=== PATIENT | female | born 1960 | race Caucasian/White ===

== ENCOUNTER 2017-12-02 14:43 | Emergency (ER) | payer MEDICAID, SELFPAY ==
[2017-12-02 14:44] VITALS: BP 134/72; PULSE 98; RESP 24; TEMP 36.8; O2SAT 94; BMI 14.8
[2017-12-02 16:03] VITALS: O2SAT 94
--- NOTE | 2017-12-02 16:36 | EKG12_ITS ---
Test Reason : SOB Blood Pressure : / mmHG Vent. Rate : 093 BPM Atrial Rate : 093 BPM P-R Int : 118 ms QRS Dur : 080 ms QT Int : 352 ms P-R-T Axes : 087 074 080 degrees QTc Int : 437 ms Normal sinus rhythm Right atrial enlargement Borderline ECG Confirmed by TRACY NELSON ([id number]), online editor RACHANA YANG ([id number]) on 12/07/2017 10:13:12 AM Referred By: NICOLE Confirmed By:TRACY NELSON
--- NOTE | 2017-12-02 16:38 | ED.VISSUMM ---
- ER Visit Summary Date of Service: 12/02/17 Chief Complaint: Shortness of breath History of Present Illness: The patient is a 57 F who has a history of alpha-1 antitrypsin deficiency. She wears home oxygen 2 L. She states she does not wear it at work. She states that last night she did not sleep at all she has had a progressive shortness of breath. Today she was out of her albuterol rescue inhaler and her Spiriva. She states that she was too short of breath to go to the pharmacy. She went to stand up to go to work and felt very short of breath and lightheaded so she sat back down. So she came to the emergency department. No fevers. No recent viral infections. Physical Examination: Afebrile vital signs are stable Gen: Well-nourished well-developed Head: Normocephalic atraumatic Eyes: Perrl EOMI ENT: TMs clear no rhinorrhea moist mucous membranes Neck: Supple no lymphadenopathy no JVD nontender CVS: Regular rate rhythm no murmurs normal S1-S2 Respiratory: No distress diminished breath sounds bilaterally chest nontender Abdomen: Soft nontender nondistended normal bowel sounds no masses Back: Nontender Extremity: Nontender no edema Skin: Normal color no rash Neuro: alert orientated ?3 CN II-XII intact normal strength sensation reflexes gait cerebellar Psych: Patient appears very anxious Test Results: Chest x-ray with chronic changes basic blood work showed a CO2 of 36 Emergency Department Course and Treatment: Patient received a DuoNeb and Ativan. She is able to ambulate without oxygen to the bathroom at 92-93%. Start the patient on burst dose prednisone. She is to fill her prescriptions and follow-up with her doctors. Impression: 1. COPD exacerbation 2. Anxiety This note was generated with [employer] dictation software. It may contain incorrect words, spelling, and punctuation that were not noted in review of the chart prior to signing ED Disposition - Plan for ED Patient: Disposition: Home or Assisted Living Chief Complaint: Shortness of Breath Diagnosis: COPD with acute exacerbation Instructions: ED COPD Flare Prescriptions: Prednisone [Deltasone] 40 mg PO DAILY #8 tablet Referrals: Dariel Ortega Chi, MD [Primary Care Provider] - Jamar Carpenter DO [STAFF PHYSICIAN] - 3-5 Days if not improving
[2017-12-02 16:48] VITALS: PULSE 100; RESP 18; O2SAT 100
[2017-12-02] MEDS: Ipratropium/Albuterol Sulfate 3 ML AMPUL.NEB INHALATION (16:48)
--- NOTE | 2017-12-02 17:20 | RAD_ITS ---
STUDY: X-RAY CHEST REASON FOR EXAM: Female, 57 years old. Shortness of breath. COPD. TECHNIQUE: PA and lateral views of the chest. COMPARISON: March 15, 2017 FINDINGS: There is hyperinflation of the lungs consistent with chronic obstructive lung disease (COPD). There are granulomatous calcifications. There is blunting of the costophrenic angles with pleural thickening. Apical fibrotic densities. Normal size heart. Normal mediastinum and nader. Normal visualized pulmonary arteries. Normal visualized aortic arch and descending thoracic aorta. Normal visualized thoracic spine. Healed left rib fracture. There is no demonstrated abnormality of the visualized soft tissue structures of the upper abdomen. RAD/Chest PA and Lateral IMPRESSION: COPD and fibrotic densities. Electronically Signed: Antonio Alicia MD at 18:08 EST , Service support ,
[2017-12-02 17:25] LABS: Absolute Lymphocyte Count 0.93 X10^3/ul (0.83-4.51); Absolute Neutrophil Count 5.6 X10^3/uL (2.0-7.7); Basophil# 0.06 X10^3/uL; Basophil% 0.8 % (0-1); Eosinophil# 0.24 X10^3/uL; Eosinophils% 3.2 % (0-5); Hematocrit 41.3 % (37-47); Hemoglobin 12.7 g/dl (12.0-15.0); Lymphocyte # 0.93 X10^3/ul (4.0); Lymphocyte % 12.4 % (19-41); Mean Corp Hgb Conc 30.8 g/gl (32-36); Mean Corpuscular Hgb 30.8 pg (27.0-32.0); Mean Corpuscular Volume 100.2 fL (81-99); Mean Platelet Vol. 9.6 fl (6.2-12.0); Monocyte# 0.68 X10^3/uL; Monocyte% 9.1 % (0-10); Neutrophil # 5.59 X10^3/uL (2.7-7.7); Neutrophil % 74.4 % (47-70); Platelet Count 290 K/mm3 (150-450); RBC Distribution Width CV 12.7 % (11.6-14.6); RBC Distribution Width SD 45.9 fl (35.1-43.9); Red Blood Count 4.12 M/mm3 (4.2-5.4); White Blood Count 7.5 K/mm3 (4.4-11.0)
[2017-12-02 17:27] LABS: POSITIVE COUNT NO; POSITIVE DIFFERENTIAL NO; POSITIVE MORPHOLOGY NO
[2017-12-02] MEDS: LORazepam 2 MG/ML Syringe 0.5 MG IV (17:27)
[2017-12-02] MEDS: MethylPREDNISolone 125 MG/2 ML Vial IV (17:27)
[2017-12-02 17:36] LABS: Anion Gap 6 (5-15); BUN 5 mg/dL (7-18); BUN/Creat Ratio 11.8 RATIO (10-20); Calcium,Total 9.1 mg/dL (8.5-10.1); Chloride 99 mmol/L (98-107); Creatinine, Serum 0.42 mg/dL (0.55-1.02); EST Glomerular Filtration Rate 164 mL/min (>60); Est Glom Filt Rate - Afr Amer 199 mL/min (>60); Estimated Creatinine Clearance 106.21 ml/min; Glucose 90 mg/dL (70-110); Sodium Level 141 mmol/L (136-145)
[2017-12-02 18:53] VITALS: O2SAT 94
[2017-12-02 18:55] VITALS: BP 118/67; PULSE 52; RESP 16; O2SAT 99
== END 2017-12-02 19:31 | disposition home or self-care (01) ==
PROVIDERS: Emergency Provider Emergency Medicine; Family Provider Family Medicine Geriatric Medicine; PCP Family Medicine Geriatric Medicine
DX: J44.1 Chronic obstructive pulmonary disease with (acute) exacerbation (principal); F41.9 Anxiety disorder, unspecified; Z99.81 Dependence on supplemental oxygen
CPT/HCPCS: 71046; 80048; 85025; 93005; 94640; 96374; 96375; 99285; A4216

== ENCOUNTER 2018-02-06 13:11 | Emergency (ER) | payer MEDICAID, SELFPAY ==
[2018-02-06] VITALS (7 sets, daily range): BP systolic 109–138; BP diastolic 65–75; PULSE 97–101; RESP 16–22; TEMP 36.7; O2SAT 96–100; BMI 15.7
--- NOTE | 2018-02-06 13:17 | RAD_ITS ---
STUDY: X-RAY CHEST REASON FOR EXAM: Female, 57 years old. Increasing shortness of breath times several days TECHNIQUE: Single AP portable view of the chest. COMPARISON: 12/02/2017 FINDINGS: There is hyperinflation of the lungs consistent with chronic obstructive lung disease (COPD). Stable bibasilar scarring or atelectasis. No acute airspace disease. There is no demonstrated pleural abnormality. Normal size heart. Normal mediastinum and nader. Normal visualized pulmonary arteries. Normal visualized aortic arch and descending thoracic aorta. Normal visualized thoracic spine. Normal visualized ribs, clavicles, and shoulders. There is no demonstrated abnormality of the visualized soft tissue structures of the upper abdomen. RAD/Chest 1 View (Portable) IMPRESSION: Stable COPD without acute findings Electronically Signed: Russ Mcfadden DO at 14:10 EDT Tel , Service support ,
--- NOTE | 2018-02-06 13:17 | EKG12_ITS ---
Test Reason : SOB Blood Pressure : / mmHG Vent. Rate : 095 BPM Atrial Rate : 095 BPM P-R Int : 118 ms QRS Dur : 080 ms QT Int : 344 ms P-R-T Axes : 086 087 080 degrees QTc Int : 432 ms Normal sinus rhythm Right atrial enlargement Borderline ECG Confirmed by VICK MONTILLA, PAUL ([id number]), editorial clerk RACHANA YANG ([id number]) on 02/08/2018 1:24:23 PM Referred By: BRADEN Confirmed By:PAUL HICKMAN MD
--- NOTE | 2018-02-06 13:20 | ED.VISSUMM ---
- ER Visit Summary Date of Service: 02/06/18 Chief Complaint: Shortness of breath History of Present Illness: The patient is a 57 F presenting with shortness of breath which started last night. Patient has had a cough productive of clear sputum. She denies fever. She has right-sided chest wall pain with cough. She has dyspnea with exertion. She is on home O2 2 L. She has a history of alpha-1 antitrypsin deficiency. She sees Dr. Carpenter. She was a previous smoker. She also complains of anxiety. Denies other complaints. Physical Examination: Vitals are stable. Patient is afebrile. Alert no acute distress. HEENT exam is unremarkable. Neck is supple. Lungs are diminished bilaterally. Heart is regular rate and rhythm. Abdomen is soft nontender nondistended. Extremities are unremarkable. Skin is warm and dry. No focal neurologic deficit. Anxious Remainder of exam is unremarkable. Emergency Department Course and Treatment: Patient is given Solu-Medrol, albuterol, Atrovent. She was given Ativan p.o. EKG is sinus rate of 95. CBC normal except for hemoglobin 11.6. Chemistries unremarkable CO2 36, glucose 118, creatinine 0.46. Troponin is negative. D-dimer is 0.53. Due to elevated d-dimer, CTA chest was obtained. This shows no evidence of PE, COPD, anterior mediastinal mass. Patient is advised of these findings and importance of follow-up. She is given an albuterol MDI and prednisone prescription. Discussed with Dr. Carpenter and patient will follow-up in the office this week. She is advised return to ED for worsening complaints. Disposition: Discharge home Impression: COPD exacerbation, abnormal CT chest This note was generated with [employer] dictation software. It may contain incorrect words, spelling, and punctuation that were not noted in review of the chart prior to signing ED Disposition - Plan for ED Patient: Chief Complaint: Shortness of Breath Instructions: ED COPD Flare Prescriptions: Prednisone [Deltasone] 40 mg PO DAILY #10 tablet Referrals: Dariel Ortega Chi, MD [Primary Care Provider] -
[2018-02-06] MEDS: Ipratropium/Albuterol Sulfate 3 ML AMPUL.NEB INHALATION (13:27)
[2018-02-06] MEDS: Albuterol 2.5 MG/3 ML VIAL.NEB. INHALATION ×3 (13:27)
[2018-02-06] MEDS: MethylPREDNISolone 125 MG/2 ML Vial IV (13:46)
[2018-02-06 13:51] LABS: Absolute Lymphocyte Count 1.02 X10^3/ul (0.83-4.51); Absolute Neutrophil Count 4.7 X10^3/uL (2.0-7.7); Basophil# 0.07 X10^3/uL; Eosinophil# 0.25 X10^3/uL; Eosinophils% 3.6 % (0-5); Hematocrit 36.7 % (37-47); Hemoglobin 11.6 g/dl (12.0-15.0); Lymphocyte # 1.02 X10^3/ul (4.0); Lymphocyte % 14.6 % (19-41); Mean Corp Hgb Conc 31.6 g/gl (32-36); Mean Corpuscular Hgb 32.3 pg (27.0-32.0); Mean Corpuscular Volume 102.2 fL (81-99); Mean Platelet Vol. 9.6 fl (6.2-12.0); Monocyte# 0.95 X10^3/uL; Monocyte% 13.6 % (0-10); Neutrophil # 4.71 X10^3/uL (2.7-7.7); Neutrophil % 67.1 % (47-70); Platelet Count 295 K/mm3 (150-450); RBC Distribution Width CV 12.8 % (11.6-14.6); RBC Distribution Width SD 46.8 fl (35.1-43.9); Red Blood Count 3.59 M/mm3 (4.2-5.4)
[2018-02-06 13:52] LABS: POSITIVE COUNT NO; POSITIVE DIFFERENTIAL NO; POSITIVE MORPHOLOGY NO
[2018-02-06 14:08] LABS: Anion Gap 5 (5-15); BUN 8 mg/dL (7-18); BUN/Creat Ratio 17.2 RATIO (10-20); Chloride 98 mmol/L (98-107); Creatinine, Serum 0.46 mg/dL (0.55-1.02); D-Dimer Quantitative (DVT/PE) 0.53 FEU/ug/m (0.27-0.49); EST Glomerular Filtration Rate 148 mL/min (>60); Est Glom Filt Rate - Afr Amer 179 mL/min (>60); Estimated Creatinine Clearance 102.31 ml/min; Glucose 118 mg/dL (74-106); Potassium 4.4 mmol/L (3.5-5.1); Sodium Level 139 mmol/L (136-145)
--- NOTE | 2018-02-06 14:09 | CT_ITS ---
STUDY: CTA CHEST REASON FOR EXAM: Female, 57 years old. Elevated D dimer and chest pain and shortness of breath RADIATION DOSAGE (If Supplied By Facility): CTDIvol = ( 3.31 ) mGy, DLP = ( 171.33 ) mGycm TECHNIQUE: The examination was performed with the intravenous administration of 75ML ml of Isovue 370 contrast material. Post-processing of the angiographic images was performed, with multiplanar reformation and 3D reconstruction. Individualized dose optimization techniques were used for this CT. COMPARISON: None. FINDINGS: Unremarkable thyroid Normal enhancement of the main pulmonary artery and right and left pulmonary arteries. Normal enhancement of the bilateral peripheral pulmonary arteries. There is no demonstrated pulmonary embolism. Normal thoracic aorta and visualized great vessels. There is no demonstrated aortic dissection. Normal heart and pericardium. Coronary artery disease. There is a anterior mediastinal mass measuring 4.2 x 5.3 cm. Normal hilar regions. Normal visualized trachea and bronchi. Severe COPD and emphysema throughout the lungs. No acute airspace disease. Fibronodular thickening in the lung apices. Pleural based nodule in the left lower lobe superiorly measuring 6 mm. Normal pleura. Normal chest wall structures. There are degenerative changes of thoracic spine. Normal visualized upper abdomen. CT/CTA Chest W/WO Contrast IMPRESSION: 1. Negative for pulmonary embolism or thoracic aortic dissection 2. Severe COPD and emphysema. Lungs are clear. Superior segment left lower lobe pulmonary nodule along the fissure. 3. Suspicious and heterogeneously enhancing anterior mediastinal mass as detailed above. Malignancy cannot be excluded. Electronically Signed: Russ Mcfadden DO at 15:29 EDT Tel , Service support ,
--- NOTE | 2018-02-06 14:22 | ED.RN ---
ddimer 0.[address] called from the lab. dr patel aware
[2018-02-06] MEDS: LORazepam 0.5 MG Tablet PO (14:29)
--- NOTE | 2018-02-06 15:56 | ED.DEP ---
ED Disposition - Plan for ED Patient: Chief Complaint: Shortness of Breath Instructions: ED COPD Flare Prescriptions: Prednisone [Deltasone] 40 mg PO DAILY #10 tablet Referrals: Dariel Ortega Chi, MD [Primary Care Provider] -
== END 2018-02-06 16:28 | disposition home or self-care (01) ==
PROVIDERS: Emergency Provider Emergency Medicine; Family Provider Family Medicine Geriatric Medicine; PCP Family Medicine Geriatric Medicine
DX: J44.1 Chronic obstructive pulmonary disease with (acute) exacerbation (principal); R91.8 Other nonspecific abnormal finding of lung field; Z99.81 Dependence on supplemental oxygen; E88.01 Alpha-1-antitrypsin deficiency; Z87.891 Personal history of nicotine dependence
CPT/HCPCS: 71045; 71275; 80048; 84484; 85025; 85379; 93005; 94640; 99285; Q9967; A4216

== ENCOUNTER → 2018-02-17 12:12 | Outpatient (CLI) | payer MEDICAID, SELFPAY ==
[2018-02-17 13:36] LABS: Absolute Lymphocyte Count 1.46 X10^3/ul (0.83-4.51); Absolute Neutrophil Count 5.7 X10^3/uL (2.0-7.7); Basophil# 0.06 X10^3/uL; Basophil% 0.7 % (0-1); Eosinophil# 0.48 X10^3/uL; Eosinophils% 5.3 % (0-5); Hematocrit 43.3 % (37-47); Lymphocyte # 1.46 X10^3/ul (4.0); Lymphocyte % 16.2 % (19-41); Mean Corpuscular Hgb 30.6 pg (27.0-32.0); Mean Corpuscular Volume 101.9 fL (81-99); Mean Platelet Vol. 9.9 fl (6.2-12.0); Monocyte# 1.29 X10^3/uL; Monocyte% 14.3 % (0-10); Neutrophil # 5.71 X10^3/uL (2.7-7.7); Neutrophil % 63.4 % (47-70); Platelet Count 295 K/mm3 (150-450); RBC Distribution Width CV 12.9 % (11.6-14.6); RBC Distribution Width SD 48.6 fl (35.1-43.9); Red Blood Count 4.25 M/mm3 (4.2-5.4)
[2018-02-17 13:42] LABS: POSITIVE COUNT NO; POSITIVE DIFFERENTIAL NO; POSITIVE MORPHOLOGY NO
[2018-02-17 13:46] LABS: International Normalized Ratio 1.1; Prothrombin Time (Protime)PT. 13.7 SECONDS (11.7-14.9)
[2018-02-17 13:47] LABS: Partial Thromboplast Time 27.6 Seconds (24.1-36.2)
== END ==
PROVIDERS: Family Provider Family Medicine Geriatric Medicine; PCP Family Medicine Geriatric Medicine; Visit Provider Nurse Practitioner Acute Care
DX: R91.8 Other nonspecific abnormal finding of lung field (principal)
CPT/HCPCS: 36415; 85025; 85610; 85730

== ENCOUNTER → 2018-02-22 08:27 | Outpatient (CLI) | payer MEDICAID, SELFPAY ==
--- NOTE | 2018-02-22 | IMM_PTH ---
PATIENT: OLIVE MAZARIEGOS LOC: CT U#:[id number] AGE/SX: 64/F ROOM: RE02/22/[address]: POLA Wharton : 1960 BED: DIS: SPEC #: [id number] RECD: 02/23/18 10:00 STATUS: JEAN-PIERRE REOlivia #: [id number] ADRIANNA: 02/22/18 00:[address]: Betty Banerjee NP DEPT: IMMUNOHISTOCHEMISTRY RECD BY: Juanita Vallejo ENTERED: 02/23/18 10:04 SP TYPE: IMMUNO OTHR DR: Dr. Dariel Ortega MD Tissues: Lung, NOS Procedures: Synapto (add) CD56 (add) CHROMO (add) CK20 (add) CK7 (add) CK8 (add) CD45 (initial) PHYSICIAN & INSTITUTION [place] [phone] SPECIMEN INFORMATION: Tissue Source: Anterior lung/mediastinal mass Clinical Info: Lung/mediastinal mass Specimen Number: [id number] CPT code: 32872, 98249 x6 METHODOLOGY: Deparaffinized sections of prefer/formalin-fixed tissue or PAP/DQ stained slides are incubated with monoclonal/polyclonal antibodies/oligonucleotide probes. Localization is made via biotin free immunoperoxidase method. Appropriate controls are performed and reacted as expected. Results on target cell population are indicated in the following table: RESULTS: ANTIBODY / CLONE RESULT CD45 (RP2/18) negative CK8 (00enkyE43) positive CK7 (OV-TL12/30) positive Chromo (LK2H10) positive Synapto (polyclonal) positive CD56 (123C3.D5) positive CK20 (KS20.8) negative These tests were developed and their performance characteristics determined by [facility]. They may not have been cleared or approved by the U.S. Food and Drug Administration. The FDA has determined that such clearance or approval is not necessary. INTERPRETATION: Anterior lung/mediastinal mass, CT-guided core biopsy: Consistent with small cell carcinoma. SJ:ijeoma 02/24/18
--- NOTE | 2018-02-22 | ASPIGT_PTH ---
PATIENT: OLIVE MAZARIEGOS LOC: [place] U#:[id number] AGE/SX: 64/F ROOM: RE02/22/[address]: POLA Wharton : 1960 BED: DIS: SPEC #: [id number] RECD: 02/22/18 10:54 STATUS: JEAN-PIERRE BRITTNEE #: [id number] ADRIANNA: 02/22/18 00:[address]: Betty Banerjee NP DEPT: SURGICAL PATHOLOGY RECD BY: David Beverly ENTERED: 02/22/18 10:56 SP TYPE: ASP RAD OTHR DR: Dr. Dariel Ortega MD Tissues: Lung, NOS Procedures: FNA Specimen Adequacy Special Stain Group II Surgery Specimen Level IV Diff Quik Stain (control) Imprint (control) HEADER OPERATION: CT-guided lung biopsy PRE-OP DIAGNOSIS: Lung/mediastinal mass TISSUE SUBMITTED: 20 gauge core x5, lung/anterior mediastinal mass, core biopsy MICROSCOPIC DIAGNOSIS Lung/anterior mediastinal mass, CT-guided core biopsy: Consistent with small cell carcinoma. See comment. RENATE:ijeoma 02/23/18 COMMENT The specimen is evaluated at the time of biopsy by Dr. Chaudhry. 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 Differential diagnosis includes lymphoma vs small cell carcinoma. One core is saved for flow if needed. Immunohistochemistry ([id number]) supports the above diagnosis. Case has been reviewed in consultation with Dr. Cuadra who concurs with the above diagnosis. IDC:AM MICROSCOPIC DESCRIPTION Slides are reviewed. GROSS DESCRIPTION Received in fixative is one container labeled with the patient's name and designated lung/mediastinal mass, CT-guided core biopsy. The specimen consists of multiple irregular fragments of patel soft tissue that in aggregate measure 0.5 x <0.1 x <0.1 cm. The specimen is totally submitted in one cassette. Two touch imprints are prepared at the time of core biopsy and one core is also saved for flow cytometry study in case it is needed. / RENATE:ijeoma 02/22/18 The tissue saved for flow cytometry studies is submitted in cassette #2, a cell block is also made from the fluid. / RENATE 02/23/18. TC:0 CPT: 33271, 13727
--- NOTE | 2018-02-22 08:33 | CT_ITS ---
PROCEDURE: CT GUIDED CORE NEEDLE BIOPSY OF An anterior mediastinal mass INDICATION: Female, 57 years old. Anterior mediastinal mass. PHYSICIAN: Dr.Pedicelli Henrietta Ceballos CONSENT: Written informed consent was obtained having explained the risks, benefits and alternatives in detail with the patient who accepted the risks and agreed to proceed. Laboratory review and clinical assessment was performed. CONSCIOUS SEDATION PROTOCOL: The Drugs used were: 1 mg Versed, IV., and 25 mcg Fentanyl, IV. The sedation time was: 17 minutes. Conscious sedation was started at 10:10 AM and terminated at 10:27 AM. The conscious sedation protocol was independently monitored. RADIATION DOSAGE (If Supplied By Facility): CTDIvol = ( 12 ) mGy, DLP = ( 268.34 ) mGycm Individualized dose optimization techniques were used for this CT. TECHNIQUE: The patient was placed in the supine position. A noncontrast CT was performed to localize the lesion in the anterior mediastinum . The skin surface was prepped and draped in a sterile fashion. 1% lidocaine was used for local anesthesia. Using CT guidance, a 20-gauge coaxial biopsy device was advanced to the periphery of the lesion. A total of 5 core specimens were obtained. The specimens were placed in a formalin solution. A post procedure CT demonstrated no adverse sequelae or pneumothorax. The patient tolerated the procedure well without adverse event. A negative biopsy does not exclude malignancy. Further imaging or clinical followup based on patient condition and degree of clinical suspicion for malignancy. Suggest rebiopsy, if biopsy results do not match with clinical scenario. CT/Biopsy/Inj or Needle Placement IMPRESSION: 1. CT directed core needle biopsy of the anterior mediastinal mass using CT image guidance with image documentation as described. Pathology results are pending. 2. Conscious Sedation protocol utilized with independent monitoring. Electronically Signed: Matt Logan MD at 12:40 EDT Tel [phone], Service support ,
[2018-02-22 09:27] VITALS: BP 132/56; PULSE 101; RESP 24; TEMP 37.2; O2SAT 99; BMI 14.1
--- NOTE | 2018-02-22 10:45 | RAD_ITS ---
STUDY: X-RAY CHEST REASON FOR EXAM: Female, 57 years old. Post anterior mediastinal biopsy. TECHNIQUE: Frontal inspiration and expiration views were obtained. COMPARISON: Comparison is made with prior study dated February 06, 2018. FINDINGS: The patient is status post left anterior mediastinal biopsy. There is no evidence of pneumothorax. RAD/Chest Insp/Exp 2 View IMPRESSION: No evidence of pneumothorax on the post biopsy radiograph. Electronically Signed: Matt Logan MD at 12:52 EDT Tel [phone], Service support ,
[2018-02-22 13:30] VITALS: BP 130/64; PULSE 102; RESP 20; O2SAT 100
== END ==
PROVIDERS: Family Provider Family Medicine Geriatric Medicine; PCP Family Medicine Geriatric Medicine; Visit Provider Nurse Practitioner Acute Care
DX: C34.90 Malignant neoplasm of unspecified part of unspecified bronchus or lung (principal); R91.8 Other nonspecific abnormal finding of lung field
CPT/HCPCS: 32405; 71046; 77012; 88172; 88305; 88313; 88341; 88342; 99156; 99157; J7040; A4216

== ENCOUNTER → 2018-03-01 12:48 | Outpatient (CLI) | payer MEDICAID, SELFPAY ==
--- NOTE | 2018-03-01 13:10 | RAD_ITS ---
STUDY: X-RAY CHEST REASON FOR EXAM: Female, 57 years old. Dyspnea TECHNIQUE: PA and lateral views of the chest. COMPARISON: Previous study of 02/22/2018 FINDINGS: The lungs are hyperinflated. There is a calcified granuloma of the left upper lobe. There is hemidiaphragmatic flattening. There is an increased retrosternal airspace. Normal size heart. There is anterior mediastinal mass measuring approximately 8.4 x 5.1 cm. Normal visualized pulmonary arteries. Normal visualized aortic arch and descending thoracic aorta. Normal visualized thoracic spine. Normal visualized ribs, clavicles, and shoulders. There is no demonstrated abnormality of the visualized soft tissue structures of the upper abdomen. RAD/Chest PA and Lateral IMPRESSION: Hyperinflation of the lungs, hemidiaphragmatic flattening, and increased retrosternal airspace consistent with COPD. There is an anterior mediastinal mass measuring approximately 8.4 x 5.1 cm. There is a small calcified granuloma of the left upper lobe. There is no pneumothorax. Electronically Signed: Uriel Sommer MD at 18:06 EDT , Service support ,
== END ==
PROVIDERS: Family Provider Family Medicine Geriatric Medicine; PCP Family Medicine Geriatric Medicine; Visit Provider Nurse Practitioner Acute Care
DX: J44.9 Chronic obstructive pulmonary disease, unspecified (principal)
CPT/HCPCS: 71046

== ENCOUNTER → 2018-03-07 10:37 | Outpatient (CLI) | payer MEDICAID, SELFPAY ==
--- NOTE | 2018-03-07 11:00 | PET_ITS ---
EXAMINATION: FDG PET CT INDICATIONS: A 57-year-old female with reported history of carcinoma of the lung presenting for initial staging examination. COMPARISON EXAMINATION: CT of the chest report dated 02/06/18. INDEX LESION SIZE SUV INTERPRETATION Pre-carinal level anterior mediastinum, left thoracic perihilum 59.2 mm x 45.7 mm largest (frame 197) 8.5 (max) Fulfills quantitative criteria for viable neoplasm Left lobe hepatic parenchyma segment IV a 10.2 mm (frame 135) 3.2 ratio R 2.0 Fulfills borderline quantitative criteria for viable neoplasm, correlation with magnetic resonance imaging may be of benefit TECHNIQUE: Following the intravenous administration of 13.55 mCi of F-18 deoxyglucose via the left antecubital fossa, multiplanar image acquisitions of the neck, chest, abdomen and pelvis to level of mid thigh, obtained at one hour post radiopharmaceutical administration contemporaneously interpreted with the current CT of the neck, chest, abdomen and pelvis to level of mid thigh, dated 03/07/[address] of the chest report dated 02/06/18 reveal: SERUM GLUCOSE LEVEL: 105 mg/dl. HEIGHT: 68 inches. WEIGHT: 95 lbs. FINDINGS: 1. Increased glucose metabolism is manifest in the pre-carinal level anterior mediastinum and left thoracic perihilum generating a calculated maximum standard uptake value of 8.5. The maximal axial diameter of the corresponding metabolic, morphologic abnormality on review of CT of the thorax dated 03/07/18 is 59.2 mm (transverse) x 45.7 mm (AP). 2. A single focus of increased glucose concentration is demonstrated in the left lobe of the hepatic parenchyma (2.1) involving segment IV a generating a calculated maximum standard uptake value of 3.2 with a lesion to liver background ratio approximating 2.0. The maximal axial diameter of the metabolic abnormality on review CT of the abdomen dated 03/07/18 is 10.2 mm (transverse). 3. Normal physiologic distribution of the radiopharmaceutical is apparent in the splenic parenchyma, both renal units, bladder and visualized intestinal tract. There is symmetric and preserved glucose metabolism noted in the visualized portion of the frontal, occipital, temporal and parietal lobes of the cerebral cortex, as well as cerebral hemispheres and basal ganglia. Diffuse intestinal tract activity is noted throughout all four quadrants of the abdominal-pelvic retroperitoneum, mesentery consistent with normal physiologic distribution of the radiopharmaceutical. Prominent glucose metabolism is defined at the level of the nasopharynx contiguous to the longus capitis musculature. Pertinent CT findings are as follows. CHEST: Emphysematous change is noted in the bilateral upper-lower lung zones. Parenchymal densities defined in the bilateral hemithorax demonstrate no evidence of quantitatively significant increased glucose metabolism. Atherosclerotic calcification is defined in the thoracic aorta without evidence of dilatation, aneurysm formation. Right-left axillary soft tissue densities are ametabolic. ABDOMEN AND PELVIS: Atherosclerotic calcification is defined in the abdominal aorta without evidence of dilatation, aneurysm formation. Pelvic arterial calcification is observed. Calcified granuloma formation is noted within the splenic parenchyma. Calcification is defined in the right kidney. Bilateral inguinal soft tissue densities are non-glucose avid. SKELETAL: Degenerative changes defined in the cervical, thoracic and lumbar spine demonstrate no evidence for glucose hypermetabolism. PET/PET/CT Tumor Base -Thigh Init IMPRESSION: 1. ABNORMAL EXAMINATION INDICATIVE OF MALIGNANT VIABLE NEOPLASM. 2. Increased glucose concentration defined in the pre-carinal level anterior mediastinum and left thoracic perihilum fulfills quantitative criteria for viable neoplasm. (Barb et al, Journal of Clinical Oncology 16:2142, 1998). 3. Facilitated glucose concentration observed in the left lobe hepatic parenchyma fulfills borderline quantitative criteria for viable neoplasm. (Yesica et al, Archives of Surgery, 133:510 1998). Correlation with magnetic resonance imaging utilizing Gd-EOB-DTPA may be of benefit for further evaluation. (Rejiati et al, J Nucl Med 51: 692, 2010). Electronic Signature Eduin Barron D.O. Electronically Signed: Eduin Barron DO at 23:53 EDT Tel , Service support ,
== END ==
PROVIDERS: Family Provider Family Medicine Geriatric Medicine; PCP Family Medicine Geriatric Medicine; Visit Provider Nurse Practitioner Acute Care
DX: C78.1 Secondary malignant neoplasm of mediastinum (principal); C80.1 Malignant (primary) neoplasm, unspecified
CPT/HCPCS: 78815; A9552; A4216

== ENCOUNTER → 2018-03-11 13:24 | Outpatient (CLI) | payer MEDICAID, SELFPAY ==
--- NOTE | 2018-03-11 13:29 | VDLE_ITS ---
Reason For Study: LEG SWELLING RIGHT GSV is normal. CFV is compressible, spontaneous, phasic, competent and demonstrates normal augmentation. FV is compressible, spontaneous, phasic, competent and demonstrates normal augmentation. POP V is compressible, spontaneous, phasic, competent and demonstrates normal augmentation. T/P Trunk is compressible. PTV is compressible. RT PerV is compressible. Procedure Exam performed in department. A preliminary report was called and/or faxed to Dr. Garduno. Interpretation Summary Deep veins of the right lower extremity are patent and compressible segmentally. There is no evidence of right lower extremity deep vein thrombosis. Valvular competence appears intact within the proximal deep venous system on the right . The right greater saphenous vein appears patent and compressible segmentally. Ordering Physician: Nathan Garduno Referring Physician: Dariel Ortega Chi Performed By: Apple Ruggiero RVT
== END ==
PROVIDERS: Family Provider Family Medicine Geriatric Medicine; PCP Family Medicine Geriatric Medicine; Visit Provider Internal Medicine Medical Oncology
DX: R60.9 Edema, unspecified (principal)
CPT/HCPCS: 93971

== ENCOUNTER 2018-03-14 05:49 | Day surgery (SDC) | payer MEDICAID, SELFPAY ==
[2018-03-14 06:21] VITALS: BP 99/34; PULSE 96; RESP 18; TEMP 36.8; O2SAT 100; BMI 14.1
[2018-03-14] MEDS: Cefazolin 2 GM in 0.9% Normal Saline 100 ML IV (08:20)
[2018-03-14] MEDS: Bupivacaine Mpf 0.5% 30 ML VIAL (08:45)
[2018-03-14 09:12] VITALS: BP 144/69; BP 99/34; PULSE 93; RESP 18; TEMP 36.5; O2SAT 100
[2018-03-14 09:17] VITALS: BP 138/71; BP 99/34; PULSE 94; RESP 18; O2SAT 100
--- NOTE | 2018-03-14 09:21 | RAD_ITS ---
STUDY: X-RAY CHEST REASON FOR EXAM: Female, 57 years old. Port placement TECHNIQUE: Single AP portable view of the chest. COMPARISON: 03/01/2018 FINDINGS: Implanted central catheter is seen overlying the right chest with the tip in the SVC. There is no pneumothorax. The lungs are hyperinflated. There is no demonstrated pleural abnormality. Normal size heart. Mediastinal mass is unchanged. Normal visualized pulmonary arteries. Normal visualized aortic arch and descending thoracic aorta. There are diffuse degenerative changes of the visualized thoracic spine. Remote left rib fracture is seen. There is no demonstrated abnormality of the visualized soft tissue structures of the upper abdomen. RAD/CXR for Line Placement IMPRESSION: New implanted port without pneumothorax. Hyperinflation. Mediastinal mass is unchanged. Electronically Signed: Alex Alvarez DO at 9:51 EDT Tel , Service support ,
[2018-03-14 09:22] VITALS: BP 131/68; BP 99/34; PULSE 98; RESP 18; O2SAT 100
--- NOTE | 2018-03-14 09:22 | PCM.DC.POR ---
Discharge Diet: No Restrictions - Pain medication may cause nausea. You should typically eat light foods as you take your pain medication. Discharge Activity: Return to Normal Activity, May Shower - with your bandage in place in 1-2 days after surgery. DO NOT SHOWER WHEN YOUR PORT IS ACCESSED. Call your doctor if your incision/area has: Continuous Slow Oozing, Sudden Increased Bleeding, Increased Pain/ Swelling, Increased Redness Call your doctor if you observe: Fever of 101 or Higher Remove Dressing in (days):: 2 - OK TO USE WEDNESDAY Allergies/Adverse Reactions: Allergies morphine Allergy (Verified 03/11/18 15:57) Itching Medications to take at Discharge Cyanocobalamin [Vitamin B12] 500 mcg PO DAILY@0800 09/06/16 Multivitamins,Therapeutic [Multivitamin] 1 tab PO DAILY 09/06/16 Tiotropium [place] [Spiriva] 18 mcg IH DAILY #1 cap.w.dev 03/17/17 Ergocalciferol [Vitamin D] 50,000 unit PO QMONTH 07/31/17 Paroxetine HCl [Paxil] 40 mg PO DAILY 07/31/17 fluticasone 50 mcg/actuation nasal spray,suspension 50 mcg INTRANASAL QDAY PRN 12/06/17 albuterol sulfate 2.5 mg/3 mL (0.083 %) solution for nebulization 2.5 mg INHALATION 4X/DAY PRN 30 Days #180 vial 02/17/18 albuterol sulfate HFA 90 mcg/actuation aerosol inhaler 1 - 2 puff INHALATION Q4H PRN PRN #1 inhaler 02/17/18 budesonide-formoterol HFA 160 mcg-4.5 mcg/actuation aerosol inhaler 2 puff INHALATION BID #1 hfa.aer.ad 02/17/18 Primary Care Physician: Dariel Ortega Chi, MD [Primary Care Provider] - Please Follow Up With: Estevan Liriano MD When: call to make 7-10 day appt for suture removal [phone]
--- NOTE | 2018-03-14 09:23 | PCM.OPRPT ---
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 Ultrasound was used to evaluate both IJ is in the right IJ was selected. Next, using a needle, the right IJ was accessed and a guidewire was passed on into the superior vena cava under fluoroscopy guidance. A small incision was made over the puncture site and the dilator introducer was placed over the guidewire. Next this was capped and the pocket was made for the port. 1% lidocaine with epinephrine was injected in the proposed port site. The port site had to be very low on the chest due to her low weight and small amount of subcutaneous tissue. There were a lot of bony protuberances up toward the clavicle so this was made in the mid chest. An incision was made with scalpel. Electrocautery was used to make a pocket under the skin and subcutaneous tissue. Hemostasis was obtained. Next, the catheter was tunneled up to the neck incision site and placed through the introducer. The peel-away introducer was removed and the position of the catheter was confirmed on fluoroscopy. Next, the catheter was trimmed and attached to the port with the locking device. Interrupted 2-0 Vicryls were used to anchor the port to the chest wall and then the port was placed inside the pocket. The pocket was then flushed with saline and the port irrigated with saline. There was good blood return and the port flushed easily. Next, heparin was injected into the port. The skin was closed with subcutaneous interrupted 3-0 Vicryl sutures and interrupted skin 3-0 nylon sutures. A single 3-0 Vicryl sutures placed under the skin at the neck incision site. Steri-Strips were placed as well as op sites. Patient tolerated procedure well, was taken to PACU in stable condition. Chest x-ray will be obtained. Grafts/Implants Used: 6 [place] Low Profile PowerPort
[2018-03-14 09:27] VITALS: BP 121/65; BP 99/34; PULSE 93; RESP 18; TEMP 36.3; O2SAT 100
[2018-03-14 10:01] VITALS: BP 99/34
== END 2018-03-14 10:38 | disposition home or self-care (01) ==
LOC: SDC 05:49 → AC 05:50
PROVIDERS: Family Provider Family Medicine Geriatric Medicine; PCP Family Medicine Geriatric Medicine; Visit Provider Surgery
PROC: (CPT 36561; principal; 2018-03-14 08:00)
DX: Z45.2 Encounter for adjustment and management of vascular access device (principal); C78.1 Secondary malignant neoplasm of mediastinum; C34.90 Malignant neoplasm of unspecified part of unspecified bronchus or lung; F41.9 Anxiety disorder, unspecified; J44.9 Chronic obstructive pulmonary disease, unspecified; K21.9 Gastro-esophageal reflux disease without esophagitis; Z87.891 Personal history of nicotine dependence
CPT/HCPCS: 00532; 36561; 71045; 77001; J7120; C1788

== ENCOUNTER → 2018-03-19 09:08 | Outpatient (CLI) | payer MEDICAID, SELFPAY ==
--- NOTE | 2018-03-19 09:15 | MRI_ITS ---
STUDY: MRI BRAIN WITH AND WITHOUT CONTRAST REASON FOR EXAM: Female, 57 years old. New Small cell lung CA diagnosis, dizziness TECHNIQUE: Standardized multiplanar fat and water weighted pulse sequences were obtained. 5 ml of Gadavist contrast material was administered intravenously for the contrast portion of the examination. COMPARISON: None. FINDINGS: Normal size of the ventricles and extra-axial spaces for the patient's age. Normal white matter tracts of the supratentorial brain. Normal bilateral basal ganglia. Normal thalami. There is no extra-axial fluid accumulation. Normal flow voids within the major intracranial circulation suggesting patency by spin echo criteria. Normal venous enhancement. There is no enhancing intra-axial or extra-axial abnormality. Normal sella turcica, pituitary gland, infundibular stalk, optic chiasm and hypothalamus. Normal tectal plate and pineal gland. Normal midbrain, elmer and medulla. Normal cerebellum. Normal basal cisterns. Normal bilateral temporal bones. Normal bilateral internal auditory canals. No demonstrated orbital abnormality, within the constraints of a routine brain study. Normal visualized paranasal sinuses. Normal calvarium and skull base. Normal visualized soft tissue structures. Normal visualized upper cervical spine. MRI/Brain W/WO Contrast IMPRESSION: Normal unenhanced and enhanced MRI of the brain. Electronically Signed: Amarilis Garrett MD at 13:18 EDT Tel , Service support ,
== END ==
PROVIDERS: Family Provider Family Medicine Geriatric Medicine; PCP Family Medicine Geriatric Medicine; Visit Provider Nurse Practitioner Acute Care
DX: J44.9 Chronic obstructive pulmonary disease, unspecified (principal)
CPT/HCPCS: 70553; A9585

== ENCOUNTER → 2018-05-04 14:18 | Outpatient (CLI) | payer MEDICAID, SELFPAY ==
--- NOTE | 2018-05-04 14:20 | CT_ITS ---
STUDY: CT ABDOMEN WITH CONTRAST REASON FOR EXAM: Female, 57 years old. Lung cancer. RADIATION DOSAGE (If Supplied By Facility): CTDIvol = ( ) mGy, DLP = ( ) mGycm TECHNIQUE: Transaxial images were obtained post I.V. administration of 100 ml of Isovue 300 contrast, and with oral contrast. Sagittal and coronal images were reconstructed. Individualized dose optimization techniques were used for this CT. COMPARISON: PET CT March 07, 2018 FINDINGS: There are diffuse emphysematous blebs in the visualized lung bases. The visualized portions of the heart are within normal limits. Normal liver. The focus of increased FDG activity in the anterior margin of segment 4 on PET scan is not apparent here. The patent portal vein diameter is 12 mm. Normal gallbladder and extrahepatic biliary system. The diameter of the common bile duct in the pancreatic head is 3 mm. Normal spleen. Normal pancreas. Normal bilateral adrenal glands. Nonobstructing 1-2 mm stone seen at the midpole of the right kidney on series 3 image 35, series 604 image 55. Normal left kidney. No hydronephrosis. There is residual contrast in the fundus of the nondistended stomach. The visualized small intestine is not opacified, but unremarkable. Oral contrast is mixed with fecal material in unremarkable segments of the visualized colon. There is non-visualization of the appendix. There is also moderate atherosclerotic calcification of the abdominal aorta and visualized proximal iliac arteries, but without a demonstrated aneurysm. Normal inferior vena cava. Normal retroperitoneum. Normal abdominal wall. There is mild degenerative disc height narrowing of the L4-[address]/Abdomen WITH IV Contrast IMPRESSION: 1. No demonstrated sign of abdominal metastatic disease. The site of increased FDG activity in the anterior margin of segment 4 of the liver on PET scan February 2018 is not apparent here. 2. Nonobstructing 1 to 2 mm stone at the midpole of the right kidney. No hydronephrosis. 3. Moderate aortoiliac atherosclerotic calcification. No demonstrated aneurysm. 4. Diffuse emphysematous changes in the visualized lung bases. Electronically Signed: Ramin Wilson MD at 15:29 EDT , Service support ,
--- NOTE | 2018-05-04 14:24 | CT_ITS ---
STUDY: CT CHEST/THORAX WITH CONTRAST REASON FOR EXAM: Female, 57 years old. Lung cancer. RADIATION DOSAGE (If Supplied By Facility): CTDIvol = ( 7.20 ) mGy, DLP = ( 300.84 ) mGycm TECHNIQUE: Transaxial imaging was performed following intravenous administration of 100 ml of Isovue 300 contrast material. Multiplanar coronal and sagittal images were reformatted. Individualized dose optimization techniques were used for this CT. COMPARISON: PET CT March 07, 2018; portable AP views of the chest March 14, 2018. FINDINGS: The hub of a MediPort is seen in the needle anterior soft tissues of the right chest wall. Catheter extends from the lower right internal jugular vein to the superior vena cava. There is hyperinflation of the lungs consistent with chronic obstructive lung disease (COPD). There are emphysematous changes of the lungs with blebs diffusely in both lung cole. There is stable pleural-parenchymal scarring in the right superior sulcus as well as a few curvilinear densities are probable scarring in the posterior periphery of the right upper lobe. Subsegmental atelectasis seen in the medial right middle lobe. Normal heart and pericardium. Unchanged is a mildly lobulated 6 x 4.9 x 6.3 cm high anterior mediastinal/retromanubrial soft tissue mass consistent with the patient's known malignancy. The mass is inseparable from the anterior margin of the trachea just below the thoracic inlet, the anterior margins of the right brachiocephalic trunk and bilateral common carotid arteries, the left lateral margin of the right brachiocephalic vein and upper superior vena cava, as well as the posterior margin of the manubrium. Not all of the systemic venous structures are well opacified, but I suspect the mass compresses/obstructs the left brachiocephalic vein. There are a few borderline to mildly enlarged precarinal lymph nodes, as well as nodes measuring upper normal size to borderline enlarged in the right hilum. The area of abnormal FDG uptake in the aorticopulmonary window correlates to subcentimeter nodular soft tissue densities typical of nonspecific lymph nodes. There are calcified left suprahilar lymph nodes. Normal enhanced pulmonary arteries. There is atherosclerotic calcification of the aortic arch and ostia of the brachiocephalic arteries. There are no demonstrated pulmonary emboli. There is an old healed fracture deformity of the posterior left 10th rib. There is subtly heterogeneous contrast enhancement along the anterior subcapsular margin of the left lobe of the liver, but the focus of abnormal FDG uptake in segment 4 on PET/CT is not clearly depicted here as a discrete lesion. CT/Chest WITH Contrast IMPRESSION: 1. Mildly lobulated 6.3 cm high anterior mediastinal soft tissue mass correlates to the patient's known malignancy. This is inseparable from many of the adjacent mediastinal structures and posterior margin of the manubrium. 2. A chemotherapy port in the right anterior chest wall has a catheter passing through the patent right jugular and brachiocephalic veins to the superior vena cava. Although not visualized, I suspect the left brachiocephalic vein is severely compressed/occluded. 3. There are a few borderline to mildly enlarged precarinal lymph nodes and upper normal to borderline enlarged central right hilar lymph nodes. These do not suspicious FDG uptake on the February 2018 PET/CT. An area of abnormal near the aorticopulmonary window on that exam appears to correlate to nonspecific sized lymph nodes on the scan today. 4. Mildly heterogeneous 7 capsular contrast enhancement along the anterior left lobe of liver. The focus of abnormal FDG uptake in segment 4 on the earlier PET CT is not clearly seen as a discrete lesion, however. 5. Hyperexpanded with diffuse emphysematous changes. There is probable scarring in the posterior right upper lobe and right superior sulcus. Electronically Signed: Ramin Wilson MD at 16:14 EDT , Service support ,
== END ==
PROVIDERS: Family Provider Family Medicine Geriatric Medicine; PCP Family Medicine Geriatric Medicine; Visit Provider Internal Medicine Medical Oncology
DX: C34.90 Malignant neoplasm of unspecified part of unspecified bronchus or lung (principal); C78.1 Secondary malignant neoplasm of mediastinum
CPT/HCPCS: 71260; 74160; Q9967; A4216

== ENCOUNTER → 2018-06-29 13:57 | Outpatient (CLI) | payer MEDICAID, SELFPAY | PROVIDERS: Family Provider Family Medicine Geriatric Medicine; PCP Family Medicine Geriatric Medicine; Visit Provider Nurse Practitioner Family | DX: C34.90 Malignant neoplasm of unspecified part of unspecified bronchus or lung (principal) | CPT/HCPCS: 71260; 74177; 85025; Q9967; A4216 ==

== ENCOUNTER 2018-08-20 09:47 | Inpatient (IN) | payer MEDICAID, SELFPAY ==
[2018-08-20] VITALS (17 sets, daily range): BP systolic 103–127; BP diastolic 40–71; PULSE 70–122; RESP 14–20; TEMP 36.6–37; O2SAT 98–100; BMI 14.6; BMI 13.8
--- NOTE | 2018-08-20 10:20 | EKG12_ITS ---
Test Reason : SOB Blood Pressure : / mmHG Vent. Rate : 110 BPM Atrial Rate : 110 BPM P-R Int : 126 ms QRS Dur : 080 ms QT Int : 326 ms P-R-T Axes : 084 084 077 degrees QTc Int : 441 ms Sinus tachycardia with Premature atrial complexes Right atrial enlargement Borderline ECG Confirmed by VICK MONTILLA, PAUL ([id number]), production editor RACHANA YANG ([id number] on 08/22/2018 3:31:51 PM Referred By: Betty Banerjee Confirmed By:PAUL HICKMAN MD
--- NOTE | 2018-08-20 10:21 | RAD_ITS ---
STUDY: X-RAY CHEST REASON FOR EXAM: Female, 57 years old. Cough and shortness breath for 2 weeks. TECHNIQUE: PA and lateral views of the chest. COMPARISON: 03/14/2018. FINDINGS: There again is a right-sided Port-A-Cath in stable position with the tip in the superior vena cava. There is hyperinflation of the lungs consistent with chronic obstructive lung disease (COPD). There is patchy infiltrate in right upper lobe new since the previous examination. There is no demonstrated pleural abnormality. Normal size heart. Normal mediastinum and nader. Normal visualized pulmonary arteries. Normal visualized aortic arch and descending thoracic aorta. There is demineralization of the osseous structures. Normal visualized ribs, clavicles, and shoulders. There is no demonstrated abnormality of the visualized soft tissue structures of the upper abdomen. RAD/Chest PA and Lateral IMPRESSION: COPD changes. Patchy infiltrate right upper lobe new since previous examination suspicious for pneumonia. Electronically Signed: Navneet Davila MD at 12:25 EDT Tel , Service support ,
--- NOTE | 2018-08-20 10:26 | ED.DCSUM_ITS ---
History of Present Illness Chief Complaint: Shortness of Breath Informant: Patient Onset: Weeks - 1 Context: Gradual Onset Timing: Continuous Quality: wheezing, can't breathe Location: chest Current Severity: Moderate Maximum Severity: Moderate Worsened by: trying to exert. coughing. Relieved by: albuterol at home. Associated Symptoms: very weak. no fevers or CP. Narrative: History of COPD and lung cancer for which she has been getting chemotherapy for the past approximately 5 months, she states she skipped her chemotherapy this past week because she has been feeling extremely weak. Now she is to the point where she is unable to stand and walk and get around. She has had steady weight loss and significant decreased p.o. intake and appetite. She is also drinking less fluids and urinating less although she is urinating otherwise okay. Nauseated, no other GI symptoms. 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 (2) [id number] deficiency Status: Chronic (3) Anxiety Status: Chronic (4) COPD (chronic obstructive pulmonary disease) Status: Chronic (5) GERD (gastroesophageal reflux disease) Status: Chronic (6) Small cell lung cancer Status: Chronic Past Medical History - Allergies and Home Meds Allergies/Adverse Reactions: Allergies morphine Adverse Reaction (Intermediate, Verified 08/04/18 10:06) Itching Primary Care Physician: Dariel Ortega Chi, MD [Primary Care Provider] - Past Medical History: - - Home oxygen 3 L Surgical History: no surgical history Lives: With Family Smoking Status: Former smoker - Family History Paternal Family History: Family History (Last Reviewed 08/04/18 @ 10:06 by Felisa Barraza) Mother Colon cancer Bronchitis Epilepsy Father Asthma Family History: Reports: Asthma Review of Systems General: Reports: Malaise - Generalized weakness. Denies: Chills, Fever Eyes: Denies: Visual changes - bilaterally, Diplopia ENT: Reports: Sore throat. Denies: Bilateral ear pain Cardiovascular: Denies: Chest pain, Palpitations Respiratory: Reports: Dyspnea, Cough, Sputum, Dyspnea on exertion Gastrointestinal: Reports: Nausea. Denies: Abdominal pain, Vomiting, Diarrhea, Melena, Hematochezia Genitourinary: Denies: Dysuria, Hematuria, Frequency Musculoskeletal: Denies: Back pain, Swelling, Extremity Pain Skin: Denies: Rash, Wounds Neurological: Denies: Headache, Weakness, Parasthesia, Numbness Psych: Denies: Suicidal thoughts, Suicidal ideations Endocrine: Denies: Heat intolerance, Cold intolerance Hematologic: Denies: Easy bruising, Easy bleeding Allergy: Denies: Swelling of the mouth, Swelling of the tongue Physical Exam Vital Signs/Narrative: Vital Signs Temp Pulse Resp BP Pulse Ox 08/20/18 09:48 98.4 F 73 20 H 117/59 L 100 Inital Vital Signs reviewed: Yes General: Well nourished, Well developed, Cachectic Head: Normocephalic, Atraumatic Eyes: Perrl, EOMI ENT: No rhinorrhea, TM's clear, Dry mucous membranes, - - Punctate areas of possible thrush on hard and soft palate. Negative for: Sinus tenderness Neck: Supple, Nontender Cardiovascular: Regular rate, Regular rhythm, No murmurs Respiratory: Chest nontender, Diminished - Diffusely and symmetrically. Other mcmahon clear., - - Mild respiratory distress, speaking in 5-10 word sentences Abdomen: Soft, Nontender, Nondistended, Normal bowel sounds Back: Nontender, Normal Inspection. Negative for: CVA tenderness Extremities: Nontender, No edema Skin: Normal color, No rash Neurological: Alert, Oriented x3, Cranial nerves II-XII grossly intact, Normal Strength, Normal Sensation Psychological: Normal affect Diagnostic/Tx/Re-eval Impressions Chest X-Ray 08/20/18 10:21 IMPRESSION: COPD changes. Patchy infiltrate right upper lobe new since previous examination suspicious for pneumonia. Electronically Signed: Navneet Davila MD at 12:25 EDT Tel , Service support , 08/20/18 10:21 Chest PA and Lateral [RAD] Stat Laboratory Results 08/20/18 08/20/18 08/20/18 10:45 11:00 11:00 WBC 2.9 L RBC 1.85 L Hgb 6.1 L Hct 19.9 L MCV 107.6 H MCH 33.0 H MCHC 30.7 L RDW 14.4 RDW Differential 56.0 H Plt Count 153 MPV 9.4 Immature Gran % (Auto) 0.000 Neut % (Auto) 57.4 Lymph % (Auto) 14.0 L [place] % (Auto) 27.6 H Eos % (Auto) 1.0 Baso % (Auto) 0.0 Absolute Neuts (auto) 1.6 L Absolute Lymphs (auto) 0.40 L Total Counted Not Reportable Platelet Estimate ADEQUATE Polychromasia 1+ Hypochromasia 2+ Macrocytosis 1+ Specimen Type ART Sample Site R RADIAL pH 7.41 Bicarbonate Actual 55.1 H POC Total CO2 > 50 Base Excess > 30 H O2 Saturation 98 ABG pCO2 87.2 H* ABG pO2 114 H Cedric Test POS O2 Delivery Device Nasal Can Liter Flow 3.0 Blood Gas Notified Whom ED MD Blood Gas Notified Time 1045 Sodium 135 L Potassium 3.5 Chloride 85 L Carbon Dioxide > 45.0 H* Anion Gap TNP BUN 8 Creatinine 0.25 L Estim Creat Clear Calc 174.60 Est GFR (MDRD) Af Amer 362 Est GFR (MDRD) Non-Af 299 BUN/Creatinine Ratio 31.7 H Glucose 112 H Calcium 8.2 L Troponin I < 0.015 - Medical Decision Making Labs show anemia and leukopenia, her chest x-ray shows pneumonia. Given her chemotherapy and multiple trips to infusion center, we will treat her for healthcare associated pneumonia with Zosyn and vancomycin. ABG shows chronic CO2 retention but no acute acidosis. She is given IV fluids, and will admit to the hospital. Not septic, I do not think she needs the ICU at this time. ED Disposition - Plan for ED Patient: Disposition: Acute Care Hospital [facility] Chief Complaint: Shortness of Breath Diagnosis: Healthcare-associated pneumonia, Anemia, Immunosuppressed due to chemotherapy, Small cell lung cancer Referrals: Dariel Ortega Chi, MD [Primary Care Provider] -
[2018-08-20] MEDS: Albuterol 2.5 MG/3 ML VIAL.NEB. INHALATION ×3 (11:05→12:10)
[2018-08-20] MEDS: Ipratropium/Albuterol Sulfate 3 ML AMPUL.NEB INHALATION ×2 (11:05→19:37)
[2018-08-20 11:10] LABS: Absolute Neutrophil Count 1.6 X10^3/uL (2.0-7.7); Eosinophil# 0.03 X10^3/uL; Hematocrit 19.9 % (37-47); Hemoglobin 6.1 g/dl (12.0-15.0); Mean Corp Hgb Conc 30.7 g/gl (32-36); Mean Corpuscular Volume 107.6 fL (81-99); Mean Platelet Vol. 9.4 fl (6.2-12.0); Monocyte# 0.79 X10^3/uL; Monocyte% 27.6 % (0-10); Neutrophil # 1.64 X10^3/uL (2.7-7.7); Neutrophil % 57.4 % (47-70); Platelet Count 153 K/mm3 (150-450); RBC Distribution Width CV 14.4 % (11.6-14.6); Red Blood Count 1.85 M/mm3 (4.2-5.4); White Blood Count 2.9 K/mm3 (4.4-11.0)
[2018-08-20 11:12] LABS: Differential Indicated SCAN CRITERIA MET; POSITIVE COUNT NO; POSITIVE DIFFERENTIAL YES; POSITIVE MORPHOLOGY YES
[2018-08-20 11:30] LABS: Hypochromasia 2+; Macrocytosis 1+; Platelet Estimate ADEQUATE (ADEQ); Polychromasia 1+
[2018-08-20 11:43] LABS: BUN 8 mg/dL (7-18); BUN/Creat Ratio 31.7 RATIO (10-20); Calcium,Total 8.2 mg/dL (8.5-10.1); Carbon Dioxide > 45.0 mmol/L (21.0-32.0); Chloride 85 mmol/L (98-107); Creatinine, Serum 0.25 mg/dL (0.55-1.02); EST Glomerular Filtration Rate 299 mL/min (>60); Est Glom Filt Rate - Afr Amer 362 mL/min (>60); Glucose 112 mg/dL (74-106); Potassium 3.5 mmol/L (3.5-5.1); Sodium Level 135 mmol/L (136-145)
[2018-08-20 11:51] LABS: Blood Gas Specimen Type ART
[2018-08-20 11:52] LABS: Allen Test POS; PO2 114 mmHG (75-100); SITE R RADIAL; Time Given 1045; pCO2 87.2 mmHg (35-45); pH 7.41 (7.35-7.45)
[2018-08-20 11:53] LABS: Base Excess > 30 mmol/L (-2 to +2); Bicarbonate 55.1 mmol/L (22-26); SO2 98 % (95-99); Total Carbon Dioxide > 50 mmol/L
[2018-08-20 11:54] LABS: O2 Delivery Device Nasal Can
[2018-08-20] MEDS: 0.9% Normal Saline 1,000 ML 150 ML IV (12:10)
--- NOTE | 2018-08-20 13:07 | HP.PCM_ITS ---
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 (9) Encounter for insertion of venous access port Status: Chronic (10) Educational circumstance Status: Chronic (11) Chemotherapy management, encounter for Status: Chronic (12) Immunosuppressed due to chemotherapy Status: Chronic (13) History of tubal ligation Status: Resolved (14) Asthma Status: Chronic (15) Nocturnal hypoxia Status: Chronic (16) Anxiety Status: Chronic (17) Nicotine dependence in remission Status: Chronic (18) Stage 4 very severe COPD by GOLD classification Status: Chronic (19) Allergic rhinitis Status: Chronic (20) COPD with acute exacerbation Status: Chronic (21) Tobacco dependence syndrome Status: Chronic (22) Emqli-4-mfowejoecga deficiency Status: Chronic (23) COPD (chronic obstructive pulmonary disease) Status: Chronic Qualifiers: COPD type: unspecified COPD Qualified Code(s): J44.9 - Chronic obstructive pulmonary disease, unspecified (24) GERD (gastroesophageal reflux disease) Status: Chronic (25) COPD with acute exacerbation Status: Acute History of Present Illness Date of Admission: 08/20/18 Chief Complaint: Generalized weakness and shortness of breath The patient is a 57 year old F with history of small cell lung cancer currently undergoing chemotherapy who presented with generalized weakness. Patient reports days of progressive generalized weakness with minimal activity. Patient also did experience shortness of breath with minimal exertion. Had a cough which was productive of clear sputum. Patient also did report subjective fevers as well as chills. In view of worsening condition patient presented to the emergency department. Patient was found to be anemic with hemoglobin of 6.1. Chest x-ray demonstrated patchy infiltrates involving the right upper lobe. An assessment of healthcare acquired pneumonia made admitted to a monitored bed for subsequent management. 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 (C hronic) Encounter for insertion of venous access port (Chronic) Educational circumstance (Chronic) Chemotherapy management, encounter for (Chronic) Immunosuppressed due to chemotherapy (Chronic) Asthma (Chronic) Nocturnal hypoxia (Chronic) Anxiety (Chronic) Nicotine dependence in remission (Chronic) Stage 4 very severe COPD by GOLD classification (Chronic) Allergic rhinitis (Chronic) COPD with acute exacerbation (Chronic) Tobacco dependence syndrome (Chronic) Rjzks-4-zzkkdukxnxo deficiency (Chronic) COPD (chronic obstructive pulmonary disease) (Chronic) GERD (gastroesophageal reflux disease) (Chronic) Medical History: Medical History (Last Reviewed 08/20/18 @ 13:48 by Neel Alvarado MD) Asthma (Chronic) J45.909 Nocturnal hypoxia (Chronic) G47.34 Anxiety (Chronic) F41.9 Nicotine dependence in remission (Chronic) F17.201 Stage 4 very severe COPD by GOLD classification (Chronic) J44.9 Allergic rhinitis (Chronic) J30.9 COPD with acute exacerbation (Chronic) J44.1 Tobacco dependence syndrome (Chronic) F17.200 Uavth-8-untjctkhcer deficiency (Chronic) E88.01 COPD (chronic obstructive pulmonary disease) (Chronic) J44.9 GERD (gastroesophageal reflux disease) (Chronic) K21.9 COPD with acute exacerbation (Acute) J44.1 COPD, frequent exacerbations (Inactive) J44.9 [place] (dyspnea on exertion) (Inactive) R06.09 Allergies morphine Adverse Reaction (Intermediate, Verified 08/04/18 10:06) Itching Home Medications: Ambulatory Orders Medication Instructions Recorded Multivitamins,Therapeutic 1 tab PO DAILY 09/06/16 [Multivitamin] Tiotropium [place] [Spiriva] 18 mcg IH DAILY #1 cap.w.dev 03/17/17 fluticasone 50 mcg/actuation nasal 50 mcg INTRANASAL QDAY PRN 12/06/17 spray,suspension albuterol sulfate 2.5 mg/3 mL 2.5 mg INHALATION 4X/DAY PRN 30 02/17/18 (0.083 %) solution for nebulization Days #180 vial albuterol sulfate HFA 90 1 - 2 puff INHALATION Q4H PRN PRN 02/17/18 mcg/actuation aerosol inhaler #1 inhaler budesonide-formoterol HFA 160 2 puff INHALATION BID #1 hfa.aer.ad 02/17/18 mcg-4.5 mcg/actuation aerosol inhaler Lidocaine/Prilocaine 30 gm TP DAILY PRN PRN 30 Days #1 03/15/18 [Lidocaine-Prilocaine Cream] cream..g. Olanzapine [Zyprexa] 10 mg PO DAILY 16 Days #16 tab 03/15/18 Ondansetron HCl [Zofran] 4 mg PO Q8H PRN PRN 10 Days #30 tab 03/15/18 Paroxetine HCl [Paxil] 40 mg PO DAILY #30 tab 04/28/18 fluticasone 50 mcg/actuation nasal 2 spray INTRANASAL QDAY #1 device 05/03/18 spray,suspension tiotropium bromide 2.5 2 puff INHALATION QDAY #1 device 05/03/18 mcg/actuation mist for inhalation Surgical History: Surgical History (Last Reviewed 08/20/18 @ 13:48 by Neel Alvarado MD) History of tubal ligation (Resolved) Z98.51 Surgical History: no surgical history Lives: With Family Smoking Status: Former smoker - *Family History Paternal Family History: Family History (Last Reviewed 08/20/18 @ 13:48 by Neel Alvarado MD) Mother Colon cancer Bronchitis Epilepsy Father Asthma History Items: Asthma Review of Systems Constitutional: Reports: Anorexia, Chills, Fever, Malaise, Weakness, Fatigue HEENT: Denies: Head Aches, Sinus Congestion, Sinus Drainage Cardiovascular: Denies: Chest Pain, Orthopnea, Palpitations, Paroxysmal Noc. Dyspnea Respiratory: Reports: Cough, Shortness of Breath Gastrointestinal: Denies: Abdominal Pain, Hematemesis, Hematochezia, Nausea, Melena, Vomiting Genitourinary: Denies: Dysuria, Frequency, Hematuria, Urgency Musculoskeletal: Denies: Joint Pain, Joint Tenderness Skin: Denies: Rash Neurological: Denies: Focal weakness, Numbness, Tingling Psychiatric: Denies: Homicidal Ideations, Suicidal Ideations Hematologic/ Lymphatic: Denies: Easy Bruising, Easy Bleeding VTE Information - Inpt Only VTE Present on Admission: No VTE Mechan Device Prophylaxis: Knee High AYDEN Hose VTE Pharm Prophylaxis ordered?: Yes Patient Problems: Active and Suspected Problems (Last Reviewed 08/20/18 @ 13:48 by Neel Alvarado MD) Healthcare-associated pneumonia (Acute) Anemia (Acute) Objective: GENERAL: Frail looking HEENT: Atraumatic; moist oral mucosa EYES; Anicteric, Normal Conjunctiva NECK; supple, normal thyroid, no distended JVD. RESPIRATORY: Diminished to auscultation bilaterally, CARDIOVASCULAR: Regular S1 S2, tachycardic GI: soft, non-tender, normoactive bowel sounds, : No Renal angle tenderness; EXTREMITIES: No edema, no clubbing, no cyanosis. MUSCULOSKELETAL: No Joint Tenderness; no joint swelling NEURO: Awake; no lateralizing signs. SKIN: No Rash PSYCH; Normal affect - Physical Exam Vital Signs Temp Pulse Resp BP Pulse Ox 98.4 F 80 14 114/68 98 08/20/18 09:48 08/20/18 12:50 08/20/18 12:50 08/20/18 12:50 08/20/18 12:50 Oxygen Flow Rate (L/min) 3 Oxygen Delivery Method Room Air Weight: 43.5 kg Body Mass Index (BMI) 14.6 Laboratory Tests Past 24 Hrs 08/20/18 08/20/18 08/20/18 10:45 11:00 11:00 WBC 2.9 L RBC 1.85 L Hgb 6.1 L Hct 19.9 L MCV 107.6 H MCH 33.0 H MCHC 30.7 L RDW 14.4 RDW Differential 56.0 H Plt Count 153 MPV 9.4 Immature Gran % (Auto) 0.000 Neut % (Auto) 57.4 Lymph % (Auto) 14.0 L [place] % (Auto) 27.6 H Eos % (Auto) 1.0 Baso % (Auto) 0.0 Absolute Neuts (auto) 1.6 L Absolute Lymphs (auto) 0.40 L Total Counted Not Reportable Platelet Estimate ADEQUATE Polychromasia 1+ Hypochromasia 2+ Macrocytosis 1+ Specimen Type ART Sample Site R RADIAL pH 7.41 Bicarbonate Actual 55.1 H POC Total CO2 > 50 Base Excess > 30 H O2 Saturation 98 ABG pCO2 87.2 H* ABG pO2 114 H Cedric Test POS O2 Delivery Device Nasal Can Liter Flow 3.0 Blood Gas Notified Whom ED Blood Gas Notified Time 1045 Sodium 135 L Potassium 3.5 Chloride 85 L Carbon Dioxide > 45.0 H* Anion Gap TNP BUN 8 Creatinine 0.25 L Estim Creat Clear Calc 174.60 Est GFR (MDRD) Af Amer 362 Est GFR (MDRD) Non-Af 299 BUN/Creatinine Ratio 31.7 H Glucose 112 H Calcium 8.2 L Troponin I < 0.015 Assessment/Plan All Active Problems (Last Reviewed 08/20/18 @ 13:48 by Neel Alvarado MD) Healthcare-associated pneumonia (Acute) Anemia (Acute) History of tubal ligation (Resolved) COPD with acute exacerbation (Acute) PORT PLACEMENT (Resolved) Patient is a 57-year-old lady with history of small cell lung CA currently undergoing chemotherapy who presented with progressive generalized weakness associated with a cough in addition to fever and chills checks x-ray demonstrated right upper lobe infiltrate consistent with pneumonia. Patient was also found to be anemic with hemoglobin of 6.1 1. Acute respiratory insufficiency secondary to secondary to healthcare acquired pneumonia with suspected gram-negative organisms. Patient has been admitted to monitored bed started on Zosyn and ciprofloxacin. With patient being immunosuppressed from her chemotherapy as well as lung CA patient was also started on vancomycin did order for MRSA nasal screen if negative will discontinue vancomycin 2. 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 Maldonado with oncology as outpatient 3. Mild intermittent asthma currently stable did continue with her home aerosol regimen 4. History of alpha 1 antitrypsin deficiency 5. GERD on PPI 6. Anxiety disorder 7. Severe protein calorie malnutrition as evidenced by low BMI of 13.8 decrease d energy level as well as muscle wasting did consult dietitian 8. 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 DVT prophylaxis SC Lovenox Advance planning; did discuss with the patient and family regarding her advanced directives as well as CODE STATUS. Did explain the various modalities involved ( FULL CODE, DNR CCA, DNR CCA with no intubation, and DNR CC ) patient elected to full code. Order was placed. Time spent on discussion 20 minutes. Clinical Impression(s) from Imaging Studies Chest X-Ray 08/20/18 10:21 IMPRESSION: COPD changes. Patchy infiltrate right upper lobe new since previous examination suspicious for pneumonia. Electronically Signed: Navneet Davila MD at 12:25 EDT Tel , Service support , Code Visit Inpatient E&M: 40480 Init Hosp L3 Procedures: 04338 Advncd Care Plan 30 Min
--- NOTE | 2018-08-20 13:10 | NURSING ---
112 RESP FAILURE HELDER
[2018-08-20 13:17] LABS: Mucous, Urine 0 SEEN /hpf (<or=2+); Red Blood Cells-Urine 0 SEEN /hpf (0-5); White Blood Cells 0 SEEN /hpf (0-5)
[2018-08-20 13:20] LABS: Color, Urine Yellow (Yellow); Glucose, Dipstick Normal (Normal); Ketone-Dipstick 5 mg/dl (Negative); Leukocyte Esterase-Dipstick Negative /ul (Negative); Nitrite-Dipstick Negative (Negative); Occult Blood-Urine Negative /ul (Negative); Protein-Dipstick 15 mg/dl (Negative); Specific Gravity, Urine 1.015 (1.002-1.030); Urine Bilirubin Dipstick Negative (Negative); Urine Clarity Sl. Cloudy (Clear); Urine Urobilinogen 1 mg/dl (Normal)
[2018-08-20 13:29] LABS: Bacteria RARE /hpf (None Seen); Squamous Epithelial Cells - UA 0-5 SEEN /hpf (5-10)
--- NOTE | 2018-08-20 15:03 | PCM.RX.CS ---
Consult Pharmacy has been consulted to manage selected antiobiotic: Vancomycin Type of Consult: New start Suspected Infection: Pneumonia Prior Doses of Antibiotics Received/Current Regimen: Receive Vancomycin 750mg IV x1 in E.R. at 13:16 today Labs: Sodium 135 mmol/L (136-145) L 08/20/18 11:00 Potassium 3.5 mmol/L (3.5-5.1) 08/20/18 11:00 Chloride 85 mmol/L (98-107) L 08/20/18 11:00 Carbon Dioxide > 45.0 mmol/L (21.0-32.0) H* 08/20/18 11:00 Anion Gap TNP 08/20/18 11:00 BUN 8 mg/dL (7-18) 08/20/18 11:00 Creatinine 0.25 mg/dL (0.55-1.02) L 08/20/18 11:00 Est GFR (MDRD) Af Amer 362 mL/min (>60) 08/20/18 11:00 Est GFR (MDRD) Non-Af 299 mL/min (>60) 08/20/18 11:00 BUN/Creatinine Ratio 31.7 RATIO (10-20) H 08/20/18 11:00 Glucose 112 mg/dL (74-106) H 08/20/18 11:00 Weight used for dosin.2 kg Estimated Creatinine Clearance: 174 ml/min Goal Trough: 15-20 mcg/mL Pharmacy Plan for Drug Dosing: The patient already received the standard initial dose in E.R. so we will plan to continue at 500mg IV q8h per the [facility] pharmacist vancomycin dosing protocol. Obtain trough before the 4th total dose. Pharmacy Service will continue to monitor and adjust dosing as required. Follow-Up Labs: Trough Vancomycin Labs to be done on [date and time ordered]: 08/21/18 at 12:30 before the dose at 13:00
--- NOTE | 2018-08-20 15:07 | PHA.PHARE_ITS ---
Consult Pharmacy has been consulted to manage selected antiobiotic: Vancomycin Type of Consult: New start Suspected Infection: Pneumonia Prior Doses of Antibiotics Received/Current Regimen: Receive Vancomycin 750mg IV x1 in E.R. at 13:16 today Labs: Sodium 135 mmol/L (136-145) L 08/20/18 11:00 Potassium 3.5 mmol/L (3.5-5.1) 08/20/18 11:00 Chloride 85 mmol/L (98-107) L 08/20/18 11:00 Carbon Dioxide > 45.0 mmol/L (21.0-32.0) H* 08/20/18 11:00 Anion Gap TNP 08/20/18 11:00 BUN 8 mg/dL (7-18) 08/20/18 11:00 Creatinine 0.25 mg/dL (0.55-1.02) L 08/20/18 11:00 Est GFR (MDRD) Af Amer 362 mL/min (>60) 08/20/18 11:00 Est GFR (MDRD) Non-Af 299 mL/min (>60) 08/20/18 11:00 BUN/Creatinine Ratio 31.7 RATIO (10-20) H 08/20/18 11:00 Glucose 112 mg/dL (74-106) H 08/20/18 11:00 Weight used for dosin.2 kg Estimated Creatinine Clearance: 174 ml/min Goal Trough: 15-20 mcg/mL Pharmacy Plan for Drug Dosing: The patient already received the standard initial dose in E.R. so we will plan to continue at 500mg IV q8h per the [facility] pharmacist vancomycin dosing protocol. Obtain trough before the 4th total dose. Pharmacy Service will continue to monitor and adjust dosing as required. Follow-Up Labs: Trough Vancomycin Labs to be done on [date and time ordered]: 08/21/18 at 12:30 before the dose at 13:00
[2018-08-20 16:49] LABS: Color, Urine Yellow (Yellow); Glucose, Dipstick Normal (Normal); Ketone-Dipstick Negative (Negative); Leukocyte Esterase-Dipstick Negative /ul (Negative); Nitrite-Dipstick Negative (Negative); Occult Blood-Urine Negative /ul (Negative); Protein-Dipstick Negative (Negative); Urine Bilirubin Dipstick Negative (Negative); Urine Clarity Sl. Cloudy (Clear); Urine Urobilinogen Normal (Normal)
[2018-08-20 18:12] LABS: M R Staph aureus DNA By PCR Negative (Negative); Probe Check PASS; Specimen Processing Control PASS
[2018-08-20] MEDS: Budesonide Respules 0.5 MG/2 ML AMPUL.NEB. INHALATION (19:37)
--- NOTE | 2018-08-20 20:00 | NURSING ---
Patient blood transfusion completed at this time 1999. Pt tolerated well - no side effects. Port side WNL.
[2018-08-20 20:15] LABS: Hemoglobin 7.8 g/dl (12.0-15.0)
[2018-08-20] MEDS: Vancomycin IV 500 MG/100 ML BAG 100 MG IV (20:25)
[2018-08-20] MEDS: 0.9% NaCl VAD Flush 10 ML IV (20:29)
[2018-08-20] MEDS: Ciprofloxacin 400 MG/200 ML BAG 200 MG IV (21:55)
[2018-08-20] MEDS: Famotidine 20 MG Tablet PO (22:02)
[2018-08-20] MEDS: guaiFENesin 1,200 MG Tablet 1200 MG PO (22:02)
[2018-08-21] VITALS (16 sets, daily range): BP systolic 110–141; BP diastolic 54–90; PULSE 90–113; RESP 16–20; TEMP 36.2–37; O2SAT 97–100
--- NOTE | 2018-08-21 00:18 | NURSING ---
Blood initiated at this time of 0018, no signs or symptoms of reaction. Port patent and WNL.
--- NOTE | 2018-08-21 00:47 | NURSING ---
Discussed with patient another IV, but peripheral. Patient declined and stated shes a hard stick and wants to wait till blood is completed. Will run antibiotics when line is available. Will attempt to discuss another IV access again with patient.
[2018-08-21] MEDS: Acetaminophen 325 MG Tablet 650 MG PO (02:48)
[2018-08-21] MEDS: 0.9% NaCl VAD Flush 10 ML IV ×3 (04:34→05:51)
[2018-08-21 05:44] LABS: Hematocrit 28.5 % (37-47); Hemoglobin 9.2 g/dl (12.0-15.0); Mean Corp Hgb Conc 32.3 g/gl (32-36); Mean Corpuscular Hgb 33.2 pg (27.0-32.0); Mean Corpuscular Volume 102.9 fL (81-99); Mean Platelet Vol. 9.8 fl (6.2-12.0); Platelet Count 151 K/mm3 (150-450); Red Blood Count 2.77 M/mm3 (4.2-5.4); White Blood Count 3.1 K/mm3 (4.4-11.0)
--- NOTE | 2018-08-21 05:45 | NURSING ---
Called pharmacy at this time and asked for compatibility with zosyn as well as cipro with the maintenance fluid running for patient. Confirmed both compatible.
[2018-08-21] MEDS: Ciprofloxacin 400 MG/200 ML BAG 200 MG IV ×3 (05:50→21:09)
[2018-08-21 05:53] LABS: Anion Gap 4 (5-15); BUN 9 mg/dL (7-18); BUN/Creat Ratio 36.4 RATIO (10-20); Calcium,Total 7.9 mg/dL (8.5-10.1); Chloride 89 mmol/L (98-107); Creatinine, Serum 0.25 mg/dL (0.55-1.02); EST Glomerular Filtration Rate 306 mL/min (>60); Est Glom Filt Rate - Afr Amer 371 mL/min (>60); Estimated Creatinine Clearance 165.37 ml/min; Glucose 110 mg/dL (74-106); Magnesium 0.9 mg/dL (1.6-2.6); Potassium 3.6 mmol/L (3.5-5.1); Sodium Level 138 mmol/L (136-145)
[2018-08-21 06:07] LABS: Scan Indicated on CBC? Y/N NO
[2018-08-21] MEDS: Budesonide Respules 0.5 MG/2 ML AMPUL.NEB. INHALATION ×2 (06:57→19:36)
[2018-08-21] MEDS: Ipratropium/Albuterol Sulfate 3 ML AMPUL.NEB INHALATION ×2 (06:57→19:36)
[2018-08-21] MEDS: Piperacil/Tazobactam 3.375 GM/50 ML ML IV ×3 (06:59→22:50)
--- NOTE | 2018-08-21 08:51 | PCM.PN.HOSP ---
Patient Problems: Active and Suspected Problems (Last Reviewed 08/20/18 @ 13:48 by Neel Alvarado MD) Healthcare-associated pneumonia (Acute) Anemia (Acute) Subjective: Patient seen appears frail. Complains of feeling weak. Did receive 2 units PRBC blood transfusion on 08/20/2018. Magnesium this a.m. is 0.9 correction initiated Objective: GENERAL: Frail looking HEENT: Atraumatic; moist oral mucosa EYES; Anicteric, Normal Conjunctiva NECK; supple, normal thyroid, no distended JVD. RESPIRATORY: Diminished to auscultation bilaterally, CARDIOVASCULAR: Regular S1 S2, tachycardic GI: soft, non-tender, normoactive bowel sounds, : No Renal angle tenderness; EXTREMITIES: No edema, no clubbing, no cyanosis. MUSCULOSKELETAL: No Joint Tenderness; no joint swelling NEURO: Awake; no lateralizing signs. SKIN: No Rash PSYCH; Normal affect Vitals/I&O's: Vital Signs Temp Pulse Resp BP Pulse Ox 98.1 F 104 H 20 H 138/68 H 98 08/21/18 03:17 08/21/18 07:10 08/21/18 06:57 08/21/18 03:17 08/21/18 06:57 Oxygen Flow Rate (L/min) 3 Oxygen Delivery Method Nasal Cannula Weight: 41.2 kg Body Mass Index (BMI) 13.8 Intake and Output for Last 24 Hours 08/19/18 08/20/18 08/21/18 23:59 23:59 23:59 Intake Total 938 / 938 1984 / 1984 Output Total 650 / 650 Balance 938 / 938 1335 / 1335 Microbiology Past 72 Hours 08/20/18 21:53 Sputum, Expectorated/Coughed Gram Stain - Preliminary 08/20/18 16:05 Urine, Clean Catch Streptococcus pneumoniae Antigen (M - Final 08/20/18 16:05 Urine, Clean Catch Legionella Antigen - Final 08/20/18 14:35 Mucosa - Nasopharyngeal Influenza Types A,B Direct FA (KWAN) - Final Laboratory Results 08/20/18 10:45: Specimen Type ART, Sample Site R RADIAL, pH 7.41, Bicarbonate Actual 55.1 H, POC Total CO2 > 50, Base Excess > 30 H, O2 Saturation 98, ABG pCO2 87.2 H*, ABG pO2 114 H, Cedric Test POS, O2 Delivery Device Nasal Can, Liter Flow 3.0, Blood Gas Notified Whom ED MD, Blood Gas Notified Time 1045 08/20/18 11:00: WBC 2.9 L, RBC 1.85 L, Hgb 6.1 L, Hct 19.9 L, MCV 107.6 H, MCH 33.0 H, MCHC 30.7 L, RDW 14.4, RDW Differential 56.0 H, Plt Count 153, MPV 9.4, Immature Gran % (Auto) 0.000, Neut % (Auto) 57.4, Lymph % (Auto) 14.0 L, [place] % (Auto) 27.6 H, Eos % (Auto) 1.0, Baso % (Auto) 0.0, Absolute Neuts (auto) 1.6 L, Absolute Lymphs (auto) 0.40 L, Total Counted Not Reportable, Platelet Estimate ADEQUATE, Polychromasia 1+, Hypochromasia 2+, Macrocytosis 1+ 08/20/18 11:00: Sodium 135 L, Potassium 3.5, Chloride 85 L, Carbon Dioxide > 45.0 H*, Anion Gap TNP, BUN 8, Creatinine 0.25 L, Estim Creat Clear Calc 174.60, Est GFR (MDRD) Af Amer 362, Est GFR (MDRD) Non-Af 299, BUN/Creatinine Ratio 31.7 H, Glucose 112 H, Calcium 8.2 L, Troponin I < 0.015 08/20/18 13:14: Urine Color Yellow, Urine Clarity Sl. Cloudy, Urine pH 8.0, Ur Specific [place] 1.015, Urine Protein 15 H, Urine Glucose (UA) Normal, Urine Ketones 5 H, Urine Occult Blood Negative, Urine Nitrite Negative, Urine Bilirubin Negative, Urine Urobilinogen 1 H, Ur Leukocyte Esterase Negative, Urine RBC 0 SEEN, Urine WBC 0 SEEN, Ur Squamous Epith Cells 0-5 SEEN, Urine Bacteria RARE, Urine Mucus 0 SEEN 08/20/18 14:40: Blood Type A POSITIVE, Antibody Screen NEGATIVE 08/20/18 14:40: Crossmatch See Detail 08/20/18 16:05: Urine Color Yellow, Urine Clarity Sl. Cloudy, Urine pH 8.0, Ur Specific [place] 1.010, Urine Protein Negative, Urine Glucose (UA) Normal, Urine Ketones Negative, Urine Occult Blood Negative, Urine Nitrite Negative, Urine Bilirubin Negative, Urine Urobilinogen Normal, Ur Leukocyte Esterase Negative 08/20/18 16:20: MRSA (PCR) Negative 08/20/18 20:00: Hgb 7.8 L, Hct 25.0 L 08/21/18 05:15: Sodium 138, Potassium 3.6, Chloride 89 L, Carbon Dioxide 45.0 H, Anion Gap 4 L, BUN 9, Creatinine 0.25 L, Estim Creat Clear Calc 165.37, Est GFR (MDRD) Af Amer 371, Est GFR (MDRD) Non-Af 306, BUN/Creatinine Ratio 36.4 H, Glucose 110 H, Calcium 7.9 L, Magnesium 0.9 L* 08/21/18 05:15: WBC 3.1 L, RBC 2.77 L, Hgb 9.2 L, Hct 28.5 L, MCV 102.9 H, MCH 33.2 H, MCHC 32.3, RDW 18.0 H, RDW Differential 63.0 H, Plt Count 151, MPV 9.8 Current Medications Acetaminophen (Tylenol) 650 mg PO Q4H PRN PRN PRN Reason: FEVER Last Admin: 08/21/18 02:48 Dose: 650 mg Al Hydroxide/Mg Hydroxide (Mylanta Ii) 30 ml PO Q6H PRN PRN PRN Reason: Gastric Burning Albuterol Sulfate (Ventolin Aerosols) 2.5 mg INHALATION Q2H PRN PRN PRN Reason: SHORTNESS OF BREATH Albuterol/Ipratropium (Duoneb) 3 ml INHALATION Q6H.RT [facility] Last Admin: 08/21/18 06:57 Dose: 3 ml Bisacodyl (Dulcolax) 10 mg RECTAL DAILY PRN PRN PRN Reason: Constipation Budesonide (Pulmicort Aerosol) 0.5 mg INHALATION Q12H.RT [facility] Last Admin: 08/21/18 06:57 Dose: 0.5 mg Docusate Sodium (Colace) 200 mg PO BID PRN PRN PRN Reason: Constipation Enoxaparin Sodium (Lovenox) 40 mg SC DAILY@1000 [facility] Famotidine (Pepcid) 20 mg PO BID [facility] Last Admin: 08/20/18 22:02 Dose: 20 mg Fluticasone Propionate (Flonase Nasal [place]) 2 spray NASAL DAILY [facility] Guaifenesin (Mucinex) 1,200 mg PO BID [facility] Last Admin: 08/20/18 22:02 Dose: 1,200 mg Heparin Sodium (Beef Lung) () 50 units IV UD PRN PRN Reason: HEPARIN FLUSH Piperacillin Sod/Tazobactam Sod (Zosyn) 3.375 gm in 50 mls @ 12.5 mls/hr IV Q8 [facility] Last Admin: 08/21/18 06:59 Dose: 12.5 mls/hr Ciprofloxacin (Cipro) 400 mg in 200 mls @ 200 mls/hr IV Q8 [facility] Last Admin: 08/21/18 05:50 Dose: 200 mls/hr Potassium Chloride/Dextrose/Sod Cl (Kcl 20meq In D5.45ns 1000ml) 1,000 mls @ 100 mls/hr IV .Q10H [facility] Last Admin: 08/21/18 04:25 Dose: 100 mls/hr Magnesium Sulfate (4 Gm/100 Ml) 4 gm in 100 mls @ 25 mls/hr IV X1 ONE Stop: 08/21/18 10:28 Magnesium Hydroxide (Milk Of Magnesia) 30 ml PO DAILY PRN PRN Reason: Constipation [facility]it[facility] ([facility]) [facility] Nutritional Formula (Lactose Free) (Ensure Enlive) 120 ml PO 4X/DAY [facility] Last Admin: 08/20/18 21:56 Dose: Not Given Ondansetron HCl (Zofran Odt) 4 mg PO Q8H PRN PRN PRN Reason: NAUSEA Ondansetron HCl (Zofran) 4 mg IV Q8H PRN PRN PRN Reason: Nausea Paroxetine HCl (Paxil) 40 mg PO DAILY [facility] Sodium Chloride () 10 ml IV UD PRN PRN Reason: VAD FLUSH Last Admin: 08/21/18 05:51 Dose: 10 ml Zolpidem Tartrate (Ambien (Generic)) 5 mg PO QHS PRN PRN PRN Reason: SLEEP Medical Necessity - Tobacco Use Smoking Status: Former smoker Assessment/Plan All Active Problems (Last Reviewed 08/20/18 @ 13:48 by Neel Alvarado MD) Healthcare-associated pneumonia (Acute) Anemia (Acute) History of tubal ligation (Resolved) COPD with acute exacerbation (Acute) PORT PLACEMENT (Resolved) Patient is a 57-year-old lady with history of small cell lung CA currently undergoing chemotherapy who presented with progressive generalized weakness associated with a cough in addition to fever and chills checks x-ray demonstrated right upper lobe infiltrate consistent with pneumonia. Patient was also found to be anemic with hemoglobin of 6.1 1. Acute respiratory insufficiency secondary to secondary to healthcare acquired pneumonia with suspected gram-negative organisms. Patient has been admitted to monitored bed started on Zosyn and ciprofloxacin. With patient being immunosuppressed from her chemotherapy as well as lung CA patient was also started on vancomycin did order for MRSA nasal screen if negative will discontinue vancomycin with vancomycin was discontinued following a negative MRSA nasal screen. 2. 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 Garduno with oncology as outpatient 3. Mild intermittent asthma currently stable did continue with her home aerosol regimen 4. History of alpha 1 antitrypsin deficiency 5. GERD on PPI 6. Anxiety disorder 7. Severe protein calorie malnutrition as evidenced by low BMI of 13.8 decreased energy level as well as muscle wasting did consult dietitian 8. 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 Hypokalemia corrected per protocol 10. Severe hypomagnesemia patient did receive 4 g of IV magnesium subsequently started on p.o. Mag-Ox 11. DVT prophylaxis SC Lovenox Advance planning; did discuss with the patient and family regarding her advanced directives as well as CODE STATUS. Did explain the various modalities involved ( FULL CODE, DNR CCA, DNR CCA with no intubation, and DNR CC ) patient elected to full code. Order was placed. Time spent on discussion 20 minutes. Clinical Impression(s) from Imaging Studies Chest X-Ray 08/20/18 10:21 IMPRESSION: COPD changes. Patchy infiltrate right upper lobe new since previous examination suspicious for pneumonia. Electronically Signed: Navneet Davila MD at 12:25 EDT Tel , Service support , Active Medications Acetaminophen (Tylenol) 650 mg PO Q4H PRN PRN PRN Reason: FEVER Last Admin: 08/21/18 02:48 Dose: 650 mg Al Hydroxide/Mg Hydroxide (Mylanta Ii) 30 ml PO Q6H PRN PRN PRN Reason: Gastric Burning Albuterol Sulfate (Ventolin Aerosols) 2.5 mg INHALATION Q2H PRN PRN PRN Reason: SHORTNESS OF BREATH Albuterol/Ipratropium (Duoneb) 3 ml INHALATION Q6H.RT [facility] Last Admin: 08/21/18 06:57 Dose: 3 ml Bisacodyl (Dulcolax) 10 mg RECTAL DAILY PRN PRN PRN Reason: Constipation Budesonide (Pulmicort Aerosol) 0.5 mg INHALATION Q12H.RT [facility] Last Admin: 08/21/18 06:57 Dose: 0.5 mg Docusate Sodium (Colace) 200 mg PO BID PRN PRN PRN Reason: Constipation Enoxaparin Sodium (Lovenox) 40 mg SC DAILY@1000 [place] Famotidine (Pepcid) 20 mg PO BID [facility] Last Admin: 08/20/18 22:02 Dose: 20 mg Fluticasone Propionate (Flonase Nasal [place]) 2 spray NASAL DAILY [facility] Guaifenesin (Mucinex) 1,200 mg PO BID [facility] Last Admin: 08/20/18 22:02 Dose: 1,200 mg Heparin Sodium (Beef Lung) () 50 units IV UD PRN PRN Reason: HEPARIN FLUSH Piperacillin Sod/Tazobactam Sod (Zosyn) 3.375 gm in 50 mls @ 12.5 mls/hr IV Q8 [facility] Last Admin: 08/21/18 06:59 Dose: 12.5 mls/hr Ciprofloxacin (Cipro) 400 mg in 200 mls @ 200 mls/hr IV Q8 [facility] Last Admin: 08/21/18 05:50 Dose: 200 mls/hr Magnesium Sulfate (4 Gm/100 Ml) 4 gm in 100 mls @ 25 mls/hr IV X1 ONE Stop: 08/21/18 10:28 Magnesium Hydroxide (Milk Of Magnesia) 30 ml PO DAILY PRN PRN Reason: Constipation Magnesium Oxide (Mag-Ox 400) 400 mg PO BIDCM [facility] Multivitamins (Multivitamin) 1 tablet PO DAILYCM [facility] Nutritional Formula (Lactose Free) (Ensure Enlive) 120 ml PO 4X/DAY [facility] Last Admin: 08/20/18 21:56 Dose: Not Given Ondansetron HCl (Zofran Odt) 4 mg PO Q8H PRN PRN PRN Reason: NAUSEA Ondansetron HCl (Zofran) 4 mg IV Q8H PRN PRN PRN Reason: Nausea Paroxetine HCl (Paxil) 40 mg PO DAILY [facility] Polysaccharide Iron Complex (Ferrex 150) 150 mg PO DAILYCM [facility] Potassium Chloride (K-Dur) 20 meq PO BIDCM [facility] Sodium Chloride () 10 ml IV UD PRN PRN Reason: VAD FLUSH Last Admin: 08/21/18 05:51 Dose: 10 ml Zolpidem Tartrate (Ambien (Generic)) 5 mg PO QHS PRN PRN PRN Reason: SLEEP Code Visit Inpatient E&M: 26048 Subs Hosp L3
--- NOTE | 2018-08-21 08:55 | PN_ITS ---
Patient Problems: Active and Suspected Problems (Last Reviewed 08/20/18 @ 13:48 by Neel Alvarado MD) Healthcare-associated pneumonia (Acute) Anemia (Acute) Subjective: Patient seen appears frail. Complains of feeling weak. Did receive 2 units PRBC blood transfusion on 08/20/2018. Magnesium this a.m. is 0.9 correction initiated Objective: GENERAL: Frail looking HEENT: Atraumatic; moist oral mucosa EYES; Anicteric, Normal Conjunctiva NECK; supple, normal thyroid, no distended JVD. RESPIRATORY: Diminished to auscultation bilaterally, CARDIOVASCULAR: Regular S1 S2, tachycardic GI: soft, non-tender, normoactive bowel sounds, : No Renal angle tenderness; EXTREMITIES: No edema, no clubbing, no cyanosis. MUSCULOSKELETAL: No Joint Tenderness; no joint swelling NEURO: Awake; no lateralizing signs. SKIN: No Rash PSYCH; Normal affect Vitals/I&O's: Vital Signs Temp Pulse Resp BP Pulse Ox 98.1 F 104 H 20 H 138/68 H 98 08/21/18 03:17 08/21/18 07:10 08/21/18 06:57 08/21/18 03:17 08/21/18 06:57 Oxygen Flow Rate (L/min) 3 Oxygen Delivery Method Nasal Cannula Weight: 41.2 kg Body Mass Index (BMI) 13.8 Intake and Output for Last 24 Hours 08/19/18 08/20/18 08/21/18 23:59 23:59 23:59 Intake Total 938 / 938 1984 / 1984 Output Total 650 / 650 Balance 938 / 938 1335 / 1335 Microbiology Past 72 Hours 08/20/18 21:53 Sputum, Expectorated/Coughed Gram Stain - Preliminary 08/20/18 16:05 Urine, Clean Catch Streptococcus pneumoniae Antigen (M - Final 08/20/18 16:05 Urine, Clean Catch Legionella Antigen - Final 08/20/18 14:35 Mucosa - Nasopharyngeal Influenza Types A,B Direct FA (KWAN) - Final Laboratory Results 08/20/18 10:45: Specimen Type ART, Sample Site R RADIAL, pH 7.41, Bicarbonate Actual 55.1 H, POC Total CO2 > 50, Base Excess > 30 H, O2 Saturation 98, ABG pCO2 87.2 H*, ABG pO2 114 H, Cedric Test POS, O2 Delivery Device Nasal Can, Liter Flow 3.0, Blood Gas Notified Whom ED MD, Blood Gas Notified Time 1045 08/20/18 11:00: WBC 2.9 L, RBC 1.85 L, Hgb 6.1 L, Hct 19.9 L, MCV 107.6 H, MCH 33.0 H, MCHC 30.7 L, RDW 14.4, RDW Differential 56.0 H, Plt Count 153, MPV 9.4, Immature Gran % (Auto) 0.000, Neut % (Auto) 57.4, Lymph % (Auto) 14.0 L, [place] % (Auto) 27.6 H, Eos % (Auto) 1.0, Baso % (Auto) 0.0, Absolute Neuts (auto) 1.6 L, Absolute Lymphs (auto) 0.40 L, Total Counted Not Reportable, Platelet Estimate ADEQUATE, Polychromasia 1+, Hypochromasia 2+, Macrocytosis 1+ 08/20/18 11:00: Sodium 135 L, Potassium 3.5, Chloride 85 L, Carbon Dioxide > 45.0 H*, Anion Gap TNP, BUN 8, Creatinine 0.25 L, Estim Creat Clear Calc 174.60, Est GFR (MDRD) Af Amer 362, Est GFR (MDRD) Non-Af 299, BUN/Creatinine Ratio 31.7 H, Glucose 112 H, Calcium 8.2 L, Troponin I < 0.015 08/20/18 13:14: Urine Color Yellow, Urine Clarity Sl. Cloudy, Urine pH 8.0, Ur Specific [place] 1.015, Urine Protein 15 H, Urine Glucose (UA) Normal, Urine Ketones 5 H, Urine Occult Blood Negative, Urine Nitrite Negative, Urine Bilirubin Negative, Urine Urobilinogen 1 H, Ur Leukocyte Esterase Negative, Urine RBC 0 SEEN, Urine WBC 0 SEEN, Ur Squamous Epith Cells 0-5 SEEN, Urine Bacteria RARE, Urine Mucus 0 SEEN 08/20/18 14:40: Blood Type A POSITIVE, Antibody Screen NEGATIVE 08/20/18 14:40: Crossmatch See Detail 08/20/18 16:05: Urine Color Yellow, Urine Clarity Sl. Cloudy, Urine pH 8.0, Ur Specific [place] 1.010, Urine Protein Negative, Urine Glucose (UA) Normal, Urine Ketones Negative, Urine Occult Blood Negative, Urine Nitrite Negative, Urine Bilirubin Negative, Urine Urobilinogen Normal, Ur Leukocyte Esterase Negative 08/20/18 16:20: MRSA (PCR) Negative 08/20/18 20:00: Hgb 7.8 L, Hct 25.0 L 08/21/18 05:15: Sodium 138, Potassium 3.6, Chloride 89 L, Carbon Dioxide 45.0 H, Anion Gap 4 L, BUN 9, Creatinine 0.25 L, Estim Creat Clear Calc 165.37, Est GFR (MDRD) Af Amer 371, Est GFR (MDRD) Non-Af 306, BUN/Creatinine Ratio 36.4 H, Glucose 110 H, Calcium 7.9 L, Magnesium 0.9 L* 08/21/18 05:15: WBC 3.1 L, RBC 2.77 L, Hgb 9.2 L, Hct 28.5 L, MCV 102.9 H, MCH 33.2 H, MCHC 32.3, RDW 18.0 H, RDW Differential 63.0 H, Plt Count 151, MPV 9.8 Current Medications Acetaminophen (Tylenol) 650 mg PO Q4H PRN PRN PRN Reason: FEVER Last Admin: 08/21/18 02:48 Dose: 650 mg Al Hydroxide/Mg Hydroxide (Mylanta Ii) 30 ml PO Q6H PRN PRN PRN Reason: Gastric Burning Albuterol Sulfate (Ventolin Aerosols) 2.5 mg INHALATION Q2H PRN PRN PRN Reason: SHORTNESS OF BREATH Albuterol/Ipratropium (Duoneb) 3 ml INHALATION Q6H.RT [facility] Last Admin: 08/21/18 06:57 Dose: 3 ml Bisacodyl (Dulcolax) 10 mg RECTAL DAILY PRN PRN PRN Reason: Constipation Budesonide (Pulmicort Aerosol) 0.5 mg INHALATION Q12H.RT [facility] Last Admin: 08/21/18 06:57 Dose: 0.5 mg Docusate Sodium (Colace) 200 mg PO BID PRN PRN PRN Reason: Constipation Enoxaparin Sodium (Lovenox) 40 mg SC DAILY@1000 [place] Famotidine (Pepcid) 20 mg PO BID [facility] Last Admin: 08/20/18 22:02 Dose: 20 mg Fluticasone Propionate (Flonase Nasal [place]) 2 spray NASAL DAILY [facility] Guaifenesin (Mucinex) 1,200 mg PO BID [facility] Last Admin: 08/20/18 22:02 Dose: 1,200 mg Heparin Sodium (Beef Lung) () 50 units IV UD PRN PRN Reason: HEPARIN FLUSH Piperacillin Sod/Tazobactam Sod (Zosyn) 3.375 gm in 50 mls @ 12.5 mls/hr IV Q8 [facility] Last Admin: 08/21/18 06:59 Dose: 12.5 mls/hr Ciprofloxacin (Cipro) 400 mg in 200 mls @ 200 mls/hr IV Q8 [facility] Last Admin: 08/21/18 05:50 Dose: 200 mls/hr Potassium Chloride/Dextrose/Sod Cl (Kcl 20meq In D5.45ns 1000ml) 1,000 mls @ 100 mls/hr IV .Q10H [facility] Last Admin: 08/21/18 04:25 Dose: 100 mls/hr Magnesium Sulfate (4 Gm/100 Ml) 4 gm in 100 mls @ 25 mls/hr IV X1 ONE Stop: 08/21/18 10:28 Magnesium Hydroxide (Milk Of Magnesia) 30 ml PO DAILY PRN PRN Reason: Constipation Multivitamins (Multivitamin) [facility] Nutritional Formula (Lactose Free) (Ensure Enlive) 120 ml PO 4X/DAY [facility] Last Admin: 08/20/18 21:56 Dose: Not Given Ondansetron HCl (Zofran Odt) 4 mg PO Q8H PRN PRN PRN Reason: NAUSEA Ondansetron HCl (Zofran) 4 mg IV Q8H PRN PRN PRN Reason: Nausea Paroxetine HCl (Paxil) 40 mg PO DAILY [facility] Sodium Chloride () 10 ml IV UD PRN PRN Reason: VAD FLUSH Last Admin: 08/21/18 05:51 Dose: 10 ml Zolpidem Tartrate (Ambien (Generic)) 5 mg PO QHS PRN PRN PRN Reason: SLEEP Medical Necessity - Tobacco Use Smoking Status: Former smoker Assessment/Plan All Active Problems (Last Reviewed 08/20/18 @ 13:48 by Neel Alvarado MD) Healthcare-associated pneumonia (Acute) Anemia (Acute) History of tubal ligation (Resolved) COPD with acute exacerbation (Acute) PORT PLACEMENT (Resolved) Patient is a 57-year-old lady with history of small cell lung CA currently undergoing chemotherapy who presented with progressive generalized weakness associated with a cough in addition to fever and chills checks x-ray demonstrated right upper lobe infiltrate consistent with pneumonia. Patient was also found to be anemic with hemoglobin of 6.1 1. Acute respiratory insufficiency secondary to secondary to healthcare acquired pneumonia with suspected gram-negative organisms. Patient has been admitted to monitored bed started on Zosyn and ciprofloxacin. With patient being immunosuppressed from her chemotherapy as well as lung CA patient was also started on vancomycin did order for MRSA nasal screen if negative will discontinue vancomycin with vancomycin was discontinued following a negative MRSA nasal screen. 2. 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 Garduno with oncology as outpatient 3. Mild intermittent asthma currently stable did continue with her home aerosol regimen 4. History of alpha 1 antitrypsin deficiency 5. GERD on PPI 6. Anxiety disorder 7. Severe protein calorie malnutrition as evidenced by low BMI of 13.8 decreased energy level as well as muscle wasting did consult dietitian 8. 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 Hypokalemia corrected per protocol 10. Severe hypomagnesemia patient did receive 4 g of IV magnesium subsequently started on p.o. Mag-Ox 11. DVT prophylaxis SC Lovenox Advance planning; did discuss with the patient and family regarding her advanced directives as well as CODE STATUS. Did explain the various modalities involved ( FULL CODE, DNR CCA, DNR CCA with no intubation, and DNR CC ) patient elected to full code. Order was placed. Time spent on discussion 20 minutes. Clinical Impression(s) from Imaging Studies Chest X-Ray 08/20/18 10:21 IMPRESSION: COPD changes. Patchy infiltrate right upper lobe new since previous examination suspicious for pneumonia. Electronically Signed: Navneet Davila MD at 12:25 EDT Tel , Service support , Active Medications Acetaminophen (Tylenol) 650 mg PO Q4H PRN PRN PRN Reason: FEVER Last Admin: 08/21/18 02:48 Dose: 650 mg Al Hydroxide/Mg Hydroxide (Mylanta Ii) 30 ml PO Q6H PRN PRN PRN Reason: Gastric Burning Albuterol Sulfate (Ventolin Aerosols) 2.5 mg INHALATION Q2H PRN PRN PRN Reason: SHORTNESS OF BREATH Albuterol/Ipratropium (Duoneb) 3 ml INHALATION Q6H.RT [facility] Last Admin: 08/21/18 06:57 Dose: 3 ml Bisacodyl (Dulcolax) 10 mg RECTAL DAILY PRN PRN PRN Reason: Constipation Budesonide (Pulmicort Aerosol) 0.5 mg INHALATION Q12H.RT [facility] Last Admin: 08/21/18 06:57 Dose: 0.5 mg Docusate Sodium (Colace) 200 mg PO BID PRN PRN PRN Reason: Constipation Enoxaparin Sodium (Lovenox) 40 mg SC DAILY@1000 [place] Famotidine (Pepcid) 20 mg PO BID [facility] Last Admin: 08/20/18 22:02 Dose: 20 mg Fluticasone Propionate (Flonase Nasal [place]) 2 spray NASAL DAILY [facility] Guaifenesin (Mucinex) 1,200 mg PO BID [facility] Last Admin: 08/20/18 22:02 Dose: 1,200 mg Heparin Sodium (Beef Lung) () 50 units IV UD PRN PRN Reason: HEPARIN FLUSH Piperacillin Sod/Tazobactam Sod (Zosyn) 3.375 gm in 50 mls @ 12.5 mls/hr IV Q8 [facility] Last Admin: 08/21/18 06:59 Dose: 12.5 mls/hr Ciprofloxacin (Cipro) 400 mg in 200 mls @ 200 mls/hr IV Q8 [facility] Last Admin: 08/21/18 05:50 Dose: 200 mls/hr Magnesium Sulfate (4 Gm/100 Ml) 4 gm in 100 mls @ 25 mls/hr IV X1 ONE Stop: 08/21/18 10:28 Magnesium Hydroxide (Milk Of Magnesia) 30 ml PO DAILY PRN PRN Reason: Constipation Magnesium Oxide (Mag-Ox 400) 400 mg PO BIDCM [facility] Multivitamins (Multivitamin) 1 tablet PO DAILYCM [facility] Nutritional Formula (Lactose Free) (Ensure Enlive) 120 ml PO 4X/DAY [facility] Last Admin: 08/20/18 21:56 Dose: Not Given Ondansetron HCl (Zofran Odt) 4 mg PO Q8H PRN PRN PRN Reason: NAUSEA Ondansetron HCl (Zofran) 4 mg IV Q8H PRN PRN PRN Reason: Nausea Paroxetine HCl (Paxil) 40 mg PO DAILY [facility] Polysaccharide Iron Complex (Ferrex 150) 150 mg PO DAILYCM [facility] Potassium Chloride (K-Dur) 20 meq PO BIDCM [facility] Sodium Chloride () 10 ml IV UD PRN PRN Reason: VAD FLUSH Last Admin: 08/21/18 05:51 Dose: 10 ml Zolpidem Tartrate (Ambien (Generic)) 5 mg PO QHS PRN PRN PRN Reason: SLEEP Code Visit Inpatient E&M: 65846 Subs Hosp L3
[2018-08-21] MEDS: guaiFENesin 1,200 MG Tablet 1200 MG PO ×2 (09:20→22:51)
[2018-08-21] MEDS: Fluticasone 0.05% 1 SPRAY NASAL.SRY 2 SPRAY NASAL (09:20)
[2018-08-21] MEDS: Famotidine 20 MG Tablet PO ×2 (09:20→22:51)
[2018-08-21] MEDS: Multivitamins,Therapeutic Tablet 1 TABLET PO (09:20)
[2018-08-21] MEDS: Iron Polysaccharide Complex 150 MG CAPSULE PO ×2 (09:21→15:33)
[2018-08-21] MEDS: Magnesium Oxide 400 MG Tablet PO (15:33)
[2018-08-22] VITALS (13 sets, daily range): BP systolic 126–132; BP diastolic 57–68; PULSE 85–106; RESP 16–22; TEMP 36.2–37.1; O2SAT 96–100
[2018-08-22] MEDS: Ipratropium/Albuterol Sulfate 3 ML AMPUL.NEB INHALATION ×4 (01:08→19:05)
[2018-08-22] MEDS: Ciprofloxacin 400 MG/200 ML BAG 200 MG IV ×2 (05:15→13:41)
[2018-08-22] MEDS: 0.9% NaCl VAD Flush 10 ML IV ×2 (05:16→05:17)
[2018-08-22 05:24] LABS: Hematocrit 28.1 % (37-47); Hemoglobin 8.9 g/dl (12.0-15.0); Mean Corp Hgb Conc 31.7 g/gl (32-36); Mean Corpuscular Hgb 33.2 pg (27.0-32.0); Mean Corpuscular Volume 104.9 fL (81-99); Mean Platelet Vol. 9.5 fl (6.2-12.0); Platelet Count 195 K/mm3 (150-450); RBC Distribution Width CV 17.1 % (11.6-14.6); RBC Distribution Width SD 62.1 fl (35.1-43.9); Red Blood Count 2.68 M/mm3 (4.2-5.4); White Blood Count 3.3 K/mm3 (4.4-11.0)
[2018-08-22 05:26] LABS: Scan Indicated on CBC? Y/N NO
[2018-08-22 05:44] LABS: Anion Gap 5 (5-15); BUN 8 mg/dL (7-18); BUN/Creat Ratio 28.7 RATIO (10-20); Calcium,Total 8.3 mg/dL (8.5-10.1); Chloride 88 mmol/L (98-107); Creatinine, Serum 0.28 mg/dL (0.55-1.02); EST Glomerular Filtration Rate 266 mL/min (>60); Est Glom Filt Rate - Afr Amer 322 mL/min (>60); Estimated Creatinine Clearance 147.65 ml/min; Glucose 92 mg/dL (74-106); Potassium 3.6 mmol/L (3.5-5.1); Sodium Level 138 mmol/L (136-145)
[2018-08-22] MEDS: Piperacil/Tazobactam 3.375 GM/50 ML ML IV ×3 (06:24→21:03)
[2018-08-22] MEDS: Budesonide Respules 0.5 MG/2 ML AMPUL.NEB. INHALATION ×2 (06:58→19:05)
[2018-08-22] MEDS: Magnesium Oxide 400 MG Tablet PO ×2 (08:49→17:27)
[2018-08-22] MEDS: Multivitamins,Therapeutic Tablet 1 TABLET PO (08:49)
[2018-08-22] MEDS: Famotidine 20 MG Tablet PO ×2 (08:50→21:06)
[2018-08-22] MEDS: Fluticasone 0.05% 1 SPRAY NASAL.SRY 2 SPRAY NASAL (08:50)
[2018-08-22] MEDS: guaiFENesin 1,200 MG Tablet 1200 MG PO ×2 (08:50→21:06)
--- NOTE | 2018-08-22 11:10 | CASEMGMT ---
FELICIA HORAN assessment: Face to Face with patient for initial transition planning/care coordination assessment. FELICIA HORAN introduced self and role at [facility], pt voices understanding and consents to assessment at this time. Pt is sitting up in bed in no distress at this time. Pt is A/O x4 at this time and answers all questions appropriately at this time. Care providers, pharmacy, and demographics verified. PCP: Jordan Specialists: Lucy; Prah-onc Preferred Pharmacy: [facility] Insurance: [facility] Prescription Benefit: [facility] Living Will/HPOA: Pt states has HPOA, which is her son, Nimesh but is unsure if she has a LW. Pt's HPOA is on file here at [facility]. LNOK: Nimesh Tejada, son Living Arrangements: Pt states lives with son in [address]pt with no stairs and states has been having difficulty for the last several weeks caring for self and getting around d/t weakness. Transportation: Pt states she does not drive, that she uses [facility] van transport and states no transportation concerns at this time. DME/HHC: Pt states has the following DME: shower chair, grab bars, walker, w/c and home oxygen thru [employer] at [facility]. Therapy is recommending [facility] for pt at this time and pt is agreeable to [facility] at this time and would like [facility]. Call to Lora at [facility] and she states that they are unable to take pt d/t insurance. Call to [facility] and they are unable to take pt. Call to [facility] and she states they take pt's insurance and she asks for referral to be sent at this time. Pt also provided with info for medical alert at home. Pt states no concerns with going home at discharge with [facility]. Pt voices no further concerns/needs at this time. Advised pt to ask for CM if any further questions/concerns/needs arise, voices understanding. Pt states is currently on medical leave from her job and is unsure if she will be able to return. Plan: Home w/ [facility] [place] FELICIA HORAN
--- NOTE | 2018-08-22 16:07 | PCM.PN.HOSP ---
Patient Problems: Active and Suspected Problems (Last Reviewed 08/20/18 @ 13:48 by Neel Alvarado MD) Healthcare-associated pneumonia (Acute) Anemia (Acute) Subjective: Breathing better. No new complaints. Coughing up some green-colored phlegm. Vitals/I&O's: Vital Signs Temp Pulse Resp BP Pulse Ox 37.0 C 98 18 132/57 H 100 08/22/18 15:00 08/22/18 15:06 08/22/18 15:00 08/22/18 15:00 08/22/18 15:00 Oxygen Flow Rate (L/min) 3 Oxygen Delivery Method Nasal Cannula Weight: 41.2 kg Body Mass Index (BMI) 13.8 Intake and Output for Last 24 Hours 08/20/18 08/21/18 08/22/18 23:59 23:59 23:59 Intake Total 938 / 938 2662 / 2662 1075.9 / 1075.9 Output Total 1800 / 1800 1600 / 1600 Balance 938 / 938 862 / 862 -524.1 / -524.1 General: Alert, No apparent distress HEENT: Atraumatic, Normocephalic Oral: Moist Mucosa, No Gingival or Mucosal Lesions/ Ulcerations Neck: No Nodes, Thyroid Normal Size and Texture Lungs: Diminished, - - coarse breath sounds bilaterally. Cardiovascular: Regular rate, Regular Rhythm, Normal S1, Normal S2 Abdomen: Bowel Sounds Present, Soft, Non Tender, Non-Distended Extremities: No edema, No Calf Tenderness Skin: No rashes, No breakdown Psych/Mental Status: Normal Affect, Appropriate Microbiology Past 72 Hours 08/20/18 14:40 Blood Culture (Wb) - Anticubital Right Blood Culture - Preliminary No growth in 48 hours. 08/20/18 21:53 Sputum, Expectorated/Coughed Gram Stain - Final 08/20/18 21:53 Sputum, Expectorated/Coughed Respiratory Culture - Preliminary GNR Poss Pseudomonas sp Presumptive C albicans Staphylococcus aureus 08/20/18 16:05 Urine, Clean Catch Streptococcus pneumoniae Antigen (M - Final 08/20/18 16:05 Urine, Clean Catch Legionella Antigen - Final 08/20/18 14:35 Mucosa - Nasopharyngeal Influenza Types A,B Direct FA (KWAN) - Final Laboratory Results 08/22/18 05:00: Sodium 138, Potassium 3.6, Chloride 88 L, Carbon Dioxide 45.0 H, Anion Gap 5, BUN 8, Creatinine 0.28 L, Estim Creat Clear Calc 147.65, Est GFR (MDRD) Af Amer 322, Est GFR (MDRD) Non-Af 266, BUN/Creatinine Ratio 28.7 H, Glucose 92, Calcium 8.3 L 08/22/18 05:00: WBC 3.3 L, RBC 2.68 L, Hgb 8.9 L, Hct 28.1 L, MCV 104.9 H, MCH 33.2 H, MCHC 31.7 L, RDW 17.1 H, RDW Differential 62.1 H, Plt Count 195, MPV 9.5 Current Medications Acetaminophen (Tylenol) 650 mg PO Q4H PRN PRN PRN Reason: FEVER Last Admin: 08/21/18 02:48 Dose: 650 mg Al Hydroxide/Mg Hydroxide (Mylanta Ii) 30 ml PO Q6H PRN PRN PRN Reason: Gastric Burning Albuterol Sulfate (Ventolin Aerosols) 2.5 mg INHALATION Q2H PRN PRN PRN Reason: SHORTNESS OF BREATH Albuterol/Ipratropium (Duoneb) 3 ml INHALATION Q6H.RT [facility] Last Admin: 08/22/18 13:19 Dose: 3 ml Bisacodyl (Dulcolax) 10 mg RECTAL DAILY PRN PRN PRN Reason: Constipation Budesonide (Pulmicort Aerosol) 0.5 mg INHALATION Q12H.RT [facility] Last Admin: 08/22/18 06:58 Dose: 0.5 mg Docusate Sodium (Colace) 200 mg PO BID PRN PRN PRN Reason: Constipation Enoxaparin Sodium (Lovenox) 40 mg SC DAILY@1000 [place] Famotidine (Pepcid) 20 mg PO BID [facility] Last Admin: 08/22/18 08:50 Dose: 20 mg Fluticasone Propionate (Flonase Nasal [place]) 2 spray NASAL DAILY [facility] Last Admin: 08/22/18 08:50 Dose: 2 spray Guaifenesin (Mucinex) 1,200 mg PO BID [facility] Last Admin: 08/22/18 08:50 Dose: 1,200 mg Heparin Sodium (Beef Lung) () 50 units IV UD PRN PRN Reason: HEPARIN FLUSH Piperacillin Sod/Tazobactam Sod (Zosyn) 3.375 gm in 50 mls @ 12.5 mls/hr IV Q8 [facility] Last Admin: 08/22/18 14:54 Dose: 12.5 mls/hr Ciprofloxacin (Cipro) 400 mg in 200 mls @ 200 mls/hr IV Q8 [facility] Last Admin: 08/22/18 13:41 Dose: 200 mls/hr Magnesium Hydroxide (Milk Of Magnesia) 30 ml PO DAILY PRN PRN Reason: Constipation [facility] (Mag-Ox 400) [facility] Last Admin: 08/22/18 08:49 Dose: 400 mg Multivitamins (Multivitamin) 1 tablet [facility] Last Admin: 08/22/18 08:49 Dose: 1 tablet Nutritional Formula (Lactose Free) (Ensure Enlive) 120 ml PO 4X/DAY [facility] Last Admin: 08/22/18 13:41 Dose: Not Given Ondansetron HCl (Zofran Odt) 4 mg PO Q8H PRN PRN PRN Reason: NAUSEA Ondansetron HCl (Zofran) 4 mg IV Q8H PRN PRN PRN Reason: Nausea Paroxetine HCl (Paxil) 40 mg PO DAILY [facility] Last Admin: 08/22/18 08:50 Dose: 40 mg Polysaccharide Iron Complex (Ferrex 150) 150 [facility] Last Admin: 08/21/18 15:33 Dose: 150 mg Potassium Chloride (K-Dur) 20 meq [facility] Last Admin: 08/22/18 08:49 Dose: 20 meq Sodium Chloride () 10 ml IV UD PRN PRN Reason: VAD FLUSH Last Admin: 08/22/18 05:17 Dose: 10 ml Zolpidem Tartrate (Ambien (Generic)) 5 mg PO QHS PRN PRN PRN Reason: SLEEP Medical Necessity - Tobacco Use Smoking Status: Former smoker Assessment/Plan All Active Problems (Last Reviewed 08/20/18 @ 13:48 by Neel Alvarado MD) Healthcare-associated pneumonia (Acute) Anemia (Acute) History of tubal ligation (Resolved) COPD with acute exacerbation (Acute) PORT PLACEMENT (Resolved) 1. gram negative pneumonia possible Pseudomonal and staph continue Zosyn DC cipro add vanc pulmonary toilet 2. Acute blood loss anemia admission Hg 6.1 improved to 9.2 after 2 units PRBCs macrocytic check iron studies, B12, folate TSH 1.09 on 08/11 hold off on additional transfusions at this time check hemoccult 3. 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 DVT proph: SCDs Code Visit Inpatient E&M: 60629 Subs Hosp L2
--- NOTE | 2018-08-22 16:16 | PN_ITS ---
Patient Problems: Active and Suspected Problems (Last Reviewed 08/20/18 @ 13:48 by Neel Alvarado MD) Healthcare-associated pneumonia (Acute) Anemia (Acute) Subjective: Breathing better. No new complaints. Coughing up some green-colored phlegm. Vitals/I&O's: Vital Signs Temp Pulse Resp BP Pulse Ox 37.0 C 98 18 132/57 H 100 08/22/18 15:00 08/22/18 15:06 08/22/18 15:00 08/22/18 15:00 08/22/18 15:00 Oxygen Flow Rate (L/min) 3 Oxygen Delivery Method Nasal Cannula Weight: 41.2 kg Body Mass Index (BMI) 13.8 Intake and Output for Last 24 Hours 08/20/18 08/21/18 08/22/18 23:59 23:59 23:59 Intake Total 938 / 938 2662 / 2662 1075.9 / 1075.9 Output Total 1800 / 1800 1600 / 1600 Balance 938 / 938 862 / 862 -524.1 / -524.1 General: Alert, No apparent distress HEENT: Atraumatic, Normocephalic Oral: Moist Mucosa, No Gingival or Mucosal Lesions/ Ulcerations Neck: No Nodes, Thyroid Normal Size and Texture Lungs: Diminished, - - coarse breath sounds bilaterally. Cardiovascular: Regular rate, Regular Rhythm, Normal S1, Normal S2 Abdomen: Bowel Sounds Present, Soft, Non Tender, Non-Distended Extremities: No edema, No Calf Tenderness Skin: No rashes, No breakdown Psych/Mental Status: Normal Affect, Appropriate Microbiology Past 72 Hours 08/20/18 14:40 Blood Culture (Wb) - Anticubital Right Blood Culture - Preliminary No growth in 48 hours. 08/20/18 21:53 Sputum, Expectorated/Coughed Gram Stain - Final 08/20/18 21:53 Sputum, Expectorated/Coughed Respiratory Culture - Preliminary GNR Poss Pseudomonas sp Presumptive C albicans Staphylococcus aureus 08/20/18 16:05 Urine, Clean Catch Streptococcus pneumoniae Antigen (M - Final 08/20/18 16:05 Urine, Clean Catch Legionella Antigen - Final 08/20/18 14:35 Mucosa - Nasopharyngeal Influenza Types A,B Direct FA (KWAN) - Final Laboratory Results 08/22/18 05:00: Sodium 138, Potassium 3.6, Chloride 88 L, Carbon Dioxide 45.0 H, Anion Gap 5, BUN 8, Creatinine 0.28 L, Estim Creat Clear Calc 147.65, Est GFR (MDRD) Af Amer 322, Est GFR (MDRD) Non-Af 266, BUN/Creatinine Ratio 28.7 H, Glucose 92, Calcium 8.3 L 08/22/18 05:00: WBC 3.3 L, RBC 2.68 L, Hgb 8.9 L, Hct 28.1 L, MCV 104.9 H, MCH 33.2 H, MCHC 31.7 L, RDW 17.1 H, RDW Differential 62.1 H, Plt Count 195, MPV 9.5 Current Medications Acetaminophen (Tylenol) 650 mg PO Q4H PRN PRN PRN Reason: FEVER Last Admin: 08/21/18 02:48 Dose: 650 mg Al Hydroxide/Mg Hydroxide (Mylanta Ii) 30 ml PO Q6H PRN PRN PRN Reason: Gastric Burning Albuterol Sulfate (Ventolin Aerosols) 2.5 mg INHALATION Q2H PRN PRN PRN Reason: SHORTNESS OF BREATH Albuterol/Ipratropium (Duoneb) 3 ml INHALATION Q6H.[facility] Last Admin: 08/22/18 13:19 Dose: 3 ml Bisacodyl (Dulcolax) 10 mg RECTAL DAILY PRN PRN PRN Reason: Constipation Budesonide (Pulmicort Aerosol) 0.5 mg INHALATION Q12H.RT [facility] Last Admin: 08/22/18 06:58 Dose: 0.5 mg Docusate Sodium (Colace) 200 mg PO BID PRN PRN PRN Reason: Constipation Enoxaparin Sodium (Lovenox) 40 mg SC DAILY@1000 [place] Famotidine (Pepcid) 20 mg PO BID [facility] Last Admin: 08/22/18 08:50 Dose: 20 mg Fluticasone Propionate (Flonase Nasal [place]) 2 spray NASAL DAILY [facility] Last Admin: 08/22/18 08:50 Dose: 2 spray Guaifenesin (Mucinex) 1,200 mg PO BID [facility] Last Admin: 08/22/18 08:50 Dose: 1,200 mg Heparin Sodium (Beef Lung) () 50 units IV UD PRN PRN Reason: HEPARIN FLUSH Piperacillin Sod/Tazobactam Sod (Zosyn) 3.375 gm in 50 mls @ 12.5 mls/hr IV Q8 [facility] Last Admin: 08/22/18 14:54 Dose: 12.5 mls/hr Ciprofloxacin (Cipro) 400 mg in 200 mls @ 200 mls/hr IV Q8 [facility] Last Admin: 08/22/18 13:41 Dose: 200 mls/hr Magnesium Hydroxide (Milk Of Magnesia) 30 ml PO DAILY PRN PRN Reason: Constipation Magnesium Oxide (Mag-Ox 400) [facility] Last Admin: 08/22/18 08:49 Dose: 400 mg Multivitamins (Multivitamin) 1 tablet [facility] Last Admin: 08/22/18 08:49 Dose: 1 tablet Nutritional Formula (Lactose Free) (Ensure Enlive) 120 ml PO 4X/DAY [facility] Last Admin: 08/22/18 13:41 Dose: Not Given Ondansetron HCl (Zofran Odt) 4 mg PO Q8H PRN PRN PRN Reason: NAUSEA Ondansetron HCl (Zofran) 4 mg IV Q8H PRN PRN PRN Reason: Nausea Paroxetine HCl (Paxil) 40 mg PO DAILY [facility] Last Admin: 08/22/18 08:50 Dose: 40 mg Polysaccharide Iron Complex (Ferrex 150) 150 [facility] Last Admin: 08/21/18 15:33 Dose: 150 mg Potassium Chloride (K-Dur) 20 meq [facility] Last Admin: 08/22/18 08:49 Dose: 20 meq Sodium Chloride () 10 ml IV UD PRN PRN Reason: VAD FLUSH Last Admin: 08/22/18 05:17 Dose: 10 ml Zolpidem Tartrate (Ambien (Generic)) 5 mg PO QHS PRN PRN PRN Reason: SLEEP Medical Necessity - Tobacco Use Smoking Status: Former smoker Assessment/Plan All Active Problems (Last Reviewed 08/20/18 @ 13:48 by Neel Alvarado MD) Healthcare-associated pneumonia (Acute) Anemia (Acute) History of tubal ligation (Resolved) COPD with acute exacerbation (Acute) PORT PLACEMENT (Resolved) 1. gram negative pneumonia * possible Pseudomonal and staph * continue Zosyn * DC cipro * add vanc * pulmonary toilet 2. Acute blood loss anemia * admission Hg 6.1 * improved to 9.2 after 2 units PRBCs * macrocytic * check iron studies, B12, folate * TSH 1.09 on 08/11 * hold off on additional transfusions at this time * check hemoccult 3. Sepsis: * POA * 2/ #1 4. SCLC * liver mets * follow up with Dr. Garduno 5. DVT proph: SCDs Code Visit Inpatient E&M: 80844 Subs Hosp L2
--- NOTE | 2018-08-22 16:35 | PCM.RX.CS ---
Consult Pharmacy has been consulted to manage selected antiobiotic: Vancomycin Type of Consult: New start Suspected Infection: Pneumonia Prior Doses of Antibiotics Received/Current Regimen: PATIENT WAS PREVIOUSLY ON VANCOMYCIN 500MG IV Q8H WHICH WAS DCD ON 08/21/18 Labs: Sodium 138 mmol/L (136-145) 08/22/18 05:00 Potassium 3.6 mmol/L (3.5-5.1) 08/22/18 05:00 Chloride 88 mmol/L (98-107) L 08/22/18 05:00 Carbon Dioxide 45.0 mmol/L (21.0-32.0) H 08/22/18 05:00 Anion Gap 5 (5-15) 08/22/18 05:00 BUN 8 mg/dL (7-18) 08/22/18 05:00 Creatinine 0.28 mg/dL (0.55-1.02) L 08/22/18 05:00 Est GFR (MDRD) Af Amer 322 mL/min (>60) 08/22/18 05:00 Est GFR (MDRD) Non-Af 266 mL/min (>60) 08/22/18 05:00 BUN/Creatinine Ratio 28.7 RATIO (10-20) H 08/22/18 05:00 Glucose 92 mg/dL (74-106) 08/22/18 05:00 Microbiology: Microbiology 08/20/18 14:40 Blood Culture (Wb) - Anticubital Right Blood Culture - Preliminary No growth in 48 hours. 08/20/18 21:53 Sputum, Expectorated/Coughed Gram Stain - Final 08/20/18 21:53 Sputum, Expectorated/Coughed Respiratory Culture - Preliminary GNR Poss Pseudomonas sp Presumptive C albicans Staphylococcus aureus 08/20/18 16:05 Urine, Clean Catch Streptococcus pneumoniae Antigen (M - Final 08/20/18 16:05 Urine, Clean Catch Legionella Antigen - Final 08/20/18 14:35 Mucosa - Nasopharyngeal Influenza Types A,B Direct FA (KWAN) - Final Weight used for dosin.2 kg Estimated Creatinine Clearance: 147ML/MIN Goal Trough: 15-20 mcg/mL Pharmacy Plan for Drug Dosing: Pharmacy consulted to manage vancomycin. The patient was previously on vancomycin 500mg IV Q8hrs, which was stopped prior to the trough being drawn. With this in mind, will not give an initial loading dose at this time since the patient was on scheduled vancomycin yesterday during this admission. Will continue the regimen the patient was on and schedule a trough prior to the 4th dose of scheduled regimen. PLAN/RECOMMENDATIONS 1. Vancomycin 500mg IV Q8hrs to start 08/22 @1700 2. Trough scheduled 08/23/18 @1630, prior to the 4th scheduled dose. 3. Pharmacy Service will continue to monitor and adjust dosing as required.
--- NOTE | 2018-08-22 16:42 | PHA.PHARE_ITS ---
Addendum entered and electronically signed by Kellie Martinez 08/22/18 16:49: NURSING CALLED ABOUT RE-TIMING MEDICATION DUE TO IV ACCESS ISSUES AND ZOSYN COMPATIBILITY. CHANGED FIRST DOSE OF VANCOMYCIN TO 1900 TO AVOID ANY CONFLICTING DOSING ISSUES WITH ZOSYN. ADJUSTED TROUGH DRAW TIME TO 08/23 @1830 Original Note: Consult Pharmacy has been consulted to manage selected antiobiotic: Vancomycin Type of Consult: New start Suspected Infection: Pneumonia Prior Doses of Antibiotics Received/Current Regimen: PATIENT WAS PREVIOUSLY ON VANCOMYCIN 500MG IV Q8H WHICH WAS DCD ON 08/21/18 Labs: Sodium 138 mmol/L (136-145) 08/22/18 05:00 Potassium 3.6 mmol/L (3.5-5.1) 08/22/18 05:00 Chloride 88 mmol/L (98-107) L 08/22/18 05:00 Carbon Dioxide 45.0 mmol/L (21.0-32.0) H 08/22/18 05:00 Anion Gap 5 (5-15) 08/22/18 05:00 BUN 8 mg/dL (7-18) 08/22/18 05:00 Creatinine 0.28 mg/dL (0.55-1.02) L 08/22/18 05:00 Est GFR (MDRD) Af Amer 322 mL/min (>60) 08/22/18 05:00 Est GFR (MDRD) Non-Af 266 mL/min (>60) 08/22/18 05:00 BUN/Creatinine Ratio 28.7 RATIO (10-20) H 08/22/18 05:00 Glucose 92 mg/dL (74-106) 08/22/18 05:00 Microbiology: Microbiology 08/20/18 14:40 Blood Culture (Wb) - Anticubital Right Blood Culture - Preliminary No growth in 48 hours. 08/20/18 21:53 Sputum, Expectorated/Coughed Gram Stain - Final 08/20/18 21:53 Sputum, Expectorated/Coughed Respiratory Culture - Preliminary GNR Poss Pseudomonas sp Presumptive C albicans Staphylococcus aureus 08/20/18 16:05 Urine, Clean Catch Streptococcus pneumoniae Antigen (M - Final 08/20/18 16:05 Urine, Clean Catch Legionella Antigen - Final 08/20/18 14:35 Mucosa - Nasopharyngeal Influenza Types A,B Direct FA (KWAN) - Final Weight used for dosin.2 kg Estimated Creatinine Clearance: 147ML/MIN Goal Trough: 15-20 mcg/mL Pharmacy Plan for Drug Dosing: Pharmacy consulted to manage vancomycin. The patient was previously on vancomycin 500mg IV Q8hrs, which was stopped prior to the trough being drawn. With this in mind, will not give an initial loading dose at this time since the patient was on scheduled vancomycin yesterday during this admission. Will continue the regimen the patient was on and schedule a trough prior to the 4th dose of scheduled regimen. PLAN/RECOMMENDATIONS 1. Vancomycin 500mg IV Q8hrs to start 08/22 @1700 2. Trough scheduled 08/23/18 @1630, prior to the 4th scheduled dose. 3. Pharmacy Service will continue to monitor and adjust dosing as required.
[2018-08-22] MEDS: Vancomycin IV 500 MG/100 ML BAG 100 MG IV (19:00)
--- NOTE | 2018-08-22 20:51 | CPS ---
pt only had 8 min of aero tx-pt did not want to finish tx due to anxiety attack-bs diminished-
[2018-08-23] VITALS (9 sets, daily range): BP systolic 121–136; BP diastolic 58–71; PULSE 60–102; RESP 16–20; TEMP 36.6–37.1; O2SAT 97
[2018-08-23] MEDS: Ipratropium/Albuterol Sulfate 3 ML AMPUL.NEB INHALATION ×3 (01:14→13:27)
[2018-08-23] MEDS: Vancomycin IV 500 MG/100 ML BAG 100 MG IV (03:30)
[2018-08-23] MEDS: 0.9% NaCl VAD Flush 10 ML IV ×3 (05:45→15:04)
[2018-08-23 05:59] LABS: Absolute Neutrophil Count 1.5 X10^3/uL (2.0-7.7); Basophil# 0.01 X10^3/uL; Basophil% 0.3 % (0-1); Eosinophil# 0.14 X10^3/uL; Eosinophils% 4.2 % (0-5); Hematocrit 28.4 % (37-47); Mean Corp Hgb Conc 31.7 g/gl (32-36); Mean Corpuscular Hgb 32.7 pg (27.0-32.0); Mean Corpuscular Volume 103.3 fL (81-99); Mean Platelet Vol. 9.5 fl (6.2-12.0); Monocyte# 0.64 X10^3/uL; Monocyte% 19.2 % (0-10); Neutrophil # 1.53 X10^3/uL (2.7-7.7); Platelet Count 221 K/mm3 (150-450); RBC Distribution Width CV 16.3 % (11.6-14.6); RBC Distribution Width SD 59.6 fl (35.1-43.9); Red Blood Count 2.75 M/mm3 (4.2-5.4); White Blood Count 3.3 K/mm3 (4.4-11.0)
[2018-08-23 06:00] LABS: POSITIVE COUNT NO; POSITIVE DIFFERENTIAL NO; POSITIVE MORPHOLOGY NO
[2018-08-23] MEDS: Piperacil/Tazobactam 3.375 GM/50 ML ML IV (06:10)
[2018-08-23 07:11] LABS: Anion Gap 4 (5-15); BUN 9 mg/dL (7-18); BUN/Creat Ratio 25.5 RATIO (10-20); Calcium,Total 8.5 mg/dL (8.5-10.1); Chloride 89 mmol/L (98-107); Creatinine, Serum 0.35 mg/dL (0.55-1.02); EST Glomerular Filtration Rate 203 mL/min (>60); Est Glom Filt Rate - Afr Amer 246 mL/min (>60); Estimated Creatinine Clearance 118.12 ml/min; Ferritin 360 ng/mL (8-252); Glucose 154 mg/dL (74-106); Iron 34 ug/dL (50-170); Iron Binding Capacity,Total 213 ug/dL (250-450); Magnesium 0.9 mg/dL (1.6-2.6); Potassium 3.6 mmol/L (3.5-5.1); Sodium Level 136 mmol/L (136-145)
[2018-08-23] MEDS: Budesonide Respules 0.5 MG/2 ML AMPUL.NEB. INHALATION (07:16)
[2018-08-23] MEDS: Iron Polysaccharide Complex 150 MG CAPSULE PO (08:35)
[2018-08-23] MEDS: Fluticasone 0.05% 1 SPRAY NASAL.SRY 2 SPRAY NASAL (08:36)
[2018-08-23] MEDS: guaiFENesin 1,200 MG Tablet 1200 MG PO (08:36)
[2018-08-23] MEDS: Multivitamins,Therapeutic Tablet 1 TABLET PO (08:36)
[2018-08-23] MEDS: Magnesium Oxide 400 MG Tablet PO (08:36)
[2018-08-23] MEDS: Famotidine 20 MG Tablet PO (08:37)
[2018-08-23 09:40] LABS: Vitamin B12 654 pg/mL (211-911)
[2018-08-23] MEDS: levoFLOXacin 500 MG Tablet PO (11:31)
--- NOTE | 2018-08-23 12:07 | PCM.PN.HOSP ---
Patient Problems: Active and Suspected Problems (Last Reviewed 08/20/18 @ 13:48 by Neel Alvarado MD) Healthcare-associated pneumonia (Acute) Anemia (Acute) Subjective: Breathing better. Coughing, but non-productive. Vitals/I&O's: Vital Signs Temp Pulse Resp BP Pulse Ox 36.6 C 95 18 124/71 H 97 08/23/18 08:42 08/23/18 11:02 08/23/18 08:42 08/23/18 08:42 08/23/18 08:42 Oxygen Flow Rate (L/min) 2 Oxygen Delivery Method Nasal Cannula Weight: 41.1 kg Body Mass Index (BMI) 13.8 Intake and Output for Last 24 Hours 08/21/18 08/22/18 08/23/18 23:59 23:59 23:59 Intake Total 2662 / 2662 1698.1 / 1698.1 775 / 775 Output Total 1800 / 1800 2975 / 2975 1550 / 1550 Balance 862 / 862 -1276.9 / -1276.9 -775 / -775 General: Alert, Cooperative, No apparent distress HEENT: Atraumatic, Normocephalic Oral: Moist Mucosa, No Gingival or Mucosal Lesions/ Ulcerations Neck: No Nodes, Thyroid Normal Size and Texture Lungs: Diminished, - - coarse breath sounds bilaterally. Cardiovascular: Regular rate, Regular Rhythm, Normal S1, Normal S2, No murmurs Abdomen: Bowel Sounds Present, Soft, Non Tender, Non-Distended Extremities: No edema, No Calf Tenderness Skin: No rashes, No breakdown Musculoskeletal: Cachexia Microbiology Past 72 Hours 08/20/18 21:53 Sputum, Expectorated/Coughed Gram Stain - Final 08/20/18 21:53 Sputum, Expectorated/Coughed Respiratory Culture - Final Pseudomonas spp Presumptive C albicans Staphylococcus aureus 08/20/18 14:40 Blood Culture (Wb) - Anticubital Right Blood Culture - Preliminary No growth in 48 hours. 08/20/18 16:05 Urine, Clean Catch Streptococcus pneumoniae Antigen (M - Final 08/20/18 16:05 Urine, Clean Catch Legionella Antigen - Final 08/20/18 14:35 Mucosa - Nasopharyngeal Influenza Types A,B Direct FA (KWAN) - Final Laboratory Results 08/23/18 05:45: Sodium 136, Potassium 3.6, Chloride 89 L, Carbon Dioxide 43.0 H, Anion Gap 4 L, BUN 9, Creatinine 0.35 L, Estim Creat Clear Calc 118.12, Est GFR (MDRD) Af Amer 246, Est GFR (MDRD) Non-Af 203, BUN/Creatinine Ratio 25.5 H, Glucose 154 H, Calcium 8.5, Magnesium 0.9 L*, Iron 34 L, TIBC 213 L, Iron Saturation 16.0, Ferritin 360 H, Folate 23.10 08/23/18 05:45: WBC 3.3 L, RBC 2.75 L, Hgb 9.0 L, Hct 28.4 L, MCV 103.3 H, MCH 32.7 H, MCHC 31.7 L, RDW 16.3 H, RDW Differential 59.6 H, Plt Count 221, MPV 9.5, Immature Gran % (Auto) 0.300, Neut % (Auto) 46.0 L, Lymph % (Auto) 30.0, [place] % (Auto) 19.2 H, Eos % (Auto) 4.2, Baso % (Auto) 0.3, Absolute Neuts (auto) 1.5 L, Absolute Lymphs (auto) 1.00, Total Counted Not Reportable 08/23/18 05:45: Vitamin B12 654 Current Medications Acetaminophen (Tylenol) 650 mg PO Q4H PRN PRN PRN Reason: FEVER Last Admin: 08/21/18 02:48 Dose: 650 mg Al Hydroxide/Mg Hydroxide (Mylanta Ii) 30 ml PO Q6H PRN PRN PRN Reason: Gastric Burning Albuterol Sulfate (Ventolin Aerosols) 2.5 mg INHALATION Q2H PRN PRN PRN Reason: SHORTNESS OF BREATH Albuterol/Ipratropium (Duoneb) 3 ml INHALATION Q6H.RT [facility] Last Admin: 08/23/18 07:16 Dose: 3 ml Bisacodyl (Dulcolax) 10 mg RECTAL DAILY PRN PRN PRN Reason: Constipation Budesonide (Pulmicort Aerosol) 0.5 mg INHALATION Q12H.RT [facility] Last Admin: 08/23/18 07:16 Dose: 0.5 mg Docusate Sodium (Colace) 200 mg PO BID PRN PRN PRN Reason: Constipation Enoxaparin Sodium (Lovenox) 40 mg SC DAILY@1000 [facility] Famotidine (Pepcid) 20 mg PO BID [facility] Last Admin: 08/23/18 08:37 Dose: 20 mg Fluticasone Propionate (Flonase Nasal [place]) 2 spray NASAL DAILY [facility] Last Admin: 08/23/18 08:36 Dose: 2 spray Guaifenesin (Mucinex) 1,200 mg PO BID [facility] Last Admin: 08/23/18 08:36 Dose: 1,200 mg Heparin Sodium (Beef Lung) () 50 units IV UD PRN PRN Reason: HEPARIN FLUSH Magnesium Sulfate (4 Gm/100 Ml) 4 gm in 100 mls @ 25 mls/hr IV X1 ONE Stop: 08/23/18 15:29 Last Admin: 08/23/18 11:31 Dose: 25 mls/hr Levofloxacin (Levaquin Tablet) 500 mg PO DAILY@0600 [facility] Magnesium Hydroxide (Milk Of Magnesia) 30 ml PO DAILY PRN PRN Reason: Constipation Magnesium [facility] (Mag-Ox 400) [facility] Last Admin: 08/23/18 08:36 Dose: 400 mg Multivitamins (Multivitamin) [facility] Last Admin: 08/23/18 08:36 Dose: 1 tablet Nutritional Formula (Lactose Free) (Ensure Enlive) 120 ml PO 4X/DAY [facility] Last Admin: 08/23/18 08:36 Dose: 120 ml Ondansetron HCl (Zofran Odt) 4 mg PO Q8H PRN PRN PRN Reason: NAUSEA Ondansetron HCl (Zofran) 4 mg IV Q8H PRN PRN PRN Reason: Nausea Paroxetine HCl (Paxil) 40 mg PO DAILY [facility] Last Admin: 08/23/18 08:37 Dose: 40 mg Polysaccharide Iron Complex (Ferrex 150) [facility] Last Admin: 08/23/18 08:35 Dose: 150 mg Potassium Chloride (K-Dur) 20 meq [facility] Last Admin: 08/23/18 08:35 Dose: 20 meq Sodium Chloride () 10 ml IV UD PRN PRN Reason: VAD FLUSH Last Admin: 08/23/18 05:50 Dose: 10 ml Zolpidem Tartrate (Ambien (Generic)) 5 mg PO QHS PRN PRN PRN Reason: SLEEP Medical Necessity - Tobacco Use Smoking Status: Former smoker Assessment/Plan All Active Problems (Last Reviewed 08/20/18 @ 13:48 by Neel Alvarado MD) Healthcare-associated pneumonia (Acute) Anemia (Acute) History of tubal ligation (Resolved) COPD with acute exacerbation (Acute) PORT PLACEMENT (Resolved) 1. gram negative pneumonia Pseudomonal Levaquin for 7 days DC cipro add vanc pulmonary toilet 2. MSSA pneumonia levaquin 3. Acute blood loss anemia admission Hg 6.1 improved to 9.2 after 2 units PRBCs macrocytic iron slightly low, but ferritin high B12 and folate normal TSH 1.09 on 08/11 outpatient follow up labs. start FeSO4 BID 3. 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 DVT proph: SCDs 6. Debility: PT recs C
--- NOTE | 2018-08-23 12:11 | PN_ITS ---
Patient Problems: Active and Suspected Problems (Last Reviewed 08/20/18 @ 13:48 by Neel Alvarado MD) Healthcare-associated pneumonia (Acute) Anemia (Acute) Subjective: Breathing better. Coughing, but non-productive. Vitals/I&O's: Vital Signs Temp Pulse Resp BP Pulse Ox 36.6 C 95 18 124/71 H 97 08/23/18 08:42 08/23/18 11:02 08/23/18 08:42 08/23/18 08:42 08/23/18 08:42 Oxygen Flow Rate (L/min) 2 Oxygen Delivery Method Nasal Cannula Weight: 41.1 kg Body Mass Index (BMI) 13.8 Intake and Output for Last 24 Hours 08/21/18 08/22/18 08/23/18 23:59 23:59 23:59 Intake Total 2662 / 2662 1698.1 / 1698.1 775 / 775 Output Total 1800 / 1800 2975 / 2975 1550 / 1550 Balance 862 / 862 -1276.9 / -1276.9 -775 / -775 General: Alert, Cooperative, No apparent distress HEENT: Atraumatic, Normocephalic Oral: Moist Mucosa, No Gingival or Mucosal Lesions/ Ulcerations Neck: No Nodes, Thyroid Normal Size and Texture Lungs: Diminished, - - coarse breath sounds bilaterally. Cardiovascular: Regular rate, Regular Rhythm, Normal S1, Normal S2, No murmurs Abdomen: Bowel Sounds Present, Soft, Non Tender, Non-Distended Extremities: No edema, No Calf Tenderness Skin: No rashes, No breakdown Musculoskeletal: Cachexia Microbiology Past 72 Hours 08/20/18 21:53 Sputum, Expectorated/Coughed Gram Stain - Final 08/20/18 21:53 Sputum, Expectorated/Coughed Respiratory Culture - Final Pseudomonas spp Presumptive C albicans Staphylococcus aureus 08/20/18 14:40 Blood Culture (Wb) - Anticubital Right Blood Culture - Preliminary No growth in 48 hours. 08/20/18 16:05 Urine, Clean Catch Streptococcus pneumoniae Antigen (M - Final 08/20/18 16:05 Urine, Clean Catch Legionella Antigen - Final 08/20/18 14:35 Mucosa - Nasopharyngeal Influenza Types A,B Direct FA (KWAN) - Final Laboratory Results 08/23/18 05:45: Sodium 136, Potassium 3.6, Chloride 89 L, Carbon Dioxide 43.0 H, Anion Gap 4 L, BUN 9, Creatinine 0.35 L, Estim Creat Clear Calc 118.12, Est GFR (MDRD) Af Amer 246, Est GFR (MDRD) Non-Af 203, BUN/Creatinine Ratio 25.5 H, Glucose 154 H, Calcium 8.5, Magnesium 0.9 L*, Iron 34 L, TIBC 213 L, Iron Saturation 16.0, Ferritin 360 H, Folate 23.10 08/23/18 05:45: WBC 3.3 L, RBC 2.75 L, Hgb 9.0 L, Hct 28.4 L, MCV 103.3 H, MCH 32.7 H, MCHC 31.7 L, RDW 16.3 H, RDW Differential 59.6 H, Plt Count 221, MPV 9.5, Immature Gran % (Auto) 0.300, Neut % (Auto) 46.0 L, Lymph % (Auto) 30.0, [place] % (Auto) 19.2 H, Eos % (Auto) 4.2, Baso % (Auto) 0.3, Absolute Neuts (auto) 1.5 L, Absolute Lymphs (auto) 1.00, Total Counted Not Reportable 08/23/18 05:45: Vitamin B12 654 Current Medications Acetaminophen (Tylenol) 650 mg PO Q4H PRN PRN PRN Reason: FEVER Last Admin: 08/21/18 02:48 Dose: 650 mg Al Hydroxide/Mg Hydroxide (Mylanta Ii) 30 ml PO Q6H PRN PRN PRN Reason: Gastric Burning Albuterol Sulfate (Ventolin Aerosols) 2.5 mg INHALATION Q2H PRN PRN PRN Reason: SHORTNESS OF BREATH Albuterol/Ipratropium (Duoneb) 3 ml INHALATION Q6H.RT [facility] Last Admin: 08/23/18 07:16 Dose: 3 ml Bisacodyl (Dulcolax) 10 mg RECTAL DAILY PRN PRN PRN Reason: Constipation Budesonide (Pulmicort Aerosol) 0.5 mg INHALATION Q12H.RT [facility] Last Admin: 08/23/18 07:16 Dose: 0.5 mg Docusate Sodium (Colace) 200 mg PO BID PRN PRN PRN Reason: Constipation Enoxaparin Sodium (Lovenox) 40 mg SC DAILY@1000 [facility] Famotidine (Pepcid) 20 mg PO BID [facility] Last Admin: 08/23/18 08:37 Dose: 20 mg Fluticasone Propionate (Flonase Nasal [place]) 2 spray NASAL DAILY [facility] Last Admin: 08/23/18 08:36 Dose: 2 spray Guaifenesin (Mucinex) 1,200 mg PO BID [facility] Last Admin: 08/23/18 08:36 Dose: 1,200 mg Heparin Sodium (Beef Lung) () 50 units IV UD PRN PRN Reason: HEPARIN FLUSH Magnesium Sulfate (4 Gm/100 Ml) 4 gm in 100 mls @ 25 mls/hr IV X1 ONE Stop: 08/23/18 15:29 Last Admin: 08/23/18 11:31 Dose: 25 mls/hr Levofloxacin (Levaquin Tablet) 500 mg PO DAILY@0600 [facility] Magnesium Hydroxide (Milk Of Magnesia) 30 ml PO DAILY PRN PRN Reason: Constipation Magnesium Oxide (Mag-Ox 400) [facility] Last Admin: 08/23/18 08:36 Dose: 400 mg Multivitamins (Multivitamin) [facility] Last Admin: 08/23/18 08:36 Dose: 1 tablet Nutritional Formula (Lactose Free) (Ensure Enlive) 120 ml PO 4X/DAY [facility] Last Admin: 08/23/18 08:36 Dose: 120 ml Ondansetron HCl (Zofran Odt) 4 mg PO Q8H PRN PRN PRN Reason: NAUSEA Ondansetron HCl (Zofran) 4 mg IV Q8H PRN PRN PRN Reason: Nausea Paroxetine HCl (Paxil) 40 mg PO DAILY [facility] Last Admin: 08/23/18 08:37 Dose: 40 mg Polysaccharide Iron Complex (Ferrex 150) [facility] Last Admin: 08/23/18 08:35 Dose: 150 mg Potassium Chloride (K-Dur) 20 meq [facility] Last Admin: 08/23/18 08:35 Dose: 20 meq Sodium Chloride () 10 ml IV UD PRN PRN Reason: VAD FLUSH Last Admin: 08/23/18 05:50 Dose: 10 ml Zolpidem Tartrate (Ambien (Generic)) 5 mg PO QHS PRN PRN PRN Reason: SLEEP Medical Necessity - Tobacco Use Smoking Status: Former smoker Assessment/Plan All Active Problems (Last Reviewed 08/20/18 @ 13:48 by Neel Alvarado MD) Healthcare-associated pneumonia (Acute) Anemia (Acute) History of tubal ligation (Resolved) COPD with acute exacerbation (Acute) PORT PLACEMENT (Resolved) 1. gram negative pneumonia * Pseudomonal * Levaquin for 7 days * DC cipro * add vanc * pulmonary toilet 2. MSSA pneumonia * levaquin 3. Acute blood loss anemia * admission Hg 6.1 * improved to 9.2 after 2 units PRBCs * macrocytic * iron slightly low, but ferritin high * B12 and folate normal * TSH 1.09 on 08/11 * outpatient follow up labs. * start FeSO4 BID 3. Sepsis: * POA * 2/2 #1 * resolved 4. SCLC * liver mets * follow up with Dr. Garduno 5. DVT proph: SCDs 6. Debility: * PT recs [facility]
--- NOTE | 2018-08-23 12:18 | CASEMGMT ---
[facility] notified that pt to be discharged today and d/c summary/instructions along with copy of order to be faxed once all obtained. [place] [facility] [place] for discharge as her son is at work and unable to bring pt her tank at this time. Pt would like to go home by [facility] van. Alberto, pt navigator, here to speak with pt as she follows her in the cancer treatment center. Stas DUARTE CM
--- NOTE | 2018-08-23 12:19 | DCINST_ITS ---
- Discharge Diagnoses Current Active Problems: Current Active and Chronic Problems (Last Reviewed 08/20/18 @ 13:48 by Neel Alvarado MD) Small cell lung cancer (Chronic) Healthcare-associated pneumonia (Acute) Anemia (Acute) Immunosuppressed due to chemotherapy (Chronic) You will use the following diet at home:: No restrictions Your food should be the consistency of: Regular Discharge Activity: Return to Normal Activity Call your doctor if you observe: Fever of 101 or Higher, Shortness of breath Allergies/Adverse Reactions: Allergies morphine Adverse Reaction (Intermediate, Verified 08/04/18 10:06) Itching Medications to take at Discharge Multivitamins,Therapeutic [Multivitamin] 1 tab PO DAILY 09/06/16 Tiotropium [place] [Spiriva] 18 mcg IH DAILY #1 cap.w.dev 03/17/17 fluticasone 50 mcg/actuation nasal spray,suspension 50 mcg INTRANASAL QDAY PRN 12/06/17 albuterol sulfate 2.5 mg/3 mL (0.083 %) solution for nebulization 2.5 mg INHALATION 4X/DAY PRN 30 Days #180 vial 02/17/18 albuterol sulfate HFA 90 mcg/actuation aerosol inhaler 1 - 2 puff INHALATION Q4H PRN PRN #1 inhaler 02/17/18 budesonide-formoterol HFA 160 mcg-4.5 mcg/actuation aerosol inhaler 2 puff INHALATION BID #1 hfa.aer.ad 02/17/18 Lidocaine/Prilocaine [Lidocaine-Prilocaine Cream] 30 gm TP DAILY PRN PRN 30 Days #1 cream..g. 03/15/18 Olanzapine [Zyprexa] 10 mg PO DAILY 16 Days #16 tab 03/15/18 Ondansetron HCl [Zofran] 4 mg PO Q8H PRN PRN 10 Days #30 tab 03/15/18 Paroxetine HCl [Paxil] 40 mg PO DAILY #30 tab 04/28/18 fluticasone 50 mcg/actuation nasal spray,suspension 2 spray INTRANASAL QDAY #1 device 05/03/18 tiotropium bromide 2.5 mcg/actuation mist for inhalation 2 puff INHALATION QDAY #1 device 05/03/18 Guaifenesin [Mucinex] 1,200 mg PO BID #10 tablet 10/16/18 Iron Polysaccharide Complex [Ferrex 150] 150 mg PO DAILYCM #30 capsule 08/23/18 Magnesium Oxide [Mag-Ox 400] 400 mg PO BIDCM #28 tablet 08/23/18 Prednisone 4 tab PO DAILY #5 tablet 08/23/18 levoFLOXacin tablet [Levaquin tablet] 500 mg PO DAILY@0600 #7 tablet 08/23/18 The following prescriptions were given: Iron Polysaccharide Complex [Ferrex 150] 150 mg PO DAILYCM #30 capsule levoFLOXacin tablet [Levaquin tablet] 500 mg PO DAILY@0600 #7 tablet Prednisone 4 tab PO DAILY #5 tablet Guaifenesin [Mucinex] 1,200 mg PO BID #10 tablet Magnesium Oxide [Mag-Ox 400] 400 mg PO BIDCM #28 tablet Orders to be completed after discharge: Basic Metabolic Profile (BMP) Time Frame: 1 Week, Location: Laboratory CBC W/Diff, Automated Time Frame: 1 Week, Location: Laboratory Magnesium Time Frame: 1 Week, Location: Laboratory Primary Care Physician: Dariel Ortega Chi, MD [Primary Care Provider] - Within 2 Weeks Test Results: Test results from this visit will be discussed in further detail at your follow- up appointment, if applicable. Please Follow Up With: Nathan Garduno MD When: 2-3 weeks Please Follow Up With: Jamar Carpenter DO When: 2-4 weeks Proposed Discharge Date: 08/23/18
--- NOTE | 2018-08-23 12:19 | PCM.DC.SUM ---
Discharge Date and Diagnosis - Problem List Patient Problems: Active and Suspected Problems (Last Reviewed 08/20/18 @ 13:48 by Neel Alvarado MD) MSSA (methicillin susceptible Staphylococcus aureus) pneumonia (Acute) Pseudomonal pneumonia (Acute) Anemia (Acute) COPD with acute exacerbation (Acute) Date of Admission: 08/20/18 Date of Discharge: 08/23/18 - Primary Discharge Diagnosis Active and Suspected Problems (Last Reviewed 08/20/18 @ 13:48 by Neel Alvarado MD) MSSA (methicillin susceptible Staphylococcus aureus) pneumonia (Acute) Pseudomonal pneumonia (Acute) Anemia (Acute) COPD with acute exacerbation (Acute) - Secondary Discharge Diagnosis Chronic Problems (Last Reviewed 08/20/18 @ 13:48 by Neel Alvarado MD) History of tubal ligation (Chronic) Lung mass (Chronic) Cachexia (Chronic) Small cell lung cancer (Chronic) Mediastinal mass (Chronic) 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) Encounter for insertion of venous access port (Chronic) Educational circumstance (Chronic) Chemotherapy management, encounter for (Chronic) Immunosuppressed due to chemotherapy (Chronic) Asthma (Chronic) Nocturnal hypoxia (Chronic) Anxiety (Chronic) Nicotine dependence in remission (Chronic) Stage 4 very severe COPD by GOLD classification (Chronic) Allergic rhinitis (Chronic) COPD with acute exacerbation (Chronic) Tobacco dependence syndrome (Chronic) [id number] deficiency (Chronic) COPD (chronic obstructive pulmonary disease) (Chronic) GERD (gastroesophageal reflux disease) (Chronic) Hospital Course and Treatment Imaging Results: Clinical Impression(s) from Imaging Studies Chest X-Ray 08/20/18 10:21 IMPRESSION: COPD changes. Patchy infiltrate right upper lobe new since previous examination suspicious for pneumonia. Electronically Signed: Navneet Davila MD at 12:25 EDT Tel , Service support , Jamar Carpenter DO. Operations: None Procedures: None Summary of Care Provided: The patient is a 57 year old F presents with generalized weakness and shortness of breath. 1. gram negative pneumonia Pseudomonal Levaquin for 7 days DC cipro add vanc pulmonary toilet 2. MSSA pneumonia levaquin 3. Acute blood loss anemia admission Hg 6.1 improved to 9.2 after 2 units PRBCs macrocytic iron slightly low, but ferritin high B12 and folate normal TSH 1.09 on 08/11 outpatient follow up labs. start FeSO4 BID 3. 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 Debility: PT recs HHC 6. Hypomagnesemia replace follow up 7. Hypokalemia complicated by hypomagnesemia monitor[] Patient Problems: Active and Suspected Problems (Last Reviewed 08/20/18 @ 13:48 by Neel Alvarado MD) MSSA (methicillin susceptible Staphylococcus aureus) pneumonia (Acute) Pseudomonal pneumonia (Acute) Anemia (Acute) COPD with acute exacerbation (Acute) - Physical Exam Vital Signs Temp Pulse Resp BP Pulse Ox 36.6 C 95 18 124/71 H 97 08/23/18 08:42 08/23/18 11:02 08/23/18 08:42 08/23/18 08:42 08/23/18 08:42 Oxygen Flow Rate (L/min) 2 Oxygen Delivery Method Nasal Cannula Weight: 41.1 kg Body Mass Index (BMI) 13.8 Intake and Output for Last 24 Hours 08/21/18 08/22/18 08/23/18 23:59 23:59 23:59 Intake Total 2662 / 2662 1698.1 / 1698.1 775 / 775 Output Total 1800 / 1800 2975 / 2975 1550 / 1550 Balance 862 / 862 -1276.9 / -1276.9 -775 / -775 Microbiology Past 72 Hours 08/20/18 21:53 Gram Stain - Final Sputum, Expectorated/Coughed Respiratory Culture - Final Pseudomonas spp Presumptive C albicans Staphylococcus aureus 08/20/18 14:40 Blood Culture - Preliminary Blood Culture (Wb) - Anticubital Right No growth in 48 hours. 08/20/18 16:05 Streptococcus pneumoniae Antigen (M - Final Urine, Clean Catch 08/20/18 16:05 Legionella Antigen - Final Urine, Clean Catch 08/20/18 14:35 Influenza Types A,B Direct FA (KWAN) - Final Mucosa - Nasopharyngeal Laboratory Tests Past 24 Hrs 08/23/18 08/23/18 08/23/18 05:45 05:45 05:45 WBC 3.3 L RBC 2.75 L Hgb 9.0 L Hct 28.4 L MCV 103.3 H MCH 32.7 H MCHC 31.7 L RDW 16.3 H RDW Differential 59.6 H Plt Count 221 MPV 9.5 Immature Gran % (Auto) 0.300 Neut % (Auto) 46.0 L Lymph % (Auto) 30.0 [place] % (Auto) 19.2 H Eos % (Auto) 4.2 Baso % (Auto) 0.3 Absolute Neuts (auto) 1.5 L Absolute Lymphs (auto) 1.00 Total Counted Not Reportable Sodium 136 Potassium 3.6 Chloride 89 L Carbon Dioxide 43.0 H Anion Gap 4 L BUN 9 Creatinine 0.35 L Estim Creat Clear Calc 118.12 Est GFR (MDRD) Af Amer 246 Est GFR (MDRD) Non-Af 203 BUN/Creatinine Ratio 25.5 H Glucose 154 H Calcium 8.5 Magnesium 0.9 L* Iron 34 L TIBC 213 L Iron Saturation 16.0 Ferritin 360 H Vitamin B12 654 Folate 23.10 Discharge Diet: No Restrictions Discharge Activity: Return to Normal Activity Call your doctor if you observe: Fever of 101 or Higher, Shortness of breath Home Medications: Medications to take at Discharge Multivitamins,Therapeutic [Multivitamin] 1 tab PO DAILY 09/06/16 Tiotropium [place] [Spiriva] 18 mcg IH DAILY #1 cap.w.dev 03/17/17 fluticasone 50 mcg/actuation nasal spray,suspension 50 mcg INTRANASAL QDAY PRN 12/06/17 albuterol sulfate 2.5 mg/3 mL (0.083 %) solution for nebulization 2.5 mg INHALATION 4X/DAY PRN 30 Days #180 vial 02/17/18 albuterol sulfate HFA 90 mcg/actuation aerosol inhaler 1 - 2 puff INHALATION Q4H PRN PRN #1 inhaler 02/17/18 budesonide-formoterol HFA 160 mcg-4.5 mcg/actuation aerosol inhaler 2 puff INHALATION BID #1 hfa.aer.ad 02/17/18 Lidocaine/Prilocaine [Lidocaine-Prilocaine Cream] 30 gm TP DAILY PRN PRN 30 Days #1 cream..g. 03/15/18 Olanzapine [Zyprexa] 10 mg PO DAILY 16 Days #16 tab 03/15/18 Ondansetron HCl [Zofran] 4 mg PO Q8H PRN PRN 10 Days #30 tab 03/15/18 Paroxetine HCl [Paxil] 40 mg PO DAILY #30 tab 04/28/18 fluticasone 50 mcg/actuation nasal spray,suspension 2 spray INTRANASAL QDAY #1 device 05/03/18 tiotropium bromide 2.5 mcg/actuation mist for inhalation 2 puff INHALATION QDAY #1 device 05/03/18 Guaifenesin [Mucinex] 1,200 mg PO BID #10 tablet 08/23/18 Iron Polysaccharide Complex [Ferrex 150] 150 mg PO DAILYCM #30 capsule 08/23/18 Magnesium Oxide [Mag-Ox 400] 400 mg PO BIDCM #28 tablet 08/23/18 Prednisone 4 tab PO DAILY #5 tablet 08/23/18 levoFLOXacin tablet [Levaquin tablet] 500 mg PO DAILY@0600 #7 tablet 08/23/18 Following Prescrptions Were Given to Patient: Iron Polysaccharide Complex [Ferrex 150] 150 mg PO DAILYCM #30 capsule levoFLOXacin tablet [Levaquin tablet] 500 mg PO DAILY@0600 #7 tablet Prednisone 4 tab PO DAILY #5 tablet Guaifenesin [Mucinex] 1,200 mg PO BID #10 tablet Magnesium Oxide [Mag-Ox 400] 400 mg PO BIDCM #28 tablet Other Amb Orders: Basic Metabolic Profile (BMP) Time Frame: 1 Week, Location: Laboratory CBC W/Diff, Automated Time Frame: 1 Week, Location: Laboratory Magnesium Time Frame: 1 Week, Location: Laboratory Primary Care Physician: Dariel Ortega Chi, MD [Primary Care Provider] - Within 2 Weeks Please Follow Up With: Nathan Garduno MD When: 2-3 weeks Please Follow Up With: Jamar Carpenter DO When: 2-4 weeks Disposition: Home with Home Health Minutes spent on discharge:: 34 Patient Condition:: Fair Medical Necessity - Tobacco Use Smoking Status: Former smoker Meaningful Use Info Meaningful Use Diagnoses (Choose all that apply): None applicable Code Visit Inpatient E&M: 21451 Disch Hosp
--- NOTE | 2018-08-23 12:22 | DS.PCM_ITS ---
Discharge Date and Diagnosis - Problem List Patient Problems: Active and Suspected Problems (Last Reviewed 08/20/18 @ 13:48 by Neel Alvarado MD) MSSA (methicillin susceptible Staphylococcus aureus) pneumonia (Acute) Pseudomonal pneumonia (Acute) Anemia (Acute) COPD with acute exacerbation (Acute) Date of Admission: 08/20/18 Date of Discharge: 08/23/18 - Primary Discharge Diagnosis Active and Suspected Problems (Last Reviewed 08/20/18 @ 13:48 by Neel Alvarado MD) MSSA (methicillin susceptible Staphylococcus aureus) pneumonia (Acute) Pseudomonal pneumonia (Acute) Anemia (Acute) COPD with acute exacerbation (Acute) - Secondary Discharge Diagnosis Chronic Problems (Last Reviewed 08/20/18 @ 13:48 by Neel Alvarado MD) History of tubal ligation (Chronic) Lung mass (Chronic) Cachexia (Chronic) Small cell lung cancer (Chronic) Mediastinal mass (Chronic) 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) Encounter for insertion of venous access port (Chronic) Educational circumstance (Chronic) Chemotherapy management, encounter for (Chronic) Immunosuppressed due to chemotherapy (Chronic) Asthma (Chronic) Nocturnal hypoxia (Chronic) Anxiety (Chronic) Nicotine dependence in remission (Chronic) Stage 4 very severe COPD by GOLD classification (Chronic) Allergic rhinitis (Chronic) COPD with acute exacerbation (Chronic) Tobacco dependence syndrome (Chronic) [id number] deficiency (Chronic) COPD (chronic obstructive pulmonary disease) (Chronic) GERD (gastroesophageal reflux disease) (Chronic) Hospital Course and Treatment Imaging Results: Clinical Impression(s) from Imaging Studies Chest X-Ray 08/20/18 10:21 IMPRESSION: COPD changes. Patchy infiltrate right upper lobe new since previous examination suspicious for pneumonia. Electronically Signed: Navneet Davila MD at 12:25 EDT Tel , Service support , Jamar Carpenter DO. Operations: None Procedures: None Summary of Care Provided: The patient is a 57 year old F presents with generalized weakness and shortness of breath. 1. gram negative pneumonia * Pseudomonal * Levaquin for 7 days * DC cipro * add vanc * pulmonary toilet 2. MSSA pneumonia * levaquin 3. Acute blood loss anemia * admission Hg 6.1 * improved to 9.2 after 2 units PRBCs * macrocytic * iron slightly low, but ferritin high * B12 and folate normal * TSH 1.09 on 08/11 * outpatient follow up labs. * start FeSO4 BID 3. Sepsis: * POA * 2/2 #1 * resolved 4. SCLC * liver mets * follow up with Dr. Garduno 5. Debility: * PT recs HHC 6. Hypomagnesemia * replace * follow up 7. Hypokalemia * complicated by hypomagnesemia * monitor[] Patient Problems: Active and Suspected Problems (Last Reviewed 08/20/18 @ 13:48 by Neel Alvarado MD) MSSA (methicillin susceptible Staphylococcus aureus) pneumonia (Acute) Pseudomonal pneumonia (Acute) Anemia (Acute) COPD with acute exacerbation (Acute) - Physical Exam Vital Signs Temp Pulse Resp BP Pulse Ox 36.6 C 95 18 124/71 H 97 08/23/18 08:42 08/23/18 11:02 08/23/18 08:42 08/23/18 08:42 08/23/18 08:42 Oxygen Flow Rate (L/min) 2 Oxygen Delivery Method Nasal Cannula Weight: 41.1 kg Body Mass Index (BMI) 13.8 Intake and Output for Last 24 Hours 08/21/18 08/22/18 08/23/18 23:59 23:59 23:59 Intake Total 2662 / 2662 1698.1 / 1698.1 775 / 775 Output Total 1800 / 1800 2975 / 2975 1550 / 1550 Balance 862 / 862 -1276.9 / -1276.9 -775 / -775 Microbiology Past 72 Hours 08/20/18 21:53 Gram Stain - Final Sputum, Expectorated/Coughed Respiratory Culture - Final Pseudomonas spp Presumptive C albicans Staphylococcus aureus 08/20/18 14:40 Blood Culture - Preliminary Blood Culture (Wb) - Anticubital Right No growth in 48 hours. 08/20/18 16:05 Streptococcus pneumoniae Antigen (M - Final Urine, Clean Catch 08/20/18 16:05 Legionella Antigen - Final Urine, Clean Catch 08/20/18 14:35 Influenza Types A,B Direct FA (KWAN) - Final Mucosa - Nasopharyngeal Laboratory Tests Past 24 Hrs 08/23/18 08/23/18 08/23/18 05:45 05:45 05:45 WBC 3.3 L RBC 2.75 L Hgb 9.0 L Hct 28.4 L MCV 103.3 H MCH 32.7 H MCHC 31.7 L RDW 16.3 H RDW Differential 59.6 H Plt Count 221 MPV 9.5 Immature Gran % (Auto) 0.300 Neut % (Auto) 46.0 L Lymph % (Auto) 30.0 [place] % (Auto) 19.2 H Eos % (Auto) 4.2 Baso % (Auto) 0.3 Absolute Neuts (auto) 1.5 L Absolute Lymphs (auto) 1.00 Total Counted Not Reportable Sodium 136 Potassium 3.6 Chloride 89 L Carbon Dioxide 43.0 H Anion Gap 4 L BUN 9 Creatinine 0.35 L Estim Creat Clear Calc 118.12 Est GFR (MDRD) Af Amer 246 Est GFR (MDRD) Non-Af 203 BUN/Creatinine Ratio 25.5 H Glucose 154 H Calcium 8.5 Magnesium 0.9 L* Iron 34 L TIBC 213 L Iron Saturation 16.0 Ferritin 360 H Vitamin B12 654 Folate 23.10 Discharge Diet: No Restrictions Discharge Activity: Return to Normal Activity Call your doctor if you observe: Fever of 101 or Higher, Shortness of breath Home Medications: Medications to take at Discharge Multivitamins,Therapeutic [Multivitamin] 1 tab PO DAILY 09/06/16 Tiotropium [place] [Spiriva] 18 mcg IH DAILY #1 cap.w.dev 03/17/17 fluticasone 50 mcg/actuation nasal spray,suspension 50 mcg INTRANASAL QDAY PRN 12/06/17 albuterol sulfate 2.5 mg/3 mL (0.083 %) solution for nebulization 2.5 mg INHALATION 4X/DAY PRN 30 Days #180 vial 02/17/18 albuterol sulfate HFA 90 mcg/actuation aerosol inhaler 1 - 2 puff INHALATION Q4H PRN PRN #1 inhaler 02/17/18 budesonide-formoterol HFA 160 mcg-4.5 mcg/actuation aerosol inhaler 2 puff INHALATION BID #1 hfa.aer.ad 02/17/18 Lidocaine/Prilocaine [Lidocaine-Prilocaine Cream] 30 gm TP DAILY PRN PRN 30 Days #1 cream..g. 03/15/18 Olanzapine [Zyprexa] 10 mg PO DAILY 16 Days #16 tab 03/15/18 Ondansetron HCl [Zofran] 4 mg PO Q8H PRN PRN 10 Days #30 tab 03/15/18 Paroxetine HCl [Paxil] 40 mg PO DAILY #30 tab 04/28/18 fluticasone 50 mcg/actuation nasal spray,suspension 2 spray INTRANASAL QDAY #1 device 05/03/18 tiotropium bromide 2.5 mcg/actuation mist for inhalation 2 puff INHALATION QDAY #1 device 05/03/18 Guaifenesin [Mucinex] 1,200 mg PO BID #10 tablet 08/23/18 Iron Polysaccharide Complex [Ferrex 150] 150 mg PO DAILYCM #30 capsule 08/23/18 Magnesium Oxide [Mag-Ox 400] 400 mg PO BIDCM #28 tablet 08/23/18 Prednisone 4 tab PO DAILY #5 tablet 08/23/18 levoFLOXacin tablet [Levaquin tablet] 500 mg PO DAILY@0600 #7 tablet 08/23/18 Following Prescrptions Were Given to Patient: Iron Polysaccharide Complex [Ferrex 150] 150 mg PO DAILYCM #30 capsule levoFLOXacin tablet [Levaquin tablet] 500 mg PO DAILY@0600 #7 tablet Prednisone 4 tab PO DAILY #5 tablet Guaifenesin [Mucinex] 1,200 mg PO BID #10 tablet Magnesium Oxide [Mag-Ox 400] 400 mg PO BIDCM #28 tablet Other Amb Orders: Basic Metabolic Profile (BMP) Time Frame: 1 Week, Location: Laboratory CBC W/Diff, Automated Time Frame: 1 Week, Location: Laboratory Magnesium Time Frame: 1 Week, Location: Laboratory Primary Care Physician: Dariel Ortega Chi, MD [Primary Care Provider] - Within 2 Weeks Please Follow Up With: Nathan Garduno MD When: 2-3 weeks Please Follow Up With: Jamar Carpenter DO When: 2-4 weeks Disposition: Home with Home Health Minutes spent on discharge:: 34 Patient Condition:: Fair Medical Necessity - Tobacco Use Smoking Status: Former smoker Meaningful Use Info Meaningful Use Diagnoses (Choose all that apply): None applicable Code Visit Inpatient E&M: 16618 Disch Hosp
--- NOTE | 2018-08-24 14:10 | CASEMGMT ---
FELICIA HORAN Discharge Follow-up Phone Call: RAYMOND: 11 Strata: 3 Call Date: 08/24/18 Discharge Date: 08/23/18 Time of Call: 1410 Duration: 1 min Admitting Diagnosis: Respiratory Failure FELICIA HORAN attempted to complete follow-up phone call after recent hospitalization. No answer, voice message left with return contact information.
--- NOTE | 2018-09-06 09:59 | CASEMGMT ---
This RN AUNG received call from [facility] and they states that they have tried to set up [facility] for pt and she keeps making excuses why they can't come out to start care. Since it has been 2 weeks from discharge and pt is not complying, they state they are going to close referral at this time. SStchristie DUARTE CM
== END 2018-08-23 15:34 | disposition home or self-care (01) | DRG 137 ==
LOC: ED 12:31 → PCU 12:57
PROVIDERS: Admitting Provider Internal Medicine; Emergency Provider Emergency Medicine; Family Provider Family Medicine Geriatric Medicine; PCP Family Medicine Geriatric Medicine
DX: J15.211 Pneumonia due to Methicillin susceptible Staphylococcus aureus (principal); J15.1 Pneumonia due to Pseudomonas; E43 Unspecified severe protein-calorie malnutrition; R64 Cachexia; Z68.1 Body mass index [BMI] 19.9 or less, adult; C34.90 Malignant neoplasm of unspecified part of unspecified bronchus or lung; E88.01 Alpha-1-antitrypsin deficiency; E83.42 Hypomagnesemia; C78.7 Secondary malignant neoplasm of liver and intrahepatic bile duct; F17.201 Nicotine dependence, unspecified, in remission; J44.1 Chronic obstructive pulmonary disease with (acute) exacerbation; J45.20 Mild intermittent asthma, uncomplicated; D64.9 Anemia, unspecified
CPT/HCPCS: 36415; 36600; 71046; 80048; 81001; 81002; 82607; 82728; 82746; 82803; 83540; 83550; 83735; 84484; 85014; 85018; 85025; 85027; 86644; 86850; 86900; 86920; 87040; 87070; 87077; 87184; 87186; 87205; 87449; 87641; 87804; 93005; 94640; 97110; 97162; 97166; 97530; 97535; 97802; 99284; J7030; J7040; J7050; P9016; P9040; A4216; J0744

== ENCOUNTER → 2018-09-26 14:38 | Outpatient (CLI) | payer MEDICAID, SELFPAY ==
--- NOTE | 2018-09-26 14:39 | CT_ITS ---
STUDY: CT CHEST WITH CONTRAST REASON FOR EXAM: Female, 57 years old. Lung cancer and chemotherapy RADIATION DOSAGE (If Supplied By Facility): CTDIvol = ( 4.94 ) mGy, DLP = ( 297.48 ) mGycm TECHNIQUE: Transaxial imaging was performed following intravenous administration of 100 ml of Isovue 300 contrast material. Individualized dose optimization techniques were used for this CT. COMPARISON: 06/29/2018 FINDINGS: Right chest wall port tip in right atrium. Stable perifissural nodule in the left measuring 5 mm on image 73 of series 6. Pulmonary emphysema with upper lobe scarring There is no demonstrated pleural abnormality. Normal heart and pericardium. Interval enlargement of heterogeneous mediastinal mass. This is located in the anterior mediastinum extending from the substernal space to the great vessels. At several levels it extends through the sternocostal articulations on the left and into the anterior chest wall. The lesion severely compresses the superior vena cava, although the SVC remains patent. The lesion measures up to 8.8 cm transverse by 7.4 cm anteroposterior by 8.4 cm craniocaudal. Normal hilar regions. Normal enhanced pulmonary arteries. Normal aorta arch and descending thoracic aorta. Remote rib trauma. CT/Chest WITH Contrast IMPRESSION: Enlarging anterior mediastinal mass, now with significant compression of the SVC and extension through several left sternocostal articulations into the anterior chest wall. Stable left perifissural lung nodule. Electronically Signed: Hari Lugo MD at 14:05 EST Tel , Service support ,
--- NOTE | 2018-09-26 14:39 | CT_ITS ---
STUDY: CT ABDOMEN WITH CONTRAST REASON FOR EXAM: Female, 57 years old. Lung cancer and chemotherapy RADIATION DOSAGE (If Supplied By Facility): CTDIvol = ( 5.71 ) mGy, DLP = ( 297.48 ) mGycm TECHNIQUE: Transaxial images were obtained post I.V. administration of 100 ml of Isovue 300 contrast, and with oral contrast. Sagittal and coronal images were reconstructed. Individualized dose optimization techniques were used for this CT. COMPARISON: 06/29/2018 FINDINGS: Pulmonary emphysema. The visualized portions of the heart are within normal limits. A faint low-density lesion is identified in hepatic segment 8 on image 9 of series 3 that measures 11 x 10 mm. This is questionably new or increased in size compared to prior study. A new round low density lesion is present in segment 7 that measures 8 mm in diameter on image 14. Probable increasing size of a faint lesion in the left hepatic lobe measuring 7 mm on image 14. Normal gallbladder and extrahepatic biliary system. Calcified hepatic granulomata. Normal pancreas. Normal bilateral adrenal glands. Stable 2 mm nonobstructing right renal stone. Normal left kidney. Normal visualized stomach. Normal small intestine. Normal colon. The appendix is not seen. There is diffuse atherosclerotic calcification of the abdominal aorta with elongation and tortuosity, but without a demonstrated aneurysm. Normal inferior vena cava. Normal retroperitoneum. Normal abdominal wall. Normal osseous structures. CT/Abdomen WITH IV Contrast IMPRESSION: Areas of abnormal low density are now identified in the liver as described above. The largest of these measures 11 mm. Some lesions are questionably new or progressed compared to prior study. If possible, dynamic postcontrast liver MRI is recommended to evaluate further, as metastatic disease cannot be excluded. Electronically Signed: Hari Lugo MD at 13:55 EST Tel , Service support ,
== END ==
PROVIDERS: Family Provider Family Medicine Geriatric Medicine; PCP Family Medicine Geriatric Medicine; Referring Provider Internal Medicine Medical Oncology; Visit Provider Internal Medicine Medical Oncology
DX: C34.90 Malignant neoplasm of unspecified part of unspecified bronchus or lung (principal)
CPT/HCPCS: 71260; 74160; Q9967; A4216

== ENCOUNTER 2018-10-07 12:51 | Emergency (ER) | payer MEDICAID, SELFPAY ==
[2018-10-07] VITALS (7 sets, daily range): BP systolic 126–142; BP diastolic 70–87; PULSE 107–116; RESP 14–22; TEMP 36.7; O2SAT 98–100; BMI 13.8; BMI 13.6
--- NOTE | 2018-10-07 13:18 | EKG12_ITS ---
Test Reason : FEVER Blood Pressure : / mmHG Vent. Rate : 106 BPM Atrial Rate : 106 BPM P-R Int : 112 ms QRS Dur : 076 ms QT Int : 330 ms P-R-T Axes : 086 081 072 degrees QTc Int : 438 ms Sinus tachycardia Biatrial enlargement Abnormal ECG Confirmed by WILLEM MONTILLA, MARCELL ([id number]), development editor RACHANA YANG ([id number]) on 10/11/2018 3:43:16 PM Referred By: NABEEL Confirmed By:MARCELL BANGURA MD
[2018-10-07] MEDS: Ipratropium/Albuterol Sulfate 3 ML AMPUL.NEB INHALATION (13:39)
[2018-10-07] MEDS: Albuterol 2.5 MG/3 ML VIAL.NEB. INHALATION ×2 (13:39)
[2018-10-07 13:53] LABS: Absolute Neutrophil Count 8.7 X10^3/uL (2.0-7.7); Basophil# 0.01 X10^3/uL; Basophil% 0.1 % (0-1); Differential Indicated SCAN CRITERIA MET; Eosinophil# 0.14 X10^3/uL; Eosinophils% 1.5 % (0-5); Hematocrit 30.5 % (37-47); Hemoglobin 9.6 g/dl (12.0-15.0); Lymphocyte % 5.2 % (19-41); Mean Corp Hgb Conc 31.5 g/gl (32-36); Mean Corpuscular Hgb 33.9 pg (27.0-32.0); Mean Corpuscular Volume 107.8 fL (81-99); Mean Platelet Vol. 8.9 fl (6.2-12.0); Monocyte# 0.29 X10^3/uL; Neutrophil # 8.69 X10^3/uL (2.7-7.7); Neutrophil % 90.1 % (47-70); POSITIVE COUNT NO; POSITIVE DIFFERENTIAL YES; POSITIVE MORPHOLOGY NO; Platelet Count 223 K/mm3 (150-450); RBC Distribution Width CV 13.5 % (11.6-14.6); RBC Distribution Width SD 51.1 fl (35.1-43.9); Red Blood Count 2.83 M/mm3 (4.2-5.4); White Blood Count 9.6 K/mm3 (4.4-11.0)
[2018-10-07 13:59] LABS: Anion Gap 3 (5-15); BUN 14 mg/dL (7-18); Calcium,Total 8.4 mg/dL (8.5-10.1); Chloride 91 mmol/L (98-107); Creatinine, Serum 0.21 mg/dL (0.55-1.02); EST Glomerular Filtration Rate 365 mL/min (>60); Est Glom Filt Rate - Afr Amer 442 mL/min (>60); Estimated Creatinine Clearance 195.07 ml/min; Glucose 92 mg/dL (74-106); Potassium 3.9 mmol/L (3.5-5.1); Sodium Level 133 mmol/L (136-145)
--- NOTE | 2018-10-07 14:03 | RAD_ITS ---
STUDY: X-RAY CHEST REASON FOR EXAM: Female, 57 years old. Dyspnea. Cough and wheezing. History of lung cancer. TECHNIQUE: AP and lateral views of the chest. COMPARISON: Comparison is made with prior study dated August 20, 2018. FINDINGS: A portacatheter is seen on the right side. The tip is in the proximal portion of the superior vena cava. EKG electrodes are seen. Stable scarring in the lung apices. Stable increased linear marking in the right middle lobe. Hyperinflation. There is no demonstrated pleural abnormality. Normal size heart. Stable upper mediastinal mass. Normal visualized pulmonary arteries. Normal visualized aortic arch and descending thoracic aorta. Normal visualized thoracic spine. Normal visualized ribs, clavicles, and shoulders. There is no demonstrated abnormality of the visualized soft tissue structures of the upper abdomen. RAD/Chest PA and Lateral IMPRESSION: Hyperinflation. Stable superior mediastinal mass. There has been no change since prior study. Electronically Signed: Matt Logan MD at 14:36 EST Tel [phone], Service support ,
--- NOTE | 2018-10-07 15:09 | ED.VISSUMM ---
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 She is presently on oxygen at 2 L. Her last chemo dose was yesterday. She reports temperature to 100.0 ?F yesterday. She does complain of congestion in her lungs and nose. She denies ringing in ears or decreased hearing. She states she is coughing up colored sputum. She was told if she did not have chemoradiation life expectancy was 6 months 18 months. She was informed that she potentially could live 18 years with treatment. She states she has a living will. She is not DNR. Patient does reports having a weight loss since February. She also complains of generalized weakness. She has no other complaints please read written note Past medical history of COPD, alpha-1 antitrypsin deficiency, anxiety and GERD she is status post bilateral tubal ligation and has a right sided port. She denies any redness, swelling around the port. Physical Examination: Vital signs are remarkable for heart rate of 110. She is not hypoxic on oxygen. She is cachectic in appearance. HEENT exam is remarkable for pale conjunctivae. Lungs reveal wheezing and rales. Heart is rapid and regular. Abdomen is soft nontender. Lower extremity exam reveals minimal swelling without edema. There is no discoloration or leg vein distention. There is no palpable coarseness on the distribution of deep venous system. Neuro exam is nonfocal. Test Results: Two-view chest x-ray interpreted by me at and remarkable for large mean cell mass which is unchanged. There is hyperaeration. There is no evidence of pneumonia. White count is normal. H&H 9.6 and 30.5. K reveals mild abnormalities. She does have CO2 retention, which is chronic. Emergency Department Course and Treatment: Patient was treated with DuoNeb and albuterol. She will be discharged home with prescription for antibiotics Treatment Plan: Outpatient treatment and follow-up with her oncologist Disposition: Improved condition Impression: 1. Purulent bronchitis 2. Bronchospasm 3. Chemo patient 4. Stage IV small cell carcinoma of the lung 5. O2 dependent COPD patient with chronic respiratory failure and hypercapnia This note was generated with [employer] Eggation software. It may contain incorrect words, spelling, and punctuation that were not noted in review of the chart prior to signing ED Disposition - Plan for ED Patient: Disposition: Home or Assisted Living Chief Complaint: Fever Instructions: ED COPD Flare Prescriptions: Doxycycline Monohydrate 100 mg PO BID #14 cap Referrals: Dariel Ortega Chi, MD [Primary Care Provider] - 3-5 Days if not improving
[2018-10-07] MEDS: Doxycycline 100 MG CAPSULE PO (15:31)
--- NOTE | 2018-10-07 16:00 | CHAPLAIN ---
Type of Pastoral Visit ___ Initial Visit ___ Follow-up Visit ___ On-call Visit ___ General Patient Visit ___ Spiritual Assessment ___ Family Conference ___ Bereavement ___ Rapid Response ___ Code Blue _x__ Other (describe below) Pastoral Care Referral From _x__ Patient ___ Family ___ Nurse ___ Physician ___ Animal Warden ___ Industrial Roof Plumber ___ Other (describe below) Sacrament/Intervention _x__ Active listening ___ Anointing ___ Evangelical ___ Bereavement ___ Communion ___ Delmy exploration ___ ___ Life review _x__ Prayer ___ Reconciliation ___ Sacrament of Sick ___ Supportive presence ___ Wedding ___ Other (describe below) Pastoral Comments met this patient earlier this week [facility]; on rounds I discovered patient was in the ED and offered to give support; pt was welcoming of support and prayer; pt will be sent home
--- OUTSIDE RECORDS SUMMARY | 2018-12-02 12:44 | XMS RPT_ITS ---
:1960 Author Organization OH[employer] Support Name Relationship Address Phone NABIL TEJADA Unavailable [address] + [address] [place] [address] D Unavailable Unavailable Unavailable BARNBY, NABIL Unavailable [address] + [address] [place] [address] D Unavailable Unavailable Unavailable BARNBY, NABIL Unavailable [address] + [address] [place] [address] D Unavailable Unavailable Unavailable BARNBY, NABIL Unavailable [address] + [address] [place] [address] D Unavailable Unavailable Unavailable BARNBY, NABIL Unavailable [address] + [address] [place] [address] D Unavailable Unavailable Unavailable BARNBY, NABIL Unavailable [address] [place] [address] D Unavailable Unavailable Unavailable BARNBY, NABIL Unavailable [address] [place] [address] D Unavailable Unavailable Unavailable BARNBY, NABIL Unavailable [address] [place] [address] D Unavailable Unavailable Unavailable BARNBY, NABIL Unavailable [address] [place] [address] D Unavailable Unavailable Unavailable BARNBY, NABIL Unavailable [address] [place] [address] D Unavailable Unavailable Unavailable BARNBY, NABIL Unavailable [address] [place] [address] [employer]ET[employer] Unavailable [address] + [place] [address] BARNBY, NABIL Unavailable [address] [place] [address] D Unavailable Unavailable Unavailable BARNBY, NABIL Unavailable [address] [place] [address] D Unavailable Unavailable Unavailable BARNBY, NABIL Unavailable [address] [place] [address] [place] Unavailable [address] + [place] [address] BARNBY, NABIL Unavailable [address] [place] [address] [employer] Unavailable [address] + [place] [address] BARNBY, NABIL Unavailable [address] [place] [address] [employer] Unavailable [address] + [place] [address] BARNBY, NABIL Unavailable [address] [place] [address] [employer] Unavailable [address] + [place] [address] BARNBY, NABIL Unavailable [address] [place] [address] [employer] Unavailable [address] + [place] [address] BARNBY, NABIL Unavailable [address] [place] [address] [employer] Unavailable [address] + [place] [address] BARNBY, NABIL Unavailable [address] [place] [address] [employer] Unavailable [address] + [place] [address] BARNBY, NABIL Unavailable [address] [place] [address] [employer] Unavailable [address] + [place] [address] BARNBY, NABIL Unavailable [address] [place] [address] [employer] Unavailable [address] + [place] [address] BARNBY, NABIL Unavailable [address] [place] [address] [employer] Unavailable [address] + [place] [address] BARNBY, NABIL Unavailable [address] [place] [address] [employer] Unavailable [address] + [place] [address] BARNBY, NABIL Unavailable [address] [place] [address] [employer] Unavailable [address] + [place] [address] BARNBY, NABIL Unavailable [address] [place] [address] [employer] Unavailable [address] + [place] [address] BARNBY, NABIL Unavailable [address] [place] [address] [employer] Unavailable [address] + [place] [address] BARNBY, NABIL Unavailable [address] [place] [address] [employer] Unavailable [address] + [place] [address] BARNBY, NABIL Unavailable [address] [place] [address] [employer] Unavailable [address] + [place] [address] BARNBY, NABIL Unavailable [address] [place] [address] [employer] Unavailable [address] + [place] [address] BARNBY, NABIL Unavailable [address] [place] [address] [employer] Unavailable [address] + [place] [address] BARNBY, NABIL Unavailable [address] [place] [address] [employer] Unavailable [address] + [place] [address] BARNBY, NABIL Unavailable [address] [place] [address] [employer] Unavailable [address] + [place] [address] BARNBY, NABIL Unavailable [address] [place] [address] [employer] Unavailable [address] + [place] [address] BARNBY, NABIL Unavailable [address] [place] [address] [employer] Unavailable [address] + [place] [address] BARNBY, NABIL Unavailable [address] [place] [address] [employer] Unavailable [address] + [place] [address] BARNBY, NABIL Unavailable [address] [place] [address] [employer] Unavailable [address] + [place] [address] BARNBY, NABIL Unavailable [address] [place] [address] [employer] Unavailable [address] + [place] [address] BARNBY, NABIL Unavailable [address] [place] [address] [employer] Unavailable [address] + [place] [address] BARNBY, NABIL Unavailable [address] [place] [address] [employer] Unavailable [address] + [place] [address] BARNBY, NABIL Unavailable [address] [place] [address] [employer] Unavailable [address] + [place] [address] BARNBY, NABIL Unavailable [address] [place] [address] [employer] Unavailable [address] + [place] [address] BARNBY, NABIL Unavailable [address] [place] [address] [employer] Unavailable [address] + [place] [address] BARNBY, NABIL Unavailable [address] [place] [address] [employer] Unavailable [address] + [place] [address] BARNBY, NABIL Unavailable [address] [place] [address] [employer] Unavailable [address] + [place] [address] BARNBY, NABIL Unavailable [address] [place] [address] [employer] Unavailable [address] + [place] [address] BARNBY, NABIL Unavailable [address] [place] [address] [employer] Unavailable [address] + [place] [address] [employer] Unavailable [address] + [place] [address] BARNBY, NABIL Unavailable [address] [place] [address] BARNBY, SILVERIO Unavailable [address] + [place] [address] [employer] Unavailable [address] + [place] [address] BARNBY, NABIL Unavailable [address] [place] [address] DELILAH SILVERIO Unavailable [address] + [place] [address] [employer] Unavailable [address] + [place] [address] DELILAH, NABIL Unavailable [address] [place] [address] BARNBY, SILVERIO Unavailable [address] + [place] [address] [employer] Unavailable [address] + [place] [address] DELILAH, NABIL Unavailable [address] [place] [address] DELILAH SILVERIO Unavailable [address] + [place] [address] [employer] Unavailable [address] + [place] [address] Care Team Providers Name Role Phone Dale Bates Admitting Unavailable POLA Larson Attending Unavailable Jordan, Dariel Chi Primary Care Unavailable Isckarus, Mansour Consulting Unavailable Robotham, Christine Consulting Unavailable Joppeduardo, Mark Consulting Unavailable Dale Bates Admitting Unavailable Robotham, Christine Attending Unavailable Jordan, Dariel Chi Primary Care Unavailable Isckarus, Mansour Consulting Unavailable Robotham, Christine Consulting Unavailable Jopperi, Mark Consulting Unavailable Jordan, Dariel Chi Primary Care Unavailable Cole Medina Attending Unavailable Jordan, Dariel Chi Primary Care Unavailable Alissa Castillo Attending Unavailable Betty Banerjee Attending Unavailable Jordan, Dariel Chi Referring Unavailable Dale Bates Admitting Unavailable POLA Larson Attending Unavailable Jordan, Dariel Chi Primary Care Unavailable Isckarus, Mansour Consulting Unavailable Robotham, Christine Consulting Unavailable Jopperi, Mark Consulting Unavailable Betty Banerjee Attending Unavailable Betty Banerjee Referring Unavailable Jordan, Dariel Chi Primary Care Unavailable Betty Banerjee Attending Unavailable Betty Banerjee Referring Unavailable Jordan, Dariel Chi Primary Care Unavailable Betty Banerjee Attending Unavailable Jordan, Dariel Chi Referring Unavailable Banerjee, Betty Attending Unavailable Banerjee, Betty Referring Unavailable Jordan, Dariel Chi Primary Care Unavailable Lavonne, Betty Attending Unavailable Jordan, Dariel Chi Primary Care Unavailable Prah, Nathan Attending Unavailable Banerjee, Betty Referring Unavailable Jordan, Dariel Chi Primary Care Unavailable Prah, Nathan Attending Unavailable Banerjee, Betty Referring Unavailable Jordan, Dariel Chi Primary Care Unavailable Prah, Nathan Consulting Unavailable Prah, Nathan Attending Unavailable Prah, Nathan Referring Unavailable Jordan, Dariel Chi Primary Care Unavailable Estevan Liriano Attending Unavailable Prah, Nathan Referring Unavailable Jordan, Dariel Chi Primary Care Unavailable CalabrEstevan prince Attending Unavailable CalabrettaEstevan Referring Unavailable Jordan, Dariel Chi Primary Care Unavailable Calabrsuresh, Estevan Attending Unavailable CalabrettaEstevan Referring Unavailable Jordan, Dariel Chi Primary Care Unavailable CalabrEstevan prince Consulting Unavailable Lavonne, Betty Attending Unavailable Banerjee, Betty Referring Unavailable Jordan, Dariel Chi Primary Care Unavailable Ke, Joan Attending Unavailable Banerjee, Betty Referring Unavailable Jordan, Dariel Chi Primary Care Unavailable Prah, Nathan Consulting Unavailable Prah, Nathan Attending Unavailable Banerjee, Betty Referring Unavailable Jordan, Dariel Chi Primary Care Unavailable Prah, Nathan Consulting Unavailable Prah, Nathan Attending Unavailable Banerjee, Betty Referring Unavailable Jordan, Dariel Chi Primary Care Unavailable Prah, Nathan Consulting Unavailable Praunique, Nathan Attending Unavailable Banerjee, Betty Referring Unavailable Jordan, Dariel Chi Primary Care Unavailable Prah, Nathan Consulting Unavailable Praunique, Nathan Attending Unavailable Banerjee, Betty Referring Unavailable Jordan, Dariel Chi Primary Care Unavailable Prah, Nathan Consulting Unavailable Praunique, Nathan Attending Unavailable PraNathan calhoun Referring Unavailable Jordan, Dariel Chi Primary Care Unavailable Jamar Carpenter D.O. Attending Unavailable Jordan, Dariel Chi Referring Unavailable Prah, Nathan Attending Unavailable Praunique, Nathan Attending Unavailable Banerjee, Betty Referring Unavailable Jordan, Dariel Chi Primary Care Unavailable Prah, Nathan Consulting Unavailable Praunique, Nathan Attending Unavailable Banerjee, Betty Referring Unavailable Jordan, Dariel Chi Primary Care Unavailable Prah, Nathan Consulting Unavailable Praunique, Nathan Attending Unavailable Banerjee, Betty Referring Unavailable Jordan, Dariel Chi Primary Care Unavailable Prah, Nathan Consulting Unavailable Ke, Joan Attending Unavailable Banerjee, Betty Referring Unavailable Jordan, Dariel Chi Primary Care Unavailable Prah, Nathan Consulting Unavailable Ke, Joan Attending Unavailable Ke, Joan Referring Unavailable Jordan, Dariel Chi Primary Care Unavailable Prah, Nathan Attending Unavailable Lavonne, Betty Referring Unavailable Jordan, Dariel Chi Primary Care Unavailable Prah, Nathan Consulting Unavailable Prah, Nathan Attending Unavailable Betty Banerjee Referring Unavailable Jordan, Dariel Chi Primary Care Unavailable Praunique, Nathan Consulting Unavailable Jordan, Dariel Chi Primary Care Unavailable KitvaldezeNeel Admitting Unavailable Mark Ahumada Attending Unavailable Kittoe, Neel Admitting Unavailable Kittoe, Neel Attending Unavailable Jordan, Dariel Chi Primary Care Unavailable Kittoe, Neel Consulting Unavailable Kittoe, Neel Admitting Unavailable Kittoe, Neel Attending Unavailable Jordan, Dariel Chi Primary Care Unavailable Kittoe, Neel Consulting Unavailable Kittoe, Neel Admitting Unavailable Jopperi, Mark Attending Unavailable Jordan, Dariel Chi Primary Care Unavailable Joppeduardo, Mark Consulting Unavailable Kittoe, Neel Admitting Unavailable JoppMark clark Attending Unavailable Jordan, Dariel Chi Primary Care Unavailable JoMark puri Consulting Unavailable Prah, Nathan Attending Unavailable Banerjee, Betty Referring Unavailable Jordan, Dariel Chi Primary Care Unavailable Prah, Nathan Consulting Unavailable Betty Banerjee Attending Unavailable Jordan, Dariel Chi Referring Unavailable Praunique, Nathan Attending Unavailable PraNathan calhoun Referring Unavailable Jordan, Dariel Chi Primary Care Unavailable Praunique, Nathan Attending Unavailable Banerjee, Betty Referring Unavailable Jordan, Dariel Chi Primary Care Unavailable Praunique, Nathan Consulting Unavailable Syd Wilcox Attending Unavailable Banerjee, Betty Referring Unavailable Jordan, Dariel Chi Primary Care Unavailable Praunique, Nathan Consulting Unavailable Jordan, Dariel Chi Primary Care Unavailable Lisa, Vj Attending Unavailable Syd Wilcox Attending Unavailable Betty Banerjee Referring Unavailable Syd Wilcox Attending Unavailable Syd Wilcox Attending Unavailable Jordan, Dariel Chi Primary Care Unavailable Dale Bates Admitting Unavailable Mark Ahumada Attending Unavailable Isckarus Mansmelonie Consulting Unavailable Robotham, Christine Consulting Unavailable Dale Bates Attending Unavailable Jordan, Dariel Chi Primary Care Unavailable Syd Wilcox Attending Unavailable Syd Wilcox Referring Unavailable Syd Wilcox Attending Unavailable Syd Wilcox Referring Unavailable PROBLEMS PROBLEMS DATE TYPE CONDITION / CODE ATTENDING STATUS SOURCE 10/17/2018 Unknown Z51.11 - Encounter Nathan Garduno Active [facility] for antineoplastic Community chemotherapy / Hospital Z51.11(ICD-10) Repository 10/17/2018 Unknown C34.92 - Malignant Syd Wilcox Active [place] neoplasm of [facility] unspecified part of Hospital left bronchus or Repository lung / C34.92(ICD-10) 09/28/2018 Unknown C78.1 - Secondary PraNathan calhoun Active [facility] malignant neoplasm Community of mediastinum / Hospital C78.1(ICD-10) Repository 09/28/2018 Unknown C80.1 - Malignant Nathan Garduno Active [facility] (primary) neoplasm, Community unspecified / Hospital C80.1(ICD-10) Repository 09/26/2018 Unknown C34.90 - Malignant PraNathan calhoun Active [facility] neoplasm of Community unspecified part of Hospital unspecified bronchus Repository or lung / C34.90(ICD-10) 05/26/2018 Unknown R60.9 - Edema, Nathan Garduno Active [facility] unspecified / Community R60.9(ICD-10) Hospital Repository 05/12/2018 Unknown Z79.899 - Other long Nathan Garduno Active [facility] term (current) drug Community therapy / Hospital Z79.899(ICD-10) Repository 03/19/2018 Unknown J44.9 - Chronic Banerjee, Active [place] obstructive [facility] pulmonary disease, Hospital unspecified / Repository J44.9(ICD-10) 03/19/2018 Unknown Z45.2 - Encounter Deandra Active [place] for adjustment and Estevan [facility] management of Hospital vascular access Repository device / Z45.2(ICD-10) 02/22/2018 Unknown R91.8 - Other Banerjee, Active [place] nonspecific abnormal [facility] finding of lung Hospital field / Repository R91.8(ICD-10) PROCEDURES PROCEDURES No Procedure Records FoundRESULTS RESULTS END OF TREATMENT Observed: 10/20/2018 Status: F Source: [place] SUMMARY 11:34 AM [facility] HOSPITAL REPOSITORY [facility] [address] [place] [address] End of Treatment Summary Date of Service: 10/20/18 1042 MR#: [id number] Acct: [id number] Name: OLIVE TEJADA Rep #: [id number] : 1960 From: Syd Wilcox DO Age/Sex: 57/F Location: [facility] Status: Signed End of Treatment Summary: Diagnosis: Olive Tejada is a 57 year-old female diagnosed with extensive stage small cell lung cancer (February 2018) with a large mediastinal mass, mediastinal lymph node, and liver lesion status post cisplatin/Irinotecan x6 cycles now found to have progressive disease including enlargement of the mediastinal mass with SVC compression and several concerning liver lesions. She initiated cycle 1 of second line chemotherapy on 10/04/18 (Carboplatin/Etoposide). Oncologic History: Patient initially presented with shortness of breath, dizziness, and weight loss. 02/06/2018: CTA was completed and showed a suspicious and enhancing anterior mediastinal mass measuring 5.3 cm with extension into the left upper lobe of the lung. 02/22/2018: Patient underwent CT-guided biopsy of this mass and pathology was consistent with small cell carcinoma. 03/07/2018: PET scan was completed which demonstrated the anterior mediastinal mass measuring about 6 cm in involving the left upper lobe with an AP node and a single nodule in the left lobe of the liver measuring 1 cm. 03/16/2018: Patient initiated chemotherapy with cisplatin/irinotecan. 03/19/18: Brain MRI showed no evidence of metastatic disease. 05/04/2018: CT chest abdomen pelvis was completed which demonstrated resolution of the segment 4 liver lesion, unchanged mildly lobulated 6 x 4.9 x 6.3 cm high anterior mediastinal/retro-manubrial soft tissue mass consistent with the patient's known malignancy it appears like the mass compresses/obstructs the left brachiocephalic vein and there are a few borderline to mildly enlarged precarinal lymph nodes as well as a few lymph nodes measuring upper normal size to borderline enlarged in the right hilum. 06/29/2018: CT chest demonstrated the lobulated soft tissue mass in the anterior mediastinum now measuring 6.75 x 5.85 x 4.25 cm. A precarinal lymph node has decreased from 1.7 x 1.6 x 0 0.7-1.4 x 1.5 x 0.6 cm. Other nonspecific borderline enlarged low mediastinum and hilar lymph nodes are stable to decreased in size. 09/26/2018: CT chest abdomen and pelvis was completed. This demonstrated interval enlargement of the heterogeneous mediastinal mass located in the anterior mediastinum extending from the substernal space to the great vessels and at several levels that extends through the sternocostal articulations on the left and into the anterior chest wall. The lesion severely compresses the superior vena cava although the SVC remains patent. This lesion measures 8.8 x 7.4 x 8.4 cm. A faint low-density lesion is identified in about a segment 8 measuring 11 x 10 mm which appears either new or increased compared to the prior study. A new round low-density lesion is present in segment 7 measuring about 8 mm. There is probable increased size of the lesion in the left hepatic lobe measuring 7 mm. These areas are concerning for metastatic disease and there is no other evidence of metastatic disease in the abdomen/pelvis. 10/17/2018 - 10/19/18: Patient was admitted to [facility] for increasing shortness of breath, difficulty and pain with swallowing, and continued loss of appetite and weakness. While admitted CTA of the chest demonstrated the very large persistent anterior mediastinal mass which has decreased slightly with interval development of a nodular density in the left lower lobe and interval development of alveolar disease in the left lower lobe which could be infectious. Patient met SIRS criteria so was treated for sepsis presumably related to pneumonia. She was also found to have severe pancytopenia with extremely low absolute neutrophil count. She was evaluated by speech therapy who determined that she displayed evidence of esophageal obstruction and she had a very difficult time getting any nutrition or fluids down. She was consulted by surgery to consider PEG tube or Dobbhoff but due to the obstruction and her very poor clinical status this was not recommended, instead it was recommended that she pursue hospice care. She was given bone marrow stimulator and factor and radiation was held during hospitalization. Following discussion with family as well as multiple of her physicians she decided to pursue hospice care it was discharged to hospice on 10/19/2018. The patient completed a course of external beam radiotherapy in our department. This treatment was delivered for palliative intent. Treatment was given according to the following parameters: OLIVE TEJADA received 2100 cGy of 6 MV photons in 7 fractions to the mediastinal disease with a 3D conformal technique consisting of several static cole and a dynamic conformal arc. The initial plan was to treat this very large mass to 3600 cGy in 12 fractions but treatment was stopped after 7 fractions The patient did not receive concurrent chemotherapy, cycle 1 of 2nd line chemotherapy was given prior to radiation therapy. Date of First Treatment: 10/06/18 Date of Last Treatment: 10/14/18 Total Elapsed Days (including weekend and holidays): 8 Missed Treatments: none Response and Tolerance: The patient tolerated this course of radiotherapy well overall. The following radiation related toxicities developed during the course of radiation therapy: * Esophagitis with possibly secondary fungal infection due to low blood count. Treated with MMW and Nystatin while in hospital * Severe pancytopenia * Persistent cachexia and continued decline in KPS * Persistent fatigue Total weight change during therapy: 3 lbs Disposition: The patient tolerated the planned course of radiation therapy with difficulty and was admitted to the hospital during therapy as described above. Due to continually worsening clinical status and very aggressive incurable disease decision was ultimately made to pursue hospice care which was initiated at discharge. Patient was instructed to call with any further questions or concerns that may arise and given that she will pursue hospice care no follow-ups will be arranged. If we can provide any further information on this patient's course of care, please do not hesitate to ask. We would like to thank you very much for allowing us to participate in the care of this patient. Sincerely, Syd Wilcox DO, MS [employer], Department of Radiation Oncology [facility] 10/20/18 1138 <Electronically signed by Syd Wilcox DO> Date Syd Wilcox DO Cosigner Signature: Date (if applicable) CC: Betty Banerjee; Nathan Garduno MD; Alejandro Hernandez MD; Dariel Ortega MD DISCHARGE SUMMARY Observed: 10/19/2018 Status: F Source: [place] 4:26 PM [facility] Medical Records Department [address] [place] [address] Discharge Summary 10/19/18 1419 MR#: [id number] Acct: [id number] Name: JONNKARANDipakOLIVE Rep #: [id number] : 1960 57 From: Savannah Alvarez ROLLING ATTENDANT-C PCP: Jordan MONTILLA,Dariel Chi Status: DIS IN Y [id number] <Savannah Alvarez - Last Filed: 10/19/18 14:43> Discharge Date and Diagnosis - Problem List Patient Problems: Active and Suspected Problems (Last Updated 10/17/18 @ 14:47 by Mark Ahumada DO) Pancytopenia (Acute) Thrombocytopenia (Acute) Neutropenia (Acute) Dysphagia (Acute) Chronic respiratory failure with hypoxia (Acute) Date of Admission: 10/17/18 Date of Discharge: 10/19/18 - Primary Discharge Diagnosis Active and Suspected Problems (Last Updated 10/17/18 @ 14:47 by Mark Ahumada DO) 1. Acute hypoxic respiratory insufficiency secondary to acute sepsis secondary to pneumonia 2. Acute on chronic anemia/pancytopenia 3. Dysphagia 4. Candidal stomatitis 5. Stage IV small cell lung cancer 6. COPD with alpha 1 antitrypsin deficiency 7. Depression 8. GERD 9. Severe protein calorie malnutrition 10. 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) Encounter for insertion of venous access port (Chronic) Educational circumstance (Chronic) Chemotherapy management, encounter for (Chronic) Anemia (Chronic) Immunosuppressed due to chemotherapy (Chronic) History of tubal ligation (Chronic) Asthma (Chronic) Nocturnal hypoxia (Chronic) Anxiety (Chronic) Nicotine dependence in remission (Chronic) Stage 4 very severe COPD by GOLD classification (Chronic) Allergic rhinitis (Chronic) COPD with acute exacerbation (Chronic) Tobacco dependence syndrome (Chronic) Rwfds-2-[id number] deficiency (Chronic) COPD (chronic obstructive pulmonary disease) (Chronic) GERD (gastroesophageal reflux disease) (Chronic) Hospital Course and Treatment Imaging Results: Diagnostic Data Chest CTA 10/17/18 02:13 IMPRESSION: No pulmonary embolus. Anterior mediastinal mass with multiple vascular encasement as described. The mass extends through the left anterior chest wall. This component has decreased in conspicuity. Persistent but improving compression of the superior vena cava. Interval development of a nodular density in the left lower lobe. Interval development of alveolar disease in the left lower lobe. This could be infectious or inflammatory in nature. Electronically Signed: Hari Lugo MD at 4:02 EST Tel , Service support , Dr. Hernandez- Oncology Dr. Blair- Surgery Operations: None Procedures: None Summary of Care Provided: The patient is a 57 year old F admitted 10/17/2018 due to chest pain. 1. Acute hypoxic respiratory insufficiency secondary to acute sepsis secondary to pneumonia-CT on admission showed anterior mediastinal mass with multiple vascular encasement. Mass extends through the left anterior chest wall. Persistent but improving compression of the superior vena cava. Left lower lobe nodular density. This reported to be infectious or inflammatory in nature. Patient with tachycardia and tachypnea on admission. Continue supplement oxygen to maintain O2 sat above 90%. Received IV Levaquin during admission. 2. Acute on chronic anemia/pancytopenia-due to underlying cancer and chemotherapy. Continue iron supplementation. Patient transfused with 2 units PRBC for hemoglobin 5.9. 1 unit platelets given as well. 3. Dysphasia-ST recommending n.p.o. due to high risk for aspiration. Consult placed to general surgery, Dr. Blair for evaluation for PEG tube placement. Patient is not a candidate for PEG tube placement given poor prognosis and unstable labs. 4. Candidal stomatitis-continue nystatin swish and swallow. 5. Stage IV small cell lung cancer-Patient follows with Dr. Garduno. Oncology feels hospice is appropriate given her incurable progressive malignancy and rapid decline. 6. COPD with alpha 1 antitrypsin deficiency-albuterol and DuoNeb aerosols. 7. Depression-continue home paroxetine regimen. 8. GERD-continue PPI. 9. Severe protein calorie malnutrition-BMP 13.4. 10. Hospice transition General: Lethargic HEENT: Atraumatic, Normocephalic Oral: Dry Mucosa Neck: Supple, No JVD, Negative Carotid Bruits Lungs: Diminished, - - Crackles Cardiovascular: Regular Rhythm, Normal S1, Normal S2, No murmurs, Tachycardic Abdomen: Bowel Sounds Present, Soft, Non Tender, Non-Distended Extremities: No clubbing, No cyanosis, No edema, Capillary Refill Less than 3 Seconds Skin: No rashes, No breakdown Musculoskeletal: Cachexia, Muscle Wasting Neurological: Cranial nerves II-XII grossly intact Psych/Mental Status: - - Unable to assess due to lethargy Patient seen and examined prior to discharge. Physical assessment as noted above. This patient was seen by POLA Larson under the supervision of Dr. Ahumada. Patient Problems: Active and Suspected Problems (Last Updated 10/17/18 @ 14:47 by Mark Ahumada DO) Pancytopenia (Acute) Thrombocytopenia (Acute) Neutropenia (Acute) Dysphagia (Acute) Chronic respiratory failure with hypoxia (Acute) - Physical Exam Vital Signs Temp Pulse Resp BP Pulse Ox 97.8 F 111 H 18 138/65 H 96 10/19/18 14:12 10/19/18 14:12 10/19/18 14:12 10/19/18 14:12 10/19/18 14:12 Oxygen Flow Rate (L/min) 2 Oxygen Delivery Method Nasal Cannula Weight: 88 lb 6.486 oz Body Mass Index (BMI) 13.4 Intake and Output for Last 24 Hours Intake Total 2673 / 2673 2195 / 2195 1795 / 1795 Output Total 550 / 550 800 / 800 Balance 2673 / 2673 1645 / 1645 995 / 995 Laboratory Tests Past 24 Hrs WBC 0.6 L* RBC 2.98 L WBC RBC Hgb Hct MCV MCH MCHC Home Medications: Medications to take at Discharge Multivitamins,Therapeutic [Multivitamin] 1 tab PO DAILY 09/06/16 fluticasone 50 mcg/actuation nasal spray,suspension 50 mcg INTRANASAL QDAY PRN 12/06/17 Lidocaine/Prilocaine [Lidocaine-Prilocaine Cream] 30 gm TP DAILY PRN PRN 30 Days #1 cream..g. 03/15/18 Olanzapine [Zyprexa] 10 mg PO DAILY 16 Days #16 tab 03/15/18 Ondansetron HCl [Zofran] 4 mg PO Q8H PRN PRN 10 Days #30 tab 03/15/18 Paroxetine HCl [Paxil] 40 mg PO DAILY #30 tab 04/28/18 tiotropium bromide 2.5 mcg/actuation mist for inhalation 2 puff INHALATION QDAY #1 device 05/03/18 Iron Polysaccharide Complex [Ferrex 150] 150 mg PO DAILYCM #30 cap 08/23/18 Magnesium Oxide [Mag-Ox 400] 400 mg PO BIDCM #28 tab 08/23/18 albuterol sulfate HFA 90 mcg/actuation aerosol inhaler 1 - 2 puff INHALATION Q4H PRN PRN #1 inhaler 09/01/18 budesonide-formoterol HFA 160 mcg-4.5 mcg/actuation aerosol inhaler 2 puff INHALATION BID #1 hfa.aer.ad 09/01/18 albuterol sulfate 2.5 mg/3 mL (0.083 %) solution for nebulization 2.5 mg INHALATION 4X/DAY PRN 30 Days #180 vial 09/13/18 Doxycycline Monohydrate 100 mg PO BID #14 cap 10/07/18 Omeprazole [Prilosec] 20 mg PO DAILY #30 capsule 10/12/18 Primary Care Physician: Dariel Ortega Chi, MD [Primary Care Provider] - Disposition: Hospice Medical Facility Minutes spent on discharge:: 35 Patient Condition:: Guarded Medical Necessity - Tobacco Use Smoking Status: Former smoker Tobacco Use: Cigarettes Meaningful Use Info Meaningful Use Diagnoses (Choose all that apply): None applicable <Mark Ahumada - Last Filed: 10/19/18 16:26> Discharge Date and Diagnosis - Secondary Discharge Diagnosis Chronic Problems (Last Updated 10/17/18 @ 14:47 by Mark Ahumada DO) History of tubal ligation (Chronic) Lung mass (Chronic) Cachexia (Chronic) Small cell lung cancer (Chronic) Mediastinal mass (Chronic) 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) Encounter for insertion of venous access port (Chronic) Educational circumstance (Chronic) Chemotherapy management, encounter for (Chronic) Anemia (Chronic) Immunosuppressed due to chemotherapy (Chronic) History of tubal ligation (Chronic) Asthma (Chronic) Nocturnal hypoxia (Chronic) Anxiety (Chronic) Nicotine dependence in remission (Chronic) Stage 4 very severe COPD by GOLD classification (Chronic) Allergic rhinitis (Chronic) COPD with acute exacerbation (Chronic) Tobacco dependence syndrome (Chronic) Zysuu-9-weihwvedexl deficiency (Chronic) COPD (chronic obstructive pulmonary disease) (Chronic) GERD (gastroesophageal reflux disease) (Chronic) Hospital Course and Treatment Operations: None Procedures: None Summary of Care Provided: Patient seen and examined independently. Data reviewed. I agree with the above note by the nurse practitioner. The patient is a 57 year old F presents with shortness of breath and chest pain. Patient was noted to be pancytopenic questionable infiltrate. Much of the patient experiencing be stemming from stage IV worsening small cell lung cancer. Patient has had some benefit of treatment but symptomatically is overall worse. After extensive conversations with the hospital service, oncology and hospice patient agreed to hospice and patient was transferred to the hospice care center. Patient's prognosis is poor with life expectancy of weeks. [] - Physical Exam Vital Signs Temp Pulse Resp BP Pulse Ox 36.6 C 111 H 18 138/65 H 96 10/19/18 14:12 10/19/18 14:12 10/19/18 14:12 10/19/18 14:12 10/19/18 14:12 Oxygen Flow Rate (L/min) 2 Oxygen Delivery Method Nasal Cannula Weight: 40.1 kg Body Mass Index (BMI) 13.4 Intake and Output for Last 24 Hours Intake Total 2673 / 2673 2195 / 2195 1795 / 1795 Output Total 550 / 550 800 / 800 Balance 2673 / 2673 1645 / 1645 995 / 995 Laboratory Tests Past 24 Hrs WBC 0.6 L* RBC 2.98 L Hgb 9.7 L Hct 30.0 L MCV 100.7 H Discharge Diet: No Restrictions Disposition: Hospice Medical Facility Minutes spent on discharge:: 35 Patient Condition:: Poor Medical Necessity - Tobacco Use Smoking Status: Former smoker Tobacco Use: Cigarettes Meaningful Use Info Meaningful Use Diagnoses (Choose all that apply): None applicable Code Visit Inpatient E AND M: 63792 Disch Hosp 10/19/18 1443 <Electronically signed by Savannah LACKEYC> Date Savannah Alvarez ROLLING ATTENDANT-C 10/19/18 1626<Electronically signed by Mark Ahumada DO> Cosigner Signature (if applicable): Date Mark Ahumada DO CC: ROLLING ATTENDANTRoger Alvarez; Mark Ahumada DO; Dariel Ortega MD Signed CONSULTATION Observed: 10/19/2018 Status: F Source: [place] 1:12 PM [facility] Medical Records Department [address] [place] [address] Consultation 10/18/181956 MR#: [id number] Acct: [id number] Name: OLIVE TEJADA Rep #: [id number] : 1960 57 From: Christine Blair MD PCP: Dariel Ortega MD, Chi Status: ADM IN Y Location: [place] [address] Reason for Consult Date of Consultation: 10/18/18 History of Present Illness: The patient is a 57 year old F with relapsed extensive stage small cell lung carcinoma, dyspnea, dysphasia. Patient presented to the ER due to not being able to swallow water since Wednesday. Previous that patient states she is only able to take a very small amount of food by mouth. Patient's current BMI is 13, she weighs 88 pounds. Oncology has seen patient recommend patient hospice. Currently patient is a full code and she is interested in getting a PEG tube. Patient also has severe pancytopenia including a white blood count of 0.7 and platelets of 44 which were 7 yesterday. Patient states her last bowel movement was a few days ago she has not been able to eat very much. Patient's main goal is to be able to go home. Patient denies abdominal pain or nausea vomiting. However states when she tries to drink she feels like a lump in her proximal esophagus. Patient has failed speech evaluation. 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) Encounter for insertion of venous access port (Chronic) Educational circumstance (Chronic) Chemotherapy management, encounter for (Chronic) Anemia (Chronic) Immunosuppressed due to chemotherapy (Chronic) History of tubal ligation (Chronic) Asthma (Chronic) Nocturnal hypoxia (Chronic) Anxiety (Chronic) Nicotine dependence in remission (Chronic) Stage 4 very severe COPD by GOLD classification (Chronic) Allergic rhinitis (Chronic) COPD with acute exacerbation (Chronic) Tobacco dependence syndrome (Chronic) Ipzjo-7-srxcfjzwxym deficiency (Chronic) COPD (chronic obstructive pulmonary disease) (Chronic) GERD (gastroesophageal reflux disease) (Chronic) Medical History: Medical History (Last Updated 10/17/18 @ 14:47 by Mark Ahumada DO) Asthma (Chronic) J45.909 Nocturnal hypoxia (Chronic) G47.34 Anxiety (Chronic) F41.9 Nicotine dependence in remission (Chronic) F17.201 Stage 4 very severe COPD by GOLD classification (Chronic) J44.9 Allergic rhinitis (Chronic) J30.9 COPD with acute exacerbation (Chronic) J44.1 Tobacco dependence syndrome (Chronic) F17.200 Qixem-8-whgalkqoqmf deficiency (Chronic) E88.01 COPD (chronic obstructive pulmonary disease) (Chronic) J44.9 GERD (gastroesophageal reflux disease) (Chronic) K21.9 COPD with acute exacerbation (Inactive) J44.1 COPD, frequent exacerbations (Inactive) J44.9 [place] (dyspnea on exertion) (Inactive) R06.09 Allergies aspirin Allergy (Verified 10/17/18 02:01) Unknown morphine Adverse Reaction (Intermediate, Verified 10/17/18 02:01) Itching Home Medications: Ambulatory Orders Medication Instructions Recorded Surgical History: Surgical History (Last Updated 10/17/18 @ 14:47 by Mark Ahumada DO) History of tubal ligation (Chronic) Z98.51 Surgical History: no surgical history Smoking Status: Former smoker Tobacco Use: Cigarettes Alcohol: None Drugs: None - *Family History Paternal Family History: Family History (Last Reviewed 10/04/18 @ 10:30 by Felisa Barraza) Mother Colon cancer Bronchitis Epilepsy Father Asthma History Items: Asthma Review of Systems Constitutional: Denies: Chills, Fever Cardiovascular: Denies: Chest Pain Respiratory: Reports: Shortness of Breath Gastrointestinal: Denies: Abdominal Pain, Nausea Hematologic/ Lymphatic: Denies: Easy Bruising, Easy Bleeding Patient Problems: Active and Suspected Problems (Last Updated 10/17/18 @ 14:47 by Mark Ahumada DO) Pancytopenia (Acute) Thrombocytopenia (Acute) Neutropenia (Acute) Dysphagia (Acute) Chronic respiratory failure with hypoxia (Acute) - Physical Exam General: Alert, Oriented x3, Cooperative, No apparent distress, - - Patient is very thin Cardiovascular: Regular rate Abdomen: Soft, Non-Distended, Tender - Mild tenderness in the umbilicus, no peritoneal signs Extremities: No clubbing, No cyanosis, No edema Musculoskeletal: Cachexia Neurological: Cranial nerves II-XII grossly intact Vital Signs Temp Pulse Resp BP Pulse Ox 98 F 115 H 20 H 112/40 L 100 10/18/18 15:55 10/18/18 15:55 10/18/18 15:55 10/18/18 15:55 10/18/18 15:55 Oxygen Flow Rate (L/min) 3 Oxygen Delivery Method Nasal Cannula Weight: 88 lb 6.486 oz Body Mass Index (BMI) 13.4 Intake and Output for Last 24 Hours Intake Total 2673 / 2673 2195 / 2195 Output Total 550 / 550 Balance 2673 / 2673 1645 / 1645 Laboratory Tests Past 24 Hrs WBC 0.4 L* RBC 1.75 L Hgb 5.9 L* Hct 19.0 L MCV 108.6 H WBC RBC Hgb Hct MCV MCH MCHC RDW RDW Differential Plt Count Assessment/Plan All Active Problems (Last Updated 10/17/18 @ 14:47 by Mark Ahumada DO) Pancytopenia (Acute) Thrombocytopenia (Acute) Neutropenia (Acute) Dysphagia (Acute) Chronic respiratory failure with hypoxia (Acute) Healthcare-associated pneumonia (Acute) PORT PLACEMENT (Resolved) 37-year-old female with severe pancytopenia, relapse extensive stage small cell lung cancer, request for PEG due to dysphagia 1. Discussed with the patient that I do not feel the PEG tube would be safe at this time due to her severe pancytopenia. I would want her platelets to be at 75,000. Yesterday they were 7 today they are 44. She also has a white blood cell count of 0.7 which doing a PEG could also have a chance of infection of the PEG site. Did discuss with patient what her goals are and she stated that she wanted to go home and be with her son. I asked if she would be willing to go home with hospice if that was an option she did seem open to the idea. Also briefly discussed Dobbhoff tube could be another way to try to get nutrition that would be safer than a PEG tube at this time. Discussed with patient I am unsure if hospice would take a Dobbhoff tube and we would need to talk with the primary tomorrow. Christine Blair M.D. Pager: [phone] [facility] [address] [place] [address], Outpatient Pavilion, [address] [place] [address] Office: [phone] Code Visit Inpatient Carlota SALDAÑA M: [id number] Init Hosp L1 10/19/18 1312 <Electronically signed by Christine Blair MD> Date Christine Blair MD Cosigner Signature (if applicable): Date CC: Alejandro Hernandez MD; Dariel Ortega MD; Christine Blair MD Signed CBC W/DIFF, AUTOMATED Collected: 10/19/2018 Status: C Source: [place] 4:25 AM [facility] TYPE CODE TESTS RESULT OUT OF RANGE REFERENCE UNITS LAB L100.1000 4.4-11.0 K/mm3 Low alert WBC 0.6 Result Comment: CRITICAL VALUE VERIFIED. CALLED TO [place] 10/19/18 Santos Medel. RESULTS READ BACK BY SAME . LAB L100.1200 4.2-5.4 M/mm3 Low RBC 2.98 LAB L100.1300 12.0-15.0 g/dl Low HGB 9.7 LAB L100.1400 37-47 % Low HCT 30.0 LAB L100.1500 81-99 fL High MCV 100.7 LAB L100.1600 27.0-32.0 pg High MCH 32.6 LAB L100.1700 32-36 g/gl Normal MCHC 32.3 LAB L100.1810 11.6-14.6 % High RDW 16.3 CV LAB L100.1820 35.1-43.9 fl High RDW 57.8 SD LAB L100.1900 150-450 K/mm3 Low alert PLT 16 Result Comment: CRITICAL VALUE VERIFIED. CALLED TO [place] 10/19/18 Santos Medel. RESULTS READ BACK BY SAME . LAB L100.2000 6.2-12.0 fl Normal MPV 10.6 LAB L100.2100 47-70 % Normal NEUT% 67.2 LAB L100.2200 19-41 % Low LY% 11.5 LAB L100.2300 0-10 % High MONO% 16.4 LAB L100.2400 0-5 % Normal EO% 0.0 LAB L100.2500 0-1 % Normal BASO% 0.0 LAB L100.2550 0.0-0.9 % High IM 4.900 GRAN % Result Comment: IG% - Immature Granulocytes (promyelocytes, myelocytes and metamyelocytes) > 1% indicates that a LEFT SHIFT is Present. LAB L100.2620 2.0-7.7 X10 3/uL Low Absolute Neut 0.4 LAB L100.2720 0.83-4.51 X10 3/ul Low Absolute Lymph 0.07 LAB L100.4500 Normal SMEAR COMMENT SCAN LAB L100.5500 ADEQ Normal PLT EST MKD DEC LAB L100.9900 Normal PATH REV Reviewed Result Comment: Pancytopenia. Clinical correlation necessary. Tae Chaudhry M.D. 10/19/18 AMENDED REPORT 10/19/18 1440 PATH REV previously reported as: March francisco Performed By: #### L100.0100 #### [facility] [address] [place], [address] BASIC METABOLIC Collected: 10/19/2018 Status: F Source: [place] PROFILE ([facility]) 4:25 AM [facility] TYPE CODE TESTS RESULT OUT OF RANGE REFERENCE UNITS LAB L501.0100 74-106 mg/dL Normal GLU 101 Result Comment: Fasting Glucose result from 100 to 125 mg/dL suggests IMPAIRED HOMEOSTASIS per A.D.A. criteria. Please note revised GLUCOSE reference range effective 2017. LAB L501.1000 7-18 mg/dL Normal BUN 11 LAB L501.1100 0.55-1.02 mg/dL Low CREAT,SERUM 0.15 Result Comment: The validity of the calculated GFR AND GFRAA in patients over 70 years has not been determined. Clinical correlation is essential. LAB L501.1110 >60 mL/min Normal EST GFR 532 Result Comment: Non- GFR Calc LAB L501.1115 >60 mL/min Normal EST GFR - AA 644 Result Comment: GFR Calc LAB L501.1255 ml/min Normal Estimated CRCL 268.26 LAB L501.1300 10-20 RATIO High BUN/CRE 71.9 LAB L501.2200 8.5-10 mg/dL Low .1 CA 8.3 LAB L501.5300 136-14 mmol/L 5 NA Normal 140 LAB L501.5600 3.5-5. mmol/L Low 1 K 2.9 LAB L501.5900 98-107 mmol/L Low CL 89 LAB L501.6100 21.0-3 mmol/L High 2.0 CO2 45.0 LAB L501.6200 5-15 GAP Normal 6 Performed By: #### L500.2500, L501.5200 #### [facility] [address] [place], [address] MAGNESIUM Collected: 10/19/2018 Status: F Source: [place] 4:25 AM [facility] TYPE CODE TESTS RESULT OUT OF RANGE REFERENCE UNITS LAB L501.5200 1.6-2.6 mg/dL Low MG 1.2 Performed By: #### L500.2500, L501.5200 #### [facility] [address] [place], [address] 12 LEAD ELECTROCARDIOGRAM Observed: 10/18/2018 Status: F Source: [place] 8:58 AM [facility] Cardiovascular Services [address] [place] [id number] 12 Lead EKG 10/17/18 0201 MR#: [id number] Acct: [id number] Name: OLIVE TEJADA Rep #: [id number] : 1960 57 From: Chirag Sprague MD Attending Dr: Mark Ahumada DO Status: ADM IN Ordering Dr: Alissa Castillo MD Date: 10/17/18 Location: [facility] Sex: F C Admitted: 10/17/18 Test Reason : SOB Blood Pressure : / mmHG Vent. Rate : 122 BPM Atrial Rate : 122 BPM P-R Int : 130 ms QRS Dur : 080 ms QT Int : 306 ms P-R-T Axes : 087 085 077 degrees QTc Int : 436 ms Sinus tachycardia Biatrial enlargement Abnormal ECG Confirmed by CHIRAG SPRAGUE MD ([id number]), content editor RACHANA YANG ([id number]) on 10/18/2018 8:59:56 AM Referred By: Betty Banerjee Confirmed By:CHIRAG SPRAGUE MD 10/18/18 0900 Date Chirag Sprague MD CC: Alissa Castillo MD; Mark Ahumada DO; Dariel Ortega MD Signed CBC W/DIFF, AUTOMATED Collected: 10/18/2018 Status: C Source: [place] 5:45 AM [facility] Order Comment: SPECIMEN OBTAINED FROM LINE DRAW CRITICAL VALUES VERIFIED. CALLED TO CHERYL FERRIS 10/18/18 0652 Hetal Medel. RESULTS READ BACK BY SAME . TYPE CODE TESTS RESULT OUT OF RANGE REFERENCE UNITS LAB L100.1000 4.4-11.0 K/mm3 Low alert WBC 0.4 LAB L100.1200 4.2-5.4 M/mm3 Low RBC 1.75 LAB L100.1300 12.0-15.0 g/dl Low alert HGB 5.9 LAB L100.1400 37-47 % Low HCT 19.0 LAB L100.1500 81-99 fL High MCV 108.6 LAB L100.1600 27.0-32.0 pg High MCH 33.7 LAB L100.1700 32-36 g/gl Low MCHC 31.1 LAB L100.1810 11.6-14.6 % Low RDW CV 11.1 LAB L100.1820 35.1-43.9 fl Normal RDW SD 41.9 LAB L100.1900 150-450 K/mm3 Low alert PLT 44 LAB L100.2000 6.2-12.0 fl Normal MPV 10.1 LAB L100.2100 47-70 % Normal NEUT% 55.2 LAB L100.2200 19-41 % Normal LY% 21.1 LAB L100.2300 0-10 % High MONO% 23.7 LAB L100.2400 0-5 % Normal EO% 0.0 LAB L100.2500 0-1 % Normal BASO% 0.0 LAB L100.2550 0.0-0.9 % Normal IM GRAN % 0.000 Result Comment: IG% - Immature Granulocytes (promyelocytes, myelocytes and metamyelocytes) > 1% indicates that a LEFT SHIFT is Present. LAB L100.2620 2.0-7.7 X10 3/uL Low Absolute Neut 0.2 LAB L100.2720 0.83-4.51 X10 3/ul Low Absolute Lymph 0.08 LAB L100.4500 SMEAR COMMENT Normal SCAN LAB L100.5500 ADEQ PLT EST Normal MKD DEC LAB L100.7300 ANISO Normal 1+ LAB L100.7600 HYPOCHROMASIA Normal 1+ LAB L100.7700 MICROCYTES Normal 1+ LAB L100.9900 PATH REV Normal Reviewed Result Comment: Pancytopenia. Clinical correlation necessary. Tae Chaudhry M.D. 10/19/18 AMENDED REPORT 10/19/18 0955 PATH REV previously reported as: Renee singh Performed By: #### L100.0100 #### [facility] [address] [place], [place], [address] BASIC METABOLIC Collected: 10/18/2018 Status: F Source: [place] PROFILE ([place]) 5:45 AM [facility] Order Comment: SPECIMEN OBTAINED FROM LINE DRAW TYPE CODE TESTS RESULT OUT OF RANGE REFERENCE UNITS LAB L501.0100 74-106 mg/dL Normal GLU 98 Result Comment: Please note revised GLUCOSE reference range effective 2017. LAB L501.1000 7-18 mg/dL Normal BUN 13 LAB L501.1100 0.55-1.02 mg/dL Low CREAT,SERUM 0.16 Result Comment: The validity of the calculated GFR AND GFRAA in patients over 70 years has not been determined. Clinical correlation is essential. LAB L501.1110 >60 mL/min Normal EST GFR 513 Result Comment: Non- GFR Calc LAB L501.1115 >60 mL/min Normal EST GFR - AA 620 Result Comment: GFR Calc LAB L501.1255 ml/min Normal Estimated CRCL 251.50 LAB L501.1300 10-20 RATIO High BUN/CRE 82.3 LAB L501.2200 8.5-10 mg/dL Low .1 CA 8.3 LAB L501.5300 136-14 mmol/L 5 NA Normal 142 LAB L501.5600 3.5-5. mmol/L Low 1 K 3.2 LAB L501.5900 98-107 mmol/L Low CL 94 LAB L501.6100 21.0-3 mmol/L High 2.0 CO2 42.0 LAB L501.6200 5-15 GAP Normal 6 Performed By: #### L500.2500 #### [facility] [address] [facility] [place], [address] TYPE AND SCREEN Collected: 10/17/2018 Status: F Source: [place] 5:40 PM [facility] Order Comment: RESULTS CALLED TO JAMIE 10/17/181928 Eber Chadwick. REPORT READ BACK BY SAME. CMV NEG? N Give When? WHEN READY Irradiated? N Reason for Type AND Screen/Red Cells: ANEMIA TYPE CODE TESTS RESULT OUT OF RANGE REFERENCE UNITS LAB B10.0800 A Normal BLOOD TYPE GEL POSITIVE LAB B100.4000 Normal Antibody NEGATIVE Screen Performed By: #### B101.7450 #### [facility] [address] [facility] [place], [address] PPHR Collected: 10/17/2018 Status: F Source: [place] 5:40 PM [facility] TYPE CODE TESTS RESULT OUT OF REFERENCE UNITS RANGE LAB U100.0700 [id number] TRANSFUSED PRODUCT: Platelets Apheresis PPHR LR SD COUNT: 1 Performed By: #### U100.0700 #### [facility] - refer to report for specific site RC Collected: 10/17/2018 Status: F Source: [place] 5:40 PM [facility] TYPE CODE TESTS RESULT OUT OF REFERENCE UNITS RANGE LAB U100.0000 [id number] TRANSFUSED PRODUCT: T AND S with Crossmatch, Red Cells COUNT: 2 Performed By: #### U100.0000 #### [facility] - refer to report for specific site CONSULTATION Observed: 10/17/2018 Status: F Source: [place] 4:59 PM [facility] Medical Records Department [address] [place] [address] Consultation 10/17/18 1646 MR#: [id number] Acct: [id number] Name: OLIVE TEJADA Rep #: [id number] : 1960 57 From: Alejandro Hernandez MD PCP: Jordan MONTILLA,Dariel Coughlin Status: ADM IN Y Location: [address] Problem List (1) Small cell lung cancer Status: Chronic (2) Pancytopenia Status: Acute (3) Dysphagia Status: Acute (4) Cachexia Status: Chronic Consult Referring Physician: Hospitalist Consult Results: Relapsed extensive stage small cell lung cancer Subjective Date of Service:: 10/17/18 Chief Complaint: Dyspnea History of Present Illness: Patient is a 57-year-old female with relapsed extensive stage small cell lung cancer admitted with increasing dyspnea, pancytopenia, possible pneumonia. She was first diagnosed with extensive stage small cell lung cancer (February 2018) with a large mediastinal mass, mediastinal lymph node, and liver lesion status post cisplatin/Irinotecan x6 cycles now found to have progressive disease including enlargement of the mediastinal mass with SVC compression and several concerning liver lesions. She initiated cycle 1 of second line chemotherapy on 10/04/18 (Carboplatin/Etoposide). 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 Second line chemotherapy with carboplatin/etoposide was initiated on 11/03/2018 and due to worsening symptom radiation was initiated on 11/05/2018. 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) Encounter for insertion of venous access port (Chronic) Educational circumstance (Chronic) Chemotherapy management, encounter for (Chronic) Anemia (Chronic) Immunosuppressed due to chemotherapy (Chronic) History of tubal ligation (Chronic) Asthma (Chronic) Nocturnal hypoxia (Chronic) Anxiety (Chronic) Nicotine dependence in remission (Chronic) Stage 4 very severe COPD by GOLD classification (Chronic) Allergic rhinitis (Chronic) COPD with acute exacerbation (Chronic) Tobacco dependence syndrome (Chronic) Pjwpz-1-zelunttevao deficiency (Chronic) COPD (chronic obstructive pulmonary disease) (Chronic) GERD (gastroesophageal reflux disease) (Chronic) Past Medical/Surgical History: Past Medical History - Most Recent Inpatient Visit Past Medical History Start: 10/17/18 06:52 Text: Status: Complete Freq: ONCE Protocol: Document 10/17/18 08:03 PRESLEY (Rec: 10/17/18 08:08 PRESLEY [id number]) BMI Required to complete PMH What is Patient's BMI 13.4 Past Medical History Unable History Recalled No Query Text:Pt Unable/Family Not Present Neurologic Medical History Hx Stroke/TIA No Hx Dementia/Alzheimer's No Hx Parkinson's Disease No Hx Seizures No Hx Multiple Sclerosis No Hx Migraines Yes Cardiac Medical History VTE Present on Admission No Hx of Deep Vein Thrombosis/VTE/PE No Hx Hypertension No Hx Chest Pain/Angina No Hx Heart Attack No Hx Cardiac Surgery/Stents/Etc. No Hx Heart Failure No Hx Pacemaker/AICD No Hx Irregular Heartbeat and/or Afib No Hx Anticoagulant Therapy No Query Text:(Coumadin, Aspirin, Plavix, Xarelto, etc.) Hx Pain in Legs when Walking/Leg Cramps No Respiratory Medical History Hx COPD Yes Hx Emphysema No Hx Smoking Yes: QUIT 11/09 PPD FOR 20 YRS Smoking Status Former smoker Tobacco Use Cigarettes Hx Smoking Cessation Counseling No Hx Smoking Exposure No Hx Tobacco Use in last 12 months No Hx of Pipe Smoking No Hx Sleep Apnea No CPAP No BIPAP No Do you snore loudly (louder than talking No or can be heard through closed doors)? Do you often feel tired/ fatigued/ Yes sleepy during daytime? Has anyone observed you stop breathing No during sleep? STOP Results Negative GI Medical History Hx Ulcer Yes: age 16 Hx Hepatitis No Hx Cirrhosis No Hx GI Bleed No Hx Unplanned Weight Loss Yes: 10 LBS Genitourinary Medical History Indwelling Catheter in Place on Arrival/ No Admission Hx Renal Disease No Hx Dialysis No Musculoskeletal History Hx Arthritis No Hx Rheumatoid Arthritis No Endocrine Medical History Hx Diabetes No Hx Thyroid Disease No Hematologic Medical History Hx of Blood Transfusion Yes Hx of Transfusion in last 3 Months Yes Date of Last Transfusion (if within last august, 3 months) Ever experience any problems with No transfusion(s)? Hx of Preganancy in last 3 Months No Nurse Filling Out Transfusion AND ZBEAM Questions: Date: 10/17/18 Time: 08:07 Psycho/Social Medical History Hx Depression No Hx Anxiety Yes Hx Behavior Disorder No Hx Alcohol Use No Hx Substance Use No Other Medical History Hx Blood Disorders No Hx Anemia Yes: IN THE PAST Hx Cancer Yes: LUNG Hx Drug Resistant Organism No Wound/Pressure Injury Present on Arrival No /Admission Query Text:If yes, chart assessment in Shift/Clinical Findings Central Line/PICC/VAD Present on Arrival Yes /Admission Risk for Readmission Number of Risk Factors 7 At Risk for Readmission Patient is At Risk For Readmission Patient is eligible for Call Back Y Past Medical History (Last Updated 10/17/18 @ 14:47 by Mark Ahumada DO) Asthma (Chronic) Nocturnal hypoxia (Chronic) Anxiety (Chronic) Nicotine dependence in remission (Chronic) Stage 4 very severe COPD by GOLD classification (Chronic) Allergic rhinitis (Chronic) COPD with acute exacerbation (Chronic) Tobacco dependence syndrome (Chronic) Dnqjg-9-ugtwkkeezap deficiency (Chronic) COPD (chronic obstructive pulmonary disease) (Chronic) GERD (gastroesophageal reflux disease) (Chronic) COPD with acute exacerbation (Inactive) COPD, frequent exacerbations (Inactive) CUNNINGHAM (dyspnea on exertion) (Inactive) Past Surgical History (Last Updated 10/17/18 @ 14:47 by Mark Ahumada DO) History of tubal ligation (Chronic) Paternal Family History: Family History (Last Reviewed 10/04/18 @ 10:30 by Felisa Barraza) Mother Colon cancer Bronchitis Epilepsy Father Asthma Family History: Asthma - Social History Smoking Status: Former smoker Tobacco Use: Cigarettes Alcohol: None Drugs: None Allergies/Adverse Reactions: Allergy/AdvReac Type Severity Reaction Status Date / Time aspirin Allergy Unknown Verified 10/17/18 02:01 morphine AdvReac Intermediate Itching Verified 10/17/18 02:01 Review of Systems Constitutional:: Reports: Weakness, Fatigue, Weight loss, Appetite change, Thirst change. Denies: Fever, Sweats, Chills Cardiovascular:: Reports: Dyspnea on exertion, Shortness of breath. Denies: Chest pain, Palpitations, Orthopnea, PND Respiratory: Reports: Cough, Shortness of Breath, Shortness of breath at rest, Shortness of breath upon exertion. Denies: Hemoptysis, Wheezing Gastrointestinal:: Reports: Constipation, Dysphagia - Painful. Denies: Abdominal pain, Nausea, Vomiting, Diarrhea, Hematochezia Genitourinary: Denies: Dysuria, Hematuria, 15, Flank pain Musculoskeletal:: Denies: Back pain, Myalgia, Arthralgia Skin: Denies: Rash, Skin Changes, Wounds Neurological:: Denies: Headache, Dizziness, Visual changes, Tinnitus, Hearing loss Psychiatric: Denies: Anxiety, Depression, Homicidal Ideations, Suicidal Ideations Vital Signs Height 5 ft 8.11 in Weight: 40.1 kg Weight in Pounds 88.4 lbs Pulse Ox 99 - Physical Exam General: Alert - Sleepy but easily arousable to verbal stimulation, Oriented x3, - - Cachectic, ECOG 4 HEENT: Atraumatic, PERRLA, EOMI, Normocephalic Oropharynx:: Dry mucosa, White exudate Neck:: Supple, Trachea midline, - - Port okay. Negative for: JVD, bilateral Cardiac:: Regular rate, Regular rhythm, Normal S1, Normal S2. Negative for: Murmur Lungs: Clear to auscultation, Diminished - Markedly decreased over both lung cole, Excusion symmetrical. Negative for: Rhonchi, Wheezes Abdomen:: Soft, Non-tender, Non-distended. Negative for: Hepatosplenomegaly Extremities:: Negative for: Cyanosis, Edema Neurological: Neuro grossly intact Skin:: Ecchymosis - At venipuncture sites. Negative for: Rash Psychiatric:: Appropriate affect, Euthymic Lymphatics:: Negative for: Cervical lymphadenopathy, Supraclavicular lymphadenopathy Laboratory Data: Laboratory Tests Diagnostic Data: Diagnostic Data Chest CTA 10/17/18 02:13 IMPRESSION: No pulmonary embolus. Anterior mediastinal mass with multiple vascular encasement as described. The mass extends through the left anterior chest wall. This component has decreased in conspicuity. Persistent but improving compression of the superior vena cava. Interval development of a nodular density in the left lower lobe. Interval development of alveolar disease in the left lower lobe. This could be infectious or inflammatory in nature. Electronically Signed: Hari Lugo MD at 4:02 EST Tel , Service support , Assessment and Plan 57-year-old female with relapsed extensive small cell lung cancer. She has recently started palliative combined chemoradiation for disease progression in the mediastinum. Hospitalized with increasing dyspnea with probable pneumonia, severe pancytopenia post chemoradiation therapy increasing painful dysphagia, progressive decline in performance status and malignant cachexia. Recommendations: 1. We will hold radiation therapy until bone marrow recovery. 2. Granix 300 mg subcu daily to expedite neutrophil recovery. 3. Supportive transfusion with blood products: Platelets prophylactic if platelet count is less than 10K, and packed red blood cells to maintain hemoglobin above 7 g per DL. 4. Broad-spectrum antibiotic cover for community-acquired pneumonia in the immune compromised patient to the discretion of the primary service. 5. Nystatin oral swish and swallow for suspected candidal stomatitis plus or minus esophagitis. 6. Patient is considering hospice and comfort measures only, has been referred to hospice but not seen yet. I believe this is appropriate in view of her incurable progressive malignancy. Patient was seen was her son, impression and plan discussed. Medications: Medications Added to Medication List This Visit levoFLOXacin IV [Levaquin IV] Med 10/17/18 09:00 Active 750 mg in 150 ml IV Q24 Primary Care Provider: Dariel Ortega Referring Provider: 10/17/18 6587 <Electronically signed by Alejandro Hernandez MD> Date Alejandro Hernandez MD Cosigner Signature (if applicable): Date CC: Alejandro Hernandez MD; Dariel Ortega MD Signed HISTORY AND PHYSICAL Observed: 10/17/2018 Status: F Source: THERESE EXAM 7:04 AM [facility] Medical Records Department [address] [place] [address] History and Physical 10/17/18 0542 MR#: [id number] Acct: [id number] Name: OLIVE TEJADA Rep #: [id number] : 1960 57 From: Dale Bates MD PCP: Jordan MONTILLA,Dariel Coughlin Status: ADM IN [id number] ADDENDUM by Dale Bates MD on 10/17/18 at 0704 Code Visit I spent over 30 min discussing advanced care planning with the son who is POA Procedures: 28703 Advncd Care Plan 30 Min 10/17/18 0704 <Electronically signed by Dale Bates MD> Date Dale Bates MD cc: Dale Bates MD; Dariel Ortega MD * Signed Problem List (1) Small cell lung cancer Status: Chronic (2) Mediastinal mass Status: Chronic (3) Anemia Status: Chronic (4) Immunosuppressed due to chemotherapy Status: Chronic (5) Asthma Status: Chronic (6) Nocturnal hypoxia Status: Chronic (7) Stage 4 very severe COPD by GOLD classification Status: Chronic (8) Oscdt-3-ufpbepnxijw deficiency Status: Chronic (9) GERD (gastroesophageal reflux disease) Status: Chronic (10) Thrombocytopenia Status: Acute History of Present Illness Date of Admission: 10/17/18 Chief Complaint: Chest pain The patient is a 57 year old F with PMH as below who presents from home with significant worsening chest pain, pain with swallowing, malnutrition. At the time of my exam she was given a significant amount of pain meds and was therefore difficult to arouse and to stay awake. Most of the history was obtained from her son who is also her medical POA. Of importance she has been dealing with a stage IV small cell lung cancer since February. She did one round of chemotherapy and the cancer progressed and therefore she has recently started her second round of chemo and radiation. She is also significant amount of weight and is currently around 90 pounds. She does appear very cachectic, and per the son has not been eating well and on review of radiation oncology's consultation she has not been eating for quite a while given the compression of the esophagus as well as mild SVC compression. Unfortunately her cancer is unresectable. She presented to the ER and was found to have a new thrombocytopenia as well as a leukopenia she is also new since October 07. CTA chest obtained in the ER demonstrated a probable left lower lobe pneumonia, with continued small cell lung cancer encasing major vascular structures as well as erosion into the anterior chest wall, was noticed that the SVC compression has improved slightly. 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) Encounter for insertion of venous access port (Chronic) Educational circumstance (Chronic) Chemotherapy management, encounter for (Chronic) Anemia (Chronic) Immunosuppressed due to chemotherapy (Chronic) Asthma (Chronic) Nocturnal hypoxia (Chronic) Anxiety (Chronic) Nicotine dependence in remission (Chronic) Stage 4 very severe COPD by GOLD classification (Chronic) Allergic rhinitis (Chronic) COPD with acute exacerbation (Chronic) Tobacco dependence syndrome (Chronic) Wbciq-4-lsyvqkxywuw deficiency (Chronic) COPD (chronic obstructive pulmonary disease) (Chronic) GERD (gastroesophageal reflux disease) (Chronic) Medical History: Medical History (Last Reviewed 10/04/18 @ 10:30 by Felisa Barraza) Asthma (Chronic) J45.909 Nocturnal hypoxia (Chronic) G47.34 Anxiety (Chronic) F41.9 Nicotine dependence in remission (Chronic) F17.201 Stage 4 very severe COPD by GOLD classification (Chronic) J44.9 Allergic rhinitis (Chronic) J30.9 COPD with acute exacerbation (Chronic) J44.1 Tobacco dependence syndrome (Chronic) F17.200 Oxtrz-2-gzgyvbjrlui deficiency (Chronic) E88.01 COPD (chronic obstructive pulmonary disease) (Chronic) J44.9 GERD (gastroesophageal reflux disease) (Chronic) K21.9 COPD with acute exacerbation (Acute) J44.1 COPD, frequent exacerbations (Inactive) J44.9 CUNNINGHAM (dyspnea on exertion) (Inactive) R06.09 Allergies aspirin Allergy (Verified 10/17/18 02:01) Unknown morphine Adverse Reaction (Intermediate, Verified 10/17/18 02:01) Itching Home Medications: Ambulatory Orders Medication Instructions Recorded Surgical History: Surgical History (Last Reviewed 10/04/18 @ 10:30 by Felisa Barraza) History of tubal ligation (Resolved) Z98.51 Surgical History: no surgical history Smoking Status: Former smoker Tobacco Use: Cigarettes Alcohol: None Drugs: None - *Family History Paternal Family History: Family History (Last Reviewed 10/04/18 @ 10:30 by Felisa Barraza) Mother Colon cancer Bronchitis Epilepsy Father Asthma History Items: Asthma Review of Systems Unable to obtain accurate/complete ROS d/t: Sedation from pain medication VTE Information - Inpt Only VTE Present on Admission: No Patient Problems: Active and Suspected Problems (Last Reviewed 10/04/18 @ 10:30 by Felisa Barraza) Thrombocytopenia (Acute) - Physical Exam General: - - Sedated, malnourished HEENT: Atraumatic, PERRLA, Normocephalic Oral: Dry Mucosa Neck: Supple, No JVD Lungs: Clear to auscultation, Normal air movement, No rhonchi, No wheeze, No rales Cardiovascular: Regular Rhythm, Normal S1, Normal S2, No murmurs, Tachycardic Abdomen: Soft, Non-Distended, No Hepato-splenomegaly Extremities: No edema, Capillary Refill Less than 3 Seconds Musculoskeletal: Cachexia, Muscle Wasting Psych/Mental Status: - - Sedated Vital Signs Temp Pulse Resp BP Pulse Ox 99.0 F 103 H 16 95/60 100 10/17/18 01:56 10/17/18 05:00 10/17/18 05:00 10/17/18 05:00 10/17/18 05:00 Oxygen Flow Rate (L/min) 3 Oxygen Delivery Method Nasal Cannula Weight: 93 lb 14.671 oz Body Mass Index (BMI) 14.3 Laboratory Tests Past 24 Hrs WBC 0.4 L* RBC 2.13 L Hgb 7.1 L Assessment/Plan All Active Problems (Last Reviewed 10/04/18 @ 10:30 by Felisa Barraza) Thrombocytopenia (Acute) Chronic respiratory failure with hypoxia (Acute) MSSA (methicillin susceptible Staphylococcus aureus) pneumonia (Acute) Pseudomonal pneumonia (Acute) Healthcare-associated pneumonia (Acute) History of tubal ligation (Resolved) COPD with acute exacerbation (Acute) PORT PLACEMENT (Resolved) 1. Stage IV small cell lung cancer with SVC compression/sepsis secondary to pneumonia/thrombocytopenia -Given her tachycardia and her leukopenia at the point for she meets criteria for Sirs and given the setting of a likely pneumonia she is septic -Her previous sputum cultures demonstrated both MSSA and Pseudomonas that were pansensitive, therefore will start on Levaquin -Consult to oncology as well as to hospice -I had an extensive discussion with the son about CODE STATUS and advanced care planning, at the moment he would like to keep her a full code until he can discuss the matter further with her, however, he is also willing to discuss the case with hospice given how he has continued to witness decline in her functional status as well as progression of the cancer despite therapy -IVF at 150 2. COPD/alpha-1 antitrypsin deficiency -Stable -Continue with home inhalational medications 3. Chronic anemia -Hemoglobin today is 7.1 -Over the last month her new baseline has been around 7-8 -Will monitor and continue with iron replacement -Likely related to cancer and chemotherapy 4. GERD -Stable -Continue with home PPI 5. Depression -Stable -Continue with home Paxil DVT: SCDs Code Visit Inpatient E AND M: 44245 Init Hosp L3 10/17/18 0558 <Electronically signed by Dale Bates MD> Date Dale Bates MD [facility] Signature: Date (if applicable) CC: Dale Bates MD; Dariel Ortega MD Signed EMERGENCY DEPARTMENT Observed: 10/17/2018 Status: F Source: [place] SUMMARY 6:45 AM [facility] Medical Records Department [address] [place] [address] Emergency Department Summary 10/17/18 0220 MR#: [id number] Acct: [id number] Name: OLIVE TEJADA Rep #: [id number] : 1960 57 From: Alissa Castillo MD PCP: Jordan MONTILLA,Dariel Coughlin Status: ADM IN - ER Visit Summary Date of Service: 10/17/18 Chief Complaint: Chest pain, shortness of breath History of Present Illness: The patient is a 57 F presenting with chest pain, shortness of breath. She states this has been ongoing for the past 3 days but worsened today. She has a history of small cell lung cancer with mediastinal mass. She started palliative radiation for her mediastinal mass this month. Her last chemotherapy was the beginning of October. She states over the last few days she has had difficulty swallowing and decreased appetite. She has had nausea with no vomiting. The shortness of breath is worse with exertion. She denies CAD risk factors. Denies fever. Physical Examination: Vitals are stable. Heart rate 128, respiratory rate 25. Temperature 99. Alert no acute distress. Cachectic HEENT exam dry mucous membranes Neck is supple. Lungs are diminished bilaterally. Heart is regular and tachycardic Abdomen is soft nontender nondistended. Extremities are unremarkable. Skin is warm and dry. No focal neurologic deficit. Remainder of exam is unremarkable. Emergency Department Course and Treatment: EKG is sinus tachycardia rate of 122. She was given DuoNeb aerosol. She was given Dilaudid, Zofran IV. She was given IV fluids. CBC shows white count 0.4, hemoglobin 7.1, platelets 7. Chemistries shows sodium 132, creatinine 0.24, glucose 124. Troponin is negative. CTA chest shows no pulmonary embolus. Anterior mediastinal mass with multiple vascular encasement. The mass extends through the left anterior chest wall. This component has decreased in conspicuity. Persistent but improving compression of the superior vena cava. Interval development of a nodular density in the left lower lobe. Interval development of alveolar disease in the left lower lobe. This could be infectious or inflammatory in nature. Blood cultures were sent. She was given Unasyn and Zithromax IV. Patient's family state that they have been told in the past that her mass is nonoperable. On reevaluation, patient is resting comfortably. Discussed with the hospitalist for admission. Disposition: Admission Impression: Pneumonia, neutropenia, history of small cell lung cancer with anterior mediastinal mass This note was generated with [employer] dictation software. It may contain incorrect words, spelling, and punctuation that were not noted in review of the chart prior to signing ED Disposition - Plan for ED Patient: Chief Complaint: Chest Pain Referrals: Dariel Ortega Chi, MD [Primary Care Provider] - What to do if you have Problems For any increased pain, shortness of breath, bleeding, nausea or vomiting, chest pain, or any unexpected problems, contact your Primary Care Provider. Call [facility] ([phone]) or report to the closest Emergency Room. Call 911 if necessary. 10/17/18 0645 <Electronically signed by Alissa Castillo MD> Date Alissa Castillo MD Cosigner Signature (If Indicated): Date CC: Dariel Ortega MD Observed: 10/17/2018 Status: F Source: THERESE CULTURE, BLOOD (WB) 5:30 AM [facility] No growth in 5 days. Performed By: #### M200.1000 #### [facility] [address], [place], [address] Observed: 10/17/2018 Status: F Source: THERESE CULTURE, BLOOD (WB) 5:20 AM [facility] BC No growth in 5 days. Performed By: #### [id number] #### [facility] [address], [place], [address] CTA CHEST W/WO Observed: 10/17/2018 Status: F Source: THERESE CONTRAST 2:13 AM [facility] [place] [facility] Imaging Services [address] [place] [id number] CTA Chest W/WO Contrast MR#: [id number] Acct: [id number] Name: OLIVE TEJADA Rep #: [id number] : 1960 F 57 From: Hari Lugo MD PCP: Dariel Ortega MD, Chi Status: REG ER Study: CTA Chest W/WO Contrast Date of Exam: 10/17/18 Exam# [id number] Ordering Dr: Alissa Castillo MD STUDY: CTA CHEST REASON FOR EXAM: Female, 57 years old. Palpitations and stage IV lung cancer RADIATION DOSAGE (If Supplied By Facility): CTDIvol = ( 4.335 ) mGy, DLP = ( 342.70 ) mGycm TECHNIQUE: The examination was performed with the intravenous administration of 100 ml of Isovue 370 contrast material. Post-processing of the angiographic images was performed, with multiplanar reformation and 3D reconstruction. Individualized dose optimization techniques were used for this CT. COMPARISON: 09/26/2018 FINDINGS: Right chest wall port tip in SVC. No pulmonary embolus. Aortic calcifications. Upper abdominal images are unremarkable. Once again, a large heterogeneous mass is present in the anterior mediastinum, measuring 7.3 cm transverse by 5.1 cm anteroposterior on image 183 of series 4. The mass measures up to 7.5 cm craniocaudal. This encases the brachiocephalic artery and both common carotid arteries and partially encases the left subclavian artery. This encases both internal mammary arteries. All encased arteries remain patent. The mass partially compresses the superior vena cava, although the extent of SVC compression has improved slightly compared to prior study. The SVC remains patent. The lesion extends through the left anterior chest wall, to the left of the sternum. This chest wall component has become smaller and less conspicuous compared to prior study. Diffuse pulmonary emphysema. Stable scarring and cavitation in the lung apices. Interval development of an irregular nodule in the left lower lobe medially measuring 14 x 8 mm on image 112 of series 4. Interval development of alveolar disease in the upper medial left lower lobe which could be infectious or inflammatory in nature. No pericardial or pleural fluid. No destructive osseous lesion is seen. Calcified splenic granulomata. CT/CTA Chest W/WO Contrast IMPRESSION: No pulmonary embolus. Anterior mediastinal mass with multiple vascular encasement as described. The mass extends through the left anterior chest wall. This component has decreased in conspicuity. Persistent but improving compression of the superior vena cava. Interval development of a nodular density in the left lower lobe. Interval development of alveolar disease in the left lower lobe. This could be infectious or inflammatory in nature. Electronically Signed: Hari Lugo MD at 4:02 EST Tel , Service support , CC: Alissa Castillo MD; Dariel Ortega MD Restaurant Service Manager: Signed BASIC METABOLIC Collected: 10/17/2018 Status: F Source: [place] PROFILE (BMP) 2:10 AM [facility] [place] TYPE CODE TESTS RESULT OUT OF RANGE REFERENCE UNITS LAB L501.0100 74-106 mg/dL High GLU 124 Result Comment: Fasting Glucose result from 100 to 125 mg/dL suggests IMPAIRED HOMEOSTASIS per A.D.A. criteria. Please note revised GLUCOSE reference range effective 2017. LAB L501.1000 7-18 mg/dL Normal BUN 14 LAB L501.1100 0.55-1.02 mg/dL Low CREAT,SERUM 0.24 Result Comment: The validity of the calculated GFR AND GFRAA in patients over 70 years has not been determined. Clinical correlation is essential. LAB L501.1110 >60 mL/min Normal EST GFR 311 Result Comment: Non- GFR Calc LAB L501.1115 >60 mL/min Normal EST GFR - AA 376 Result Comment: GFR Calc LAB L501.1255 ml/min Normal Estimated CRCL 178.12 LAB L501.1300 10-20 RATIO High BUN/CRE 57.4 LAB L501.2200 8.5-10 mg/dL .1 CA Normal 8.6 LAB L501.5300 136-14 mmol/L Low 5 NA 132 LAB L501.5600 3.5-5. mmol/L 1 K Normal 3.5 LAB L501.5900 98-107 mmol/L Low CL 84 LAB L501.6100 21.0-3 mmol/L High 2.0 CO2 42.0 LAB L501.6200 5-15 GAP Normal 6 Performed By: #### L500.2500, L501.4010 #### [facility] [address] [place], [address] TROPONIN-I Collected: 10/17/2018 Status: F Source: [place] 2:10 AM [facility] [place] [place] TYPE CODE TESTS RESULT OUT OF RANGE REFERENCE UNITS LAB L501.4010 <0.045 ng/mL Normal < 0.015 TROPONIN-I Result Comment: TROPONIN-I EXPECTED VALUES <0.045 Negative 0.045 - 0.590 Consistent with Cardiac Damage > OR = 0.600 Critical Value Not every elevated troponin is indicative of [place]. These values should be used with clinical judgement in examining the patient's clinical picture for diagnosis. To establish a diagnosis of [place] versus myocardial injury, there must be a demonstrated rise and/or fall in the troponin values, in addition to ischemic symptoms, EKG changes, new regional wall motion abnormality, and/or angiographical evidence. PLEASE NOTE: REFERENCE RANGES EDITED 18 Performed By: #### L500.2500, L501.4010 #### [facility] [address] [place], [address] CBC W/DIFF, AUTOMATED Collected: 10/17/2018 Status: C Source: [place] 2:10 AM [facility] [place] TYPE CODE TESTS RESULT OUT OF RANGE REFERENCE UNITS LAB L100.1000 4.4-11.0 K/mm3 Low alert WBC 0.4 Result Comment: CRITICAL VALUE VERIFIED. CALLED TO [employer] 10/17/18 Trihsa Medel. RESULTS READ BACK BY SAME . LAB L100.1200 4.2-5.4 M/mm3 Low RBC 2.13 LAB L100.1300 12.0-15.0 g/dl Low HGB 7.1 LAB L100.1400 37-47 % Low HCT 22.0 LAB L100.1500 81-99 fL High MCV 103.3 LAB L100.1600 27.0-32.0 pg High MCH 33.3 LAB L100.1700 32-36 g/gl Normal MCHC 32.3 LAB L100.1810 11.6-14.6 % Low RDW 11.1 CV LAB L100.1820 35.1-43.9 fl Normal RDW 39.4 SD LAB L100.1900 150-450 K/mm3 Low alert PLT 7 Result Comment: CRITICAL VALUE VERIFIED. CALLED TO [employer] 10/17/18 Julius3 Hetal Medel. RESULTS READ BACK BY SAME . LAB L100.2000 6.2-12.0 fl Normal MPV 11.2 LAB L100.2100 47-70 % Low NEUT% 40.6 LAB L100.2200 19-41 % Normal LY% 27.0 LAB L100.2300 0-10 % High MONO% 16.2 LAB L100.2400 0-5 % Normal EO% 0.0 LAB L100.2500 0-1 % High BASO% 2.7 LAB L100.2550 0.0-0.9 % High IM GRAN % 13.500 Result Comment: IG% - Immature Granulocytes (promyelocytes, myelocytes and metamyelocytes) > 1% indicates that a LEFT SHIFT is Present. LAB L100.2620 2.0-7.7 X10 3/uL Low Absolute Neut 0.2 LAB L100.2720 0.83-4.51 X10 3/ul Low Absolute Lymph 0.10 LAB L100.4500 Normal SMEAR COMMENT SCAN LAB L100.5500 ADEQ Normal PLT EST MKD DEC LAB L100.9900 Normal PATH REV Reviewed Result Comment: Macrocytosis. Clinical correlation necessary. Tae Chaudhry M.D. 10/18/18 AMENDED REPORT 10/18/18 1052 PATH REV previously reported as: March francisco Performed By: #### L100.0100 #### [facility] [address] [place], [place], [address] RADIATION ONCOLOGY Observed: 10/12/2018 Status: F Source: [place] VISIT 3:51 PM [facility] [place] [place] [address] [place] [address] OFFICE VISIT Date of Service: 10/12/18 0834 MR#: [id number] Acct: [id number] Name: OLIVE TEJADA Rep #: [id number] : 1960 From: Syd Wilcox DO Age/Sex: 57/F Location: [facility] Status: Signed Date of Service: 10/12/18 Diagnosis: Olive Tejada is a 57 year-old female diagnosed with extensive stage small cell lung cancer (February 2018) with a large mediastinal mass, mediastinal lymph node, and liver lesion status post cisplatin/Irinotecan x6 cycles now found to have progressive disease including enlargement of the mediastinal mass with SVC compression and several concerning liver lesions. She initiated cycle 1 of second line chemotherapy on 10/04/18 (Carboplatin/Etoposide). 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 Second line chemotherapy with carboplatin/etoposide was initiated on 11/03/2018 and due to symptom severity radiation was initiated on 11/05/2018. Treatment Data: Treatment Site: Mediastinum Current total dose/Total dose planned: 1500 cGy / 3600 cGy Fraction number: Chemotherapy: 2nd line chemotherapy with Carboplatin/Etoposide initiated 11/03/18, will be given every 28 days. Radiation is scheduled mostly between cycles. Subjective: Doing well overall Pain: mostly controlled Swallowing: occasional dysphagia, GERD present Diet: mostly soft food and supplement Fatigue: moderate to severe Breathing: stable cough/sob, on oxygen 3L continuously Height/Weight/BMI: Height: 5 ft 8 in Weight: at sim: 90 lbs (10/12/18: 88.4 lbs) Vital Signs Temperature 98.6 F 10/12/18 15:30 Labs: Objective: Gen: NAD, oxygen by NC Resp: CTAB, reduced air movement, on 3L by NC. Diffuse rhonchi, no wheezing or crackles Chest: pain in the left chest wall related to tumor invasion Assessment: Tolerating palliative radiation therapy well overall. All treatment related imaging has been reviewed and approved Reviewed potential treatment related toxicities in their timing and management Plan: Continue radiation therapy as planned Rx for omeprazole provided for reflux Follow-up next week or sooner if needed Thank you for allowing me to participate in the management and care of your patient. If I may answer any questions in the interim, please do not hesitate to contact me at any time. Syd Wilcox DO, [employer], Department of Radiation Oncology [facility] 10/12/18 5356 <Electronically signed by Syd Wilcox DO> Date Syd Wilcox DO Cosigner Signature: Date (if applicable) CC: 12 LEAD ELECTROCARDIOGRAM Observed: 10/11/2018 Status: F Source: THERESE 3:43 PM [facility] Cardiovascular Services [address] [place] [address] 12 Lead EKG 10/07/18 1337 MR#: [id number] Acct: [id number] Name: JONNBECKYOLIVE Carla Rep #: [id number] : 1960 57 From: Lupillo Gifford MD Attending Dr: Status: DEP ER Ordering Dr: Vj Lisa MD Date: 10/07/18 Location: ED Sex: F C Admitted: Test Reason : FEVER Blood Pressure : / mmHG Vent. Rate : 106 BPM Atrial Rate : 106 BPM P-R Int : 112 ms QRS Dur : 076 ms QT Int : 330 ms P-R-T Axes : 086 081 072 degrees QTc Int : 438 ms Sinus tachycardia Biatrial enlargement Abnormal ECG Confirmed by WILLEM MONTILLA, LUPILLO ([id number]), content editor RACHANA YANG ([id number]) on 10/11/2018 3:43:16 PM Referred By: NABEEL Confirmed By:LUPILLO GIFFORD MD 10/11/18 1543 Date Lupillo Gifford MD CC: Dariel Ortega MD; Vj Lisa MD Signed EMERGENCY DEPARTMENT Observed: 10/07/2018 Status: F Source: THERESE SUMMARY 3:15 PM [facility] [place] Medical Records Department [address] [place] [address] Emergency Department Summary 10/07/18 1509 MR#: [id number] Acct: [id number] Name: DELILAHOLIVE Rep #: [id number] : 1960 57 From: Vj Lisa MD PCP: Dariel Ortega MD, Chi Status: REG ER - ER Visit Summary Date of Service: 10/07/18 Chief Complaint: Generalized weakness, shortness of breath and productive cough History of Present Illness: The patient is a 57 F who was diagnosed with 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 She is presently on oxygen at 2 L. Her last chemo dose was yesterday. She reports temperature to 100.0 F yesterday. She does complain of congestion in her lungs and nose. She denies ringing in ears or decreased hearing. She states she is coughing up colored sputum. She was told if she did not have chemoradiation life expectancy was 6 months 18 months. She was informed that she potentially could live 18 years with treatment. She states she has a living will. She is not DNR. Patient does reports having a weight loss since February. She also complains of generalized weakness. She has no other complaints please read written note Past medical history of COPD, alpha-1 antitrypsin deficiency, anxiety and GERD she is status post bilateral tubal ligation and has a right sided port. She denies any redness, swelling around the port. Physical Examination: Vital signs are remarkable for heart rate of 110. She is not hypoxic on oxygen. She is cachectic in appearance. HEENT exam is remarkable for pale conjunctivae. Lungs reveal wheezing and rales. Heart is rapid and regular. Abdomen is soft nontender. Lower extremity exam reveals minimal swelling without edema. There is no discoloration or leg vein distention. There is no palpable coarseness on the distribution of deep venous system. Neuro exam is nonfocal. Test Results: Two-view chest x-ray interpreted by me at and remarkable for large mean cell mass which is unchanged. There is hyperaeration. There is no evidence of pneumonia. White count is normal. H AND H 9.6 and 30.5. K reveals mild abnormalities. She does have CO2 retention, which is chronic. Emergency Department Course and Treatment: Patient was treated with DuoNeb and albuterol. She will be discharged home with prescription for antibiotics Treatment Plan: Outpatient treatment and follow-up with her oncologist Disposition: Improved condition Impression: 1. Purulent bronchitis 2. Bronchospasm 3. Chemo patient 4. Stage IV small cell carcinoma of the lung 5. O2 dependent COPD patient with chronic respiratory failure and hypercapnia This note was generated with [employer] SLation software. It may contain incorrect words, spelling, and punctuation that were not noted in review of the chart prior to signing ED Disposition - Plan for ED Patient: Disposition: Home or Assisted Living Chief Complaint: Fever Instructions: ED COPD Flare Prescriptions: Doxycycline Monohydrate 100 mg PO BID #14 cap Referrals: Dariel Ortega Chi, MD [Primary Care Provider] - 3-5 Days if not improving What to do if you have Problems For any increased pain, shortness of breath, bleeding, nausea or vomiting, chest pain, or any unexpected problems, contact your Primary Care Provider. Call [facility] ([phone]) or report to the closest Emergency Room. Call 911 if necessary. 10/07/18 1515 <Electronically signed by Vj Lisa MD> Date Vj Lisa MD Cosigner Signature (If Indicated): Date CC: Nathan Garduno MD; Dariel Ortega MD CBC W/DIFF, AUTOMATED Collected: 10/07/2018 Status: F Source: [place] 1:40 PM [facility] [place] TYPE CODE TESTS RESULT OUT OF RANGE REFERENCE UNITS LAB L100.1000 4.4-11.0 K/mm3 Normal WBC 9.6 LAB L100.1200 4.2-5.4 M/mm3 Low RBC 2.83 LAB L100.1300 12.0-15.0 g/dl Low HGB 9.6 LAB L100.1400 37-47 % Low HCT 30.5 LAB L100.1500 81-99 fL High MCV 107.8 LAB L100.1600 27.0-32.0 pg High MCH 33.9 LAB L100.1700 32-36 g/gl Low MCHC 31.5 LAB L100.1810 11.6-14.6 % Normal RDW CV 13.5 LAB L100.1820 35.1-43.9 fl High RDW SD 51.1 LAB L100.1900 150-450 K/mm3 Normal PLT 223 LAB L100.2000 6.2-12.0 fl Normal MPV 8.9 LAB L100.2100 47-70 % High NEUT% 90.1 LAB L100.2200 19-41 % Low LY% 5.2 LAB L100.2300 0-10 % Normal MONO% 3.0 LAB L100.2400 0-5 % Normal EO% 1.5 LAB L100.2500 0-1 % Normal BASO% 0.1 LAB L100.2550 0.0-0.9 % Normal IM GRAN % 0.100 Result Comment: IG% - Immature Granulocytes (promyelocytes, myelocytes and metamyelocytes) > 1% indicates that a LEFT SHIFT is Present. LAB L100.2620 2.0-7.7 X10 3/uL High Absolute Neut 8.7 LAB L100.2720 0.83-4.51 X10 3/ul Low Absolute Lymph 0.50 Performed By: #### L100.0100 #### [facility] [address] [place] [place], [address] BASIC METABOLIC Collected: 10/07/2018 Status: F Source: [place] PROFILE (BMP) 1:40 PM [facility] [place] TYPE CODE TESTS RESULT OUT OF RANGE REFERENCE UNITS LAB L501.0100 74-106 mg/dL Normal GLU 92 Result Comment: Please note revised GLUCOSE reference range effective 2017. LAB L501.1000 7-18 mg/dL Normal BUN 14 LAB L501.1100 0.55-1.02 mg/dL Low CREAT,SERUM 0.21 Result Comment: The validity of the calculated GFR AND GFRAA in patients over 70 years has not been determined. Clinical correlation is essential. LAB L501.1110 >60 mL/min Normal EST GFR 365 Result Comment: Non- GFR Calc LAB L501.1115 >60 mL/min Normal EST GFR - AA 442 Result Comment: GFR Calc LAB L501.1255 ml/min Normal Estimated CRCL 195.07 LAB L501.1300 10-20 RATIO High BUN/CRE 66.0 LAB L501.2200 8.5-10 mg/dL Low .1 CA 8.4 LAB L501.5300 136-14 mmol/L Low 5 NA 133 LAB L501.5600 3.5-5. mmol/L 1 K Normal 3.9 LAB L501.5900 98-107 mmol/L Low CL 91 LAB L501.6100 21.0-3 mmol/L High 2.0 CO2 39.0 LAB L501.6200 5-15 Low GAP 3 Performed By: #### L500.2500 #### [facility] [address] [place], [address] CHEST PA AND LATERAL Observed: 10/07/2018 Status: F Source: [place] 1:22 PM [facility] [place] [place] Imaging Services [address] [place] [address] Chest PA and Lateral MR#: [id number] Acct: [id number] Name: OLIVE TEJADA Rep #: [id number] : 1960 F 57 From: Matt Logan MD PCP: Jordan MONTILLA,Dariel Coughlin Status: REG ER Study: Chest PA and Lateral Date of Exam: 10/07/18 Exam# [id number] Ordering Dr: Vj Lisa MD STUDY: X-RAY CHEST REASON FOR EXAM: Female, 57 years old. Dyspnea. Cough and wheezing. History of lung cancer. TECHNIQUE: AP and lateral views of the chest. COMPARISON: Comparison is made with prior study dated August 20, 2018. FINDINGS: A portacatheter is seen on the right side. The tip is in the proximal portion of the superior vena cava. EKG electrodes are seen. Stable scarring in the lung apices. Stable increased linear marking in the right middle lobe. Hyperinflation. There is no demonstrated pleural abnormality. Normal size heart. Stable upper mediastinal mass. Normal visualized pulmonary arteries. Normal visualized aortic arch and descending thoracic aorta. Normal visualized thoracic spine. Normal visualized ribs, clavicles, and shoulders. There is no demonstrated abnormality of the visualized soft tissue structures of the upper abdomen. RAD/Chest PA and Lateral IMPRESSION: Hyperinflation. Stable superior mediastinal mass. There has been no change since prior study. Electronically Signed: Matt Logan MD at 14:36 EST Tel [phone], Service support , CC: Dariel Ortega MD; Vj Lisa MD Restaurant Service Manager: Signed ONCOLOGY VISIT REPORT Observed: 10/07/2018 Status: F Source: [place] 11:37 AM [facility] [place] [facility] [address] [address] OFFICE VISIT Date of Service: 10/04/18 1108 MR#: [id number] Acct: [id number] Name: OLIVE TEJADA Rep #: [id number] : 1960 From: Nathan Garduno MD Age/Sex: 57/F Location: [facility] Status: Signed Subjective - Date of Service Date of Service:: 10/04/18 - Chief Complaint F/u for SCLC and chemotherapy. - History of Present Illness Ms. Olive Tejada is a pleasant 57 y.o.woman with a past medical history significant for depression and COPD, oxygen dependent. She initially presented with SOB, dizziness and weight loss. CTA on 02/06/2018 showed suspicious and enhancing anterior mediastinal mass 5.3 cm with extension into the left upper lobe. Thus, she had a CT-guided biopsy on February 22, 2018. Pathology confirmed small cell lung carcinoma. PET/CT 03/07/2018, demonstrated anterior mediastinal mass 6 cm, involving RACHID and AP node, single nodule in left lobe of liver 1 cm, all with hypermetabolic activities. Right lower extremity edema noted 03/11/18, negative for DVT. She started chemotherapy with Cisplatin and Irinotecan on 03/16/2018. She had nausea and abdominal cramps after C1D1, did not take her antiemetics because she forgot about them. CT on 05/04/2018 showed resolution of liver lesion, stable thoracic lesion. CT scan on 06/29/2018 showed stable mediastinal lesion with no liver lesion. She received C6D8 on 08/11/2018 then admitted to hospital with Pneumonia. CT on 09/26/2018 showed progressive disease in mediastinum, compression of SVC and progression of liver lesions. Comes for follow up to start 2nd line chemotherapy with Carboplatin and Etoposide. - Past Medical/Social History Past Medical History Past Medical History: COPD Cancer: Lung cancer Social History Social History: No changes Smoking Status Former smoker Review of Systems Constitutional:: Reports: - - Onhome O@.. Denies: Fever, Sweats, Weight loss, Appetite change, Chills Cardiovascular:: Denies: Chest pain, Palpitations, Dyspnea on exertion, Orthopnea, PND, Shortness of breath Respiratory: Denies: Cough, Hemoptysis, Shortness of Breath, Wheezing Gastrointestinal:: Denies: Abdominal pain, Nausea, Vomiting, Diarrhea, Constipation, Hematochezia Genitourinary: Denies: Dysuria, Hematuria, 15, Flank pain Musculoskeletal:: Denies: Back pain, Myalgia, Arthralgia Skin: Denies: Rash, Skin Changes, Wounds Neurological:: Denies: Headache, Dizziness, Visual changes, Tinnitus, Hearing loss Vital Signs Height 5 ft 8 in Weight: 41.368 kg Weight in Pounds 91.2 lbs Pulse Ox 89 - Physical Exam General: Alert, Oriented x3, No apparent distress, - - on home O2 Laboratory Data: Laboratory Tests Assessment and Plan Small cell lung carcinoma-Extensive disease involving left lung/anterior mediastinum and liver. Finished 6 cycles of Cisplatin and Irinotecan. CT shows progressive disease in chest and liver with Compression of SVC. 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 Counts are OK. Discussed Progressive disease, more chemotherapy, radiation therapy vs supportive care. She wants more therapy. Suggested chemotherapy-Carboplatin and Etoposide with RT to SVC area again. Pt agrees. Discussed risks, benefits and side effects. Plan is to start therapy with Carboplatin and Etoposide C1 from 10/04- with Neulasta. RTC 2 weeks for toxicity check. Medications: Prescriptions This Visit Medication Instructions Recorded Lidocaine/Prilocaine 30 gm TP DAILY PRN PRN 30 Days #1 03/15/18 Primary Care Provider: Dariel Ortega Referring Provider: Betty Banerjee NP - Problem List (1) Small cell lung cancer Status: Chronic (2) COPD (chronic obstructive pulmonary disease) Status: Chronic Qualifiers: COPD type: unspecified COPD Qualified Code(s): J44.9 - Chronic obstructive pulmonary disease, unspecified Code Visit Office Visits / Consults: [id number] OV L5 Est 10/07/18 1137 <Electronically signed by Nathan Garduno MD> Date Nathan Senior Signature: Date (if applicable) CC: CONSULTATION Observed: 10/04/2018 Status: F Source: THERESE 1:22 PM [facility] Medical Records Department [address] [place] [address] Consultation 10/04/18 1254 MR#: [id number] Acct: [id number] Name: OLIVE TEJADA Rep #: [id number] : 1960 57 From: Syd Wilcox DO PCP: Dariel Ortega MD, Chi Status: REG RCR Y Location: [facility] Date of Service: 10/04/18 Referring Provider: Dr. Garduno Diagnosis: Olive Tejada is a 57 year-old female diagnosed with extensive stage small cell lung cancer (February 2018) with a large mediastinal mass, mediastinal lymph node, and liver lesion status post cisplatin/Irinotecan x6 cycles now found to have progressive disease including enlargement of the mediastinal mass with SVC compression and several concerning liver lesions. She initiated cycle 1 of second line chemotherapy on 10/04/18 (Carboplatin/Etoposide). History of Present Illness: Patient initially presented with shortness of breath, dizziness, and weight loss. 02/06/2018: CTA was completed and showed a suspicious and enhancing anterior mediastinal mass measuring 5.3 cm with extension into the left upper lobe of the lung. 02/22/2018: Patient underwent CT-guided biopsy of this mass and pathology was consistent with small cell carcinoma. 03/07/2018: PET scan was completed which demonstrated the anterior mediastinal mass measuring about 6 cm in involving the left upper lobe with an AP node and a single nodule in the left lobe of the liver measuring 1 cm. 03/16/2018: Patient initiated chemotherapy with cisplatin/irinotecan. 03/19/18: Brain MRI showed no evidence of metastatic disease. 05/04/2018: CT chest abdomen pelvis was completed which demonstrated resolution of the segment 4 liver lesion, unchanged mildly lobulated 6 x 4.9 x 6.3 cm high anterior mediastinal/retro-manubrial soft tissue mass consistent with the patient's known malignancy it appears like the mass compresses/obstructs the left brachiocephalic vein and there are a few borderline to mildly enlarged precarinal lymph nodes as well as a few lymph nodes measuring upper normal size to borderline enlarged in the right hilum. 06/29/2018: CT chest demonstrated the lobulated soft tissue mass in the anterior mediastinum now measuring 6.75 x 5.85 x 4.25 cm. A precarinal lymph node has decreased from 1.7 x 1.6 x 0 0.7-1.4 x 1.5 x 0.6 cm. Other nonspecific borderline enlarged low mediastinum and hilar lymph nodes are stable to decreased in size. 09/26/2018: CT chest abdomen and pelvis was completed. This demonstrated interval enlargement of the heterogeneous mediastinal mass located in the anterior mediastinum extending from the substernal space to the great vessels and at several levels that extends through the sternocostal articulations on the left and into the anterior chest wall. The lesion severely compresses the superior vena cava although the SVC remains patent. This lesion measures 8.8 x 7.4 x 8.4 cm. A faint low-density lesion is identified in about a segment 8 measuring 11 x 10 mm which appears either new or increased compared to the prior study. A new round low-density lesion is present in segment 7 measuring about 8 mm. There is probable increased size of the lesion in the left hepatic lobe measuring 7 mm. These areas are concerning for metastatic disease and there is no other evidence of metastatic disease in the abdomen/pelvis. Radiation Treatment History: No history of previous radiation therapy. No pacemaker diagnosis of collagen vascular disease. Interval History: Patient presents for initial consultation. She initiated cycle 1 of second line chemotherapy today due to evidence of disease progression on most recent imaging. She reports over the last several weeks that she has developed increasing odynophagia and dysphagia with both solids and liquids at times. She initially lost about 20 pounds at diagnosis (February 2018) and her weight is currently stable at about 90 pounds. Her appetite is relatively low due to taste changes and lack of interest but she does take in several nutritional supplemental drinks per day. She continues to have shortness of breath on exertion and occasional cough, she believes the symptoms are stable at this time. She uses 3 L of oxygen continuously. Recently she has noted increasing discomfort in the anterior chest wall, she states this is around the area of the biopsy was completed in February 2018. She denies having palpitations. She denies headaches, vision changes, ataxia, or bone pain. She continues to have fatigue and requires some assistance with activities of daily living. Patient denies having any other problems or concerns at this time. Family History (Last Reviewed 10/04/18 @ 10:30 by Felisa Barraza) Mother Colon cancer Bronchitis Epilepsy Father Asthma Medical History (Last Reviewed 10/04/18 @ 10:30 by Felisa Barraza) Asthma (Chronic) Nocturnal hypoxia (Chronic) Anxiety (Chronic) Nicotine dependence in remission (Chronic) Stage 4 very severe COPD by GOLD classification (Chronic) Allergic rhinitis (Chronic) COPD with acute exacerbation (Chronic) Tobacco dependence syndrome (Chronic) Kbsam-0-kwebmteupci deficiency (Chronic) COPD (chronic obstructive pulmonary disease) (Chronic) GERD (gastroesophageal reflux disease) (Chronic) COPD with acute exacerbation (Acute) COPD, frequent exacerbations (Inactive) [place] (dyspnea on exertion) (Inactive) Surgical History (Last Reviewed 10/04/18 @ 10:30 by Felisa Barraza) History of tubal ligation (Resolved) Social History - Tobacco Smoking Status Former smoker Years used: 20 Social History - Substance Drug use: No Caffeine use [drinks/day]: 3 Alcohol use: No Home Medications Medication Instructions Recorded Allergy/AdvReac Type Severity Reaction Status Date / Time morphine AdvReac Intermediate Itching Verified 10/04/18 10:31 I have reviewed the medical, surgical, and other pertinent history in details and have updated medication and allergy information in the electronic medical record. Review of Systems: A 12-point review of systems was completed and was negative except for what is noted in the HPI/Interval History and by the nurse. Height/Weight/BMI: Height: 5 ft 8 in Weight: 91.2 lbs Vital Signs Temperature 98.2 F 10/04/18 10:31 Physical Exam: ECO KAR[place]KY SCORE: 60% CONSTITUTIONAL: Well-developed, well-nourished, and in no apparent distress. NC in place, on 3L O2. HEENT: Mucous membranes moist. No evidence of thrush or lesions within the visualized oropharynx or oral cavity. No trismus. Pupils are equal, round, and reactive to light and accommodation. Extraocular movements are intact. Sclerae are anicteric. NECK: Supple,with no thyromegaly, and non-tender. Trachea midline. No cervical or supraclavicular adenopathy noted. CARDIAC: Regular rate and rhythm. Normal S1, S2. No murmurs, rubs, or gallops. PULMONARY/CHEST: Lungs are clear to auscultation and percussion bilaterally. Reduced air movement bilaterally. No wheezes, rhonchi, or crackles noted. No increased work of breathing. Anterior chest wall tenderness involving a small area left of the sternum and mild left CW vein dilation. ABDOMINAL: Abdomen soft, non-tender, non-distended. No hepatomegaly. Normoactive bowel sounds in all four quadrants. No guarding, rebound. BACK: Straight and aligned. No CVA tenderness. Axial skeleton non-tender to percussion. EXTREMITIES: Full range of motion in all four extremities, with normal strength equally and symmetrically. No evidence of edema. No clubbing. SKIN: Skin is warm and dry. No rashes or lesions evident. NEUROLOGICAL EXAM: Alert and oriented x 3. Cranial nerves II through XII are grossly intact. No focal neurological deficit. Speech is fluent. There is no upper or lower extremity sensory deficit or motor deficit. Muscle strength is 5/5 in all muscle groups. Gait not tested. PSYCHIATRIC: Appropriate mood and affect for the clinical situation. Imaging: As per HPI Laboratory Data: 10/04/18: CBC and CMP unremarkable Assessment/Plan: Olive Tejada is a 57 year-old female diagnosed with extensive stage small cell lung cancer (February 2018) with a large mediastinal mass, mediastinal lymph node, and liver lesion status post cisplatin/Irinotecan x6 cycles now found to have progressive disease including enlargement of the mediastinal mass with SVC compression and several concerning liver lesions. She initiated cycle 1 of second line chemotherapy on 10/04/18 (Carboplatin/Etoposide). Clinically the patient is symptomatic from the large mediastinal mass including left chest wall discomfort, odynophagia/dysphasia, and some venous compression sequelae with mild dilation of superficial chest wall veins. She is very thin and fatigued and has a relatively poor KPS. I reviewed the imaging consistent with disease progression within the mediastinum and liver. Specifically, the mediastinal disease now invades the anterior chest wall and also causes significant compression on the right brachiocephalic vein/SVC as well as possibly impacting the esophagus. Given the amount of disease progression I would recommend a brain MRI to ensure no new brain metastases have developed. Patient is scheduled to start second line chemotherapy with carboplatin/etoposide this week. Given the large size and symptoms as well as the fact that the disease progressed during first-line chemotherapy, I would recommend radiation therapy to the primary disease to provide improve local control and symptom palliation. The risks, benefits, and treatment goals were extensively discussed and all questions were addressed. I reviewed the potential acute and chronic toxicities to mediastinal/thoracic radiation and this would include but is not limited to fatigue, skin irritation, pneumonitis, esophagitis, dysphasia/esophageal stenosis, worsening in shortness of breath/breathing from lung fibrosis, pericarditis/risk of [place]/CHF, spinal cord damage, and secondary malignancy. Following our discussion the patient desired to pursue palliative radiation therapy to the mediastinal disease and informed consent was obtained. We will plan to complete CT simulation today in an effort to initiate radiation therapy by 10/06/18. Thank you for allowing me to participate in the management and care of your patient. If I may answer any questions in the interim, please do not hesitate to contact me at any time. Syd Wilcox DO, MS [employer], Department of Radiation Oncology [facility] 10/04/18 5123 <Electronically signed by Syd Wilocx DO> Date Syd Wilcox DO Cosigner Signature (if applicable): Date CC: Betty Banerjee; Nathan Garduno MD; Dariel Ortega MD Signed MAGNESIUM Collected: 10/04/2018 Status: F Source: [place] 11:29 AM [facility] Order Comment: ADD ON BLOOD IN LAB Reason for Laboratory Test . TYPE CODE TESTS RESULT OUT OF RANGE REFERENCE UNITS LAB L501.5200 1.6-2.6 mg/dL Normal MG 1.6 Performed By: #### L501.5200 #### [facility] [place], [address] CBC W/DIFF, AUTOMATED Collected: 10/04/2018 Status: F Source: [place] 9:52 AM [facility] Order Comment: Reason for Laboratory Test . TYPE CODE TESTS RESULT OUT OF RANGE REFERENCE UNITS LAB L100.1000 4.4-11.0 K/mm3 Normal WBC 9.4 LAB L100.1200 4.2-5.4 M/mm3 Low RBC 3.05 LAB L100.1300 12.0-15.0 g/dl Low HGB 10.1 LAB L100.1400 37-47 % Low HCT 32.0 LAB L100.1500 81-99 fL High MCV 104.9 LAB L100.1600 27.0-32.0 pg High MCH 33.1 LAB L100.1700 32-36 g/gl Low MCHC 31.6 LAB L100.1810 11.6-14.6 % Normal RDW CV 14.6 LAB L100.1820 35.1-43.9 fl High RDW SD 56.3 LAB L100.1900 150-450 K/mm3 Normal PLT 264 LAB L100.2000 6.2-12.0 fl Normal MPV 8.6 LAB L100.2100 47-70 % High NEUT% 81.5 LAB L100.2200 19-41 % Low LY% 7.2 LAB L100.2300 0-10 % High MONO% 10.5 LAB L100.2400 0-5 % Normal EO% 0.5 LAB L100.2500 0-1 % Normal BASO% 0.2 LAB L100.2550 0.0-0.9 % Normal IM GRAN % 0.100 Result Comment: IG% - Immature Granulocytes (promyelocytes, myelocytes and metamyelocytes) > 1% indicates that a LEFT SHIFT is Present. LAB L100.2620 2.0-7.7 X10 3/uL Normal Absolute Neut 7.7 LAB L100.2720 0.83-4.51 X10 3/ul Low Absolute Lymph 0.68 Performed By: #### L100.0100 #### [facility] [address] [place], [address] COMPREHENSIVE METABOLIC Collected: 10/04/2018 Status: F Source: [place] 9:52 AM [facility] Order Comment: Reason for Laboratory Test . Serial Specimen #1, #2 or #3? 1 TYPE CODE TESTS RESULT OUT OF RANGE REFERENCE UNITS LAB L501.0100 74-106 mg/dL Normal GLU 95 Result Comment: Please note revised GLUCOSE reference range effective 2017. LAB L501.1000 7-18 mg/dL Normal BUN 13 LAB L501.1100 0.55-1.02 mg/dL Low CREAT,SERUM 0.30 Result Comment: The validity of the calculated GFR AND GFRAA in patients over 70 years has not been determined. Clinical correlation is essential. LAB L501.1110 >60 mL/min Normal EST GFR 246 Result Comment: Non- GFR Calc LAB L501.1115 >60 mL/min Normal EST GFR - AA 297 Result Comment: GFR Calc LAB L501.1255 ml/min Normal Estimated CRCL 139.28 LAB L501.1300 10-20 RATIO High BUN/CRE 43.5 LAB L501.1500 6.4-8. g/dL 2 T PROT Normal 7.3 LAB L501.1800 3.2-5. g/dL 0 ALB Normal 3.4 LAB L501.1950 2.2-4. g/dL 2 GLOB Normal 3.9 LAB L501.2000 0.9-2. RATIO 4 A/G Normal 0.9 LAB L501.2200 8.5-10 mg/dL .1 CA Normal 8.7 LAB L501.4100 15-37 U/L AST Normal 31 LAB L501.4305 45-117 U/L ALK P Normal 85 LAB L501.4405 13-56 U/L ALT Normal 21 LAB L501.4600 0.20-1 mg/dL Low .00 T BILI 0.10 LAB L501.5300 136-14 mmol/L Low 5 NA 134 LAB L501.5600 3.5-5. mmol/L 1 K Normal 4.1 LAB L501.5900 98-107 mmol/L Low CL 95 LAB L501.6100 21.0-3 mmol/L High 2.0 CO2 36.0 LAB L501.6200 5-15 Low GAP 3 Performed By: #### L500.4050, L504.2610 #### [facility] [address] [place], [address] LDH Collected: 10/04/2018 Status: F Source: [place] 9:52 AM [facility] Order Comment: Reason for Laboratory Test . Serial Specimen #1, #2 or #3? 1 TYPE CODE TESTS RESULT OUT OF RANGE REFERENCE UNITS LAB L504.2610 84-246 U/L Normal LDH 240 Performed By: #### L500.4050, L504.2610 #### [facility] [address] [place], [address] ONCOLOGY VISIT REPORT Observed: 09/28/2018 Status: F Source: [place] 4:15 PM [facility] [address] [address] OFFICE VISIT Date of Service: 09/28/18 1551 MR#: [id number] Acct: [id number] Name: OLIVE TEJADA Rep #: [id number] : 1960 From: Nathan Garduno MD Age/Sex: 57/F Location: [facility] Status: Signed Subjective - Date of Service Date of Service:: 09/28/18 - Chief Complaint F/u for SCLC and chemotherapy. - History of Present Illness Ms. Olive Tejada is a pleasant 57 y.o.woman with a past medical history significant for depression and COPD, oxygen dependent. She initially presented with SOB, dizziness and weight loss. CTA on 02/06/2018 showed suspicious and enhancing anterior mediastinal mass 5.3 cm with extension into the left upper lobe. Thus, she had a CT-guided biopsy on February 22, 2018. Pathology confirmed small cell lung carcinoma. PET/CT 03/07/2018, demonstrated anterior mediastinal mass 6 cm, involving RACHID and AP node, single nodule in left lobe of liver 1 cm, all with hypermetabolic activities. Right lower extremity edema noted 03/11/18, negative for DVT. She started chemotherapy with Cisplatin and Irinotecan on 03/16/2018. She had nausea and abdominal cramps after C1D1, did not take her antiemetics because she forgot about them. CT on 05/04/2018 showed resolution of liver lesion, stable thoracic lesion. CT scan on 06/29/2018 showed stable mediastinal lesion with no liver lesion. She received C6D8 on 08/11/2018 then admitted to hospital with Pneumonia. She had CT and comes for follow up. - Past Medical/Social History Past Medical History Past Medical History: COPD Cancer: Lung cancer Social History Social History: No changes Smoking Status Former smoker Review of Systems Constitutional:: Reports: Fatigue, - - using home O2.. Denies: Fever, Sweats Cardiovascular:: Denies: Chest pain, Palpitations, Dyspnea on exertion, Orthopnea, PND, Shortness of breath Respiratory: Denies: Cough, Hemoptysis, Shortness of Breath, Wheezing Gastrointestinal:: Denies: Abdominal pain, Nausea, Vomiting, Diarrhea, Constipation, Hematochezia Genitourinary: Denies: Dysuria, Hematuria, 15, Flank pain Musculoskeletal:: Denies: Back pain, Myalgia, Arthralgia Skin: Denies: Rash, Skin Changes, Wounds Neurological:: Denies: Headache, Dizziness, Visual changes, Tinnitus, Hearing loss Vital Signs Height 5 ft 8 in Weight: 39.916 kg Weight in Pounds 88.0 lbs Pulse Ox 87 - Physical Exam General: Alert, Oriented x3, No apparent distress, - - On home O2. HEENT: Atraumatic, PERRLA, EOMI, Normocephalic Oropharynx:: Dry mucosa Neck:: Supple, Trachea midline. Negative for: JVD, bilateral Cardiac:: Regular rate, Regular rhythm, Normal S1, Normal S2. Negative for: Murmur Lungs: Clear to auscultation, Excusion symmetrical. Negative for: Rhonchi, Wheezes Lymphatics:: Negative for: Cervical lymphadenopathy, Supraclavicular lymphadenopathy, Axillary lymphadenopathy Diagnostic Data: 09/26/[address]/Chest WITH Contrast IMPRESSION: Enlarging anterior mediastinal mass, now with significant compression of the SVC and extension through several left sternocostal articulations into the anterior chest wall. Stable left perifissural lung nodule. Electronically Signed: Hari Lugo MD at 14:[address]/Abdomen WITH IV Contrast IMPRESSION: Areas of abnormal low density are now identified in the liver as described above. The largest of these measures 11 mm. Some lesions are questionably new or progressed compared to prior study. If possible, dynamic postcontrast liver MRI is recommended to evaluate further, as metastatic disease cannot be excluded. Electronically Signed: Hari Lugo MD at 13:55 EST Assessment and Plan Small cell lung carcinoma-Extensive disease involving left lung/anterior mediastinum and liver. Finished 6 cycles of Cisplatin and Irinotecan. CT shows progressive disease in chest and liver with Compression of SVC. 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 Counts are OK. Discussed Progressive disease, more chemotherapy, radiation therapy vs supportive care. She wants more therapy. Suggested chemotherapy-Carboplatin and Etoposide with RT to SVC area. Pt agrees. Discussed risks, benefits and side effects. Plan is to start therapy with Carboplatin and Etoposide on 10/04-. Obtain Radiation Oncology consult for compression of SVC RTC 10/04/2018. Medications: Prescriptions This Visit Medication Instructions Recorded Lidocaine/Prilocaine 30 gm TP DAILY PRN PRN 30 Days #1 03/15/18 [Lidocaine-Prilocaine Cream] cream..g. Primary Care Provider: Dariel Ortega Referring Provider: Betty Banerjee NP - Problem List (1) Small cell lung cancer Status: Chronic (2) COPD (chronic obstructive pulmonary disease) Status: Chronic Qualifiers: COPD type: unspecified COPD Qualified Code(s): J44.9 - Chronic obstructive pulmonary disease, unspecified Code Visit Office Visits / Consults: [id number] OV L5 Est 09/28/18 1615 <Electronically signed by Nathan Garduno MD> Date Nathan Garduno MD Cosigner Signature: Date (if applicable) CC: ABDOMEN WITH IV Observed: 09/26/2018 Status: F Source: [place] CONTRAST 2:39 PM [facility] Imaging Services [address] [place] [address] [place] [address] Abdomen WITH IV Contrast MR#: [id number] Acct: [id number] Name: OLIVE TEJADA Rep #: [id number] : 1960 F 57 From: Hari Lugo MD PCP: Jordan MONTILLA,Dariel Coughlin Status: REG CLI Study: Abdomen WITH IV Contrast Date of Exam: 09/26/18 Exam# [id number] Ordering Dr: Nathan Garduno MD STUDY: CT ABDOMEN WITH CONTRAST REASON FOR EXAM: Female, 57 years old. Lung cancer and chemotherapy RADIATION DOSAGE (If Supplied By Facility): CTDIvol = ( 5.71 ) mGy, DLP = ( 297.48 ) mGycm TECHNIQUE: Transaxial images were obtained post I.V. administration of 100 ml of Isovue 300 contrast, and with oral contrast. Sagittal and coronal images were reconstructed. Individualized dose optimization techniques were used for this CT. COMPARISON: 06/29/2018 FINDINGS: Pulmonary emphysema. The visualized portions of the heart are within normal limits. A faint low-density lesion is identified in hepatic segment 8 on image 9 of series 3 that measures 11 x 10 mm. This is questionably new or increased in size compared to prior study. A new round low density lesion is present in segment 7 that measures 8 mm in diameter on image 14. Probable increasing size of a faint lesion in the left hepatic lobe measuring 7 mm on image 14. Normal gallbladder and extrahepatic biliary system. Calcified hepatic granulomata. Normal pancreas. Normal bilateral adrenal glands. Stable 2 mm nonobstructing right renal stone. Normal left kidney. Normal visualized stomach. Normal small intestine. Normal colon. The appendix is not seen. There is diffuse atherosclerotic calcification of the abdominal aorta with elongation and tortuosity, but without a demonstrated aneurysm. Normal inferior vena cava. Normal retroperitoneum. Normal abdominal wall. Normal osseous structures. CT/Abdomen WITH IV Contrast IMPRESSION: Areas of abnormal low density are now identified in the liver as described above. The largest of these measures 11 mm. Some lesions are questionably new or progressed compared to prior study. If possible, dynamic postcontrast liver MRI is recommended to evaluate further, as metastatic disease cannot be excluded. Electronically Signed: Hari Lugo MD at 13:55 EST Tel , Service support , CC: Nathan Garduno MD; Dariel Ortega MD Restaurant Service Manager: Signed CHEST WITH CONTRAST Observed: 09/26/2018 Status: F Source: [place] 2:39 PM [facility] Imaging Services [address] [place] [address] Chest WITH Contrast MR#: [id number] Acct: [id number] Name: OLIVE TEJADA Rep #: [id number] : 1960 F 57 From: Hari Lugo MD PCP: Dariel Ortega MD, Chi Status: REG CLI Study: Chest WITH Contrast Date of Exam: 09/26/18 Exam# [id number] Ordering Dr: Nathan Garduno MD STUDY: CT CHEST WITH CONTRAST REASON FOR EXAM: Female, 57 years old. Lung cancer and chemotherapy RADIATION DOSAGE (If Supplied By Facility): CTDIvol = ( 4.94 ) mGy, DLP = ( 297.48 ) mGycm TECHNIQUE: Transaxial imaging was performed following intravenous administration of 100 ml of Isovue 300 contrast material. Individualized dose optimization techniques were used for this CT. COMPARISON: 06/29/2018 FINDINGS: Right chest wall port tip in right atrium. Stable perifissural nodule in the left measuring 5 mm on image 73 of series 6. Pulmonary emphysema with upper lobe scarring There is no demonstrated pleural abnormality. Normal heart and pericardium. Interval enlargement of heterogeneous mediastinal mass. This is located in the anterior mediastinum extending from the substernal space to the great vessels. At several levels it extends through the sternocostal articulations on the left and into the anterior chest wall. The lesion severely compresses the superior vena cava, although the SVC remains patent. The lesion measures up to 8.8 cm transverse by 7.4 cm anteroposterior by 8.4 cm craniocaudal. Normal hilar regions. Normal enhanced pulmonary arteries. Normal aorta arch and descending thoracic aorta. Remote rib trauma. CT/Chest WITH Contrast IMPRESSION: Enlarging anterior mediastinal mass, now with significant compression of the SVC and extension through several left sternocostal articulations into the anterior chest wall. Stable left perifissural lung nodule. Electronically Signed: Hari Lugo MD at 14:05 EST Tel , Service support , CC: Nathan Garduno MD; Dariel Ortega MD Restaurant Service Manager: Signed PULMONARY VISIT REPORT Observed: 09/13/2018 Status: F Source: [place] 2:23 PM [facility] [address] [place] [address] OFFICE VISIT Date of Service: 09/13/18 MR#: [id number] Acct: [id number] Name: OLIVE TEJADA Rep #: [id number] : 1960 Provider: Betty Banerjee Age/Sex: 57/F [place] [facility] Status: Signed Assessment AND Plan 1. Stage 4 very severe COPD by GOLD classification J44.9 Plan Deteriorated. Not return to baseline, treating with a prednisone taper. Continue maintenance medications as previously prescribed. No additional testing at this time. Keep previously scheduled routine follow-up on November 03, 2018. Contact the office with any new or worsening symptoms. Give the office an update after she has been on the prednisone for 3 days. albuterol nebulizer refill.. 2. Small cell lung cancer C34.90 Plan Complicates exam, plan, care and prognosis. Defer management to oncology. 3. Chronic respiratory failure with hypoxia J96.11 Plan The patient is using and benefiting from oxygen. Continue to utilize to maintain a saturation of 89-92%. Follow-up visit is scheduled. Plan Detail Other Medications New: prednisone take 4 tabs for three days, then 3 tabs for three10 mg PO QDAY 30 tabs 0RF days, then 2 tabs for three days, then 1 tab for 3 days Refilled: albuterol sulfate 2.5 mg (3 mL) Inhalation 4X/DAY 30 days PRN 180 vials 6RF Shortness Of B reath [facility] Hospital F/U : Chief Complaint: Shortness of breath HPI Comments Details: This is a 57 year old very pleasant F, currently under the care of Dariel Ortega, here to follow up after a recent hospitalization at [facility], from August 20 - August 23, 2018 for MRSA pneumonia, Pseudomonas pneumonia, COPD with exacerbation. The hospital stay was complicated by acute anemia requiring blood transfusions. 10 pages of hospital documentation was reviewed, and found to be significant for chest x-ray completed on August 20, 2018 showing hyperinflation of the lungs consistent with COPD, patchy infiltrate in the right upper lobe suspicious for pneumonia. Upon discharge, the patient completed a 7 day course of Levaquin and a 5 day course of prednisone. Today, she presents the office in a wheelchair wearing nasal cannula oxygen. She continues to experience shortness of breath, wheezing, chest tightness and chest congestion. She states that she has been using her albuterol nebulizer every 4 hours, and is currently out of medication requiring a refill. She has been compliant with Symbicort as prescribed, 2 puffs twice daily. She rinses her mouth out after each use and denies any medication side effects such as sore throat or thrush. She is also compliant with Spiriva Respimat. She denies any fever, chills or body aches. She is compliant with supplemental oxygen typically requiring 3 L to maintain an adequate saturation. She follows with oncology and is receiving chemotherapy weekly 3 out of 4 weeks/month. She does report that with her anemia and pneumonia she has had a delay in therapy. Intake Vital Signs09/13/18 Height 5 ft 8 in 09/13/18 Weight: 89 lb 09/13/18 Body Mass Index (BMI) 13.5 Intake Visit Reasons: Hospital F/U [employer] Required: No Accompanied by: Self Is patient in pain?: No Allergies morphine Adverse Reaction (Intermediate, Verified 09/13/18 07:38) Itching Medications Multivitamins,Therapeutic [Multivitamin] 1 tab PO DAILY 09/06/16 [History Confirmed 09/13/18] fluticasone 50 mcg/actuation nasal spray,suspension 50 mcg INTRANASAL QDAY PRN 12/06/17 [History Confirmed 09/13/18] Lidocaine/Prilocaine [Lidocaine-Prilocaine Cream] 30 gm TP DAILY PRN PRN 30 Days #1 cream..g. 03/15/18 [Rx Confirmed 09/13/18] Olanzapine [Zyprexa] 10 mg PO DAILY 16 Days #16 tab 03/15/18 [Rx Confirmed 09/13/18] Ondansetron HCl [Zofran] 4 mg PO Q8H PRN PRN 10 Days #30 tab 03/15/18 [Rx Confirmed 09/13/18] Paroxetine HCl [Paxil] 40 mg PO DAILY #30 tab 04/28/18 [Rx Confirmed 09/13/18] fluticasone 50 mcg/actuation nasal spray,suspension 2 spray INTRANASAL QDAY #1 device 05/03/18 [Rx Confirmed 09/13/18] tiotropium bromide 2.5 mcg/actuation mist for inhalation 2 puff INHALATION QDAY #1 device 05/03/18 [Rx Confirmed 09/13/18] Iron Polysaccharide Complex [Ferrex 150] 150 mg PO DAILYCM #30 cap 08/23/18 [Rx Confirmed 09/13/18] Magnesium Oxide [Mag-Ox 400] 400 mg PO BIDCM #28 tab 08/23/18 [Rx Confirmed 09/13/18] albuterol sulfate HFA 90 mcg/actuation aerosol inhaler 1 - 2 puff INHALATION Q4H PRN PRN #1 inhaler 09/01/18 [Rx Confirmed 09/13/18] budesonide-formoterol HFA 160 mcg-4.5 mcg/actuation aerosol inhaler 2 puff INHALATION BID #1 hfa.aer.ad 09/01/18 [Rx Confirmed 09/13/18] albuterol sulfate 2.5 mg/3 mL (0.083 %) solution for nebulization 2.5 mg INHALATION 4X/DAY PRN 30 Days #180 vial 09/13/18 [Rx Confirmed 09/13/18] prednisone 10 mg tablet 10 mg PO QDAY #30 tab 09/13/18 [Rx Confirmed 09/13/18] PFSH Medical History Asthma (Chronic) Nocturnal hypoxia (Chronic) Anxiety (Chronic) Nicotine dependence in remission (Chronic) Stage 4 very severe COPD by GOLD classification (Chronic) Allergic rhinitis (Chronic) COPD with acute exacerbation (Chronic) Tobacco dependence syndrome (Chronic) Lvapt-1-rwrdmnrnlio deficiency (Chronic) COPD (chronic obstructive pulmonary disease) (Chronic) GERD (gastroesophageal reflux disease) (Chronic) COPD with acute exacerbation (Acute) COPD, frequent exacerbations (Inactive) [place] (dyspnea on exertion) (Inactive) Surgical History History of tubal ligation (Resolved) Family History Mother Colon cancer Bronchitis Epilepsy Father Asthma Social History Smoking Status: Former smoker second hand exposure: No alcohol intake: never substance use type: does not use caffeine: Yes what type of physical activity do you participate in: walking frequency: daily Review of Systems Const CONSTITUTIONAL: Positive fatigue; negative anorexia, body ache, chills, daytime sleepiness, fever(s), night sweats, oral thrush, stops breathing during sleep, weight loss, sleeping in chair, weight loss, weight gain, frequent colds, seasonal allergies, other, headache(s) or orthopnea EETM Ear Nose Throat Mouth: Positive hearing normal and post nasal drip; negative hard of hearing, hoarseness, dry mouth in morning, change in vision, itchy eyes, eye pain, swallowing Difficulty, ear pain, nose bleed, headache(s), mouth pain, nasal congestion, nasal discharge, sinus pain, sinus pressure, sore throat or other Cardio Cardiovascular: Negative chest pain, chest pain at rest, chest pain with activity, irregular heart rhythm, edema, shortness of breath when lying down, palpitations, murmur or other Resp Respiratory: Positive as per HPI, shortness of breath, wheezing, chest congestion, cough cough: Positive non-productive and productive color: Positive yellow and white, chest tightness and inhalers; negative pain with cough, pain on inspiration, increase use of rescue inhalers, snoring, apnea or other Gastro Gastrointestional: Negative bloody stools, change in appetite, difficulty swallowing, reflux, hematemesis, melena stool, loose stool, constipation or other Genitourinary: Negative blood in urine, nocturia, pain with urination or other Musc Musculoskeletal: Negative body pain, back pain, neck pain or other Skin/Breast Skin/Breast: Negative dry skin, itching, rash, unusual bruising, breast lump or other Neuro Neurological: Negative restless legs, confusion, weakness or other Psych Psychocological: Negative abnormal sleep pattern, anxiety, thoughts of hurting self/others, hopelessness or other Lymph Lymphatic: Negative easy bleeding, easy bruising, swollen lymph nodes or other Exam Const Constitutional: Positive conversant, cooperative, frail appearing, cachectic, wearing supplemental oxygen and dyspenic Head Head: Positive normocephalic and atraumatic; negative cyanosis of lips/distal nose Eyes Eye: Positive clear conjunctiva; negative nystagmus or scleral abnormality Ears Ear: Positive hearing normal and external ears normal; negative hard of hearing Nose Nose: Positive external nose normal and no nasal discharge; negative epistaxis Mouth Mouth: Positive post nasal drip, oral mucosae normal, no lesions, poor dentition and posterior oropharynx is adequate; negative malodorous breath or oral thrush present Mallampati Score: II: Mallampati Score Neck Neck: Positive normal visual inspection, full ROM and trachea midline; negative lymphadenopathy, JVD or tender Chest Wall Chest: Positive normal inspection of the chest and symmetric chest movement; negative increased A/P diameter Resp lung sounds: Positive diminished, wheezes, wheeze present on forced exhalation, normal expiratory time and increased work of breathing; negative rhonchi, rales, dullness to percussion or use of accessory muscles Cardio Cardiac: Positive regular rate, regular rhythm, S1 normal and S2 normal; negative murmur GI GI: Positive normal to inspection; negative distended Genitourinary: Positive deferred [facility] Musculoskeletal: Positive ROM normal and in a wheelchair; negative kyphosis or scoliosis Skin Pulmonary Skin Exam: Positive intact; negative rash, lesion, ulcers, erythema or scaly Pulses Pulse: Yes pulses normal x4 extremities Extremities Extremities: Yes capillary refill normal, No clubbing, No cyanosis, No edema Neuro Neurologic: Yes conversant, Yes no focal neuro deficits, Yes normal concentration, Yes understands questions, Yes cooperative, Yes normal cognition, Yes normal coordination Lymph Lymphatic: No lymphadenopathy, No tenderness, No cervical adenopathy Psych Appearance: Positive grossly normal, eye contact and well kempt Mental Status: Positive mental status grossly normal Mood: Positive congruent mood Affect: Positive normal affect Coding Level of Care Code Off vis,est,level 3 Diagnoses Stage 4 very severe COPD by GOLD classification J44.9 Small cell lung cancer C34.90 Chronic respiratory failure with hypoxia J96.11 09/13/18 1423 <Electronically signed by Betty LACKEYC> Date Betty Banerjee NP-C Cosigner Signature: Date (if applicable) CC: Dariel Ortega MD ONCOLOGY VISIT REPORT Observed: 09/11/2018 Status: F Source: [place] 5:40 PM [facility] [address] [place] [id number] OFFICE VISIT Date of Service: 09/07/18 1503 MR#: [id number] Acct: [id number] Name: OLIVE TEJADA Rep #: [id number] : 1960 From: Nathan Garduno MD Age/Sex: 57/F Location: [facility] Status: Signed Subjective - Date of Service Date of Service:: 09/07/18 - Chief Complaint F/u for SCLC and chemotherapy. - History of Present Illness Ms. Olive Tejada is a pleasant 57 y.o.woman with a past medical history significant for depression and COPD, oxygen dependent. She initially presented with SOB, dizziness and weight loss. CTA on 02/06/2018 showed suspicious and enhancing anterior mediastinal mass 5.3 cm with extension into the left upper lobe. Thus, she had a CT-guided biopsy on February 22, 2018. Pathology confirmed small cell lung carcinoma. PET/CT 03/07/2018, demonstrated anterior mediastinal mass 6 cm, involving RACHID and AP node, single nodule in left lobe of liver 1 cm, all with hypermetabolic activities. Right lower extremity edema noted 03/11/18, negative for DVT. She started chemotherapy with Cisplatin and Irinotecan on 03/16/2018. She had nausea and abdominal cramps after C1D1, did not take her antiemetics because she forgot about them. CT on 05/04/2018 showed resolution of liver lesion, stable thoracic lesion. CT scan on 06/29/2018 showed stable mediastinal lesion with no liver lesion. She received C6D8 on 08/11/2018 then admitted to hospital with Pneumonia. Comes for follow up. - Past Medical/Social History Past Medical History Past Medical History: COPD Cancer: Lung cancer Social History Social History: No changes Smoking Status Former smoker Review of Systems Constitutional:: Reports: Fatigue. Denies: Fever, Sweats Cardiovascular:: Denies: Chest pain, Palpitations, Dyspnea on exertion, Orthopnea, PND, Shortness of breath Respiratory: Denies: Cough, Hemoptysis, Shortness of Breath, Wheezing Gastrointestinal:: Denies: Abdominal pain, Nausea, Vomiting, Diarrhea, Constipation, Hematochezia Genitourinary: Denies: Dysuria, Hematuria, 15, Flank pain Musculoskeletal:: Denies: Back pain, Myalgia, Arthralgia Skin: Denies: Rash, Skin Changes, Wounds Neurological:: Denies: Headache, Dizziness, Visual changes, Tinnitus, Hearing loss Psychiatric: Denies: Anxiety, Depression, Homicidal Ideations, Suicidal Ideations Vital Signs Height 5 ft 8 in Weight: 42.9 kg Weight in Pounds 94.6 lbs Pulse Ox 100 - Physical Exam General: Alert, Oriented x3, No apparent distress HEENT: Atraumatic, PERRLA, EOMI, Normocephalic Oropharynx:: Dry mucosa Neck:: Supple, Trachea midline. Negative for: JVD, bilateral Cardiac:: Regular rate, Regular rhythm, Normal S1, Normal S2. Negative for: Murmur Lungs: Diminished - BS bilaterally. Assessment and Plan Small cell lung carcinoma-Extensive disease involving left lung/anterior mediastinum and liver. Finished 6 cycles of Cisplatin and Irinotecan. Mixed response with resolution of liver lesion. Latest CT shows stable mediastinal lesion. 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 Counts are OK. Plan is to obtain PET/CT to assess disease status. RTC 2 weeks. Medications: Prescriptions This Visit Medication Instructions Recorded Lidocaine/Prilocaine 30 gm TP DAILY PRN PRN 30 Days #1 03/15/18 [Lidocaine-Prilocaine Cream] cream..g. Primary Care Provider: Dariel Ortega Referring Provider: Betty Banerjee NP - Problem List (1) Small cell lung cancer Status: Chronic (2) COPD (chronic obstructive pulmonary disease) Status: Chronic Qualifiers: COPD type: unspecified COPD Qualified Code(s): J44.9 - Chronic obstructive pulmonary disease, unspecified Code Visit Office Visits / Consults: 84114 OV L5 Est 09/11/18 1740 <Electronically signed by Nathan Garduno MD> Date Nathan Garduno MD Cosigner Signature: Date (if applicable) CC: DISCHARGE SUMMARY Observed: 08/23/2018 Status: F Source: [place] 12:22 PM [facility] Medical Records Department [address] [place] [id number] Discharge Summary 08/23/18 1219 MR#: [id number] Acct: [id number] Name: OLIVE TEJADA Carla Rep #: [id number] : 1960 57 From: Mark Ahumada DO PCP: Dariel Ortega MD, Chi Status: ADM IN Location: [place] [address] Discharge Date and Diagnosis - Problem List Patient Problems: Active and Suspected Problems (Last Reviewed 08/20/18 @ 13:48 by Neel Alvarado MD) MSSA (methicillin susceptible Staphylococcus aureus) pneumonia (Acute) Pseudomonal pneumonia (Acute) Anemia (Acute) COPD with acute exacerbation (Acute) Date of Admission: 08/20/18 Date of Discharge: 08/23/18 - Primary Discharge Diagnosis Active and Suspected Problems (Last Reviewed 08/20/18 @ 13:48 by Neel Alvarado MD) MSSA (methicillin susceptible Staphylococcus aureus) pneumonia (Acute) Pseudomonal pneumonia (Acute) Anemia (Acute) COPD with acute exacerbation (Acute) - Secondary Discharge Diagnosis Chronic Problems (Last Reviewed 08/20/18 @ 13:48 by Neel Alvarado MD) History of tubal ligation (Chronic) Lung mass (Chronic) Cachexia (Chronic) Small cell lung cancer (Chronic) Mediastinal mass (Chronic) 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) Encounter for insertion of venous access port (Chronic) Educational circumstance (Chronic) Chemotherapy management, encounter for (Chronic) Immunosuppressed due to chemotherapy (Chronic) Asthma (Chronic) Nocturnal hypoxia (Chronic) Anxiety (Chronic) Nicotine dependence in remission (Chronic) Stage 4 very severe COPD by GOLD classification (Chronic) Allergic rhinitis (Chronic) COPD with acute exacerbation (Chronic) Tobacco dependence syndrome (Chronic) Yvqem-9-loagbmkbhkg deficiency (Chronic) COPD (chronic obstructive pulmonary disease) (Chronic) GERD (gastroesophageal reflux disease) (Chronic) Hospital Course and Treatment Imaging Results: Clinical Impression(s) from Imaging Studies Chest X-Ray 08/20/18 10:21 IMPRESSION: COPD changes. Patchy infiltrate right upper lobe new since previous examination suspicious for pneumonia. Electronically Signed: Navneet Davila MD at 12:25 EDT Tel , Service support , Jamar Carpenter DO. Operations: None Procedures: None Summary of Care Provided: The patient is a 57 year old F presents with generalized weakness and shortness of breath. 1. gram negative pneumonia * Pseudomonal * Levaquin for 7 days * DC cipro * add vanc * pulmonary toilet 2. MSSA pneumonia * levaquin 3. Acute blood loss anemia * admission Hg 6.1 * improved to 9.2 after 2 units PRBCs * macrocytic * iron slightly low, but ferritin high * B12 and folate normal * TSH 1.09 on 08/11 * outpatient follow up labs. * start FeSO4 BID 3. Sepsis: * POA * 2/2 #1 * resolved 4. SCLC * liver mets * follow up with Dr. Garduno 5. Debility: * PT recs HHC 6. Hypomagnesemia * replace * follow up 7. Hypokalemia * complicated by hypomagnesemia * monitor[] Patient Problems: Active and Suspected Problems (Last Reviewed 08/20/18 @ 13:48 by Neel Alvarado MD) MSSA (methicillin susceptible Staphylococcus aureus) pneumonia (Acute) Pseudomonal pneumonia (Acute) Anemia (Acute) COPD with acute exacerbation (Acute) - Physical Exam Vital Signs Temp Pulse Resp BP Pulse Ox 36.6 C 95 18 124/71 H 97 08/23/18 08:42 08/23/18 11:02 08/23/18 08:42 08/23/18 08:42 08/23/18 08:42 Oxygen Flow Rate (L/min) 2 Oxygen Delivery Method Nasal Cannula Weight: 41.1 kg Body Mass Index (BMI) 13.8 Intake and Output for Last 24 Hours Microbiology Past 72 Hours 08/20/18 21:53 Gram Stain - Final Sputum, Expectorated/Coughed Respiratory Culture - Final Laboratory Tests Past 24 Hrs WBC 3.3 L RBC 2.75 L Hgb 9.0 L Hct 28.4 L MCV 103.3 H MCH 32.7 H Discharge Diet: No Restrictions Discharge Activity: Return to Normal Activity Call your doctor if you observe: Fever of 101 or Higher, Shortness of breath Home Medications: Medications to take at Discharge Multivitamins,Therapeutic [Multivitamin] 1 tab PO DAILY 09/06/16 Tiotropium [place] [Spiriva] 18 mcg IH DAILY #1 cap.w.dev 03/17/17 fluticasone 50 mcg/actuation nasal spray,suspension 50 mcg INTRANASAL QDAY PRN 12/06/17 albuterol sulfate 2.5 mg/3 mL (0.083 %) solution for nebulization 2.5 mg INHALATION 4X/DAY PRN 30 Days #180 vial 02/17/18 albuterol sulfate HFA 90 mcg/actuation aerosol inhaler 1 - 2 puff INHALATION Q4H PRN PRN #1 inhaler 02/17/18 budesonide-formoterol HFA 160 mcg-4.5 mcg/actuation aerosol inhaler 2 puff INHALATION BID #1 hfa.aer.ad 02/17/18 Lidocaine/Prilocaine [Lidocaine-Prilocaine Cream] 30 gm TP DAILY PRN PRN 30 Days #1 cream..g. 03/15/18 Olanzapine [Zyprexa] 10 mg PO DAILY 16 Days #16 tab 03/15/18 Ondansetron HCl [Zofran] 4 mg PO Q8H PRN PRN 10 Days #30 tab 03/15/18 Paroxetine HCl [Paxil] 40 mg PO DAILY #30 tab 04/28/18 fluticasone 50 mcg/actuation nasal spray,suspension 2 spray INTRANASAL QDAY #1 device 05/03/18 tiotropium bromide 2.5 mcg/actuation mist for inhalation 2 puff INHALATION QDAY #1 device 05/03/18 Guaifenesin [Mucinex] 1,200 mg PO BID #10 tablet 08/23/18 Iron Polysaccharide Complex [Ferrex 150] 150 mg PO DAILYCM #30 capsule 08/23/18 Magnesium Oxide [Mag-Ox 400] 400 mg PO BIDCM #28 tablet 08/23/18 Prednisone 4 tab PO DAILY #5 tablet 08/23/18 levoFLOXacin tablet [Levaquin tablet] 500 mg PO DAILY@0600 #7 tablet 08/23/18 Following Prescrptions Were Given to Patient: Iron Polysaccharide Complex [Ferrex 150] 150 mg PO DAILYCM #30 capsule levoFLOXacin tablet [Levaquin tablet] 500 mg PO DAILY@0600 #7 tablet Prednisone 4 tab PO DAILY #5 tablet Guaifenesin [Mucinex] 1,200 mg PO BID #10 tablet Magnesium Oxide [Mag-Ox 400] 400 mg PO BIDCM #28 tablet Other Amb Orders: Basic Metabolic Profile (BMP) Time Frame: 1 Week, Location: Laboratory CBC W/Diff, Automated Time Frame: 1 Week, Location: Laboratory Magnesium Time Frame: 1 Week, Location: Laboratory Primary Care Physician: Dariel Ortega Chi, MD [Primary Care Provider] - Within 2 Weeks Please Follow Up With: Nathan Garduno MD When: 2-3 weeks Please Follow Up With: Jamar Carpenter DO When: 2-4 weeks Disposition: Home with Home Health Minutes spent on discharge:: 34 Patient Condition:: Fair Medical Necessity - Tobacco Use Smoking Status: Former smoker Meaningful Use Info Meaningful Use Diagnoses (Choose all that apply): None applicable Code Visit Inpatient E AND M: 57630 Disch Hosp 08/23/18 1222 <Electronically signed by Mark Ahumada DO> Date Mark Ahumada DO Cosigner Signature (if applicable): Date CC: Mark Ahumada DO; Nathan Garduno MD; Dariel Ortega MD Signed DISCHARGE INSTRUCTION Observed: 08/23/2018 Status: F Source: [place] 12:19 PM [facility] Medical Records Department [address] [place] [address] Instructions for Home/Discharge Instructions 08/23/18 1217 MR#: [id number] Acct: [id number] Name: OLIVE TEJADA Rep #: [id number] : 1960 57 From: Mark Ahumada DO PCP: Jordan MONTILLA,Dariel Coughlin Status: ADM IN - Discharge Diagnoses Current Active Problems: Current Active and Chronic Problems (Last Reviewed 08/20/18 @ 13:48 by Neel Alvarado MD) Small cell lung cancer (Chronic) Healthcare-associated pneumonia (Acute) Anemia (Acute) Immunosuppressed due to chemotherapy (Chronic) You will use the following diet at home:: No restrictions Your food should be the consistency of: Regular Discharge Activity: Return to Normal Activity Call your doctor if you observe: Fever of 101 or Higher, Shortness of breath Allergies/Adverse Reactions: Allergies morphine Adverse Reaction (Intermediate, Verified 08/04/18 10:06) Itching Medications to take at Discharge Multivitamins,Therapeutic [Multivitamin] 1 tab PO DAILY 09/06/16 Tiotropium [place] [Spiriva] 18 mcg IH DAILY #1 cap.w.dev 03/17/17 fluticasone 50 mcg/actuation nasal spray,suspension 50 mcg INTRANASAL QDAY PRN 12/06/17 albuterol sulfate 2.5 mg/3 mL (0.083 %) solution for nebulization 2.5 mg INHALATION 4X/DAY PRN 30 Days #180 vial 02/17/18 albuterol sulfate HFA 90 mcg/actuation aerosol inhaler 1 - 2 puff INHALATION Q4H PRN PRN #1 inhaler 02/17/18 budesonide-formoterol HFA 160 mcg-4.5 mcg/actuation aerosol inhaler 2 puff INHALATION BID #1 hfa.aer.ad 02/17/18 Lidocaine/Prilocaine [Lidocaine-Prilocaine Cream] 30 gm TP DAILY PRN PRN 30 Days #1 cream..g. 03/15/18 Olanzapine [Zyprexa] 10 mg PO DAILY 16 Days #16 tab 03/15/18 Ondansetron HCl [Zofran] 4 mg PO Q8H PRN PRN 10 Days #30 tab 03/15/18 Paroxetine HCl [Paxil] 40 mg PO DAILY #30 tab 04/28/18 fluticasone 50 mcg/actuation nasal spray,suspension 2 spray INTRANASAL QDAY #1 device 05/03/18 tiotropium bromide 2.5 mcg/actuation mist for inhalation 2 puff INHALATION QDAY #1 device 05/03/18 Guaifenesin [Mucinex] 1,200 mg PO BID #10 tablet 08/23/18 Iron Polysaccharide Complex [Ferrex 150] 150 mg PO DAILYCM #30 capsule 08/23/18 Magnesium Oxide [Mag-Ox 400] 400 mg PO BIDCM #28 tablet 08/23/18 Prednisone 4 tab PO DAILY #5 tablet 08/23/18 levoFLOXacin tablet [Levaquin tablet] 500 mg PO DAILY@0600 #7 tablet 08/23/18 The following prescriptions were given: Iron Polysaccharide Complex [Ferrex 150] 150 mg PO DAILYCM #30 capsule levoFLOXacin tablet [Levaquin tablet] 500 mg PO DAILY@0600 #7 tablet Prednisone 4 tab PO DAILY #5 tablet Guaifenesin [Mucinex] 1,200 mg PO BID #10 tablet Magnesium Oxide [Mag-Ox 400] 400 mg PO BIDCM #28 tablet Orders to be completed after discharge: Basic Metabolic Profile (BMP) Time Frame: 1 Week, Location: Laboratory CBC W/Diff, Automated Time Frame: 1 Week, Location: Laboratory Magnesium Time Frame: 1 Week, Location: Laboratory Primary Care Physician: Dariel Ortega Chi, MD [Primary Care Provider] - Within 2 Weeks Test Results: Test results from this visit will be discussed in further detail at your follow-up appointment, if applicable. Please Follow Up With: Nathan Garduno MD When: 2-3 weeks Please Follow Up With: Jamar Carpenter DO When: 2-4 weeks Proposed Discharge Date: 08/23/18 08/23/18 1219 <Electronically signed by Mark Ahumada DO> Date Mark Brandyn [place] CC: Dariel Ortega MD CBC W/DIFF, AUTOMATED Collected: 08/23/2018 Status: F Source: [place] 5:45 AM [facility] Order Comment: SPECIMEN OBTAINED FROM LINE DRAW TYPE CODE TESTS RESULT OUT OF RANGE REFERENCE UNITS LAB L100.1000 4.4-11.0 K/mm3 Low WBC 3.3 LAB L100.1200 4.2-5.4 M/mm3 Low RBC 2.75 LAB L100.1300 12.0-15.0 g/dl Low HGB 9.0 LAB L100.1400 37-47 % Low HCT 28.4 LAB L100.1500 81-99 fL High MCV 103.3 LAB L100.1600 27.0-32.0 pg High MCH 32.7 LAB L100.1700 32-36 g/gl Low MCHC 31.7 LAB L100.1810 11.6-14.6 % High RDW CV 16.3 LAB L100.1820 35.1-43.9 fl High RDW SD 59.6 LAB L100.1900 150-450 K/mm3 Normal PLT 221 LAB L100.2000 6.2-12.0 fl Normal MPV 9.5 LAB L100.2100 47-70 % Low NEUT% 46.0 LAB L100.2200 19-41 % Normal LY% 30.0 LAB L100.2300 0-10 % High MONO% 19.2 LAB L100.2400 0-5 % Normal EO% 4.2 LAB L100.2500 0-1 % Normal BASO% 0.3 LAB L100.2550 0.0-0.9 % Normal IM GRAN % 0.300 Result Comment: IG% - Immature Granulocytes (promyelocytes, myelocytes and metamyelocytes) > 1% indicates that a LEFT SHIFT is Present. LAB L100.2620 2.0-7.7 X10 3/uL Low Absolute Neut 1.5 LAB L100.2720 0.83-4.51 X10 3/ul Normal Absolute Lymph 1.00 Performed By: #### L100.0100 #### [facility] [place], [address] BASIC METABOLIC Collected: 08/23/2018 Status: F Source: [place] PROFILE (BMP) 5:45 AM [facility] Order Comment: SPECIMEN OBTAINED FROM LINE DRAW TYPE CODE TESTS RESULT OUT OF RANGE REFERENCE UNITS LAB L501.0100 74-106 mg/dL High GLU 154 Result Comment: Fasting Glucose result greater than or equal to 126 mg/dL suggests DIABETES MELLITUS per A.D.A. criteria. Please note revised GLUCOSE reference range effective 2017. LAB L501.1000 7-18 mg/dL Normal BUN 9 LAB L501.1100 0.55-1.02 mg/dL Low CREAT,SERUM 0.35 Result Comment: The validity of the calculated GFR AND GFRAA in patients over 70 years has not been determined. Clinical correlation is essential. LAB L501.1110 >60 mL/min Normal EST GFR 203 Result Comment: Non- GFR Calc LAB L501.1115 >60 mL/min Normal EST GFR - AA 246 Result Comment: GFR Calc LAB L501.1255 ml/min Normal Estimated CRCL 118.12 LAB L501.1300 10-20 RATIO High BUN/CRE 25.5 LAB L501.2200 8.5-10 mg/dL .1 CA Normal 8.5 LAB L501.5300 136-14 mmol/L 5 NA Normal 136 LAB L501.5600 3.5-5. mmol/L 1 K Normal 3.6 LAB L501.5900 98-107 mmol/L Low CL 89 LAB L501.6100 21.0-3 mmol/L High 2.0 CO2 43.0 LAB L501.6200 5-15 Low GAP 4 Performed By: #### L500.2500, L501.5200, L503.6030, L503.6550, L506.0250 #### [facility] [address] [place], [place], [address] MAGNESIUM Collected: 08/23/2018 Status: F Source: [place] 5:45 AM [facility] Order Comment: SPECIMEN OBTAINED FROM LINE DRAW TYPE CODE TESTS RESULT OUT OF RANGE REFERENCE UNITS LAB L501.5200 1.6-2.6 mg/dL Low alert MG 0.9 Result Comment: Critical Result(s) Called at: 07:11:07 08/23/2018 by: EUGENIO LENZ Performed By: #### L500.2500, L501.5200, L503.6030, L503.6550, L506.0250 #### [facility] [address] [place], [address] IRON+IRON BINDING Collected: 08/23/2018 Status: F Source: [facility] 5:45 AM [facility] Order Comment: SPECIMEN OBTAINED FROM LINE DRAW TYPE CODE TESTS RESULT OUT OF RANGE REFERENCE UNITS LAB L503.6075 250-450 ug/dL Low TIBC 213 LAB L503.6150 50-170 ug/dL Low IRON 34 LAB L503.6250 15.0-55.0 % IRON Normal SATURATION 16.0 Performed By: #### L500.2500, L501.5200, L503.6030, L503.6550, L506.0250 #### [facility] [address] [place], [place], [id number] FERRITIN Collected: 08/23/2018 Status: F Source: [place] 5:45 AM [facility] Order Comment: SPECIMEN OBTAINED FROM LINE DRAW TYPE CODE TESTS RESULT OUT OF REFERENCE UNITS RANGE LAB L503.6550 8-252 ng/mL High FERRITIN 360 Performed By: #### L500.2500, L501.5200, L503.6030, L503.6550, L506.0250 #### [facility] [address] [place], [place], [id number] FOLATES, (FOLIC ACID) Collected: 08/23/2018 Status: F Source: [place] 5:45 AM [facility] [place] Order Comment: SPECIMEN OBTAINED FROM LINE DRAW TYPE CODE TESTS RESULT OUT OF RANGE REFERENCE UNITS LAB L506.0250 3.1-55.4 ng/mL Normal FOLATES 23.10 Performed By: #### L500.2500, L501.5200, L503.6030, L503.6550, L506.0250 #### [facility] [address] [place], [place], [id number] VITAMIN B12 Collected: 08/23/2018 Status: F Source: THERESE 5:45 AM [facility] - [place] Order Comment: SPECIMEN OBTAINED FROM LINE DRAW TYPE CODE TESTS RESULT OUT OF RANGE REFERENCE UNITS LAB L503.0105 211-911 pg/mL Normal Vitamin B12 654 Performed By: #### L503.0105 #### [facility] [address] [place], [address] 12 LEAD ELECTROCARDIOGRAM Observed: 08/22/2018 Status: F Source: THERESE 3:32 PM [facility] - [place] RE[place]ITORY [facility] Cardiovascular Services [address] [place] [address] 12 Lead EKG 08/20/18 1108 MR#: [id number] Acct: [id number] Name: OLIVE TEJADA Rep #: [id number] : 1960 57 From: Chirag Sprague MD Attending Dr: Mark Ahumada DO Status: ADM IN Ordering Dr: Antonio Nelson MD Date: 08/20/18 Location: [facility] Sex: F C Admitted: 08/20/18 Test Reason : SOB Blood Pressure : / mmHG Vent. Rate : 110 BPM Atrial Rate : 110 BPM P-R Int : 126 ms QRS Dur : 080 ms QT Int : 326 ms P-R-T Axes : 084 084 077 degrees QTc Int : 441 ms Sinus tachycardia with Premature atrial complexes Right atrial enlargement Borderline ECG Confirmed by VICK MONTILLA, CHIRAG ([id number]), content editor RACHANA YANG ([id number]) on 08/22/2018 3:31:51 PM Referred By: Betty Banerjee Confirmed By:CHIRAG SPRAGUE MD 08/22/18 1531 Date Chirag Sprague MD CC: ANTONIO NELSON MD; Mark Ahumada DO; Dariel Ortega MD Signed CBC-COMPLETE BLOOD CNT Collected: 08/22/2018 Status: F Source: THERESE NO DIFF 5:00 AM [facility] - [place] Order Comment: SPECIMEN OBTAINED FROM LINE DRAW TYPE CODE TESTS RESULT OUT OF RANGE REFERENCE UNITS LAB L100.1000 4.4-11.0 K/mm3 Low WBC 3.3 LAB L100.1200 4.2-5.4 M/mm3 Low RBC 2.68 LAB L100.1300 12.0-15.0 g/dl Low HGB 8.9 LAB L100.1400 37-47 % Low HCT 28.1 LAB L100.1500 81-99 fL High MCV 104.9 LAB L100.1600 27.0-32.0 pg High MCH 33.2 LAB L100.1700 32-36 g/gl Low MCHC 31.7 LAB L100.1810 11.6-14.6 % High RDW CV 17.1 LAB L100.1820 35.1-43.9 fl High RDW SD 62.1 LAB L100.1900 150-450 K/mm3 Normal PLT 195 LAB L100.2000 6.2-12.0 fl Normal MPV 9.5 Performed By: #### L100.0500 #### [facility] [address] [place], [place], [address] BASIC METABOLIC Collected: 08/22/2018 Status: F Source: [place] PROFILE (BMP) 5:00 AM [facility] - [place] Order Comment: SPECIMEN OBTAINED FROM LINE DRAW TYPE CODE TESTS RESULT OUT OF RANGE REFERENCE UNITS LAB L501.0100 74-106 mg/dL Normal GLU 92 Result Comment: Please note revised GLUCOSE reference range effective 2017. LAB L501.1000 7-18 mg/dL Normal BUN 8 LAB L501.1100 0.55-1.02 mg/dL Low CREAT,SERUM 0.28 Result Comment: The validity of the calculated GFR AND GFRAA in patients over 70 years has not been determined. Clinical correlation is essential. LAB L501.1110 >60 mL/min Normal EST GFR 266 Result Comment: Non- GFR Calc LAB L501.1115 >60 mL/min Normal EST GFR - AA 322 Result Comment: GFR Calc LAB L501.1255 ml/min Normal Estimated CRCL 147.65 LAB L501.1300 10-20 RATIO High BUN/CRE 28.7 LAB L501.2200 8.5-10 mg/dL Low .1 CA 8.3 LAB L501.5300 136-14 mmol/L 5 NA Normal 138 LAB L501.5600 3.5-5. mmol/L 1 K Normal 3.6 LAB L501.5900 98-107 mmol/L Low CL 88 LAB L501.6100 21.0-3 mmol/L High 2.0 CO2 45.0 LAB L501.6200 5-15 GAP Normal 5 Performed By: #### L500.2500 #### [facility] [address] [place], [address] BASIC METABOLIC Collected: 08/21/2018 Status: F Source: [place] PROFILE (BMP) 5:15 AM [facility] - [place] Order Comment: SPECIMEN OBTAINED FROM LINE DRAW TYPE CODE TESTS RESULT OUT OF RANGE REFERENCE UNITS LAB L501.0100 74-106 mg/dL High GLU 110 Result Comment: Fasting Glucose result from 100 to 125 mg/dL suggests IMPAIRED HOMEOSTASIS per A.D.A. criteria. Please note revised GLUCOSE reference range effective 2017. LAB L501.1000 7-18 mg/dL Normal BUN 9 LAB L501.1100 0.55-1.02 mg/dL Low CREAT,SERUM 0.25 Result Comment: The validity of the calculated GFR AND GFRAA in patients over 70 years has not been determined. Clinical correlation is essential. LAB L501.1110 >60 mL/min Normal EST GFR 306 Result Comment: Non- GFR Calc LAB L501.1115 >60 mL/min Normal EST GFR - AA 371 Result Comment: GFR Calc LAB L501.1255 ml/min Normal Estimated CRCL 165.37 LAB L501.1300 10-20 RATIO High BUN/CRE 36.4 LAB L501.2200 8.5-10 mg/dL Low .1 CA 7.9 LAB L501.5300 136-14 mmol/L 5 NA Normal 138 LAB L501.5600 3.5-5. mmol/L 1 K Normal 3.6 LAB L501.5900 98-107 mmol/L Low CL 89 LAB L501.6100 21.0-3 mmol/L High 2.0 CO2 45.0 LAB L501.6200 5-15 Low GAP 4 Performed By: #### L500.2500, L501.5200 #### [facility] [address] [place], [address] MAGNESIUM Collected: 08/21/2018 Status: F Source: THERESE 5:15 AM [facility] - [place] Order Comment: SPECIMEN OBTAINED FROM LINE DRAW TYPE CODE TESTS RESULT OUT OF RANGE REFERENCE UNITS LAB L501.5200 1.6-2.6 mg/dL Low alert MG 0.9 Result Comment: Critical Result(s) Called at: 05:53:18 08/21/2018 by: АНДРЕЙ DELCID TO XOCHITLRN PCU Performed By: #### L500.2500, L501.5200 #### [facility] [address] [place], [place], [address] CBC-COMPLETE BLOOD CNT Collected: 08/21/2018 Status: F Source: THERESE NO DIFF 5:15 AM [facility] - [place] Order Comment: SPECIMEN OBTAINED FROM LINE DRAW TYPE CODE TESTS RESULT OUT OF RANGE REFERENCE UNITS LAB L100.1000 4.4-11.0 K/mm3 Low WBC 3.1 LAB L100.1200 4.2-5.4 M/mm3 Low RBC 2.77 LAB L100.1300 12.0-15.0 g/dl Low HGB 9.2 LAB L100.1400 37-47 % Low HCT 28.5 LAB L100.1500 81-99 fL High MCV 102.9 LAB L100.1600 27.0-32.0 pg High MCH 33.2 LAB L100.1700 32-36 g/gl Normal MCHC 32.3 LAB L100.1810 11.6-14.6 % High RDW CV 18.0 LAB L100.1820 35.1-43.9 fl High RDW SD 63.0 LAB L100.1900 150-450 K/mm3 Normal PLT 151 LAB L100.2000 6.2-12.0 fl Normal MPV 9.8 Performed By: #### L100.0500 #### [facility] [address] [place], [place], [id number] Observed: 08/20/2018 Status: F Source: THERESE CULTURE, SPUTUM 9:53 PM [facility] - [place] Gram Stain Acceptable Specimen? Yes (<25 Epithelial cells per/lpf) Gram Stain 2+ Gram positive cocci 1+ White Blood Cells No Epithelial cells Resp. Culture ORGANISM 1: Pseudomonas spp Amount Growth 1+ ORGANISM 2: Presumptive C albicans Amount Growth Rare ORGANISM 3: Staphylococcus aureus Amount Growth 1+ Pseudomonas spp: REACTION Aztreonam $$$ 27 S Pseudomonas spp: REACTION Amikacin $ 4 S Cefepime $ 4 S Ceftazidime *NF 4 S Gentamicin $ 2 S Imipenem *NF 2 S Levofloxacin $ 0.5 S Meropenem $ <=0.25 S Piperacillin/Tazobactam $$ 8 S Tobramycin $ <=1 S (NF) indicates non-formulary drug at [facility]. Approval by Infectious Disease Specialist required before non-formulary drugs may be ordered and/or dispensed. Staphylococcus aureus: REACTION Benzylpenicillin NF >=0.5 R Cefoxitin *NF - Clindamycin $$ <=0.25 S Inducable Clindamycin Res[place] - Erythromycin $ <=0.25 S Gentamicin $ <=0.5 S Levofloxacin $ <=0.12 S Linezolid $$$$ 2 S Moxifloxicin *NF <=0.25 S Oxacillin NF <=0.25 S Tigecycline $$$$ <=0.12 S Rifampin $$ <=0.5 S Tetracycline NF <=1 S Trimethoprim/Sulfametho $ <=10 S Vancomycin $ <=0.5 S (NF) indicates non-formulary drug at [facility]. Approval by Infectious Disease Specialist required before non-formulary drugs may be ordered and/or dispensed. * CLSI guidelines does not recommend testing of cephalosporins. This interpretation is deduced from Beta-lactam/penicillin results. Performed By: #### M100.0800 #### [facility] [address] [place], [address] HH, HEMOGLOBIN AND Collected: 08/20/2018 Status: F Source: [place] HEMATOCRIT 8:00 PM [facility] - [place] TYPE CODE TESTS RESULT OUT OF RANGE REFERENCE UNITS LAB L100.1300 12.0-15.0 g/dl Low HGB 7.8 LAB L100.1400 37-47 % Low HCT 25.0 Performed By: #### L100.0600 #### [facility] [address] [place], [address] M R STAPH AUREUS Collected: 08/20/2018 Status: F Source: THERESE DNA BY PCR 4:20 PM [facility] - [place] Order Comment: Order Date: 08/20/18 TYPE CODE TESTS RESULT OUT OF RANGE REFERENCE UNITS LAB L8200.1100 Negative Normal MRSA Negative RESULT Performed By: #### L8200.1000 #### [facility] [address] [place], [address] URINALYSIS, ROUTINE Collected: 08/20/2018 Status: F Source: THERESE (DIPSTICK) 4:05 PM [facility] - [place] Order Comment: How was Urine Obtained? CLEAN CATCH TYPE CODE TESTS RESULT OUT OF RANGE REFERENCE UNITS LAB L400.3000 Yellow COLOR Normal Yellow LAB L400.3050 Clear Normal CLARITY Sl. Cloudy LAB L400.3200 Normal mg/dl Normal GLUCOSE, UR Normal LAB L400.3300 Negative mg/dL Normal BILIRUBIN URINE Negative LAB L400.3400 Negative mg/dl Normal KETONE UR Negative LAB L400.3465 1.002-1.030 Normal SP.GR. DIPSTX 1.010 LAB L400.3550 5.0 - 8.0 pH UR Normal 8.0 LAB L400.3600 Negative mg/dl PROT Normal DIPSTX Negative LAB L400.3700 Normal mg/dl Normal UROBILI Normal LAB L400.3750 Negative Normal NITRITE UR Negative LAB L400.3780 Negative /ul Normal OCCULT BLOOD-UR Negative LAB L400.3800 Negative /ul LEUK Normal ESTERASE Negative Performed By: #### L400.2011 #### [facility] [address] [place], [address] Observed: 08/20/2018 Status: F Source: THERESE LEGIONELLA ANTIGEN 4:05 PM [facility] - [place] REPOSITORY Specimen Source: URINE, CLEAN CATCH Legionella, UR Legionella Antigen result interpretation: Negative Presumptive negative for Legionella pneumophila serogroup 1 antigen in urine, suggesting no recent or current infection. POSITIVE Presumptive positive for Legionella pneumophila serogroup 1 antigen in urine, suggesting current or past infection. Legionella Ag, Urine Negative (See interpretation below) Performed By: #### M300.4500 #### [facility] [address] [place], [address] STREP Observed: 08/20/2018 Status: F Source: THERESE PNEUMONIAE ANTIG(UR,CSF) 4:05 PM [facility] - [place] S pneumo Ag URINE INTERPRETATION Positive Urine Positive for pneumococcal pneumonia. Negative Urine Presumptive negative for pneumococcal pneumonia, suggesting no current or recent pneumococcal infection. Infection due to S pneumoniae cannot be ruled out since the antigen present in the sample may be below the detection limit of the test. CSF INTERPRETATION Positive CSF Positive for pneumococcal meningitis. Negative CSF Presumptive negative for pneumococcal meningitis. Infection due to S pneumoniae cannot be ruled out since the antigen present in the sample may be below the detection limit of the test. Strep pneumo Test Negative URINE (See interpretation below) Performed By: #### M300.4600 #### [facility] [address] [place] [address]. [place], [place], [id number] TYPE AND SCREEN Collected: 08/20/2018 Status: F Source: THERESE 2:40 PM [facility] - [place] Order Comment: Reason for Type AND Screen/Red Cells: ANEMIA TYPE CODE TESTS RESULT OUT OF RANGE REFERENCE UNITS LAB B10.0800 A Normal BLOOD TYPE GEL POSITIVE LAB B100.4000 Normal Antibody NEGATIVE Screen Performed By: #### B101.7450 #### [facility] [place], [place], [id number] RC Collected: 08/20/2018 Status: F Source: AKRON 2:40 PM [facility] - [place] TYPE CODE TESTS RESULT OUT OF REFERENCE UNITS RANGE LAB U100.0000 [id number] TRANSFUSED PRODUCT: T AND S with Crossmatch, Red Cells COUNT: 2 Performed By: #### U100.0000 #### [facility] - refer to report for specific site Observed: 08/20/2018 Status: F Source: THERESE CULTURE, BLOOD (WB) 2:40 PM [facility] - [place] Has pt arrived? Y RAC BC No growth in 5 days. Performed By: #### M200.1000 #### [facility] [facility]. [place], [place], [address] Observed: 08/20/2018 Status: F Source: THERESE INFLUENZA A+B (RAPID 2:35 PM [facility] [place] REPOSITORY Order Date: 08/20/18 Has pt arrived? Y FLU A/B Rapid Negative test results should be confirmed by culture. Order Rapid Viral Culture for Influenzae A+B (580001) if clinically indicated. Influenza Ag, Direct Presumptive NEGATIVE for Influenza A/B Antigen (See Note) Performed By: #### M101.0101 #### [facility] [address] [place], [address] HISTORY AND PHYSICAL Observed: 08/20/2018 Status: F Source: [place] EXAM 1:59 PM [facility] - [place] RE[place]IT[place] [facility] Medical Records Department [address] [place] [address] History and Physical 08/20/18 1307 MR#: [id number] Acct: [id number] Name: OLIVE TEJADA Rep #: [id number] : 1960 57 From: Neel Alvarado MD PCP: Dariel Ortega MD, Chi Status: ADM IN Y Location: [place] [address] 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 (9) Encounter for insertion of venous access port Status: Chronic (10) Educational circumstance Status: Chronic (11) Chemotherapy management, encounter for Status: Chronic (12) Immunosuppressed due to chemotherapy Status: Chronic (13) History of tubal ligation Status: Resolved (14) Asthma Status: Chronic (15) Nocturnal hypoxia Status: Chronic (16) Anxiety Status: Chronic (17) Nicotine dependence in remission Status: Chronic (18) Stage 4 very severe COPD by GOLD classification Status: Chronic (19) Allergic rhinitis Status: Chronic (20) COPD with acute exacerbation Status: Chronic (21) Tobacco dependence syndrome Status: Chronic (22) Pisoe-5-tbddzedtkla deficiency Status: Chronic (23) COPD (chronic obstructive pulmonary disease) Status: Chronic Qualifiers: COPD type: unspecified COPD Qualified Code(s): J44.9 - Chronic obstructive pulmonary disease, unspecified (24) GERD (gastroesophageal reflux disease) Status: Chronic (25) COPD with acute exacerbation Status: Acute History of Present Illness Date of Admission: 08/20/18 Chief Complaint: Generalized weakness and shortness of breath The patient is a 57 year old F with history of small cell lung cancer currently undergoing chemotherapy who presented with generalized weakness. Patient reports days of progressive generalized weakness with minimal activity. Patient also did experience shortness of breath with minimal exertion. Had a cough which was productive of clear sputum. Patient also did report subjective fevers as well as chills. In view of worsening condition patient presented to the emergency department. Patient was found to be anemic with hemoglobin of 6.1. Chest x-ray demonstrated patchy infiltrates involving the right upper lobe. An assessment of healthcare acquired pneumonia made admitted to a monitored bed for subsequent management. 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) Encounter for insertion of venous access port (Chronic) Educational circumstance (Chronic) Chemotherapy management, encounter for (Chronic) Immunosuppressed due to chemotherapy (Chronic) Asthma (Chronic) Nocturnal hypoxia (Chronic) Anxiety (Chronic) Nicotine dependence in remission (Chronic) Stage 4 very severe COPD by GOLD classification (Chronic) Allergic rhinitis (Chronic) COPD with acute exacerbation (Chronic) Tobacco dependence syndrome (Chronic) Btpcf-7-pxudgfbhpip deficiency (Chronic) COPD (chronic obstructive pulmonary disease) (Chronic) GERD (gastroesophageal reflux disease) (Chronic) Medical History: Medical History (Last Reviewed 08/20/18 @ 13:48 by Neel Alvarado MD) Asthma (Chronic) J45.909 Nocturnal hypoxia (Chronic) G47.34 Anxiety (Chronic) F41.9 Nicotine dependence in remission (Chronic) F17.201 Stage 4 very severe COPD by GOLD classification (Chronic) J44.9 Allergic rhinitis (Chronic) J30.9 COPD with acute exacerbation (Chronic) J44.1 Tobacco dependence syndrome (Chronic) F17.200 Vnmwh-3-zrdfvqvgvni deficiency (Chronic) E88.01 COPD (chronic obstructive pulmonary disease) (Chronic) J44.9 GERD (gastroesophageal reflux disease) (Chronic) K21.9 COPD with acute exacerbation (Acute) J44.1 COPD, frequent exacerbations (Inactive) J44.9 [place] (dyspnea on exertion) (Inactive) R06.09 Allergies morphine Adverse Reaction (Intermediate, Verified 08/04/18 10:06) Itching Home Medications: Ambulatory Orders Medication Instructions Recorded Multivitamins,Therapeutic 1 tab PO DAILY 09/06/16 [Multivitamin] Tiotropium [place] [Spiriva] 18 mcg IH DAILY #1 cap.w.dev 03/17/17 Surgical History: Surgical History (Last Reviewed 08/20/18 @ 13:48 by Neel Alvarado MD) History of tubal ligation (Resolved) Z98.51 Surgical History: no surgical history Lives: With Family Smoking Status: Former smoker - *Family History Paternal Family History: Family History (Last Reviewed 08/20/18 @ 13:48 by Neel Alvarado MD) Mother Colon cancer Bronchitis Epilepsy Father Asthma History Items: Asthma Review of Systems Constitutional: Reports: Anorexia, Chills, Fever, Malaise, Weakness, Fatigue HEENT: Denies: Head Aches, Sinus Congestion, Sinus Drainage Cardiovascular: Denies: Chest Pain, Orthopnea, Palpitations, Paroxysmal Noc. Dyspnea Respiratory: Reports: Cough, Shortness of Breath Gastrointestinal: Denies: Abdominal Pain, Hematemesis, Hematochezia, Nausea, Melena, Vomiting Genitourinary: Denies: Dysuria, Frequency, Hematuria, Urgency Musculoskeletal: Denies: Joint Pain, Joint Tenderness Skin: Denies: Rash Neurological: Denies: Focal weakness, Numbness, Tingling Psychiatric: Denies: Homicidal Ideations, Suicidal Ideations Hematologic/ Lymphatic: Denies: Easy Bruising, Easy Bleeding VTE Information - Inpt Only VTE Present on Admission: No VTE Mechan Device Prophylaxis: Knee High AYDEN Hose VTE Pharm Prophylaxis ordered?: Yes Patient Problems: Active and Suspected Problems (Last Reviewed 08/20/18 @ 13:48 by Neel Alvarado MD) Healthcare-associated pneumonia (Acute) Anemia (Acute) Objective: GENERAL: Frail looking HEENT: Atraumatic; moist oral mucosa EYES; Anicteric, Normal Conjunctiva NECK; supple, normal thyroid, no distended JVD. RESPIRATORY: Diminished to auscultation bilaterally, CARDIOVASCULAR: Regular S1 S2, tachycardic GI: soft, non-tender, normoactive bowel sounds, : No Renal angle tenderness; EXTREMITIES: No edema, no clubbing, no cyanosis. MUSCULOSKELETAL: No Joint Tenderness; no joint swelling NEURO: Awake; no lateralizing signs. SKIN: No Rash PSYCH; Normal affect - Physical Exam Vital Signs Temp Pulse Resp BP Pulse Ox 98.4 F 80 14 114/68 98 08/20/18 09:48 08/20/18 12:50 08/20/18 12:50 08/20/18 12:50 08/20/18 12:50 Oxygen Flow Rate (L/min) 3 Oxygen Delivery Method Room Air Weight: 43.5 kg Body Mass Index (BMI) 14.6 Laboratory Tests Past 24 Hrs WBC 2.9 L RBC 1.85 L Assessment/Plan All Active Problems (Last Reviewed 08/20/18 @ 13:48 by Neel Alvarado MD) Healthcare-associated pneumonia (Acute) Anemia (Acute) History of tubal ligation (Resolved) COPD with acute exacerbation (Acute) PORT PLACEMENT (Resolved) Patient is a 57-year-old lady with history of small cell lung CA currently undergoing chemotherapy who presented with progressive generalized weakness associated with a cough in addition to fever and chills checks x-ray demonstrated right upper lobe infiltrate consistent with pneumonia. Patient was also found to be anemic with hemoglobin of 6.1 1. Acute respiratory insufficiency secondary to secondary to healthcare acquired pneumonia with suspected gram-negative organisms. Patient has been admitted to monitored bed started on Zosyn and ciprofloxacin. With patient being immunosuppressed from her chemotherapy as well as lung CA patient was also started on vancomycin did order for MRSA nasal screen if negative will discontinue vancomycin 2. 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 Maldonado with oncology as outpatient 3. Mild intermittent asthma currently stable did continue with her home aerosol regimen 4. History of alpha 1 antitrypsin deficiency 5. GERD on PPI 6. Anxiety disorder 7. Severe protein calorie malnutrition as evidenced by low BMI of 13.8 decreased energy level as well as muscle wasting did consult dietitian 8. 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 DVT prophylaxis SC Lovenox Advance planning; did discuss with the patient and family regarding her advanced directives as well as CODE STATUS. Did explain the various modalities involved ( FULL CODE, DNR CCA, DNR CCA with no intubation, and DNR CC ) patient elected to full code. Order was placed. Time spent on discussion 20 minutes. Clinical Impression(s) from Imaging Studies Chest X-Ray 08/20/18 10:21 IMPRESSION: COPD changes. Patchy infiltrate right upper lobe new since previous examination suspicious for pneumonia. Electronically Signed: Navneet Davila MD at 12:25 EDT Tel , Service support , Code Visit Inpatient E AND M: [id number] Init Hosp L3 Procedures: [id number] Advncd Care Plan 30 Min 08/20/18 1359 <Electronically signed by Neel Alvarado MD> Date Neel Alvarado MD Cosigner Signature: Date (if applicable) CC: Neel Alvarado MD; Dariel Ortega MD Signed URINALYSIS, COMPLETE Collected: 08/20/2018 Status: F Source: THERESE 1:14 PM [facility] [place] Order Comment: Order Date: 08/20/18 Has pt arrived? Y How was Urine Obtained? CLEAN CATCH TYPE CODE TESTS RESULT OUT OF RANGE REFERENCE UNITS LAB L400.3000 Yellow COLOR Normal Yellow LAB L400.3050 Clear Normal CLARITY Sl. Cloudy LAB L400.3200 Normal mg/dl Normal GLUCOSE, UR Normal LAB L400.3300 Negative mg/dL Normal BILIRUBIN URINE Negative LAB L400.3400 Negative mg/dl High 5 KETONE UR LAB L400.3465 1.002-1.030 Normal SP.GR. DIPSTX 1.015 LAB L400.3550 5.0 - 8.0 pH UR Normal 8.0 LAB L400.3600 Negative mg/dl High PROT 15 DIPSTX LAB L400.3700 Normal mg/dl High 1 UROBILI LAB L400.3750 Negative Normal NITRITE UR Negative LAB L400.3780 Negative /ul Normal OCCULT BLOOD-UR Negative LAB L400.3800 Negative /ul LEUK Normal ESTERASE Negative LAB L400.4050 0-5 /hpf WBC 0 Normal SEEN LAB L400.4100 0-5 /hpf 0 Normal RBC-UA SEEN LAB L400.4150 5-10 /hpf SQUAM Normal EPI 0-5 SEEN LAB L400.4300 None Seen /hpf Normal BACTERIA RARE LAB L400.4350 <or=2+ /hpf 0 Normal MUCUS, URINE SEEN Performed By: #### L400.0001 #### [facility] [address] [facility] [place], [address] EMERGENCY DEPARTMENT Observed: 08/20/2018 Status: F Source: [place] SUMMARY 1:06 PM [facility] [place] RE[place]IT[facility] Medical Records Department [address] [place] [address] Emergency Department Summary 08/20/18 1022 MR#: [id number] Acct: [id number] Name: OLIVE TEJADA Rep #: [id number] : 1960 57 From: Antonio Nelson MD PCP: Dariel Ortega MD, Chi Status: ADM IN ADDENDUM by ANTONIO NELSON MD on 08/20/18 at 1306 EKG interpretation: Sinus tachycardia 110, frequent PACs, no acute injury pattern. 08/20/18 1306 Date Antonio Nelson MD cc: Dariel Ortega MD * Signed History of Present Illness Chief Complaint: Shortness of Breath Informant: Patient Onset: Weeks - 1 Context: Gradual Onset Timing: Continuous Quality: wheezing, can't breathe Location: chest Current Severity: Moderate Maximum Severity: Moderate Worsened by: trying to exert. coughing. Relieved by: albuterol at home. Associated Symptoms: very weak. no fevers or CP. Narrative: History of COPD and lung cancer for which she has been getting chemotherapy for the past approximately 5 months, she states she skipped her chemotherapy this past week because she has been feeling extremely weak. Now she is to the point where she is unable to stand and walk and get around. She has had steady weight loss and significant decreased p.o. intake and appetite. She is also drinking less fluids and urinating less although she is urinating otherwise okay. Nauseated, no other GI symptoms. 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 (2) Rnmjy-[id number] deficiency Status: Chronic (3) Anxiety Status: Chronic (4) COPD (chronic obstructive pulmonary disease) Status: Chronic (5) GERD (gastroesophageal reflux disease) Status: Chronic (6) Small cell lung cancer Status: Chronic Past Medical History - Allergies and Home Meds Allergies/Adverse Reactions: Allergies morphine Adverse Reaction (Intermediate, Verified 08/04/18 10:06) Itching Primary Care Physician: Dariel Ortega Chi, MD [Primary Care Provider] - Past Medical History: - - Home oxygen 3 L Surgical History: no surgical history Lives: With Family Smoking Status: Former smoker - Family History Paternal Family History: Family History (Last Reviewed 08/04/18 @ 10:06 by Felisa Barraza) Mother Colon cancer Bronchitis Epilepsy Father Asthma Family History: Reports: Asthma Review of Systems General: Reports: Malaise - Generalized weakness. Denies: Chills, Fever Eyes: Denies: Visual changes - bilaterally, Diplopia ENT: Reports: Sore throat. Denies: Bilateral ear pain Cardiovascular: Denies: Chest pain, Palpitations Respiratory: Reports: Dyspnea, Cough, Sputum, Dyspnea on exertion Gastrointestinal: Reports: Nausea. Denies: Abdominal pain, Vomiting, Diarrhea, Melena, Hematochezia Genitourinary: Denies: Dysuria, Hematuria, Frequency Musculoskeletal: Denies: Back pain, Swelling, Extremity Pain Skin: Denies: Rash, Wounds Neurological: Denies: Headache, Weakness, Parasthesia, Numbness Psych: Denies: Suicidal thoughts, Suicidal ideations Endocrine: Denies: Heat intolerance, Cold intolerance Hematologic: Denies: Easy bruising, Easy bleeding Allergy: Denies: Swelling of the mouth, Swelling of the tongue Physical Exam Vital Signs/Narrative: Vital Signs 08/20/18 09:48 98.4 F 73 20 H 117/59 L 100 Inital Vital Signs reviewed: Yes General: Well nourished, Well developed, Cachectic Head: Normocephalic, Atraumatic Eyes: Perrl, EOMI ENT: No rhinorrhea, TM's clear, Dry mucous membranes, - - Punctate areas of possible thrush on hard and soft palate. Negative for: Sinus tenderness Neck: Supple, Nontender Cardiovascular: Regular rate, Regular rhythm, No murmurs Respiratory: Chest nontender, Diminished - Diffusely and symmetrically. Otherwise clear., - - Mild respiratory distress, speaking in 5-10 word sentences Abdomen: Soft, Nontender, Nondistended, Normal bowel sounds Back: Nontender, Normal Inspection. Negative for: CVA tenderness Extremities: Nontender, No edema Skin: Normal color, No rash Neurological: Alert, Oriented x3, Cranial nerves II-XII grossly intact, Normal Strength, Normal Sensation Psychological: Normal affect Diagnostic/Tx/Re-eval Impressions Chest X-Ray 08/20/18 10:21 IMPRESSION: COPD changes. Patchy infiltrate right upper lobe new since previous examination suspicious for pneumonia. Electronically Signed: Navneet Davila MD at 12:25 EDT Tel , Service support , 08/20/18 10:21 Chest PA and Lateral [RAD] Stat Laboratory Results WBC 2.9 L RBC 1.85 L - Medical Decision Making Labs show anemia and leukopenia, her chest x-ray shows pneumonia. Given her chemotherapy and multiple trips to infusion center, we will treat her for healthcare associated pneumonia with Zosyn and vancomycin. ABG shows chronic CO2 retention but no acute acidosis. She is given IV fluids, and will admit to the hospital. Not septic, I do not think she needs the ICU at this time. ED Disposition - Plan for ED Patient: Disposition: Acute Care Hospital [facility] Chief Complaint: Shortness of Breath Diagnosis: Healthcare-associated pneumonia, Anemia, Immunosuppressed due to chemotherapy, Small cell lung cancer Referrals: Dariel Ortega Chi, MD [Primary Care Provider] - What to do if you have Problems For any increased pain, shortness of breath, bleeding, nausea or vomiting, chest pain, or any unexpected problems, contact your Primary Care Provider. Call [facility] ([phone]) or report to the closest Emergency Room. Call 911 if necessary. 08/20/18 1248 <Electronically signed by Antonio Nelson MD> Date Antonio Nelson MD Cosigner Signature (If Indicated): Date CC: Dariel Ortega MD CBC W/DIFF, AUTOMATED Collected: 08/20/2018 Status: F Source: [place] 11:00 AM [facility] [place] TYPE CODE TESTS RESULT OUT OF RANGE REFERENCE UNITS LAB L100.1000 4.4-11.0 K/mm3 Low WBC 2.9 LAB L100.1200 4.2-5.4 M/mm3 Low RBC 1.85 LAB L100.1300 12.0-15.0 g/dl Low HGB 6.1 LAB L100.1400 37-47 % Low HCT 19.9 LAB L100.1500 81-99 fL High MCV 107.6 LAB L100.1600 27.0-32.0 pg High MCH 33.0 LAB L100.1700 32-36 g/gl Low MCHC 30.7 LAB L100.1810 11.6-14.6 % Normal RDW CV 14.4 LAB L100.1820 35.1-43.9 fl High RDW SD 56.0 LAB L100.1900 150-450 K/mm3 Normal PLT 153 LAB L100.2000 6.2-12.0 fl Normal MPV 9.4 LAB L100.2100 47-70 % Normal NEUT% 57.4 LAB L100.2200 19-41 % Low LY% 14.0 LAB L100.2300 0-10 % High MONO% 27.6 LAB L100.2400 0-5 % Normal EO% 1.0 LAB L100.2500 0-1 % Normal BASO% 0.0 LAB L100.2550 0.0-0.9 % Normal IM GRAN % 0.000 Result Comment: IG% - Immature Granulocytes (promyelocytes, myelocytes and metamyelocytes) > 1% indicates that a LEFT SHIFT is Present. LAB L100.2620 2.0-7.7 X10 3/uL Low Absolute Neut 1.6 LAB L100.2720 0.83-4.51 X10 3/ul Low Absolute Lymph 0.40 LAB L100.5500 ADEQ PLT EST Normal ADEQUATE LAB L100.7500 POLYCHROMASIA Normal 1+ LAB L100.7600 HYPOCHROMASIA Normal 2+ LAB L100.7800 MACROCYTE Normal 1+ Performed By: #### L100.0100 #### [facility] [address] [place], [address] BASIC METABOLIC Collected: 08/20/2018 Status: F Source: [place] PROFILE (BMP) 11:00 AM [facility] [place] TYPE CODE TESTS RESULT OUT OF RANGE REFERENCE UNITS LAB L501.0100 74-106 mg/dL High GLU 112 Result Comment: Fasting Glucose result from 100 to 125 mg/dL suggests IMPAIRED HOMEOSTASIS per A.D.A. criteria. Please note revised GLUCOSE reference range effective 2017. LAB L501.1000 7-18 mg/dL Normal BUN 8 LAB L501.1100 0.55-1.02 mg/dL Low CREAT,SERUM 0.25 Result Comment: The validity of the calculated GFR AND GFRAA in patients over 70 years has not been determined. Clinical correlation is essential. LAB L501.1110 >60 mL/min Normal EST GFR 299 Result Comment: Non- GFR Calc LAB L501.1115 >60 mL/min Normal EST GFR - AA 362 Result Comment: GFR Calc LAB L501.1255 ml/min Normal Estimated CRCL 174.60 LAB L501.1300 10-20 RATIO High BUN/CRE 31.7 LAB L501.2200 8.5-10 mg/dL Low .1 CA 8.2 LAB L501.5300 136-14 mmol/L Low 5 NA 135 LAB L501.5600 3.5-5. mmol/L 1 K Normal 3.5 LAB L501.5900 98-107 mmol/L Low CL 85 LAB L501.6100 21.0-3 mmol/L High 2.0 CO2 alert > 45.0 Result Comment: Critical Result(s) Called at: 11:43:28 08/20/2018 by: Dante Vidal RN (ER). LAB L501.6200 5-15 Normal Test not performed GAP Performed By: #### L500.2500, L501.4010 #### [facility] [address] [place], [address] TROPONIN-I Collected: 08/20/2018 Status: F Source: [place] 11:00 AM [facility] [place] TYPE CODE TESTS RESULT OUT OF RANGE REFERENCE UNITS LAB L501.4010 <0.045 ng/mL Normal < 0.015 TROPONIN-I Result Comment: TROPONIN-I EXPECTED VALUES <0.045 Negative 0.045 - 0.590 Consistent with Cardiac Damage > OR = 0.600 Critical Value Not every elevated troponin is indicative of [place]. These values should be used with clinical judgement in examining the patient's clinical picture for diagnosis. To establish a diagnosis of [place] versus myocardial injury, there must be a demonstrated rise and/or fall in the troponin values, in addition to ischemic symptoms, EKG changes, new regional wall motion abnormality, and/or angiographical evidence. PLEASE NOTE: REFERENCE RANGES EDITED 18 Performed By: #### L500.2500, L501.4010 #### [facility] [address] [place], [address] BLOOD GASES BY [facility] Collected: 08/20/2018 Status: F Source: [place] 10:45 AM [facility] [place] [facility] [place] TYPE CODE TESTS RESULT OUT OF RANGE REFERENCE UNITS LAB L9000.9990 Normal BLD GAS TYPE ART LAB L9001.1000 Normal SITE R RADIAL LAB L9001.1010 Normal RENAY TEST POS LAB L9001.1050 O2 Normal Delivery Dev Nasal Can LAB L9001.1055 /min Normal LPM 3.0 LAB L9001.1104 Normal Results To ED LAB L9001.1105 Normal Time Given 1045 LAB L9001.1110 7.35-7.45 pH Normal - I-STAT 7.41 LAB L9001.1210 35-45 mmHg High alert pCO2 - ISTAT 87.2 LAB L9001.1310 75-100 mmHG High PO2 I-STAT 114 LAB L9001.2300 22-26 mmol/L High HCO3 ISTAT 55.1 LAB L9001.2400 -2 to +2 mmol/L High BE ISTAT > 30 LAB L9001.2415 mmol/L Normal TOTAL CO2 > 50 ISTAT LAB L9001.2425 95-99 % Normal SO2 ISTAT 98 Performed By: #### L9000.0800 #### [facility] Point of Care [address] [place] [address] CHEST PA AND LATERAL Observed: 08/20/2018 Status: F Source: [place] 10:22 AM [facility] [place] [facility] [place] [place] Imaging Services [address] [place] [address] Chest PA and Lateral MR#: [id number] Acct: [id number] Name: OLIVE TEJADA Carla Rep #: [id number] : 1960 F 57 From: Navneet Davila MD PCP: Jordan MONTILLA,Dariel [facility] Status: REG ER Study: Chest PA and Lateral Date of Exam: 08/20/18 Exam# [id number] Ordering Dr: Antonio Nelson MD STUDY: X-RAY CHEST REASON FOR EXAM: Female, 57 years old. Cough and shortness breath for 2 weeks. TECHNIQUE: PA and lateral views of the chest. COMPARISON: 03/14/2018. FINDINGS: There again is a right-sided Port-A-Cath in stable position with the tip in the superior vena cava. There is hyperinflation of the lungs consistent with chronic obstructive lung disease (COPD). There is patchy infiltrate in right upper lobe new since the previous examination. There is no demonstrated pleural abnormality. Normal size heart. Normal mediastinum and nader. Normal visualized pulmonary arteries. Normal visualized aortic arch and descending thoracic aorta. There is demineralization of the osseous structures. Normal visualized ribs, clavicles, and shoulders. There is no demonstrated abnormality of the visualized soft tissue structures of the upper abdomen. RAD/Chest PA and Lateral IMPRESSION: COPD changes. Patchy infiltrate right upper lobe new since previous examination suspicious for pneumonia. Electronically Signed: Navneet Davila MD at 12:25 EDT Tel , Service support , CC: ANTONIO NELSON MD; Dariel Ortega MD Restaurant Service Manager: Signed CBC W/DIFF, AUTOMATED Collected: 08/11/2018 Status: F Source: [place] 9:57 AM [facility] [place] [facility] [place] TYPE CODE TESTS RESULT OUT OF RANGE REFERENCE UNITS LAB L100.1000 4.4-11.0 K/mm3 Normal WBC 5.5 LAB L100.1200 4.2-5.4 M/mm3 Low RBC 2.16 LAB L100.1300 12.0-15.0 g/dl Low HGB 7.2 LAB L100.1400 37-47 % Low HCT 23.8 LAB L100.1500 81-99 fL High MCV 110.2 LAB L100.1600 27.0-32.0 pg High MCH 33.3 LAB L100.1700 32-36 g/gl Low MCHC 30.3 LAB L100.1810 11.6-14.6 % Normal RDW CV 14.2 LAB L100.1820 35.1-43.9 fl High RDW SD 56.4 LAB L100.1900 150-450 K/mm3 Normal PLT 201 LAB L100.2000 6.2-12.0 fl Normal MPV 9.5 LAB L100.2100 47-70 % Normal NEUT% 62.7 LAB L100.2200 19-41 % Normal LY% 22.9 LAB L100.2300 0-10 % High MONO% 12.5 LAB L100.2400 0-5 % Normal EO% 1.5 LAB L100.2500 0-1 % Normal BASO% 0.2 LAB L100.2550 0.0-0.9 % Normal IM GRAN % 0.200 Result Comment: IG% - Immature Granulocytes (promyelocytes, myelocytes and metamyelocytes) > 1% indicates that a LEFT SHIFT is Present. LAB L100.2620 2.0-7.7 X10 3/uL Normal Absolute Neut 3.5 LAB L100.2720 0.83-4.51 X10 3/ul Normal Absolute Lymph 1.26 Performed By: #### L100.0100 #### [facility] [place], [address] COMPREHENSIVE METABOLIC Collected: 08/11/2018 Status: F Source: [place] 9:57 AM [facility] [place] Order Comment: Reason for Laboratory Test Chemotherapy TYPE CODE TESTS RESULT OUT OF RANGE REFERENCE UNITS LAB L501.0100 74-106 mg/dL Normal GLU 101 Result Comment: Fasting Glucose result from 100 to 125 mg/dL suggests IMPAIRED HOMEOSTASIS per A.D.A. criteria. Please note revised GLUCOSE reference range effective 2017. LAB L501.1000 7-18 mg/dL Normal BUN 7 LAB L501.1100 0.55-1.02 mg/dL Low CREAT,SERUM 0.35 Result Comment: The validity of the calculated GFR AND GFRAA in patients over 70 years has not been determined. Clinical correlation is essential. LAB L501.1110 >60 mL/min Normal EST GFR 204 Result Comment: Non- GFR Calc LAB L501.1115 >60 mL/min Normal EST GFR - AA 246 Result Comment: GFR Calc LAB L501.1255 ml/min Normal Estimated CRCL 123.00 LAB L501.1300 10-20 RATIO BUN/CRE Normal 19.9 LAB L501.1500 6.4-8. g/dL 2 T PROT Normal 6.5 LAB L501.1800 3.2-5. g/dL Low 0 ALB 2.8 LAB L501.1950 2.2-4. g/dL 2 GLOB Normal 3.7 LAB L501.2000 0.9-2. RATIO Low 4 A/G 0.8 LAB L501.2200 8.5-10 mg/dL .1 CA Normal 8.6 LAB L501.4100 15-37 U/L AST Normal 23 LAB L501.4305 45-117 U/L ALK P Normal 86 LAB L501.4405 13-56 U/L ALT Normal 26 LAB L501.4600 0.20-1 mg/dL .00 T BILI Normal 0.20 LAB L501.5300 136-14 mmol/L 5 NA Normal 137 LAB L501.5600 3.5-5. mmol/L 1 K Normal 4.1 LAB L501.5900 98-107 mmol/L Low CL 91 LAB L501.6100 21.0-3 mmol/L High 2.0 CO2 44.0 LAB L501.6200 5-15 Low GAP 2 Performed By: #### L500.4050, L501.2300, L501.5200, L501.9520 #### [facility] [address] [place], [address] PHOSPHORUS Collected: 08/11/2018 Status: F Source: [place] 9:57 AM [facility] [facility] Order Comment: Reason for Laboratory Test Chemotherapy TYPE CODE TESTS RESULT OUT OF RANGE REFERENCE UNITS LAB L501.2300 2.5-4.9 mg/dL Normal PHOS 3.8 Performed By: #### L500.4050, L501.2300, L501.5200, L501.9520 #### [facility] [address] [place], [address] MAGNESIUM Collected: 08/11/2018 Status: F Source: [place] 9:57 AM [facility] [facility] [place] [place] Order Comment: Reason for Laboratory Test Chemotherapy TYPE CODE TESTS RESULT OUT OF RANGE REFERENCE UNITS LAB L501.5200 1.6-2.6 mg/dL Low alert MG 0.9 Result Comment: Critical Result(s) Called at: 10:51:27 08/11/2018 by: Chloe Spencer Performed By: #### L500.4050, L501.2300, L501.5200, L501.9520 #### [facility] [address] [place], [place], [id number] THYROID STIM HORMONE Collected: 08/11/2018 Status: F Source: [place] (TSH) 9:57 AM [facility] Order Comment: Reason for Laboratory Test Chemotherapy TYPE CODE TESTS RESULT OUT OF RANGE REFERENCE UNITS LAB L501.9520 0.358-3.74 uIU/mL Normal TSH 1.09 Performed By: #### L500.4050, L501.2300, L501.5200, L501.9520 #### [facility] [address] [place], [place], [id number] HEPATITIS C ANTIBODIES Collected: 08/11/2018 Status: F Source: [place] 9:57 AM [facility] [place] [facility] [place] [facility] Order Comment: PER DR. ORTEGA ADDED TSH AND HEP C TYPE CODE TESTS RESULT OUT OF RANGE REFERENCE UNITS LAB L3100.0650 0.0-0.9 s/co ratio Normal HEP C AB <0.1 Result Comment: Negative: < 0.8 Indeterminate: 0.8 - 0.9 Positive: > 0.9 The CDC recommends that a positive HCV antibody result be followed up with a HCV Nucleic Acid Amplification test (639522). Performed at: [facility] [id number] [employer] Tester: Andrew Ordonez PhD, Phone: [phone] Performed By: #### L3100.0625 #### [facility] (refer to report for specific site) refer to report for address and phone number ONCOLOGY VISIT REPORT Observed: 08/04/2018 Status: F Source: [place] 10:50 AM [facility] [place] [facility] [place] [place] [address] [place] [address]. [place] [address] OFFICE VISIT Date of Service: 08/04/18 1039 MR#: [id number] Acct: [id number] Name: OLIVE TEJADA Rep #: [id number] : 1960 From: Nathan Garduno MD Age/Sex: 57/F Location: [facility] Status: Signed Subjective - Date of Service Date of Service:: 08/04/18 - Chief Complaint F/u for SCLC and chemotherapy. - History of Present Illness Ms. Olive Tejada is a pleasant 57 y.o.woman with a past medical history significant for depression and COPD, oxygen dependent. She initially presented with SOB, dizziness and weight loss. CTA on 02/06/2018 showed suspicious and enhancing anterior mediastinal mass 5.3 cm with extension into the left upper lobe. Thus, she had a CT-guided biopsy on February 22, 2018. Pathology confirmed small cell lung carcinoma. PET/CT 03/07/2018, demonstrated anterior mediastinal mass 6 cm, involving RACHID and AP node, single nodule in left lobe of liver 1 cm, all with hypermetabolic activities. Right lower extremity edema noted 03/11/18, negative for DVT. She started chemotherapy with Cisplatin and Irinotecan on 03/16/2018. She had nausea and abdominal cramps after C1D1, did not take her antiemetics because she forgot about them. CT on 05/04/2018 showed resolution of liver lesion, stable thoracic lesion. CT scan on 06/29/2018 showed stable mediastinal lesion with no liver lesion. Comes for C6D1. - Past Medical/Social History Past Medical History Past Medical History: COPD Cancer: Lung cancer Social History Social History: No changes Smoking Status Former smoker Review of Systems Constitutional:: Reports: Fatigue. Denies: Fever, Sweats, Weight loss, Appetite change, Chills Cardiovascular:: Denies: Chest pain, Palpitations, Dyspnea on exertion, Orthopnea, PND, Shortness of breath Respiratory: Reports: Shortness of breath at rest Gastrointestinal:: Denies: Abdominal pain, Nausea, Vomiting, Diarrhea, Constipation, Hematochezia Genitourinary: Denies: Dysuria, Hematuria, 15, Flank pain Musculoskeletal:: Denies: Back pain, Myalgia, Arthralgia Skin: Denies: Rash, Skin Changes, Wounds Neurological:: Denies: Headache, Dizziness, Visual changes, Tinnitus, Hearing loss Psychiatric: Denies: Anxiety, Depression, Homicidal Ideations, Suicidal Ideations Vital Signs Height 5 ft 8 in Weight: 46.72 kg Weight in Pounds 103.0 lbs Pulse Ox 72 - Physical Exam General: Alert, Oriented x3, No apparent distress, - - sitting in wheelchair. HEENT: Atraumatic, PERRLA, EOMI, Normocephalic Oropharynx:: Dry mucosa Neck:: Supple, Trachea midline. Negative for: JVD, bilateral Cardiac:: Regular rate, Regular rhythm, Normal S1, Normal S2. Negative for: Murmur Lungs: Diminished - BS bilaterally. Abdomen:: Bowel sounds x 4, Soft, Non-tender, Non-distended. Negative for: Hepatosplenomegaly Extremities:: Edema. Negative for: Cyanosis Neurological: Neuro grossly intact Laboratory Data: Laboratory Tests Assessment and Plan Small cell lung carcinoma-Extensive disease involving left lung/anterior mediastinum and liver on Cisplatin and Irinotecan. Mixed response with resolution of liver lesion. Latest CT shows stable mediastinal lesion. 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 Counts are OK. Plan is to proceed with C6D1 Cisplatin and Irinotecan today, C6D8 Irinotecan next week. RTC 2 weeks with CBC/CMP/Mag for C6D15 Cisplatin AND Irinotecan. Medications: Prescriptions This Visit Medication Instructions Recorded Dexamethasone 4 mg PO DAILY PRN PRN 12 Days #12 03/15/18 Primary Care Provider: Dariel Ortega Referring Provider: Betty Banerjee NP - Problem List (1) Small cell lung cancer Status: Chronic (2) COPD (chronic obstructive pulmonary disease) Status: Chronic Qualifiers: COPD type: unspecified COPD Qualified Code(s): J44.9 - Chronic obstructive pulmonary disease, unspecified (3) Chemotherapy management, encounter for Status: Acute Code Visit Office Visits / Consults: [id number] OV L5 Est 08/04/18 1050 <Electronically signed by Nathan Garduno MD> Date Nathan Garduno MD Cosigner Signature: Date (if applicable) CC: CBC W/DIFF, AUTOMATED Collected: 08/04/2018 Status: F Source: [place] 9:11 AM [facility] [place] [facility] [place] TYPE CODE TESTS RESULT OUT OF RANGE REFERENCE UNITS LAB L100.1000 4.4-11.0 K/mm3 Normal WBC 5.2 LAB L100.1200 4.2-5.4 M/mm3 Low RBC 2.18 LAB L100.1300 12.0-15.0 g/dl Low HGB 7.4 LAB L100.1400 37-47 % Low HCT 24.5 LAB L100.1500 81-99 fL High MCV 112.4 LAB L100.1600 27.0-32.0 pg High MCH 33.9 LAB L100.1700 32-36 g/gl Low MCHC 30.2 LAB L100.1810 11.6-14.6 % Normal RDW CV 13.7 LAB L100.1820 35.1-43.9 fl High RDW SD 53.6 LAB L100.1900 150-450 K/mm3 Normal PLT 327 LAB L100.2000 6.2-12.0 fl Normal MPV 9.1 LAB L100.2100 47-70 % Normal NEUT% 65.5 LAB L100.2200 19-41 % Low LY% 16.7 LAB L100.2300 0-10 % High MONO% 15.7 LAB L100.2400 0-5 % Normal EO% 1.7 LAB L100.2500 0-1 % Normal BASO% 0.4 LAB L100.2550 0.0-0.9 % Normal IM GRAN % 0.000 Result Comment: IG% - Immature Granulocytes (promyelocytes, myelocytes and metamyelocytes) > 1% indicates that a LEFT SHIFT is Present. LAB L100.2620 2.0-7.7 X10 3/uL Normal Absolute Neut 3.4 LAB L100.2720 0.83-4.51 X10 3/ul Normal Absolute Lymph 0.86 Performed By: #### L100.0100 #### [facility] [address] [place], [address] COMPREHENSIVE METABOLIC Collected: 08/04/2018 Status: F Source: [facility] 9:11 AM [facility] [place] [facility] Order Comment: Reason for Laboratory Test Chemotherapy TYPE CODE TESTS RESULT OUT OF RANGE REFERENCE UNITS LAB L501.0100 74-106 mg/dL High GLU 114 Result Comment: Fasting Glucose result from 100 to 125 mg/dL suggests IMPAIRED HOMEOSTASIS per A.D.A. criteria. Please note revised GLUCOSE reference range effective 2017. LAB L501.1000 7-18 mg/dL Low BUN 5 LAB L501.1100 0.55-1.02 mg/dL Low CREAT,SERUM 0.33 Result Comment: The validity of the calculated GFR AND GFRAA in patients over 70 years has not been determined. Clinical correlation is essential. LAB L501.1110 >60 mL/min Normal EST GFR 219 Result Comment: Non- GFR Calc LAB L501.1115 >60 mL/min Normal EST GFR - AA 265 Result Comment: GFR Calc LAB L501.1255 ml/min Normal Estimated CRCL 136.84 LAB L501.1300 10-20 RATIO BUN/CRE Normal 15.2 LAB L501.1500 6.4-8. g/dL 2 T PROT Normal 6.6 LAB L501.1800 3.2-5. g/dL Low 0 ALB 2.6 LAB L501.1950 2.2-4. g/dL 2 GLOB Normal 4.0 LAB L501.2000 0.9-2. RATIO Low 4 A/G 0.6 LAB L501.2200 8.5-10 mg/dL .1 CA Normal 8.6 LAB L501.4100 15-37 U/L AST Normal 22 LAB L501.4305 45-117 U/L ALK P Normal 113 LAB L501.4405 13-56 U/L ALT Normal 40 LAB L501.4600 0.20-1 mg/dL .00 T BILI Normal 0.20 LAB L501.5300 136-14 mmol/L 5 NA Normal 139 LAB L501.5600 3.5-5. mmol/L Low 1 K 3.3 LAB L501.5900 98-107 mmol/L Low CL 89 LAB L501.6100 21.0-3 mmol/L High 2.0 CO2 43.0 LAB L501.6200 5-15 GAP Normal 7 Performed By: #### L500.4050, L501.2300, L501.5200 #### [facility] [address] [place], [address] PHOSPHORUS Collected: 08/04/2018 Status: F Source: [place] 9:11 AM [facility] [place] [facility] [place] Order Comment: Reason for Laboratory Test Chemotherapy TYPE CODE TESTS RESULT OUT OF RANGE REFERENCE UNITS LAB L501.2300 2.5-4.9 mg/dL Normal PHOS 2.9 Performed By: #### L500.4050, L501.2300, L501.5200 #### [facility] [address] [place], [place], [address] MAGNESIUM Collected: 08/04/2018 Status: F Source: [place] 9:11 AM [facility] Order Comment: Reason for Laboratory Test Chemotherapy TYPE CODE TESTS RESULT OUT OF RANGE REFERENCE UNITS LAB L501.5200 1.6-2.6 mg/dL Normal MG 1.6 Performed By: #### L500.4050, L501.2300, L501.5200 #### [facility] [address] [place], [place], [address] CBC W/DIFF, AUTOMATED Collected: 07/21/2018 Status: F Source: [place] 9:42 AM [facility] TYPE CODE TESTS RESULT OUT OF RANGE REFERENCE UNITS LAB L100.1000 4.4-11.0 K/mm3 Low WBC 3.9 LAB L100.1200 4.2-5.4 M/mm3 Low RBC 2.44 LAB L100.1300 12.0-15.0 g/dl Low HGB 8.1 LAB L100.1400 37-47 % Low HCT 26.1 LAB L100.1500 81-99 fL High MCV 107.0 LAB L100.1600 27.0-32.0 pg High MCH 33.2 LAB L100.1700 32-36 g/gl Low MCHC 31.0 LAB L100.1810 11.6-14.6 % Normal RDW CV 14.0 LAB L100.1820 35.1-43.9 fl High RDW SD 54.5 LAB L100.1900 150-450 K/mm3 Low PLT 148 LAB L100.2000 6.2-12.0 fl Normal MPV 9.0 LAB L100.2100 47-70 % Normal NEUT% 62.9 LAB L100.2200 19-41 % Normal LY% 21.6 LAB L100.2300 0-10 % High MONO% 11.9 LAB L100.2400 0-5 % Normal EO% 3.6 LAB L100.2500 0-1 % Normal BASO% 0.0 LAB L100.2550 0.0-0.9 % Normal IM GRAN % 0.000 Result Comment: IG% - Immature Granulocytes (promyelocytes, myelocytes and metamyelocytes) > 1% indicates that a LEFT SHIFT is Present. LAB L100.2620 2.0-7.7 X10 3/uL Normal Absolute Neut 2.5 LAB L100.2720 0.83-4.51 X10 3/ul Normal Absolute Lymph 0.85 Performed By: #### L100.0100 #### [facility] [address] [place], [place], [id number] COMPREHENSIVE METABOLIC Collected: 07/21/2018 Status: F [facility] Order Comment: Reason for Laboratory Test Chemotherapy TYPE CODE TESTS RESULT OUT OF RANGE REFERENCE UNITS LAB L501.0100 74-106 mg/dL Normal GLU 92 Result Comment: Please note revised GLUCOSE reference range effective 2017. LAB L501.1000 7-18 mg/dL Normal BUN 10 LAB L501.1100 0.55-1.02 mg/dL Low CREAT,SERUM 0.36 Result Comment: The validity of the calculated GFR AND GFRAA in patients over 70 years has not been determined. Clinical correlation is essential. LAB L501.1110 >60 mL/min Normal EST GFR 195 Result Comment: Non- GFR Calc LAB L501.1115 >60 mL/min Normal EST GFR - AA 236 Result Comment: GFR Calc LAB L501.1255 ml/min Normal Estimated CRCL 125.43 LAB L501.1300 10-20 RATIO High BUN/CRE 27.4 LAB L501.1500 6.4-8. g/dL 2 T PROT Normal 6.5 LAB L501.1800 3.2-5. g/dL 0 ALB Normal 3.3 LAB L501.1950 2.2-4. g/dL 2 GLOB Normal 3.2 LAB L501.2000 0.9-2. RATIO 4 A/G Normal 1.0 LAB L501.2200 8.5-10 mg/dL Low .1 CA 8.4 LAB L501.4100 15-37 U/L AST Normal 25 LAB L501.4305 45-117 U/L ALK P Normal 75 LAB L501.4405 13-56 U/L ALT Normal 25 LAB L501.4600 0.20-1 mg/dL .00 T BILI Normal 0.20 LAB L501.5300 136-14 mmol/L 5 NA Normal 140 LAB L501.5600 3.5-5. mmol/L 1 K Normal 3.7 LAB L501.5900 98-107 mmol/L Low CL 97 LAB L501.6100 21.0-3 mmol/L High 2.0 CO2 37.0 LAB L501.6200 5-15 GAP Normal 6 Performed By: #### L500.4050, L501.2300, L501.5200 #### [facility] [address] [place], [address] PHOSPHORUS Collected: 07/21/2018 Status: F Source: [place] 9:42 AM [facility] Order Comment: Reason for Laboratory Test Chemotherapy TYPE CODE TESTS RESULT OUT OF RANGE REFERENCE UNITS LAB L501.2300 2.5-4.9 mg/dL Normal PHOS 3.8 Performed By: #### L500.4050, L501.2300, L501.5200 #### [facility] [address] [place], [place], [address] MAGNESIUM Collected: 07/21/2018 Status: F Source: [place] 9:42 AM [facility] Order Comment: Reason for Laboratory Test Chemotherapy TYPE CODE TESTS RESULT OUT OF RANGE REFERENCE UNITS LAB L501.5200 1.6-2.6 mg/dL Low MG 1.1 Performed By: #### L500.4050, L501.2300, L501.5200 #### [facility] [address] [facility] [place], [address] CBC W/DIFF, AUTOMATED Collected: 07/14/2018 Status: F Source: [place] 9:41 AM [facility] TYPE CODE TESTS RESULT OUT OF RANGE REFERENCE UNITS LAB L100.1000 4.4-11.0 K/mm3 Normal WBC 5.3 LAB L100.1200 4.2-5.4 M/mm3 Low RBC 2.74 LAB L100.1300 12.0-15.0 g/dl Low HGB 9.0 LAB L100.1400 37-47 % Low HCT 29.1 LAB L100.1500 81-99 fL High MCV 106.2 LAB L100.1600 27.0-32.0 pg High MCH 32.8 LAB L100.1700 32-36 g/gl Low MCHC 30.9 LAB L100.1810 11.6-14.6 % Normal RDW CV 14.4 LAB L100.1820 35.1-43.9 fl High RDW SD 56.3 LAB L100.1900 150-450 K/mm3 Normal PLT 164 LAB L100.2000 6.2-12.0 fl Normal MPV 8.7 LAB L100.2100 47-70 % Normal NEUT% 59.3 LAB L100.2200 19-41 % Normal LY% 25.3 LAB L100.2300 0-10 % High MONO% 12.9 LAB L100.2400 0-5 % Normal EO% 1.9 LAB L100.2500 0-1 % Normal BASO% 0.4 LAB L100.2550 0.0-0.9 % Normal IM GRAN % 0.200 Result Comment: IG% - Immature Granulocytes (promyelocytes, myelocytes and metamyelocytes) > 1% indicates that a LEFT SHIFT is Present. LAB L100.2620 2.0-7.7 X10 3/uL Normal Absolute Neut 3.2 LAB L100.2720 0.83-4.51 X10 3/ul Normal Absolute Lymph 1.35 Performed By: #### L100.0100 #### [facility] [address] [place], [place], [address] COMPREHENSIVE METABOLIC Collected: 07/14/2018 Status: F Source: [facility] 9:41 AM [facility] Order Comment: Reason for Laboratory Test Chemotherapy TYPE CODE TESTS RESULT OUT OF RANGE REFERENCE UNITS LAB L501.0100 74-106 mg/dL Normal GLU 89 Result Comment: Please note revised GLUCOSE reference range effective 2017. LAB L501.1000 7-18 mg/dL Normal BUN 10 LAB L501.1100 0.55-1.02 mg/dL Low CREAT,SERUM 0.39 Result Comment: The validity of the calculated GFR AND GFRAA in patients over 70 years has not been determined. Clinical correlation is essential. LAB L501.1110 >60 mL/min Normal EST GFR 182 Result Comment: Non- GFR Calc LAB L501.1115 >60 mL/min Normal EST GFR - AA 220 Result Comment: GFR Calc LAB L501.1255 ml/min Normal Estimated CRCL 112.28 LAB L501.1300 10-20 RATIO High BUN/CRE 25.8 LAB L501.1500 6.4-8. g/dL 2 T PROT Normal 6.9 LAB L501.1800 3.2-5. g/dL 0 ALB Normal 3.2 LAB L501.1950 2.2-4. g/dL 2 GLOB Normal 3.7 LAB L501.2000 0.9-2. RATIO 4 A/G Normal 0.9 LAB L501.2200 8.5-10 mg/dL .1 CA Normal 8.6 LAB L501.4100 15-37 U/L AST Normal 34 LAB L501.4305 45-117 U/L ALK P Normal 75 LAB L501.4405 13-56 U/L ALT Normal 27 LAB L501.4600 0.20-1 mg/dL .00 T BILI Normal 0.20 LAB L501.5300 136-14 mmol/L 5 NA Normal 139 LAB L501.5600 3.5-5. mmol/L 1 K Normal 3.7 LAB L501.5900 98-107 mmol/L Low CL 96 LAB L501.6100 21.0-3 mmol/L High 2.0 CO2 36.0 LAB L501.6200 5-15 GAP Normal 7 Performed By: #### L500.4050, L501.2300, L501.5200 #### [facility] [address] [place], [address] PHOSPHORUS Collected: 07/14/2018 Status: F Source: [place] 9:41 AM [facility] Order Comment: Reason for Laboratory Test Chemotherapy TYPE CODE TESTS RESULT OUT OF RANGE REFERENCE UNITS LAB L501.2300 2.5-4.9 mg/dL Normal PHOS 4.2 Performed By: #### L500.4050, L501.2300, L501.5200 #### [facility] [address] [place], [place], [address] MAGNESIUM Collected: 07/14/2018 Status: F Source: [place] 9:41 AM [facility] Order Comment: Reason for Laboratory Test Chemotherapy TYPE CODE TESTS RESULT OUT OF RANGE REFERENCE UNITS LAB L501.5200 1.6-2.6 mg/dL Low MG 1.3 Performed By: #### L500.4050, L501.2300, L501.5200 #### [facility] [address] [place], [address] ONCOLOGY VISIT REPORT Observed: 07/07/2018 Status: F Source: [place] 9:55 AM [facility] [place] [address] OFFICE VISIT Date of Service: 07/07/1830 MR#: [id number] Acct: [id number] Name: OLIVE TEJADA Rep #: [id number] : 1960 From: Nathan Garduno MD Age/Sex: 57/F Location: OMD Status: Signed Subjective - Date of Service Date of Service:: 07/07/18 - Chief Complaint F/u for SCLC and chemotherapy. - History of Present Illness Ms. Olive Tejada is a pleasant 57 y.o.woman with a past medical history significant for depression and COPD, oxygen dependent. She initially presented with SOB, dizziness and weight loss. CTA on 02/06/2018 showed suspicious and enhancing anterior mediastinal mass 5.3 cm with extension into the left upper lobe. Thus, she had a CT-guided biopsy on February 22, 2018. Pathology confirmed small cell lung carcinoma. PET/CT 03/07/2018, demonstrated anterior mediastinal mass 6 cm, involving RACHID and AP node, single nodule in left lobe of liver 1 cm, all with hypermetabolic activities. Right lower extremity edema noted 03/11/18, negative for DVT. She started chemotherapy with Cisplatin and Irinotecan on 03/16/2018. She had nausea and abdominal cramps after C1D1, did not take her antiemetics because she forgot about them. CT on 05/04/2018 showed resolution of liver lesion, stable thoracic lesion. She comes in for C5D1 therapy after CT scan on 06/29/2018. - Past Medical/Social History Past Medical History Past Medical History: COPD Cancer: Lung cancer Social History Social History: No changes Smoking Status Former smoker Review of Systems Constitutional:: Reports: Fatigue. Denies: Fever, Sweats Cardiovascular:: Denies: Chest pain, Palpitations, Dyspnea on exertion, Orthopnea, PND, Shortness of breath Respiratory: Denies: Cough, Hemoptysis, Shortness of Breath, Wheezing Gastrointestinal:: Denies: Abdominal pain, Nausea, Vomiting, Diarrhea, Constipation, Hematochezia Genitourinary: Denies: Dysuria, Hematuria, 15, Flank pain Musculoskeletal:: Denies: Back pain, Myalgia, Arthralgia Skin: Denies: Rash, Skin Changes, Wounds Neurological:: Denies: Headache, Dizziness, Visual changes, Tinnitus, Hearing loss Psychiatric: Denies: Anxiety, Depression, Homicidal Ideations, Suicidal Ideations Vital Signs Height 5 ft 8 in Weight: 43.636 kg Weight in Pounds 96.2 lbs Pulse Ox 96 - Physical Exam General: Alert, Oriented x3, No apparent distress, - - on home O2. HEENT: Atraumatic, PERRLA, EOMI, Normocephalic Oropharynx:: Dry mucosa Neck:: Supple, Trachea midline. Negative for: JVD, bilateral Cardiac:: Regular rate, Regular rhythm, Normal S1, Normal S2. Negative for: Murmur Lungs: Clear to auscultation, Excusion symmetrical. Negative for: Rhonchi, Wheezes Abdomen:: Bowel sounds x 4, Soft, Non-tender, Non-distended. Negative for: Hepatosplenomegaly Extremities:: Edema - feet. Neurological: Neuro grossly intact Psychiatric:: Appropriate affect, Euthymic Lymphatics:: Negative for: Cervical lymphadenopathy, Supraclavicular lymphadenopathy, Axillary lymphadenopathy Laboratory Data: Laboratory Tests WBC 6.0 (4.4-11.0) K/mm3 RBC 2.86 L (4.2-5.4) M/mm3 Hgb 9.4 L (12.0-15.0) g/dl Hct 30.5 L (37-47) % Diagnostic Data: 06/29/[address]/Chest WITH Contrast IMPRESSION: 1. Decreased size of high anterior mediastinal mass as well as borderline to mildly enlarged precarinal lymph node. No new masses or adenopathy. 2. Stable emphysematous changes and hyperexpansion of the lungs, as well as stable subsegmental atelectasis in the right middle lobe. Stable 7 mm nodule in the anterolateral left upper lobe. No new lung mass or infiltrate. Electronically Signed: Ramin Wilson MD at 18:[address]/Abdomen/Pelvis WITH Contrast IMPRESSION: 1. No findings suspicious for abdominal or pelvic metastatic disease. 2. Extensive emphysematous changes again seen in the visualized lung bases. Calcified granuloma or focal calcific pleural plaquing also seen at the right diaphragm. 3. Moderate aortoiliac atherosclerotic calcification. No demonstrated aneurysm. 4. Stable nonobstructing 1-2 mm stone at the midpole of the right kidney. No hydronephrosis. Electronically Signed: Ramin Wilson MD at 17:07 EDT Assessment and Plan Small cell lung carcinoma-Extensive disease involving left lung/anterior mediastinum and liver on Cisplatin and Irinotecan. Mixed response with resolution of liver lesion. Latest CT shows stable mediastinal lesion. 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 Counts are OK. Discussed further management, Pt wants to finish 6 cycles. Plan is to proceed with C5D1 Cisplatin and Irinotecan today, C5D8 Irinotecan next week, C5D15 Irinotecan in 2 weeks. RTC 4 weeks with CBC/CMP/Mag for C6D1 Cisplatin AND Irinotecan. Medications: Prescriptions This Visit Medication Instructions Recorded Dexamethasone 4 mg PO DAILY PRN PRN 12 Days #12 03/15/18 Primary Care Provider: Dariel Ortega Referring Provider: Betty Banerjee NP - Problem List (1) Small cell lung cancer Status: Chronic (2) COPD (chronic obstructive pulmonary disease) Status: Chronic Qualifiers: COPD type: unspecified COPD Qualified Code(s): J44.9 - Chronic obstructive pulmonary disease, unspecified (3) Chemotherapy management, encounter for Status: Acute Code Visit Office Visits / Consults: [id number] OV L5 Est 07/07/18 0955 <Electronically signed by Nathan Garduno MD> Date Nathan Garduno MD Cosigner Signature: Date (if applicable) CC: CBC W/DIFF, AUTOMATED Collected: 07/07/2018 Status: F Source: [place] 8:35 AM [facility] Order Comment: Reason for Laboratory Test . TYPE CODE TESTS RESULT OUT OF RANGE REFERENCE UNITS LAB L100.1000 4.4-11.0 K/mm3 Normal WBC 6.0 LAB L100.1200 4.2-5.4 M/mm3 Low RBC 2.86 LAB L100.1300 12.0-15.0 g/dl Low HGB 9.4 LAB L100.1400 37-47 % Low HCT 30.5 LAB L100.1500 81-99 fL High MCV 106.6 LAB L100.1600 27.0-32.0 pg High MCH 32.9 LAB L100.1700 32-36 g/gl Low MCHC 30.8 LAB L100.1810 11.6-14.6 % High RDW CV 15.3 LAB L100.1820 35.1-43.9 fl High RDW SD 59.1 LAB L100.1900 150-450 K/mm3 Normal PLT 283 LAB L100.2000 6.2-12.0 fl Normal MPV 9.1 LAB L100.2100 47-70 % Normal NEUT% 61.4 LAB L100.2200 19-41 % Normal LY% 20.6 LAB L100.2300 0-10 % High MONO% 14.2 LAB L100.2400 0-5 % Normal EO% 3.5 LAB L100.2500 0-1 % Normal BASO% 0.3 LAB L100.2550 0.0-0.9 % Normal IM GRAN % 0.000 Result Comment: IG% - Immature Granulocytes (promyelocytes, myelocytes and metamyelocytes) > 1% indicates that a LEFT SHIFT is Present. LAB L100.2620 2.0-7.7 X10 3/uL Normal Absolute Neut 3.7 LAB L100.2720 0.83-4.51 X10 3/ul Normal Absolute Lymph 1.23 Performed By: #### L100.0100, L500.4050 #### [facility] [address] [place], [place], [address] COMPREHENSIVE METABOLIC Collected: 07/07/2018 Status: F Source: [facility] 8:35 AM [facility] Order Comment: Reason for Laboratory Test . TYPE CODE TESTS RESULT OUT OF RANGE REFERENCE UNITS LAB L501.0100 74-106 mg/dL Normal GLU 91 Result Comment: Please note revised GLUCOSE reference range effective 2017. LAB L501.1000 7-18 mg/dL Normal BUN 8 LAB L501.1100 0.55-1.02 mg/dL Low CREAT,SERUM 0.40 Result Comment: The validity of the calculated GFR AND GFRAA in patients over 70 years has not been determined. Clinical correlation is essential. LAB L501.1110 >60 mL/min Normal EST GFR 176 Result Comment: Non- GFR Calc LAB L501.1115 >60 mL/min Normal EST GFR - AA 213 Result Comment: GFR Calc LAB L501.1255 ml/min Normal Estimated CRCL 109.47 LAB L501.1300 10-20 RATIO BUN/CRE Normal 20.0 LAB L501.1500 6.4-8. g/dL 2 T PROT Normal 6.7 LAB L501.1800 3.2-5. g/dL 0 ALB Normal 3.4 LAB L501.1950 2.2-4. g/dL 2 GLOB Normal 3.3 LAB L501.2000 0.9-2. RATIO 4 A/G Normal 1.0 LAB L501.2200 8.5-10 mg/dL .1 CA Normal 8.6 LAB L501.4100 15-37 U/L AST Normal 27 LAB L501.4305 45-117 U/L ALK P Normal 85 LAB L501.4405 13-56 U/L ALT Normal 24 LAB L501.4600 0.20-1 mg/dL .00 T BILI Normal 0.20 LAB L501.5300 136-14 mmol/L 5 NA Normal 139 LAB L501.5600 3.5-5. mmol/L 1 K Normal 3.9 LAB L501.5900 98-107 mmol/L CL Normal 98 LAB L501.6100 21.0-3 mmol/L High 2.0 CO2 33.0 LAB L501.6200 5-15 GAP Normal 8 Performed By: #### L100.0100, L500.4050 #### [facility] [address] [facility] [place], [address] ABDOMEN/PELVIS WITH Observed: 06/29/2018 Status: F Source: [place] CONTRAST 2:00 PM [facility] Imaging Services [address] [place] [address] Abdomen/Pelvis WITH Contrast MR#: [id number] Acct: [id number] Name: OLIVE TEJADA Rep #: [id number] : 1960 F 57 From: Nabil Wilson MD PCP: Jordan MONTILLA,Dariel Chi Status: REG CLI Study: Abdomen/Pelvis WITH Contrast Date of Exam: 06/29/18 Exam# [id number] Ordering Dr: Joan Dempsey ROLLING ATTENDANTRoger STUDY: CT ABDOMEN AND PELVIS WITH CONTRAST REASON FOR EXAM: Female, 57 years old. Lung cancer, postchemotherapy follow-up RADIATION DOSAGE (If Supplied By Facility): CTDIvol = ( 6.64 ) mGy, DLP = ( 498.25 ) mGycm TECHNIQUE: Transaxial images were obtained from the dome of the diaphragm to the symphysis pubis with oral contrast. 100CC ml of Isovue 300 contrast was administered. Sagittal and coronal images were reconstructed. Individualized dose optimization techniques were used for this CT. COMPARISON: CT abdomen May 04, 2018. FINDINGS: Extensive emphysematous changes again seen in the visualized lung bases. There is a stable calcified granuloma or focus of calcific pleural plaquing along the right diaphragm. The visualized portions of the heart are within normal limits. Normal liver. The patent portal vein diameter is 12.5 mm. Normal gallbladder and extrahepatic biliary system. There are multiple benign calcified granulomata of the spleen. Normal pancreas. Normal bilateral adrenal glands. Nonobstructing 1-2 mm stone at the midpole of the right kidney is again noted. Normal left kidney. No hydronephrosis. Normal visualized stomach. Normal small intestine. Normal colon. There is non-visualization of the appendix. There is moderate atherosclerotic calcification of the distal abdominal aorta and proximal iliac arteries, without a demonstrated aneurysm. Normal inferior vena cava. Normal retroperitoneum. Normal urinary bladder. Normal size retroverted/retroflexed uterus. Normal visualized adnexa. Well-defined 2.25 x 1.9 501.35 cm fluid-filled structure in the right inguinal cutaneous tissues may be a small lymphocele, sebaceous cyst, or fluid in a hernia. Normal osseous structures. CT/Abdomen/Pelvis WITH Contrast IMPRESSION: 1. No findings suspicious for abdominal or pelvic metastatic disease. 2. Extensive emphysematous changes again seen in the visualized lung bases. Calcified granuloma or focal calcific pleural plaquing also seen at the right diaphragm. 3. Moderate aortoiliac atherosclerotic calcification. No demonstrated aneurysm. 4. Stable nonobstructing 1-2 mm stone at the midpole of the right kidney. No hydronephrosis. Electronically Signed: Ramin Wilson MD at 17:07 EDT , Service support , CC: Dariel Ortega MD; Joan Dempsey NP Restaurant Service Manager: Signed CHEST WITH CONTRAST Observed: 06/29/2018 Status: F Source: [place] 2:00 PM [facility] Imaging Services [address] [place] [address] Chest WITH Contrast MR#: [id number] Acct: [id number] Name: OLIVE TEJADA Rep #: [id number] : 1960 F 57 From: Nabil Wilson MD PCP: Dariel Ortega MD, Chi Status: REG CLI Study: Chest WITH Contrast Date of Exam: 06/29/18 Exam# [id number] Ordering Dr: Joan Dempsey ROLLING ATTENDANT-C STUDY: CT CHEST/THORAX WITH CONTRAST REASON FOR EXAM: Female, 57 years old. Lung cancer, follow-up postchemotherapy. RADIATION DOSAGE (If Supplied By Facility): CTDIvol = ( 6.64 ) mGy, DLP = ( 498.25 ) mGycm TECHNIQUE: Transaxial imaging was performed following intravenous administration of 100CC ml of Isovue 300 contrast material. Multiplanar coronal and sagittal images were reformatted. Individualized dose optimization techniques were used for this CT. COMPARISON: None. FINDINGS: There is hyperexpansion and stable diffuse emphysematous changes of the lung. Chronic subpleural blebs again noted in the superior sulci. Stable 7 mm nodular density in the anterolateral left lower lobe at the mid chest abutting the oblique pleural fissure (series 6 image 74 series 601 image 147). Previously noted subsegmental atelectasis in the anteromedial right middle lobe is improved, while subsegmental atelectasis in the more posterior right middle lobe is unchanged. There is no demonstrated pleural abnormality. Normal heart and pericardium. Lobulated soft tissue mass in the high anterior mediastinum now measures 6.75 x 5.85 x 4.25 cm. A precarinal lymph node has decreased from 1.75 x 1.6 x 0.7 cm to 1.4 x 1.5 x 0.6 cm. Other nonspecific to borderline enlarged low mediastinal and hilar lymph nodes are stable to decreased in size. Normal enhanced pulmonary arteries. There is stable atherosclerotic calcification of the aortic arch. There is demineralization of the thoracic spine. Stable old healed fracture deformity of the posterior right 10th rib There is no demonstrated abnormality of the visualized upper abdomen. CT/Chest WITH Contrast IMPRESSION: 1. Decreased size of high anterior mediastinal mass as well as borderline to mildly enlarged precarinal lymph node. No new masses or adenopathy. 2. Stable emphysematous changes and hyperexpansion of the lungs, as well as stable subsegmental atelectasis in the right middle lobe. Stable 7 mm nodule in the anterolateral left upper lobe. No new lung mass or infiltrate. Electronically Signed: Ramin Wilson MD at 18:12 EDT , Service support , CC: Dariel Ortega MD; Joan Dempsey NP Restaurant Service Manager: Signed CBC W/DIFF, AUTOMATED Collected: 06/29/2018 Status: F Source: [place] 1:47 PM [facility] Order Comment: Reason for Laboratory Test CHEMO TYPE CODE TESTS RESULT OUT OF RANGE REFERENCE UNITS LAB L100.1000 4.4-11.0 K/mm3 Low WBC 3.1 LAB L100.1200 4.2-5.4 M/mm3 Low RBC 2.87 LAB L100.1300 12.0-15.0 g/dl Low HGB 9.4 LAB L100.1400 37-47 % Low HCT 30.2 LAB L100.1500 81-99 fL High MCV 105.2 LAB L100.1600 27.0-32.0 pg High MCH 32.8 LAB L100.1700 32-36 g/gl Low MCHC 31.1 LAB L100.1810 11.6-14.6 % High RDW CV 15.2 LAB L100.1820 35.1-43.9 fl High RDW SD 58.4 LAB L100.1900 150-450 K/mm3 Normal PLT 275 LAB L100.2000 6.2-12.0 fl Normal MPV 8.5 LAB L100.2100 47-70 % Low NEUT% 44.0 LAB L100.2200 19-41 % Normal LY% 27.2 LAB L100.2300 0-10 % High MONO% 21.5 LAB L100.2400 0-5 % High EO% 6.4 LAB L100.2500 0-1 % Normal BASO% 0.6 LAB L100.2550 0.0-0.9 % Normal IM GRAN % 0.300 Result Comment: IG% - Immature Granulocytes (promyelocytes, myelocytes and metamyelocytes) > 1% indicates that a LEFT SHIFT is Present. LAB L100.2620 2.0-7.7 X10 3/uL Low Absolute Neut 1.4 LAB L100.2720 0.83-4.51 X10 3/ul Normal Absolute Lymph 0.85 Performed By: #### L100.0100 #### [facility] [address] [facility] [place], [address] ONCOLOGY VISIT REPORT Observed: 06/23/2018 Status: F Source: [place] 9:18 AM [facility] [address] [place] [address]. [place] [address] OFFICE VISIT Date of Service: 06/23/18 0842 MR#: [id number] Acct: [id number] Name: OLIVE TEJADA Rep #: [id number] : 1960 From: Joan ESCALONA Age/Sex: 57/F Location: OMD Status: Signed Subjective - Date of Service Date of Service:: 06/23/18 - Chief Complaint F/u for SCLC and chemotherapy. - History of Present Illness Ms. Olive Tejada is a pleasant 57 y.o.woman with a past medical history significant for depression and COPD, oxygen dependent. She initially presented with SOB, dizziness and weight loss. CTA on 02/06/2018 showed suspicious and enhancing anterior mediastinal mass 5.3 cm with extension into the left upper lobe. Thus, she had a CT-guided biopsy on February 22, 2018. Pathology confirmed small cell lung carcinoma. PET/CT 03/07/2018, demonstrated anterior mediastinal mass 6 cm, involving RACHID and AP node, single nodule in left lobe of liver 1 cm, all with hypermetabolic activities. Right lower extremity edema noted 03/11/18, negative for DVT. She started chemotherapy with Cisplatin and Irinotecan on 03/16/2018. She had nausea and abdominal cramps after C1D1, did not take her antiemetics because she forgot about them. CT on 05/04/2018 showed resolution of liver lesion, stable thoracic lesion. - Interval History The patient is presenting to clinic accompanied by son for an evaluation anticipating she will receive cycle 4 day 15 Camptosar. Reports mild, intermittent nausea x a couple days after chemotherapy, well controlled with prn antiemetics and has not resulted in any episodes of emesis. No diarrhea, in fact more so c/o constipation with the exception of loose BM immediately subsequent to camptosar (controlled with IV atropine). LBM 06/21/18. Denies fever/chills, CP, palpitations, abd pain, overt episodes of bleeding/abnormal bruising or worsening of dyspnea from baseline. Appetite good/fair, PO fluid intake likely adequate. Notes occasional headaches, describes as generalized, not new. Typically has difficulty with sinus pressure r/t seasonal allergies. Further denies vision changes, hearing changes, imbalance, and numbness/tingling. - Past Medical/Social History Past Medical History Past Medical History: COPD Cancer: Lung cancer Social History Social History: No changes Smoking Status Former smoker Review of Systems Constitutional:: Reports: Weakness, Fatigue. Denies: Fever, Sweats, Weight loss, Appetite change, Chills Cardiovascular:: Reports: Shortness of breath. Denies: Chest pain, Palpitations, Orthopnea, PND Respiratory: Reports: Cough - chronic, Shortness of Breath, Wheezing - at times. Denies: Hemoptysis Gastrointestinal:: Reports: Nausea, Constipation. Denies: Abdominal pain, Vomiting, Diarrhea, Hematochezia Genitourinary: Denies: Dysuria, Hematuria, Urinary frequency, Flank pain Musculoskeletal:: Denies: Back pain, Myalgia, Arthralgia Skin: Denies: Rash, Skin Changes, Wounds Neurological:: Reports: Headache. Denies: Dizziness, Numbness, Tingling, Frequent falls - see HPI, Visual changes, Tinnitus, Hearing loss Psychiatric: Denies: Anxiety, Depression, Homicidal Ideations, Suicidal Ideations Vital Signs Height 5 ft 8 in Weight: 94 lb 12.8 oz Weight in Pounds 94.8 lbs Pulse Ox 91 - Physical Exam General: Alert, Oriented x3, No apparent distress, - - cachectic HEENT: Atraumatic, Normocephalic Oropharynx:: Negative for: Dry mucosa, Ulcerated lesions Neck:: Supple, Trachea midline. Negative for: JVD, bilateral Cardiac:: Regular rate, Regular rhythm, Normal S1, Normal S2. Negative for: Murmur Lungs: Diminished, Increased respiratory effort - intermittently without O2, Excusion symmetrical. Negative for: Rhonchi, Wheezes Abdomen:: Bowel sounds x 4, Soft, Non-tender, Non-distended. Negative for: Hepatosplenomegaly Extremities:: Edema - BLE, +1 pitting with R=L. Negative for: Cyanosis Neurological: Neuro grossly intact Skin:: - - port right upper chest accesssed with gripper covered with DSD. Negative for: Lesions, Rash, Petechiae, Ecchymosis Psychiatric:: Appropriate affect, Euthymic Lymphatics:: Negative for: Cervical lymphadenopathy, Supraclavicular lymphadenopathy, Axillary lymphadenopathy Laboratory Data: Laboratory Tests Assessment and Plan 1. Small cell lung carcinoma-Extensive disease involving left lung, mediastinum and liver- on Cisplatin and Irinotecan. Determined to have mixed response subsequent to cycle 2. Tolerating fair with c/o fatigue, generalized weakness and intermittent nausea well controlled with prn antiemetics. CBC reviewed and within acceptable parameters for treatment. She is otherwise not endorsing any s/sx of toxicity contraindicating chemotherapy today. Thus, will proceed with cycle 4 day 15 irinotecan. Orders provided for restaging studies by way of CT C/A/P to be completed next week. Given degree of fatigue, will obtain CBC next week to assess for any transfusion needs. Patient was in agreement with the aforementioned plan. Joan Dempsey, ANIVAL, POST CLOSER-C, AOCNP Medications: Prescriptions This Visit Medication Instructions Recorded Dexamethasone 4 mg PO DAILY PRN PRN 12 Days #12 03/15/18 Medications Added to Medication List This Visit Primary Care Provider: Dariel Chi Jordan Referring Provider: Betty Banerjee, ROLLING ATTENDANT - Problem List (1) Small cell lung cancer Status: Chronic (2) Chemotherapy management, encounter for Status: Acute 06/23/18 0918 <Electronically signed by Joan LACKEYC> Date Joan Dempsey NP-C Cosigner Signature: Date (if applicable) CC: CBC W/DIFF, AUTOMATED Collected: 06/23/2018 Status: F Source: [place] 7:54 AM [facility] [place] [facility] [place] TYPE CODE TESTS RESULT OUT OF RANGE REFERENCE UNITS LAB L100.1000 4.4-11.0 K/mm3 Low WBC 4.3 LAB L100.1200 4.2-5.4 M/mm3 Low RBC 2.84 LAB L100.1300 12.0-15.0 g/dl Low HGB 9.2 LAB L100.1400 37-47 % Low HCT 29.3 LAB L100.1500 81-99 fL High MCV 103.2 LAB L100.1600 27.0-32.0 pg High MCH 32.4 LAB L100.1700 32-36 g/gl Low MCHC 31.4 LAB L100.1810 11.6-14.6 % High RDW CV 14.9 LAB L100.1820 35.1-43.9 fl High RDW SD 56.3 LAB L100.1900 150-450 K/mm3 Normal PLT 222 LAB L100.2000 6.2-12.0 fl Normal MPV 8.7 LAB L100.2100 47-70 % Normal NEUT% 61.7 LAB L100.2200 19-41 % Normal LY% 21.9 LAB L100.2300 0-10 % High MONO% 11.1 LAB L100.2400 0-5 % Normal EO% 4.8 LAB L100.2500 0-1 % Normal BASO% 0.5 LAB L100.2550 0.0-0.9 % Normal IM GRAN % 0.000 Result Comment: IG% - Immature Granulocytes (promyelocytes, myelocytes and metamyelocytes) > 1% indicates that a LEFT SHIFT is Present. LAB L100.2620 2.0-7.7 X10 3/uL Normal Absolute Neut 2.7 LAB L100.2720 0.83-4.51 X10 3/ul Normal Absolute Lymph 0.95 Performed By: #### L100.0100 #### [facility] [place], [address] COMPREHENSIVE METABOLIC Collected: 06/23/2018 Status: F [facility] [place] Order Comment: Reason for Laboratory Test Chemotherapy TYPE CODE TESTS RESULT OUT OF RANGE REFERENCE UNITS LAB L501.0100 74-106 mg/dL Normal GLU 97 Result Comment: Please note revised GLUCOSE reference range effective 2017. LAB L501.1000 7-18 mg/dL Normal BUN 8 LAB L501.1100 0.55-1.02 mg/dL Low CREAT,SERUM 0.38 Result Comment: The validity of the calculated GFR AND GFRAA in patients over 70 years has not been determined. Clinical correlation is essential. LAB L501.1110 >60 mL/min Normal EST GFR 185 Result Comment: Non- GFR Calc LAB L501.1115 >60 mL/min Normal EST GFR - AA 224 Result Comment: GFR Calc LAB L501.1255 ml/min Normal Estimated CRCL 112.23 LAB L501.1300 10-20 RATIO High BUN/CRE 20.9 LAB L501.1500 6.4-8. g/dL 2 T PROT Normal 6.8 LAB L501.1800 3.2-5. g/dL 0 ALB Normal 3.4 LAB L501.1950 2.2-4. g/dL 2 GLOB Normal 3.4 LAB L501.2000 0.9-2. RATIO 4 A/G Normal 1.0 LAB L501.2200 8.5-10 mg/dL Low .1 CA 8.4 LAB L501.4100 15-37 U/L AST Normal 27 LAB L501.4305 45-117 U/L ALK P Normal 85 LAB L501.4405 13-56 U/L ALT Normal 27 LAB L501.4600 0.20-1 mg/dL Low .00 T BILI 0.10 LAB L501.5300 136-14 mmol/L 5 NA Normal 138 LAB L501.5600 3.5-5. mmol/L 1 K Normal 3.7 LAB L501.5900 98-107 mmol/L CL Normal 100 LAB L501.6100 21.0-3 mmol/L High 2.0 CO2 34.0 LAB L501.6200 5-15 Low GAP 4 Performed By: #### L500.4050, L501.2300, L501.5200 #### [facility] [address] [place], [place], [address] PHOSPHORUS Collected: 06/23/2018 Status: F Source: [place] 7:53 AM [facility] [place] [facility] [place] [place] Order Comment: Reason for Laboratory Test Chemotherapy TYPE CODE TESTS RESULT OUT OF RANGE REFERENCE UNITS LAB L501.2300 2.5-4.9 mg/dL Normal PHOS 3.7 Performed By: #### L500.4050, L501.2300, L501.5200 #### [facility] [address] [facility]. [place], [place], [address] MAGNESIUM Collected: 06/23/2018 Status: F Source: [place] 7:53 AM [facility] [place] [place] Order Comment: Reason for Laboratory Test Chemotherapy TYPE CODE TESTS RESULT OUT OF RANGE REFERENCE UNITS LAB L501.5200 1.6-2.6 mg/dL Normal MG 1.6 Performed By: #### L500.4050, L501.2300, L501.5200 #### [facility] [address] [place], [address] CBC W/DIFF, AUTOMATED Collected: 06/16/2018 Status: F Source: [place] 8:12 AM [facility] [facility] [place] [place] TYPE CODE TESTS RESULT OUT OF RANGE REFERENCE UNITS LAB L100.1000 4.4-11.0 K/mm3 Normal WBC 6.3 LAB L100.1200 4.2-5.4 M/mm3 Low RBC 3.03 LAB L100.1300 12.0-15.0 g/dl Low HGB 9.7 LAB L100.1400 37-47 % Low HCT 31.4 LAB L100.1500 81-99 fL High MCV 103.6 LAB L100.1600 27.0-32.0 pg Normal MCH 32.0 LAB L100.1700 32-36 g/gl Low MCHC 30.9 LAB L100.1810 11.6-14.6 % High RDW CV 15.0 LAB L100.1820 35.1-43.9 fl High RDW SD 57.1 LAB L100.1900 150-450 K/mm3 Normal PLT 213 LAB L100.2000 6.2-12.0 fl Normal MPV 9.3 LAB L100.2100 47-70 % Normal NEUT% 61.4 LAB L100.2200 19-41 % Normal LY% 25.6 LAB L100.2300 0-10 % High MONO% 11.4 LAB L100.2400 0-5 % Normal EO% 1.1 LAB L100.2500 0-1 % Normal BASO% 0.3 LAB L100.2550 0.0-0.9 % Normal IM GRAN % 0.200 Result Comment: IG% - Immature Granulocytes (promyelocytes, myelocytes and metamyelocytes) > 1% indicates that a LEFT SHIFT is Present. LAB L100.2620 2.0-7.7 X10 3/uL Normal Absolute Neut 3.9 LAB L100.2720 0.83-4.51 X10 3/ul Normal Absolute Lymph 1.62 Performed By: #### L100.0100 #### [facility] [place], [address] COMPREHENSIVE METABOLIC Collected: 06/16/2018 Status: F Source: [facility] 8:12 AM [facility] [place] [place] Order Comment: Reason for Laboratory Test Chemotherapy TYPE CODE TESTS RESULT OUT OF RANGE REFERENCE UNITS LAB L501.0100 74-106 mg/dL Normal GLU 91 Result Comment: Please note revised GLUCOSE reference range effective 2017. LAB L501.1000 7-18 mg/dL High BUN 20 LAB L501.1100 0.55-1.02 mg/dL Low CREAT,SERUM 0.43 Result Comment: The validity of the calculated GFR AND GFRAA in patients over 70 years has not been determined. Clinical correlation is essential. LAB L501.1110 >60 mL/min Normal EST GFR 162 Result Comment: Non- GFR Calc LAB L501.1115 >60 mL/min Normal EST GFR - AA 196 Result Comment: GFR Calc LAB L501.1255 ml/min Normal Estimated CRCL 100.35 LAB L501.1300 10-20 RATIO High BUN/CRE 46.5 LAB L501.1500 6.4-8. g/dL 2 T PROT Normal 6.8 LAB L501.1800 3.2-5. g/dL 0 ALB Normal 3.4 LAB L501.1950 2.2-4. g/dL 2 GLOB Normal 3.4 LAB L501.2000 0.9-2. RATIO 4 A/G Normal 1.0 LAB L501.2200 8.5-10 mg/dL .1 CA Normal 8.9 LAB L501.4100 15-37 U/L AST Normal 32 LAB L501.4305 45-117 U/L ALK P Normal 80 LAB L501.4405 13-56 U/L ALT Normal 27 LAB L501.4600 0.20-1 mg/dL Low .00 T BILI < 0.10 LAB L501.5300 136-14 mmol/L 5 NA Normal 139 LAB L501.5600 3.5-5. mmol/L 1 K Normal 3.7 LAB L501.5900 98-107 mmol/L Low CL 96 LAB L501.6100 21.0-3 mmol/L High 2.0 CO2 34.0 LAB L501.6200 5-15 GAP Normal 9 Performed By: #### L500.4050, L501.2300, L501.5200 #### [facility] [address] [facility] [place], [place], [id number] PHOSPHORUS Collected: 06/16/2018 Status: F Source: [place] 8:12 AM [facility] [place] Order Comment: Reason for Laboratory Test Chemotherapy TYPE CODE TESTS RESULT OUT OF RANGE REFERENCE UNITS LAB L501.2300 2.5-4.9 mg/dL Normal PHOS 4.2 Performed By: #### L500.4050, L501.2300, L501.5200 #### [facility] [address] [place], [place], [address] MAGNESIUM Collected: 06/16/2018 Status: F Source: [place] 8:12 AM [facility] [place] Order Comment: Reason for Laboratory Test Chemotherapy TYPE CODE TESTS RESULT OUT OF RANGE REFERENCE UNITS LAB L501.5200 1.6-2.6 mg/dL Low MG 1.3 Performed By: #### L500.4050, L501.2300, L501.5200 #### [facility] [address] [place], [address] ONCOLOGY VISIT REPORT Observed: 06/09/2018 Status: F Source: [place] 9:39 AM [facility] [facility] [place] [place] [facility] [address] [place] [address] OFFICE VISIT Date of Service: 06/09/18 0853 MR#: [id number] Acct: [id number] Name: OLIVE TEJADA Rep #: [id number] : 1960 From: Nathan Garduno MD Age/Sex: 57/F Location: ONC Status: Signed Subjective - Date of Service Date of Service:: 06/09/18 - Chief Complaint F/u for SCLC and chemotherapy. - History of Present Illness Ms. Olive Tejada is a pleasant 57 y.o.woman with a past medical history significant for depression and COPD, oxygen dependent. She initially presented with SOB, dizziness and weight loss. CTA on 02/06/2018 showed suspicious and enhancing anterior mediastinal mass 5.3 cm with extension into the left upper lobe. Thus, she had a CT-guided biopsy on February 22, 2018. Pathology confirmed small cell lung carcinoma. PET/CT 03/07/2018, demonstrated anterior mediastinal mass 6 cm, involving RACHID and AP node, single nodule in left lobe of liver 1 cm, all with hypermetabolic activities. Right lower extremity edema noted 03/11/18, negative for DVT. She started chemotherapy with Cisplatin and Irinotecan on 03/16/2018. She had nausea and abdominal cramps after C1D1, did not take her antiemetics because she forgot about them. CT on 05/04/2018 showed resolution of liver lesion, stable thoracic lesion. Comes in for C4D1 Cisplatin + Irinotecan. She feels tired. - Past Medical/Social History Past Medical History Past Medical History: COPD Cancer: Lung cancer Social History Social History: No changes Smoking Status Former smoker Review of Systems Constitutional:: Denies: Fever, Sweats, Weight loss, Appetite change, Chills Cardiovascular:: Denies: Chest pain, Palpitations, Dyspnea on exertion, Orthopnea, PND, Shortness of breath Respiratory: Denies: Cough, Hemoptysis, Shortness of Breath, Wheezing Gastrointestinal:: Denies: Abdominal pain, Nausea, Vomiting, Diarrhea, Constipation, Hematochezia Genitourinary: Denies: Dysuria, Hematuria, 15, Flank pain Musculoskeletal:: Denies: Back pain, Myalgia, Arthralgia Skin: Denies: Rash, Skin Changes, Wounds Neurological:: Denies: Headache, Dizziness, Visual changes, Tinnitus, Hearing loss Psychiatric: Denies: Anxiety, Depression, Homicidal Ideations, Suicidal Ideations Vital Signs Height 5 ft 8 in Weight: 43.001 kg Weight in Pounds 94.8 lbs Pulse Ox 93 - Physical Exam General: Alert, Oriented x3, No apparent distress, - - [place] HEENT: Atraumatic, PERRLA, EOMI, Normocephalic Oropharynx:: Dry mucosa Neck:: Supple, Trachea midline. Negative for: JVD, bilateral Cardiac:: Regular rate, Regular rhythm, Normal S1, Normal S2. Negative for: Murmur Lungs: Clear to auscultation, Excusion symmetrical. Negative for: Rhonchi, Wheezes Abdomen:: Bowel sounds x 4, Soft, Non-tender, Non-distended. Negative for: Hepatosplenomegaly Extremities:: Negative for: Cyanosis, Edema Neurological: Neuro grossly intact Skin:: Negative for: Lesions, Rash, Petechiae, Ecchymosis Psychiatric:: Appropriate affect, Euthymic Lymphatics:: Negative for: Cervical lymphadenopathy, Supraclavicular lymphadenopathy, Axillary lymphadenopathy Laboratory Data: Laboratory Tests Assessment and Plan Small cell lung carcinoma-Extensive disease involving left lung/anterior mediastinum and liver on Cisplatin and Irinotecan. Mixed response. 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 Counts are OK. Plan is to proceed with C4D1 Cisplatin and Irinotecan today, C4D8 Irinotecan next week. RTC 2 weeks with CBC/CMP/Mag for C4D15 Cisplatin AND Irinotecan. Medications: Prescriptions This Visit Medication Instructions Recorded Dexamethasone 4 mg PO DAILY PRN PRN 12 Days #12 03/15/18 Medications Added to Medication List This Visit 0.9% Normal Saline Med 06/09/18 00:00 Active 250 ml IV UD PRN 0.9% Normal Saline 1,000 ml Med 06/09/18 00:00 Active IV 500 mls/hr 0.9% Saline Lock Med 06/09/18 00:00 Active Primary Care Provider: Dariel Ortega Referring Provider: Betty Banerjee NP - Problem List (1) Small cell lung cancer Status: Chronic (2) COPD (chronic obstructive pulmonary disease) Status: Chronic Qualifiers: COPD type: unspecified COPD Qualified Code(s): J44.9 - Chronic obstructive pulmonary disease, unspecified (3) Chemotherapy management, encounter for Status: Acute Code Visit Office Visits / Consults: [id number] OV L5 Est 06/09/18938 <Electronically signed by Nathan Garduno MD> Date Nathan Garduno MD Cosigner Signature: Date (if applicable) CC: CBC W/DIFF, AUTOMATED Collected: 06/09/2018 Status: F Source: [place] 8:01 AM [facility] [facility] [place] TYPE CODE TESTS RESULT OUT OF RANGE REFERENCE UNITS LAB L100.1000 4.4-11.0 K/mm3 Normal WBC 5.9 LAB L100.1200 4.2-5.4 M/mm3 Low RBC 2.91 LAB L100.1300 12.0-15.0 g/dl Low HGB 9.5 LAB L100.1400 37-47 % Low HCT 30.7 LAB L100.1500 81-99 fL High MCV 105.5 LAB L100.1600 27.0-32.0 pg High MCH 32.6 LAB L100.1700 32-36 g/gl Low MCHC 30.9 LAB L100.1810 11.6-14.6 % High RDW CV 16.2 LAB L100.1820 35.1-43.9 fl High RDW SD 62.7 LAB L100.1900 150-450 K/mm3 Normal PLT 233 LAB L100.2000 6.2-12.0 fl Normal MPV 8.7 LAB L100.2100 47-70 % Normal NEUT% 58.0 LAB L100.2200 19-41 % Normal LY% 20.6 LAB L100.2300 0-10 % High MONO% 19.1 LAB L100.2400 0-5 % Normal EO% 2.0 LAB L100.2500 0-1 % Normal BASO% 0.3 LAB L100.2550 0.0-0.9 % Normal IM GRAN % 0.000 Result Comment: IG% - Immature Granulocytes (promyelocytes, myelocytes and metamyelocytes) > 1% indicates that a LEFT SHIFT is Present. LAB L100.2620 2.0-7.7 X10 3/uL Normal Absolute Neut 3.4 LAB L100.2720 0.83-4.51 X10 3/ul Normal Absolute Lymph 1.21 Performed By: #### L100.0100 #### [facility] [address] [place], [address] COMPREHENSIVE METABOLIC Collected: 06/09/2018 Status: F Source: [place] 8:01 AM [facility] Order Comment: Reason for Laboratory Test Chemotherapy TYPE CODE TESTS RESULT OUT OF RANGE REFERENCE UNITS LAB L501.0100 74-106 mg/dL Normal GLU 94 Result Comment: Please note revised GLUCOSE reference range effective 2017. LAB L501.1000 7-18 mg/dL Normal BUN 14 LAB L501.1100 0.55-1.02 mg/dL Low CREAT,SERUM 0.44 Result Comment: The validity of the calculated GFR AND GFRAA in patients over 70 years has not been determined. Clinical correlation is essential. LAB L501.1110 >60 mL/min Normal EST GFR 158 Result Comment: Non- GFR Calc LAB L501.1115 >60 mL/min Normal EST GFR - AA 192 Result Comment: GFR Calc LAB L501.1255 ml/min Normal Estimated CRCL 98.07 LAB L501.1300 10-20 RATIO High BUN/CRE 32.0 LAB L501.1500 6.4-8. g/dL Normal 2 T PROT 6.8 LAB L501.1800 3.2-5. g/dL Low 0 ALB 3.1 LAB L501.1950 2.2-4. g/dL Normal 2 GLOB 3.7 LAB L501.2000 0.9-2. RATIO Low 4 A/G 0.8 LAB L501.2200 8.5-10 mg/dL Normal .1 CA 8.6 LAB L501.4100 15-37 U/L Normal AST 24 LAB L501.4305 45-117 U/L Normal ALK P 82 LAB L501.4405 13-56 U/L Normal ALT 25 LAB L501.4600 0.20-1 mg/dL Normal .00 T BILI 0.20 LAB L501.5300 136-14 mmol/L Normal 5 NA 141 LAB L501.5600 3.5-5. mmol/L Normal 1 K 3.8 LAB L501.5900 98-107 mmol/L Normal CL 102 LAB L501.6100 21.0-3 mmol/L High 2.0 CO2 38.0 LAB L501.6200 5-15 Low GAP 1 Performed By: #### L500.4050, L501.2300, L501.5200 #### [facility] [address] [facility] [place], [place], [address] PHOSPHORUS Collected: 06/09/2018 Status: F Source: [place] 8:01 [facility] REPOSITORY Order Comment: Reason for Laboratory Test Chemotherapy TYPE CODE TESTS RESULT OUT OF RANGE REFERENCE UNITS LAB L501.2300 2.5-4.9 mg/dL Normal PHOS 3.8 Performed By: #### L500.4050, L501.2300, L501.5200 #### [facility] [address] [place], [place], [address] MAGNESIUM Collected: 06/09/2018 Status: F Source: [place] 8:01 [facility] REPOSITORY Order Comment: Reason for Laboratory Test Chemotherapy TYPE CODE TESTS RESULT OUT OF RANGE REFERENCE UNITS LAB L501.5200 1.6-2.6 mg/dL Normal MG 1.8 Performed By: #### L500.4050, L501.2300, L501.5200 #### [facility] [address] [place], [place], [id number] ONCOLOGY VISIT REPORT Observed: 05/26/2018 Status: F Source: [place] 3:41 PM [facility] [address] [place] [address] OFFICE VISIT Date of Service: 05/26/18 1051 MR#: [id number] Acct: [id number] Name: OLIVE TEJADA Rep #: [id number] : 1960 From: Nathan Garduno MD Age/Sex: 57/F Location: ONC Status: Signed Subjective - Date of Service Date of Service:: 05/26/18 - Chief Complaint F/u for SCLC and chemotherapy. - History of Present Illness Ms. Olive Tejada is a pleasant 57 y.o.woman with a past medical history significant for depression and COPD, oxygen dependent. She initially presented with SOB, dizziness and weight loss. CTA on 02/06/2018 showed suspicious and enhancing anterior mediastinal mass 5.3 cm with extension into the left upper lobe. Thus, she had a CT-guided biopsy on February 22, 2018. Pathology confirmed small cell lung carcinoma. PET/CT 03/07/2018, demonstrated anterior mediastinal mass 6 cm, involving RACHID and AP node, single nodule in left lobe of liver 1 cm, all with hypermetabolic activities. Right lower extremity edema noted 03/11/18, negative for DVT. She started chemotherapy with Cisplatin and Irinotecan on 03/16/2018. She had nausea and abdominal cramps after D1, did not take her antiemetics because she forgot about them. CT on 05/04/2018 showed resolution of liver lesion, stable thoracic lesion. Comes in for C3D15 Irinotecan. She feels tired. - Past Medical/Social History Past Medical History Past Medical History: COPD Cancer: Lung cancer Social History Smoking Status Former smoker Review of Systems Constitutional:: Reports: Fatigue. Denies: Fever, Sweats Cardiovascular:: Denies: Chest pain Respiratory: Denies: Cough, Hemoptysis, Shortness of Breath, Wheezing Gastrointestinal:: Reports: Constipation - moved her bowels yesterday.. Denies: Abdominal pain, Nausea, Vomiting, Diarrhea, Hematochezia Genitourinary: Denies: Dysuria, Hematuria, 15, Flank pain Musculoskeletal:: Denies: Back pain, Myalgia, Arthralgia Skin: Denies: Rash, Skin Changes, Wounds Neurological:: Denies: Headache, Dizziness, Visual changes, Tinnitus, Hearing loss Psychiatric: Denies: Anxiety, Depression, Homicidal Ideations, Suicidal Ideations Vital Signs Height 5 ft 8 in Weight: 40.642 kg Weight in Pounds 89.6 lbs Pulse Ox 82 - Physical Exam General: Alert, Oriented x3, No apparent distress, - - [place] HEENT: Atraumatic, PERRLA, EOMI, Normocephalic Oropharynx:: Dry mucosa Neck:: Supple, Trachea midline. Negative for: JVD, bilateral Cardiac:: Regular rate, Regular rhythm, Normal S1, Normal S2. Negative for: Murmur Lungs: Clear to auscultation Abdomen:: Bowel sounds x 4, Soft, Non-tender, Non-distended. Negative for: Hepatosplenomegaly Laboratory Data: Laboratory Tests WBC 5.3 (4.4-11.0) K/mm3 RBC 2.93 L (4.2-5.4) M/mm3 Hgb 9.3 L (12.0-15.0) g/dl Assessment and Plan Small cell lung carcinoma-Extensive disease involving left lung/anterior mediastinum and liver for Cisplatin and Irinotecan. 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 Counts are OK. CT shows resolution of liver lesion with stable mediastinal lesion. Constipation. Plan is to proceed with C3D15 Irinotecan today. Use Senna for constipation. RTC 2 weeks with CBC/CMP/Mag for C4D1 Cisplatin AND Irinotecan. Medications: Prescriptions This Visit Medication Instructions Recorded Dexamethasone 4 mg PO DAILY PRN PRN 12 Days #12 03/15/18 Primary Care Provider: Dariel Ortega Referring Provider: Betty Banerjee NP - Problem List (1) Small cell lung cancer Status: Chronic (2) COPD (chronic obstructive pulmonary disease) Status: Chronic Qualifiers: COPD type: unspecified COPD Qualified Code(s): J44.9 - Chronic obstructive pulmonary disease, unspecified (3) Chemotherapy management, encounter for Status: Acute Code Visit Office Visits / Consults: [id number] OV L5 Est 05/26/18 1541 <Electronically signed by Nathan Garduno MD> Date Nathan Prah MD Cosigner Signature: Date (if applicable) CC: CBC W/DIFF, AUTOMATED Collected: 05/26/2018 Status: F Source: [place] 10:21 AM [facility] TYPE CODE TESTS RESULT OUT OF RANGE REFERENCE UNITS LAB L100.1000 4.4-11.0 K/mm3 Normal WBC 5.3 LAB L100.1200 4.2-5.4 M/mm3 Low RBC 2.93 LAB L100.1300 12.0-15.0 g/dl Low HGB 9.3 LAB L100.1400 37-47 % Low HCT 30.2 LAB L100.1500 81-99 fL High MCV 103.1 LAB L100.1600 27.0-32.0 pg Normal MCH 31.7 LAB L100.1700 32-36 g/gl Low MCHC 30.8 LAB L100.1810 11.6-14.6 % High RDW CV 14.8 LAB L100.1820 35.1-43.9 fl High RDW SD 55.2 LAB L100.1900 150-450 K/mm3 Normal PLT 257 LAB L100.2000 6.2-12.0 fl Normal MPV 9.0 LAB L100.2100 47-70 % Normal NEUT% 64.7 LAB L100.2200 19-41 % Low LY% 18.6 LAB L100.2300 0-10 % High MONO% 11.7 LAB L100.2400 0-5 % Normal EO% 4.4 LAB L100.2500 0-1 % Normal BASO% 0.4 LAB L100.2550 0.0-0.9 % Normal IM GRAN % 0.200 Result Comment: IG% - Immature Granulocytes (promyelocytes, myelocytes and metamyelocytes) > 1% indicates that a LEFT SHIFT is Present. LAB L100.2620 2.0-7.7 X10 3/uL Normal Absolute Neut 3.4 LAB L100.2720 0.83-4.51 X10 3/ul Normal Absolute Lymph 0.98 Performed By: #### L100.0100 #### [facility] [address] [place], [address] COMPREHENSIVE METABOLIC Collected: 05/26/2018 Status: F Source: [place] 10:21 AM [facility] Order Comment: Reason for Laboratory Test Chemotherapy TYPE CODE TESTS RESULT OUT OF RANGE REFERENCE UNITS LAB L501.0100 74-106 mg/dL Normal GLU 99 Result Comment: Please note revised GLUCOSE reference range effective 2017. LAB L501.1000 7-18 mg/dL Normal BUN 12 LAB L501.1100 0.55-1.02 mg/dL Low CREAT,SERUM 0.43 Result Comment: The validity of the calculated GFR AND GFRAA in patients over 70 years has not been determined. Clinical correlation is essential. LAB L501.1110 >60 mL/min Normal EST GFR 161 Result Comment: Non- GFR Calc LAB L501.1115 >60 mL/min Normal EST GFR - AA 195 Result Comment: GFR Calc LAB L501.1255 ml/min Normal Estimated CRCL 94.84 LAB L501.1300 10-20 RATIO High BUN/CRE 27.8 LAB L501.1500 6.4-8. g/dL Normal 2 T PROT 7.0 LAB L501.1800 3.2-5. g/dL Normal 0 ALB 3.4 LAB L501.1950 2.2-4. g/dL Normal 2 GLOB 3.6 LAB L501.2000 0.9-2. RATIO Normal 4 A/G 0.9 LAB L501.2200 8.5-10 mg/dL Low .1 CA 8.4 LAB L501.4100 15-37 U/L Normal AST 29 LAB L501.4305 45-117 U/L Normal ALK P 96 LAB L501.4405 13-56 U/L Normal ALT 27 LAB L501.4600 0.20-1 mg/dL Normal .00 T BILI 0.20 LAB L501.5300 136-14 mmol/L Normal 5 NA 140 LAB L501.5600 3.5-5. mmol/L Normal 1 K 3.5 LAB L501.5900 98-107 mmol/L Normal CL 99 LAB L501.6100 21.0-3 mmol/L High 2.0 CO2 36.0 LAB L501.6200 5-15 Normal GAP 5 Performed By: #### L500.4050, L501.2300, L501.5200 #### [facility] [address] [place], [address] PHOSPHORUS Collected: 05/26/2018 Status: F Source: [place] 10:21 AM [facility] Order Comment: Reason for Laboratory Test Chemotherapy TYPE CODE TESTS RESULT OUT OF RANGE REFERENCE UNITS LAB L501.2300 2.5-4.9 mg/dL Normal PHOS 3.9 Performed By: #### L500.4050, L501.2300, L501.5200 #### [facility] [address] [place], [address] MAGNESIUM Collected: 05/26/2018 Status: F Source: [place] 10:21 AM [facility] Order Comment: Reason for Laboratory Test Chemotherapy TYPE CODE TESTS RESULT OUT OF RANGE REFERENCE UNITS LAB L501.5200 1.6-2.6 mg/dL Normal MG 1.6 Performed By: #### L500.4050, L501.2300, L501.5200 #### [facility] [address] [place], [address] CBC W/DIFF, AUTOMATED Collected: 05/19/2018 Status: F Source: [place] 10:00 AM [facility] TYPE CODE TESTS RESULT OUT OF RANGE REFERENCE UNITS LAB L100.1000 4.4-11.0 K/mm3 Normal WBC 5.8 LAB L100.1200 4.2-5.4 M/mm3 Low RBC 3.13 LAB L100.1300 12.0-15.0 g/dl Low HGB 10.0 LAB L100.1400 37-47 % Low HCT 31.8 LAB L100.1500 81-99 fL High MCV 101.6 LAB L100.1600 27.0-32.0 pg Normal MCH 31.9 LAB L100.1700 32-36 g/gl Low MCHC 31.4 LAB L100.1810 11.6-14.6 % Normal RDW CV 14.6 LAB L100.1820 35.1-43.9 fl High RDW SD 53.8 LAB L100.1900 150-450 K/mm3 Normal PLT 234 LAB L100.2000 6.2-12.0 fl Normal MPV 9.3 LAB L100.2100 47-70 % Normal NEUT% 63.4 LAB L100.2200 19-41 % Normal LY% 24.3 LAB L100.2300 0-10 % High MONO% 10.2 LAB L100.2400 0-5 % Normal EO% 1.2 LAB L100.2500 0-1 % Normal BASO% 0.7 LAB L100.2550 0.0-0.9 % Normal IM GRAN % 0.200 Result Comment: IG% - Immature Granulocytes (promyelocytes, myelocytes and metamyelocytes) > 1% indicates that a LEFT SHIFT is Present. LAB L100.2620 2.0-7.7 X10 3/uL Normal Absolute Neut 3.7 LAB L100.2720 0.83-4.51 X10 3/ul Normal Absolute Lymph 1.40 Performed By: #### L100.0100 #### [facility] [address] [place], [address] COMPREHENSIVE METABOLIC Collected: 05/19/2018 Status: F Source: [facility] 10:00 AM [facility] Order Comment: Reason for Laboratory Test Chemotherapy TYPE CODE TESTS RESULT OUT OF RANGE REFERENCE UNITS LAB L501.0100 74-106 mg/dL Normal GLU 97 Result Comment: Please note revised GLUCOSE reference range effective 2017. LAB L501.1000 7-18 mg/dL Normal BUN 9 LAB L501.1100 0.55-1.02 mg/dL Low CREAT,SERUM 0.43 Result Comment: The validity of the calculated GFR AND GFRAA in patients over 70 years has not been determined. Clinical correlation is essential. LAB L501.1110 >60 mL/min Normal EST GFR 164 Result Comment: Non- GFR Calc LAB L501.1115 >60 mL/min Normal EST GFR - AA 198 Result Comment: GFR Calc LAB L501.1255 ml/min Normal Estimated CRCL 95.69 LAB L501.1300 10-20 RATIO High BUN/CRE 21.1 LAB L501.1500 6.4-8. g/dL Normal 2 T PROT 7.2 LAB L501.1800 3.2-5. g/dL Normal 0 ALB 3.5 LAB L501.1950 2.2-4. g/dL Normal 2 GLOB 3.7 LAB L501.2000 0.9-2. RATIO Normal 4 A/G 0.9 LAB L501.2200 8.5-10 mg/dL Normal .1 CA 8.7 LAB L501.4100 15-37 U/L Normal AST 30 LAB L501.4305 45-117 U/L Normal ALK P 88 LAB L501.4405 13-56 U/L Normal ALT 26 LAB L501.4600 0.20-1 mg/dL Normal .00 T BILI 0.30 LAB L501.5300 136-14 mmol/L Normal 5 NA 139 LAB L501.5600 3.5-5. mmol/L Normal 1 K 3.7 LAB L501.5900 98-107 mmol/L Low CL 97 LAB L501.6100 21.0-3 mmol/L High 2.0 CO2 38.0 LAB L501.6200 5-15 Low GAP 4 Performed By: #### L500.4050, L501.2300, L501.5200 #### [facility] [address] [place], [place], [id number] PHOSPHORUS Collected: 05/19/2018 Status: F Source: [place] 10:00 AM [facility] Order Comment: Reason for Laboratory Test Chemotherapy TYPE CODE TESTS RESULT OUT OF RANGE REFERENCE UNITS LAB L501.2300 2.5-4.9 mg/dL Normal PHOS 4.4 Performed By: #### L500.4050, L501.2300, L501.5200 #### [facility] [address] [place], [address] MAGNESIUM Collected: 05/19/2018 Status: F Source: [place] 10:00 AM [facility] Order Comment: Reason for Laboratory Test Chemotherapy TYPE CODE TESTS RESULT OUT OF RANGE REFERENCE UNITS LAB L501.5200 1.6-2.6 mg/dL Low MG 1.4 Performed By: #### L500.4050, L501.2300, L501.5200 #### [facility] [address] [place], [place], [address] ONCOLOGY VISIT REPORT Observed: 05/12/2018 Status: F Source: [place] 4:08 PM [facility] [place] [address] OFFICE VISIT Date of Service: 05/12/18 1547 MR#: [id number] Acct: [id number] Name: OLIVE TEJADA Rep #: [id number] : 1960 From: Nathan Garduno MD Age/Sex: 57/F Location: [facility] Status: Signed Subjective - Date of Service Date of Service:: 05/12/18 - Chief Complaint F/u for SCLC and chemotherapy. - History of Present Illness Ms. Olive Tejada is a pleasant 57 y.o.woman with a past medical history significant for depression and COPD, oxygen dependent. She initially presented with SOB, dizziness and weight loss. CTA on 02/06/2018 showed suspicious and enhancing anterior mediastinal mass 5.3 cm with extension into the left upper lobe. Thus, she had a CT-guided biopsy on February 22, 2018. Pathology confirmed small cell lung carcinoma. PET/CT 03/07/2018, demonstrated anterior mediastinal mass 6 cm, involving RACHID and AP node, single nodule in left lobe of liver 1 cm, all with hypermetabolic activities. Right lower extremity edema noted 03/11/18, negative for DVT. She started chemotherapy with Cisplatin and Irinotecan on 03/16/2018. She had nausea and abdominal cramps after D1, did not take her antiemetics because she forgot about them. Comes in for C3D1. Had a CT for restaging done. She feels tired. - Past Medical/Social History Past Medical History Past Medical History: COPD Cancer: Lung cancer Social History Smoking Status Former smoker Review of Systems Constitutional:: Reports: Weakness, Fatigue, -. Denies: Fever, Sweats Cardiovascular:: Denies: Chest pain, Palpitations, Dyspnea on exertion, Orthopnea, PND, Shortness of breath Respiratory: Denies: Cough, Hemoptysis, Shortness of Breath, Wheezing Gastrointestinal:: Denies: Abdominal pain, Nausea, Vomiting, Diarrhea, Constipation, Hematochezia Genitourinary: Denies: Dysuria, Hematuria, 15, Flank pain Musculoskeletal:: Denies: Back pain, Myalgia, Arthralgia Skin: Denies: Rash, Skin Changes, Wounds Neurological:: Denies: Headache, Dizziness, Visual changes, Tinnitus, Hearing loss Psychiatric: Denies: Anxiety, Depression, Homicidal Ideations, Suicidal Ideations Vital Signs Height 5 ft 8 in Weight: 42.003 kg Weight in Pounds 92.6 lbs Pulse Ox 84 - Physical Exam General: Alert, Oriented x3, No apparent distress, - - Port R IC HEENT: Atraumatic, PERRLA, EOMI, Normocephalic Oropharynx:: Dry mucosa Neck:: Supple, Trachea midline. Negative for: JVD, bilateral Cardiac:: Regular rate, Regular rhythm, Normal S1, Normal S2. Negative for: Murmur Lungs: Clear to auscultation, Excusion symmetrical. Negative for: Rhonchi, Wheezes Abdomen:: Bowel sounds x 4, Soft, Non-tender, Non-distended. Negative for: Hepatosplenomegaly Extremities:: Negative for: Cyanosis, Edema Neurological: Neuro grossly intact Lymphatics:: Negative for: Cervical lymphadenopathy, Supraclavicular lymphadenopathy, Axillary lymphadenopathy Laboratory Data: Laboratory Tests Diagnostic Data: CT/Chest WITH Contrast IMPRESSION: 1. Mildly lobulated 6.3 cm high anterior mediastinal soft tissue mass correlates to the patient's known malignancy. This is inseparable from many of the adjacent mediastinal structures and posterior margin of the manubrium. 2. A chemotherapy port in the right anterior chest wall has a catheter passing through the patent right jugular and brachiocephalic veins to the superior vena cava. Although not visualized, I suspect the left brachiocephalic vein is severely compressed/occluded. 3. There are a few borderline to mildly enlarged precarinal lymph nodes and upper normal to borderline enlarged central right hilar lymph nodes. These do not suspicious FDG uptake on the February 2018 PET/CT. An area of abnormal near the aorticopulmonary window on that exam appears to correlate to nonspecific sized lymph nodes on the scan today. 4. Mildly heterogeneous 7 capsular contrast enhancement along the anterior left lobe of liver. The focus of abnormal FDG uptake in segment 4 on the earlier PET CT is not clearly seen as a discrete lesion, however. 5. Hyperexpanded with diffuse emphysematous changes. There is probable scarring in the posterior right upper lobe and right superior sulcus. Electronically Signed: Ramin Wilson MD at 16:14 EDT Assessment and Plan Small cell lung carcinoma-Extensive disease involving left lung/anterior mediastinum and liver for C3 Cisplatin and Irinotecan. 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 Counts are OK. CT shows resolution of liver lesion with stable mediastinal lesion. Plan is to proceed with C3D1 Cisplatin and Irinotecan today. She will finish 4 cycles and reassess with PET/CT. RTC 2 weeks with CBC/CMP for C3D1 Cisplatin AND Irinotecan. Medications: Prescriptions This Visit Medication Instructions Recorded Dexamethasone 4 mg PO DAILY PRN PRN 12 Days #12 03/15/18 Primary Care Provider: Dariel Ortega Referring Provider: Betty Banerjee NP - Problem List (1) Small cell lung cancer Status: Chronic (2) COPD (chronic obstructive pulmonary disease) Status: Chronic Qualifiers: COPD type: unspecified COPD Qualified Code(s): J44.9 - Chronic obstructive pulmonary disease, unspecified (3) Chemotherapy management, encounter for Status: Acute Code Visit Office Visits / Consults: 70500 OV L5 Est 05/12/18 1608 <Electronically signed by Nathan Garduno MD> Date Nathan Garduno MD Cosigner Signature: Date (if applicable) CC: CBC W/DIFF, AUTOMATED Collected: 05/12/2018 Status: F Source: [place] 12:10 PM [facility] TYPE CODE TESTS RESULT OUT OF RANGE REFERENCE UNITS LAB L100.1000 4.4-11.0 K/mm3 Normal WBC 5.5 LAB L100.1200 4.2-5.4 M/mm3 Low RBC 3.08 LAB L100.1300 12.0-15.0 g/dl Low HGB 9.6 LAB L100.1400 37-47 % Low HCT 31.1 LAB L100.1500 81-99 fL High MCV 101.0 LAB L100.1600 27.0-32.0 pg Normal MCH 31.2 LAB L100.1700 32-36 g/gl Low MCHC 30.9 LAB L100.1810 11.6-14.6 % High RDW CV 14.9 LAB L100.1820 35.1-43.9 fl High RDW SD 53.9 LAB L100.1900 150-450 K/mm3 Normal PLT 278 LAB L100.2000 6.2-12.0 fl Normal MPV 8.8 LAB L100.2100 47-70 % Normal NEUT% 61.3 LAB L100.2200 19-41 % Normal LY% 19.9 LAB L100.2300 0-10 % High MONO% 14.7 LAB L100.2400 0-5 % Normal EO% 3.4 LAB L100.2500 0-1 % Normal BASO% 0.5 LAB L100.2550 0.0-0.9 % Normal IM GRAN % 0.200 Result Comment: IG% - Immature Granulocytes (promyelocytes, myelocytes and metamyelocytes) > 1% indicates that a LEFT SHIFT is Present. LAB L100.2620 2.0-7.7 X10 3/uL Normal Absolute Neut 3.4 LAB L100.2720 0.83-4.51 X10 3/ul Normal Absolute Lymph 1.10 Performed By: #### L100.0100 #### [facility] [address] [place], [address] COMPREHENSIVE METABOLIC Collected: 05/12/2018 Status: F [facility] Order Comment: Reason for Laboratory Test Chemotherapy TYPE CODE TESTS RESULT OUT OF RANGE REFERENCE UNITS LAB L501.0100 74-106 mg/dL Normal GLU 86 Result Comment: Please note revised GLUCOSE reference range effective 2017. LAB L501.1000 7-18 mg/dL Normal BUN 12 LAB L501.1100 0.55-1.02 mg/dL Low CREAT,SERUM 0.50 Result Comment: The validity of the calculated GFR AND GFRAA in patients over 70 years has not been determined. Clinical correlation is essential. LAB L501.1110 >60 mL/min Normal EST GFR 137 Result Comment: Non- GFR Calc LAB L501.1115 >60 mL/min Normal EST GFR - AA 166 Result Comment: GFR Calc LAB L501.1255 ml/min Normal Estimated CRCL 84.30 LAB L501.1300 10-20 RATIO High BUN/CRE 24.1 LAB L501.1500 6.4-8. g/dL Normal 2 T PROT 7.0 LAB L501.1800 3.2-5. g/dL Normal 0 ALB 3.3 LAB L501.1950 2.2-4. g/dL Normal 2 GLOB 3.7 LAB L501.2000 0.9-2. RATIO Normal 4 A/G 0.9 LAB L501.2200 8.5-10 mg/dL Normal .1 CA 8.6 LAB L501.4100 15-37 U/L Normal AST 28 LAB L501.4305 45-117 U/L Normal ALK P 89 LAB L501.4405 13-56 U/L Normal ALT 21 LAB L501.4600 0.20-1 mg/dL Normal .00 T BILI 0.30 LAB L501.5300 136-14 mmol/L Normal 5 NA 139 LAB L501.5600 3.5-5. mmol/L Normal 1 K 4.0 LAB L501.5900 98-107 mmol/L Normal CL 99 LAB L501.6100 21.0-3 mmol/L High 2.0 CO2 38.0 LAB L501.6200 5-15 Low GAP 2 Performed By: #### L500.4050, L501.2300, L501.5200 #### [facility] [address], [place], [id number] PHOSPHORUS Collected: 05/12/2018 Status: F Source: [place] 12:10 PM [facility] Order Comment: Reason for Laboratory Test Chemotherapy TYPE CODE TESTS RESULT OUT OF RANGE REFERENCE UNITS LAB L501.2300 2.5-4.9 mg/dL Normal PHOS 3.9 Performed By: #### L500.4050, L501.2300, L501.5200 #### [facility] [address], [place], [id number] MAGNESIUM Collected: 05/12/2018 Status: F Source: [place] 12:10 PM [facility] Order Comment: Reason for Laboratory Test Chemotherapy TYPE CODE TESTS RESULT OUT OF RANGE REFERENCE UNITS LAB L501.5200 1.6-2.6 mg/dL Normal MG 1.8 Performed By: #### L500.4050, L501.2300, L501.5200 #### [facility] [address] [place], [address] CHEST WITH CONTRAST Observed: 05/04/2018 Status: F Source: [place] 2:24 PM [facility] Imaging Services [address] [place] [address] Chest WITH Contrast MR#: [id number] Acct: [id number] Name: OLIVE TEJADA Rep #: [id number] : 1960 F 57 From: Nabil Wilson MD PCP: Jordan MONTILLA,Dariel Coughlin Status: REG CLI Study: Chest WITH Contrast Date of Exam: 05/04/18 Exam# [id number] Ordering Dr: Nathan Garduno MD STUDY: CT CHEST/THORAX WITH CONTRAST REASON FOR EXAM: Female, 57 years old. Lung cancer. RADIATION DOSAGE (If Supplied By Facility): CTDIvol = ( 7.20 ) mGy, DLP = ( 300.84 ) mGycm TECHNIQUE: Transaxial imaging was performed following intravenous administration of 100 ml of Isovue 300 contrast material. Multiplanar coronal and sagittal images were reformatted. Individualized dose optimization techniques were used for this CT. COMPARISON: PET CT March 07, 2018; portable AP views of the chest March 14, 2018. FINDINGS: The hub of a MediPort is seen in the needle anterior soft tissues of the right chest wall. Catheter extends from the lower right internal jugular vein to the superior vena cava. There is hyperinflation of the lungs consistent with chronic obstructive lung disease (COPD). There are emphysematous changes of the lungs with blebs diffusely in both lung cole. There is stable pleural-parenchymal scarring in the right superior sulcus as well as a few curvilinear densities are probable scarring in the posterior periphery of the right upper lobe. Subsegmental atelectasis seen in the medial right middle lobe. Normal heart and pericardium. Unchanged is a mildly lobulated 6 x 4.9 x 6.3 cm high anterior mediastinal/retromanubrial soft tissue mass consistent with the patient's known malignancy. The mass is inseparable from the anterior margin of the trachea just below the thoracic inlet, the anterior margins of the right brachiocephalic trunk and bilateral common carotid arteries, the left lateral margin of the right brachiocephalic vein and upper superior vena cava, as well as the posterior margin of the manubrium. Not all of the systemic venous structures are well opacified, but I suspect the mass compresses/obstructs the left brachiocephalic vein. There are a few borderline to mildly enlarged precarinal lymph nodes, as well as nodes measuring upper normal size to borderline enlarged in the right hilum. The area of abnormal FDG uptake in the aorticopulmonary window correlates to subcentimeter nodular soft tissue densities typical of nonspecific lymph nodes. There are calcified left suprahilar lymph nodes. Normal enhanced pulmonary arteries. There is atherosclerotic calcification of the aortic arch and ostia of the brachiocephalic arteries. There are no demonstrated pulmonary emboli. There is an old healed fracture deformity of the posterior left 10th rib. There is subtly heterogeneous contrast enhancement along the anterior subcapsular margin of the left lobe of the liver, but the focus of abnormal FDG uptake in segment 4 on PET/CT is not clearly depicted here as a discrete lesion. CT/Chest WITH Contrast IMPRESSION: 1. Mildly lobulated 6.3 cm high anterior mediastinal soft tissue mass correlates to the patient's known malignancy. This is inseparable from many of the adjacent mediastinal structures and posterior margin of the manubrium. 2. A chemotherapy port in the right anterior chest wall has a catheter passing through the patent right jugular and brachiocephalic veins to the superior vena cava. Although not visualized, I suspect the left brachiocephalic vein is severely compressed/occluded. 3. There are a few borderline to mildly enlarged precarinal lymph nodes and upper normal to borderline enlarged central right hilar lymph nodes. These do not suspicious FDG uptake on the February 2018 PET/CT. An area of abnormal near the aorticopulmonary window on that exam appears to correlate to nonspecific sized lymph nodes on the scan today. 4. Mildly heterogeneous 7 capsular contrast enhancement along the anterior left lobe of liver. The focus of abnormal FDG uptake in segment 4 on the earlier PET CT is not clearly seen as a discrete lesion, however. 5. Hyperexpanded with diffuse emphysematous changes. There is probable scarring in the posterior right upper lobe and right superior sulcus. Electronically Signed: Ramin Wilson MD at 16:14 EDT , Service support , CC: Nathan Garduno MD; Dariel Ortega MD Restaurant Service Manager: Signed ABDOMEN WITH IV Observed: 05/04/2018 Status: F Source: [place] CONTRAST 2:20 PM [facility] Imaging Services [address] [place] [address] Abdomen WITH IV Contrast MR#: [id number] Acct: [id number] Name: OLIVE TEJADA Rep #: [id number] : 1960 F 57 From: Nabil Wilson MD PCP: Dariel Ortega MD, Chi Status: REG CLI Study: Abdomen WITH IV Contrast Date of Exam: 05/04/18 Exam# [id number] Ordering Dr: Nathan Garduno MD STUDY: CT ABDOMEN WITH CONTRAST REASON FOR EXAM: Female, 57 years old. Lung cancer. RADIATION DOSAGE (If Supplied By Facility): CTDIvol = ( ) mGy, DLP = ( ) mGycm TECHNIQUE: Transaxial images were obtained post I.V. administration of 100 ml of Isovue 300 contrast, and with oral contrast. Sagittal and coronal images were reconstructed. Individualized dose optimization techniques were used for this CT. COMPARISON: PET CT March 07, 2018 FINDINGS: There are diffuse emphysematous blebs in the visualized lung bases. The visualized portions of the heart are within normal limits. Normal liver. The focus of increased FDG activity in the anterior margin of segment 4 on PET scan is not apparent here. The patent portal vein diameter is 12 mm. Normal gallbladder and extrahepatic biliary system. The diameter of the common bile duct in the pancreatic head is 3 mm. Normal spleen. Normal pancreas. Normal bilateral adrenal glands. Nonobstructing 1-2 mm stone seen at the midpole of the right kidney on series 3 image 35, series 604 image 55. Normal left kidney. No hydronephrosis. There is residual contrast in the fundus of the nondistended stomach. The visualized small intestine is not opacified, but unremarkable. Oral contrast is mixed with fecal material in unremarkable segments of the visualized colon. There is non-visualization of the appendix. There is also moderate atherosclerotic calcification of the abdominal aorta and visualized proximal iliac arteries, but without a demonstrated aneurysm. Normal inferior vena cava. Normal retroperitoneum. Normal abdominal wall. There is mild degenerative disc height narrowing of the L4-[address]/Abdomen WITH IV Contrast IMPRESSION: 1. No demonstrated sign of abdominal metastatic disease. The site of increased FDG activity in the anterior margin of segment 4 of the liver on PET scan February 2018 is not apparent here. 2. Nonobstructing 1 to 2 mm stone at the midpole of the right kidney. No hydronephrosis. 3. Moderate aortoiliac atherosclerotic calcification. No demonstrated aneurysm. 4. Diffuse emphysematous changes in the visualized lung bases. Electronically Signed: Ramin Wilson MD at 15:29 EDT , Service support , CC: Nathan Garduno MD; Dariel Ortega MD Restaurant Service Manager: Signed PULMONARY VISIT REPORT Observed: 05/03/2018 Status: F Source: [place] 1:55 PM [facility] [address] [place] [address] OFFICE VISIT Date of Service: 05/03/18 MR#: [id number] Acct: [id number] Name: OLIVE TEJADA Carla Rep #: [id number] : 1960 Provider: Jamar Carpenter D.O. Age/Sex: 57/F [place] [facility] [place] Status: Signed Assessment AND Plan 1. Stage 4 very severe COPD by GOLD classification J44.9 Plan The patient will be continued on her triple therapy inhaler regimen with Symbicort, Spiriva and as needed albuterol, without change. Refills will be provided accordingly. 2. Small cell lung cancer C34.90 Plan Continue follow-up and management per the discretion of Dr. Garduno of oncology. Given the patient's underlying anxiety, I recommended referral to palliative care to assist with management. 3. Chronic hypoxemic respiratory failure J96.11 Plan Continue supplemental oxygen at 2 L/min via nasal cannula. Plan Detail Other Orders Referrals: Other Medications New: Follow Up 6 Months ([facility]) HPI HPI Comments Details: The patient is a 57-year-old female who presents to the clinic today for a routine scheduled follow-up office visit. If you recall, the patient initially presented to me as a transfer of care from her previous pulmonary provider. The patient does have a prior smoking history of 0.5 packs per day from 1980 through 2009. 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 Echocardiogram from August 2017 revealed normal LV size and function with an ejection fraction of 65%. Right ventricular systolic pressure was estimated to be 34 mmHg. Pulmonary function testing completed in April 2017 revealed evidence of any reversible very severe large airways obstructive ventilatory defect with symmetric reduction in diffusing capacity and air trapping. She has a baseline 2 L/min supplemental oxygen requirement with exertion. In February 2018, the patient was evaluated in the emergency department for dyspnea. A subsequent CTA chest was obtained and revealed evidence of a large anterior mediastinal mass. The patient subsequently underwent workup with direct tissue biopsy, which did reveal evidence of small cell lung cancer. The patient currently follows with Dr. Garduno oncology and is receiving chemotherapy. There are plans for a follow-up imaging study to be obtained tomorrow. The patient reports compliance with the use of Symbicort, Spiriva and as needed albuterol. She is currently utilizing her rescue inhaler a couple times per day. She remains compliant with the use of 2 L/min of supplemental oxygen. Her main complaint is for that of ongoing fatigue. She has not been evaluated in the emergency department or urgent care for breathing related issues since her last office visit. Despite being very frail, her weight has remained stable. She reports a great deal of anxiety. She denies fevers, chills or night sweats. She denies chest pain, dizziness or lightheadedness. Intake Vital Signs06/26/18 Pulse Ox 89 05/03/18 Oxygen Delivery Method nasal canula 05/03/18 Oxygen Flow Rate (L/min) 2 05/03/18 Height 5 ft 8 in 05/03/18 Weight: 90 lb Intake Visit Reasons: 2 M FU [employer] Required: No Is patient in pain?: No Allergies morphine Adverse Reaction (Intermediate, Verified 05/03/18 12:57) Itching Medications Cyanocobalamin [Vitamin B12] 500 mcg PO DAILY@0800 09/06/16 [History Confirmed 05/03/18] Multivitamins,Therapeutic [Multivitamin] 1 tab PO DAILY 09/06/16 [History Confirmed 05/03/18] Tiotropium [place] [Spiriva] 18 mcg IH DAILY #1 cap.w.dev 03/17/17 [Rx Confirmed 05/03/18] Ergocalciferol [Vitamin D] 50,000 unit PO QMONTH 07/31/17 [History Confirmed 05/03/18] fluticasone 50 mcg/actuation nasal spray,suspension 50 mcg INTRANASAL QDAY PRN 12/06/17 [History Confirmed 05/03/18] albuterol sulfate 2.5 mg/3 mL (0.083 %) solution for nebulization 2.5 mg INHALATION 4X/DAY PRN 30 Days #180 vial 02/17/18 [Rx Confirmed 05/03/18] albuterol sulfate HFA 90 mcg/actuation aerosol inhaler 1 - 2 puff INHALATION Q4H PRN PRN #1 inhaler 02/17/18 [Rx Confirmed 05/03/18] budesonide-formoterol HFA 160 mcg-4.5 mcg/actuation aerosol inhaler 2 puff INHALATION BID #1 hfa.aer.ad 02/17/18 [Rx Confirmed 05/03/18] Dexamethasone 4 mg PO DAILY PRN PRN 12 Days #12 tab 03/15/18 [Rx Confirmed 05/03/18] Lidocaine/Prilocaine [Lidocaine-Prilocaine Cream] 30 gm TP DAILY PRN PRN 30 Days #1 cream..g. 03/15/18 [Rx Confirmed 05/03/18] Olanzapine [Zyprexa] 10 mg PO DAILY 16 Days #16 tab 03/15/18 [Rx Confirmed 05/03/18] Ondansetron HCl [Zofran] 4 mg PO Q8H PRN PRN 10 Days #30 tab 03/15/18 [Rx Confirmed 05/03/18] DiphenhydrAMINE [Benadryl] 25 mg PO DAILY 04/28/18 [History Confirmed 05/03/18] Paroxetine HCl [Paxil] 40 mg PO DAILY #30 tab 04/28/18 [Rx Confirmed 05/03/18] fluticasone 50 mcg/actuation nasal spray,suspension 2 spray INTRANASAL QDAY #1 device 05/03/18 [Rx Confirmed 05/03/18] tiotropium bromide 2.5 mcg/actuation mist for inhalation 2 puff INHALATION QDAY #1 device 05/03/18 [Rx Confirmed 05/03/18] [facility] Medical History Asthma (Chronic) Nocturnal hypoxia (Chronic) Anxiety (Chronic) Nicotine dependence in remission (Chronic) Stage 4 very severe COPD by GOLD classification (Chronic) Allergic rhinitis (Chronic) COPD with acute exacerbation (Acute) Tobacco dependence syndrome (Chronic) Buyhp-2-zgmmrtvdllo deficiency (Chronic) COPD (chronic obstructive pulmonary disease) (Chronic) GERD (gastroesophageal reflux disease) (Chronic) COPD with acute exacerbation (Acute) COPD, frequent exacerbations (Inactive) [place] (dyspnea on exertion) (Inactive) Surgical History History of tubal ligation (Resolved) Family History Mother Colon cancer Bronchitis Epilepsy Father Asthma Social History Smoking Status: Former smoker second hand exposure: No alcohol intake: never substance use type: does not use caffeine: Yes what type of physical activity do you participate in: walking frequency: daily Review of Systems Const CONSTITUTIONAL: Positive fatigue and seasonal allergies; negative anorexia, body ache, chills, daytime sleepiness, fever(s), night sweats, oral thrush, stops breathing during sleep, weight loss, sleeping in chair, weight loss, weight gain, frequent colds, other, headache(s) or orthopnea EETM Ear Nose Throat Mouth: Positive hearing normal and nasal discharge; negative hard of hearing, hoarseness, dry mouth in morning, change in vision, itchy eyes, eye pain, swallowing Difficulty, ear pain, nose bleed, headache(s), mouth pain, nasal congestion, post nasal drip, sinus pain, sinus pressure, sore throat or other Cardio Cardiovascular: Positive edema Location: lower extremity; negative chest pain, chest pain at rest, chest pain with activity, irregular heart rhythm, shortness of breath when lying down, palpitations, murmur or other Resp Respiratory: Positive as per HPI, shortness of breath shortness of breath: Positive with activity, chest congestion and cough cough: Positive productive color: Positive clear; negative pain with cough, wheezing, chest tightness, pain on inspiration, inhalers, increase use of rescue inhalers, snoring, apnea or other Gastro Gastrointestional: Negative bloody stools, change in appetite, difficulty swallowing, reflux, hematemesis, melena stool, loose stool, constipation or other Genitourinary: Negative blood in urine, nocturia, pain with urination or other Musc Musculoskeletal: Negative body pain, back pain, neck pain or other Skin/Breast Skin/Breast: Negative dry skin, itching, rash, unusual bruising, breast lump or other Neuro Neurological: Negative restless legs, confusion, weakness or other Psych Psychocological: Negative abnormal sleep pattern, anxiety, thoughts of hurting self/others, hopelessness or other Lymph Lymphatic: Negative easy bleeding, easy bruising, swollen lymph nodes or other Exam Const Constitutional: Positive conversant, cooperative, in no acute respiratory distress, good hygiene, frail appearing, thin, cachectic and wearing supplemental oxygen Head Head: Positive normocephalic and atraumatic; negative cyanosis of lips/distal nose Eyes Eye: Positive clear conjunctiva; negative nystagmus or scleral abnormality Ears Ear: Positive hearing normal and external ears normal; negative hard of hearing Nose Nose: Positive external nose normal; negative epistaxis Mouth Mouth: Positive oral mucosae normal and posterior oropharynx is adequate; negative no lesions or post nasal drip Mallampati Score: II: Mallampati Score Neck Neck: Positive normal visual inspection and trachea midline; negative lymphadenopathy Chest Wall Chest: Positive symmetric chest movement Normal AP diameter. Chest wall port in place Resp lung sounds: Positive diminished diminished: Positive global; negative wheezes, rhonchi or rales Cardio Cardiac: Positive regular rate, regular rhythm, S1 normal and S2 normal; negative rub, gallop or murmur GI GI: Positive normal bowel sounds Soft without distention Genitourinary: Positive deferred Musc Musculoskeletal: Positive in a wheelchair Skin Pulmonary Skin Exam: Positive intact; negative lesion, ulcers, dermal atrophy or rash Pulses Pulse: Yes Pedal pulses present: Extremities Extremities: No clubbing, No cyanosis, No edema Neuro Neurologic: Yes conversant, Yes no focal neuro deficits, Yes cooperative Lymph Lymphatic: No lymphadenopathy Psych Appearance: Positive grossly normal Mental Status: Positive mental status grossly normal Mood: Positive congruent mood Affect: Positive flat and tearful Coding Level of Care Code Off vis,est,level 3 Diagnoses Stage 4 very severe COPD by GOLD classification J44.9 Small cell lung cancer C34.90 Chronic hypoxemic respiratory failure J96.11 05/03/18 1355 <Electronically signed by Jamar Carpenter DO> Date Jamar Carpenter DO Cosigner Signature: Date (if applicable) CC: Dariel Ortega MD ONCOLOGY VISIT REPORT Observed: 04/28/2018 Status: F Source: [place] 1:15 PM [facility] [address] [place] [id number] OFFICE VISIT Date of Service: 04/28/18 1310 MR#: [id number] Acct: [id number] Name: OLIVE TEJADA Rep #: [id number] : 1960 From: Nathan Garduno MD Age/Sex: 57/F Location: ONC Status: Signed Subjective - Date of Service Date of Service:: 04/28/18 - Chief Complaint F/u for SCLC and chemotherapy. - History of Present Illness Ms. Olive Tejada is a pleasant 57 y.o.woman with a past medical history significant for depression and COPD, oxygen dependent. She initially presented with SOB, dizziness and weight loss. CTA on 02/06/2018 showed suspicious and enhancing anterior mediastinal mass 5.3 cm with extension into the left upper lobe. Thus, she had a CT-guided biopsy on February 22, 2018. Pathology confirmed small cell lung carcinoma. PET/CT 03/07/2018, demonstrated anterior mediastinal mass 6 cm, involving RACHID and AP node, single nodule in left lobe of liver 1 cm, all with hypermetabolic activities. Right lower extremity edema noted 03/11/18, negative for DVT. She started chemotherapy with Cisplatin and Irinotecan on 03/16/2018. She had nausea and abdominal cramps after D1, did not take her antiemetics because she forgot about them. Comes in for C2D15 Irinotecan. She feels tired. - Past Medical/Social History Past Medical History Past Medical History: COPD Cancer: Lung cancer Social History Smoking Status Former smoker Review of Systems Constitutional:: Reports: Fatigue. Denies: Fever, Sweats Cardiovascular:: Denies: Chest pain, Palpitations, Dyspnea on exertion, Orthopnea, PND, Shortness of breath Respiratory: Denies: Cough, Hemoptysis, Shortness of Breath, Wheezing Gastrointestinal:: Denies: Abdominal pain, Nausea, Vomiting, Diarrhea, Constipation, Hematochezia Genitourinary: Denies: Dysuria, Hematuria, 15, Flank pain Musculoskeletal:: Denies: Back pain, Myalgia, Arthralgia Skin: Denies: Rash, Skin Changes, Wounds Neurological:: Denies: Headache, Dizziness, Visual changes, Tinnitus, Hearing loss Psychiatric: Denies: Anxiety, Depression, Homicidal Ideations, Suicidal Ideations Vital Signs Height 5 ft 8 in Weight: 41.549 kg Weight in Pounds 91.6 lbs Pulse Ox 85 - Physical Exam General: Alert, Oriented x3, No apparent distress, - - Port R IC area. HEENT: Atraumatic, PERRLA, EOMI, Normocephalic Oropharynx:: Dry mucosa Neck:: Supple, Trachea midline. Negative for: JVD, bilateral Cardiac:: Regular rate, Regular rhythm, Normal S1, Normal S2. Negative for: Murmur Lungs: Clear to auscultation, Excusion symmetrical. Negative for: Rhonchi, Wheezes Abdomen:: Bowel sounds x 4, Soft, Non-tender, Non-distended. Negative for: Hepatosplenomegaly Extremities:: Negative for: Cyanosis, Edema Neurological: Neuro grossly intact Skin:: Negative for: Lesions, Rash, Petechiae, Ecchymosis Psychiatric:: Appropriate affect, Euthymic Lymphatics:: Negative for: Cervical lymphadenopathy, Supraclavicular lymphadenopathy, Axillary lymphadenopathy Laboratory Data: Laboratory Tests Assessment and Plan Small cell lung carcinoma-Extensive disease involving left lung, mediastinum and liver on C2 Cisplatin and Irinotecan. 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 Counts are OK. Plan is to proceed with C2D15 Irinotecan today. Obtain CT chest and abdomen to assess response. RTC 2 weeks with CBC/CMP for C3D1 Cisplatin AND Irinotecan. Medications: Prescriptions This Visit Medication Instructions Recorded Primary Care Provider: Dariel Ortega Referring Provider: Betty Banerjee NP - Problem List (1) Small cell lung cancer Status: Chronic (2) COPD (chronic obstructive pulmonary disease) Status: Chronic Qualifiers: COPD type: unspecified COPD Qualified Code(s): J44.9 - Chronic obstructive pulmonary disease, unspecified (3) Chemotherapy management, encounter for Status: Acute Code Visit Office Visits / Consults: [id number] OV L5 Est 04/28/18 1315 <Electronically signed by Nathan Garduno MD> Date Nathan Garduno MD Cosigner Signature: Date (if applicable) CC: CBC W/DIFF, AUTOMATED Collected: 04/28/2018 Status: F Source: [place] 11:17 AM [facility] TYPE CODE TESTS RESULT OUT OF RANGE REFERENCE UNITS LAB L100.1000 4.4-11.0 K/mm3 Normal WBC 5.3 LAB L100.1200 4.2-5.4 M/mm3 Low RBC 2.84 LAB L100.1300 12.0-15.0 g/dl Low HGB 8.9 LAB L100.1400 37-47 % Low HCT 28.2 LAB L100.1500 81-99 fL High MCV 99.3 LAB L100.1600 27.0-32.0 pg Normal MCH 31.3 LAB L100.1700 32-36 g/gl Low MCHC 31.6 LAB L100.1810 11.6-14.6 % Normal RDW CV 12.7 LAB L100.1820 35.1-43.9 fl High RDW SD 45.6 LAB L100.1900 150-450 K/mm3 Normal PLT 238 LAB L100.2000 6.2-12.0 fl Normal MPV 8.7 LAB L100.2100 47-70 % Normal NEUT% 62.1 LAB L100.2200 19-41 % Normal LY% 21.7 LAB L100.2300 0-10 % High MONO% 11.1 LAB L100.2400 0-5 % Normal EO% 4.5 LAB L100.2500 0-1 % Normal BASO% 0.4 LAB L100.2550 0.0-0.9 % Normal IM GRAN % 0.200 Result Comment: IG% - Immature Granulocytes (promyelocytes, myelocytes and metamyelocytes) > 1% indicates that a LEFT SHIFT is Present. LAB L100.2620 2.0-7.7 X10 3/uL Normal Absolute Neut 3.3 LAB L100.2720 0.83-4.51 X10 3/ul Normal Absolute Lymph 1.15 Performed By: #### L100.0100 #### [facility] [address] [place], [place], [address] COMPREHENSIVE METABOLIC Collected: 04/28/2018 Status: F Source: [facility] 11:17 AM [facility] Order Comment: Reason for Laboratory Test Chemotherapy TYPE CODE TESTS RESULT OUT OF RANGE REFERENCE UNITS LAB L501.0100 74-106 mg/dL Normal GLU 103 Result Comment: Fasting Glucose result from 100 to 125 mg/dL suggests IMPAIRED HOMEOSTASIS per A.D.A. criteria. Please note revised GLUCOSE reference range effective 2017. LAB L501.1000 7-18 mg/dL Normal BUN 7 LAB L501.1100 0.55-1.02 mg/dL Low CREAT,SERUM 0.40 Result Comment: The validity of the calculated GFR AND GFRAA in patients over 70 years has not been determined. Clinical correlation is essential. LAB L501.1110 >60 mL/min Normal EST GFR 177 Result Comment: Non- GFR Calc LAB L501.1115 >60 mL/min Normal EST GFR - AA 215 Result Comment: GFR Calc LAB L501.1255 ml/min Normal Estimated CRCL 104.23 LAB L501.1300 10-20 RATIO BUN/CRE Normal 17.6 LAB L501.1500 6.4-8. g/dL 2 T PROT Normal 6.8 LAB L501.1800 3.2-5. g/dL 0 ALB Normal 3.3 LAB L501.1950 2.2-4. g/dL 2 GLOB Normal 3.5 LAB L501.2000 0.9-2. RATIO 4 A/G Normal 0.9 LAB L501.2200 8.5-10 mg/dL .1 CA Normal 8.9 LAB L501.4100 15-37 U/L AST Normal 24 LAB L501.4305 45-117 U/L ALK P Normal 81 LAB L501.4405 13-56 U/L ALT Normal 23 LAB L501.4600 0.20-1 mg/dL .00 T BILI Normal 0.20 LAB L501.5300 136-14 mmol/L 5 NA Normal 137 LAB L501.5600 3.5-5. mmol/L 1 K Normal 3.7 LAB L501.5900 98-107 mmol/L Low CL 96 LAB L501.6100 21.0-3 mmol/L High 2.0 CO2 38.0 LAB L501.6200 5-15 Low GAP 3 Performed By: #### L500.4050, L501.2300, L501.5200 #### [facility] [address], [place], [id number] PHOSPHORUS Collected: 04/28/2018 Status: F Source: [place] 11:17 [facility] REPOSITORY Order Comment: Reason for Laboratory Test Chemotherapy TYPE CODE TESTS RESULT OUT OF RANGE REFERENCE UNITS LAB L501.2300 2.5-4.9 mg/dL Normal PHOS 3.4 Performed By: #### L500.4050, L501.2300, L501.5200 #### [facility] [address] [place], [place], [address] MAGNESIUM Collected: 04/28/2018 Status: F Source: [place] 11:17 [facility] REPOSITORY Order Comment: Reason for Laboratory Test Chemotherapy TYPE CODE TESTS RESULT OUT OF RANGE REFERENCE UNITS LAB L501.5200 1.6-2.6 mg/dL Normal MG 1.6 Performed By: #### L500.4050, L501.2300, L501.5200 #### [facility] [address] [place], [address] CBC W/DIFF, AUTOMATED Collected: 04/21/2018 Status: F Source: [place] 8:56 AM [facility] TYPE CODE TESTS RESULT OUT OF RANGE REFERENCE UNITS LAB L100.1000 4.4-11.0 K/mm3 Normal WBC 8.0 LAB L100.1200 4.2-5.4 M/mm3 Low RBC 3.23 LAB L100.1300 12.0-15.0 g/dl Low HGB 10.0 LAB L100.1400 37-47 % Low HCT 32.6 LAB L100.1500 81-99 fL High MCV 100.9 LAB L100.1600 27.0-32.0 pg Normal MCH 31.0 LAB L100.1700 32-36 g/gl Low MCHC 30.7 LAB L100.1810 11.6-14.6 % Normal RDW CV 12.7 LAB L100.1820 35.1-43.9 fl High RDW SD 47.0 LAB L100.1900 150-450 K/mm3 Normal PLT 246 LAB L100.2000 6.2-12.0 fl Normal MPV 9.4 LAB L100.2100 47-70 % Normal NEUT% 67.0 LAB L100.2200 19-41 % Normal LY% 19.6 LAB L100.2300 0-10 % Normal MONO% 9.2 LAB L100.2400 0-5 % Normal EO% 3.6 LAB L100.2500 0-1 % Normal BASO% 0.3 LAB L100.2550 0.0-0.9 % Normal IM GRAN % 0.300 Result Comment: IG% - Immature Granulocytes (promyelocytes, myelocytes and metamyelocytes) > 1% indicates that a LEFT SHIFT is Present. LAB L100.2620 2.0-7.7 X10 3/uL Normal Absolute Neut 5.3 LAB L100.2720 0.83-4.51 X10 3/ul Normal Absolute Lymph 1.56 Performed By: #### L100.0100 #### [facility] [address] [place], [address] COMPREHENSIVE METABOLIC Collected: 04/21/2018 Status: F Source: [place] 8:56 AM [facility] Order Comment: Reason for Laboratory Test Chemotherapy TYPE CODE TESTS RESULT OUT OF RANGE REFERENCE UNITS LAB L501.0100 74-106 mg/dL Normal GLU 105 Result Comment: Fasting Glucose result from 100 to 125 mg/dL suggests IMPAIRED HOMEOSTASIS per A.D.A. criteria. Please note revised GLUCOSE reference range effective 2017. LAB L501.1000 7-18 mg/dL High BUN 19 LAB L501.1100 0.55-1.02 mg/dL Normal CREAT,SERUM 0.65 Result Comment: The validity of the calculated GFR AND GFRAA in patients over 70 years has not been determined. Clinical correlation is essential. LAB L501.1110 >60 mL/min Normal EST GFR 101 Result Comment: Non- GFR Calc LAB L501.1115 >60 mL/min Normal EST GFR - AA 122 Result Comment: GFR Calc LAB L501.1255 ml/min Normal Estimated CRCL 64.53 LAB L501.1300 10-20 RATIO High BUN/CRE 29.4 LAB L501.1500 6.4-8. g/dL Normal 2 T PROT 7.1 LAB L501.1800 3.2-5. g/dL Normal 0 ALB 3.4 LAB L501.1950 2.2-4. g/dL Normal 2 GLOB 3.7 LAB L501.2000 0.9-2. RATIO Normal 4 A/G 0.9 LAB L501.2200 8.5-10 mg/dL Normal .1 CA 9.0 LAB L501.4100 15-37 U/L Normal AST 25 LAB L501.4305 45-117 U/L Normal ALK P 82 LAB L501.4405 13-56 U/L Normal ALT 25 LAB L501.4600 0.20-1 mg/dL Low .00 T BILI 0.10 LAB L501.5300 136-14 mmol/L Normal 5 NA 139 LAB L501.5600 3.5-5. mmol/L Normal 1 K 3.7 LAB L501.5900 98-107 mmol/L Low CL 97 LAB L501.6100 21.0-3 mmol/L High 2.0 CO2 38.0 LAB L501.6200 5-15 Low GAP 4 Performed By: #### L500.4050, L501.2300, L501.5200 #### [facility] [address] [place], [address] PHOSPHORUS Collected: 04/21/2018 Status: F Source: [place] 8:56 AM [facility] Order Comment: Reason for Laboratory Test Chemotherapy TYPE CODE TESTS RESULT OUT OF RANGE REFERENCE UNITS LAB L501.2300 2.5-4.9 mg/dL Normal PHOS 3.9 Performed By: #### L500.4050, L501.2300, L501.5200 #### [facility] [address] [facility] [place], [address] MAGNESIUM Collected: 04/21/2018 Status: F Source: [place] 8:56 AM [facility] Order Comment: Reason for Laboratory Test Chemotherapy TYPE CODE TESTS RESULT OUT OF RANGE REFERENCE UNITS LAB L501.5200 1.6-2.6 mg/dL Normal MG 1.6 Performed By: #### L500.4050, L501.2300, L501.5200 #### [facility] [address] [facility] [place], [address] COMPREHENSIVE METABOLIC Collected: 04/14/2018 Status: F Source: [facility] 9:00 AM [facility] Order Comment: Reason for Laboratory Test OV RESULT(S) PREVIOUSLY REPORTED ON MANUAL REQUISITION DURING DOWNTIME. TYPE CODE TESTS RESULT OUT OF RANGE REFERENCE UNITS LAB L501.0100 74-106 mg/dL Normal GLU 93 Result Comment: Please note revised GLUCOSE reference range effective 2017. LAB L501.1000 7-18 mg/dL Normal BUN 13 LAB L501.1100 0.55-1.02 mg/dL Low CREAT,SERUM 0.34 Result Comment: The validity of the calculated GFR AND GFRAA in patients over 70 years has not been determined. Clinical correlation is essential. LAB L501.1110 >60 mL/min EST GFR Normal 212 LAB L501.1115 >60 mL/min EST GFR Normal - AA 257 LAB L501.1255 ml/min Normal Estimated CRCL 123.83 LAB L501.1300 10-20 RATIO High BUN/CRE 38.2 LAB L501.1500 6.4-8.2 g/dL T PROT Normal 7.0 LAB L501.1800 3.2-5.0 g/dL ALB Normal 3.2 LAB L501.1950 2.2-4.2 g/dL GLOB Normal 3.8 LAB L501.2000 0.9-2.4 RATIO Low A/G 0.8 LAB L501.2200 8.5-10.1 mg/dL CA Normal 8.8 LAB L501.4100 15-37 U/L AST Normal 25 LAB L501.4305 45-117 U/L ALK P Normal 84 LAB L501.4405 13-56 U/L ALT Normal 23 LAB L501.4600 0.20-1.00 mg/dL Low T BILI 0.10 LAB L501.5300 136-145 mmol/L NA Normal 141 LAB L501.5600 3.5-5.1 mmol/L K Normal 3.9 LAB L501.5900 98-107 mmol/L Low CL 97 LAB L501.6100 21.0-32.0 mmol/L High CO2 37.0 LAB L501.6200 5-15 GAP Normal 7 Performed By: #### L500.4050, L501.5200 #### [facility] [address], [place], [id number] MAGNESIUM Collected: 04/14/2018 Status: F Source: [place] 9:00 AM [facility] Order Comment: Reason for Laboratory Test OV RESULT(S) PREVIOUSLY REPORTED ON MANUAL REQUISITION DURING DOWNTIME. TYPE CODE TESTS RESULT OUT OF RANGE REFERENCE UNITS LAB L501.5200 1.6-2.6 mg/dL Normal MG 1.8 Performed By: #### L500.4050, L501.5200 #### [facility] [address] [place], [address] CBC W/DIFF, AUTOMATED Collected: 04/14/2018 Status: F Source: [place] 9:00 AM [facility] Order Comment: Reason for Laboratory Test OV RESULT(S) PREVIOUSLY REPORTED ON MANUAL REQUISITION DURING DOWNTIME. TYPE CODE TESTS RESULT OUT OF RANGE REFERENCE UNITS LAB L100.1000 4.4-11.0 K/mm3 Normal WBC 6.3 LAB L100.1200 4.2-5.4 M/mm3 Low RBC 2.97 LAB L100.1300 12.0-15.0 g/dl Low HGB 9.5 LAB L100.1400 37-47 % Low HCT 30.7 LAB L100.1500 81-99 fL High MCV 103.4 LAB L100.1600 27.0-32.0 pg Normal MCH 32.0 LAB L100.1700 32-36 g/gl Low MCHC 30.9 LAB L100.1810 11.6-14.6 % Normal RDW CV 12.5 LAB L100.1820 35.1-43.9 fl High RDW SD 46.0 LAB L100.1900 150-450 K/mm3 Normal PLT 300 LAB L100.2000 6.2-12.0 fl Normal MPV 9.6 LAB L100.2100 47-70 % Normal NEUT% 57.4 LAB L100.2200 19-41 % Normal LY% 19.6 LAB L100.2300 0-10 % High MONO% 15.7 LAB L100.2400 0-5 % High EO% 6.5 LAB L100.2500 0-1 % Normal BASO% 0.6 LAB L100.2550 0.0-0.9 % Normal IM GRAN % 0.200 Result Comment: IG% - Immature Granulocytes (promyelocytes, myelocytes and metamyelocytes) > 1% indicates that a LEFT SHIFT is Present. LAB L100.2620 2.0-7.7 X10 3/uL Normal Absolute Neut 3.6 LAB L100.2720 0.83-4.51 X10 3/ul Normal Absolute Lymph 1.24 Performed By: #### L100.0100 #### [facility] [address] [place], [place], [address] COMPREHENSIVE METABOLIC Collected: 04/14/2018 Status: F Source: [facility] 12:00 AM [facility] Order Comment: Reason for Laboratory Test Chemotherapy RESULT(S) PREVIOUSLY REPORTED ON MANUAL REQUISITION DURING DOWNTIME. TYPE CODE TESTS RESULT OUT OF RANGE REFERENCE UNITS LAB L501.0100 74-106 mg/dL Normal GLU 93 Result Comment: Please note revised GLUCOSE reference range effective 2017. LAB L501.1000 7-18 mg/dL Normal BUN 13 LAB L501.1100 0.55-1.02 mg/dL Low CREAT,SERUM 0.34 Result Comment: The validity of the calculated GFR AND GFRAA in patients over 70 years has not been determined. Clinical correlation is essential. LAB L501.1110 >60 mL/min EST GFR Normal 212 LAB L501.1115 >60 mL/min EST GFR Normal - AA 257 LAB L501.1255 ml/min Normal Estimated CRCL 123.83 LAB L501.1300 10-20 RATIO High BUN/CRE 38.2 LAB L501.1500 6.4-8.2 g/dL T PROT Normal 7.0 LAB L501.1800 3.2-5.0 g/dL ALB Normal 3.2 LAB L501.1950 2.2-4.2 g/dL GLOB Normal 3.8 LAB L501.2000 0.9-2.4 RATIO Low A/G 0.8 LAB L501.2200 8.5-10.1 mg/dL CA Normal 8.8 LAB L501.4100 15-37 U/L AST Normal 25 LAB L501.4305 45-117 U/L ALK P Normal 84 LAB L501.4405 13-56 U/L ALT Normal 23 LAB L501.4600 0.20-1.00 mg/dL Low T BILI 0.10 LAB L501.5300 136-145 mmol/L NA Normal 141 LAB L501.5600 3.5-5.1 mmol/L K Normal 3.9 LAB L501.5900 98-107 mmol/L Low CL 97 LAB L501.6100 21.0-32.0 mmol/L High CO2 37.0 LAB L501.6200 5-15 GAP Normal 7 Performed By: #### L500.4050, L501.2300, L501.5200 #### [facility] [address] [place], [address] PHOSPHORUS Collected: 04/14/2018 Status: F Source: [place] 12:00 AM [facility] Order Comment: Reason for Laboratory Test Chemotherapy RESULT(S) PREVIOUSLY REPORTED ON MANUAL REQUISITION DURING DOWNTIME. TYPE CODE TESTS RESULT OUT OF RANGE REFERENCE UNITS LAB L501.2300 2.5-4.9 mg/dL Test Normal PHOS not performed Result Comment: MISSED DURING DT. TOO OLD TO ADD. Performed By: #### L500.4050, L501.2300, L501.5200 #### [facility] [address] [place], [address] MAGNESIUM Collected: 04/14/2018 Status: F Source: [place] 12:00 AM [facility] Order Comment: Reason for Laboratory Test Chemotherapy RESULT(S) PREVIOUSLY REPORTED ON MANUAL REQUISITION DURING DOWNTIME. TYPE CODE TESTS RESULT OUT OF RANGE REFERENCE UNITS LAB L501.5200 1.6-2.6 mg/dL Normal MG 1.8 Performed By: #### L500.4050, L501.2300, L501.5200 #### [facility] [address] [place], [address] ONCOLOGY VISIT REPORT Observed: 03/31/2018 Status: F Source: [place] 10:12 AM [facility] [address] [place] [address] OFFICE VISIT Date of Service: 03/31/18 1007 MR#: [id number] Acct: [id number] Name: OLIVE TEJADA Rep #: [id number] : 1960 From: Nathan Garduno MD Age/Sex: 57/F Location: ONC Status: Signed Subjective - Date of Service Date of Service:: 03/31/18 - Chief Complaint F/u for SCLC and chemotherapy. - History of Present Illness Ms. Olive Tejada is a pleasant 57 y.o.woman with a past medical history significant for depression and COPD, oxygen dependent. She initially presented with SOB, dizziness and weight loss. CTA on 02/06/2018 showed suspicious and enhancing anterior mediastinal mass 5.3 cm with extension into the left upper lobe. Thus, she had a CT-guided biopsy on February 22, 2018. Pathology confirmed small cell lung carcinoma. PET/CT 03/07/2018, demonstrated anterior mediastinal mass 6 cm, involving RACHID and AP node, single nodule in left lobe of liver 1 cm, all with hypermetabolic activities. Right lower extremity edema noted 03/11/18, negative for DVT. She started chemotherapy with Cisplatin and Irinotecan on 03/16/2018. She had nausea and abdominal cramps after D1, did not take her antiemetics because she forgot about them. Comes in for C1D15 Irinotecan. She feels fine, cut her hair. - Past Medical/Social History Past Medical History Past Medical History: COPD Cancer: Lung cancer Social History Smoking Status Former smoker Review of Systems Constitutional:: Denies: Fever, Sweats, Weight loss, Appetite change, Chills Cardiovascular:: Denies: Chest pain, Palpitations, Dyspnea on exertion, Orthopnea, PND, Shortness of breath Respiratory: Denies: Cough, Hemoptysis, Shortness of Breath, Wheezing Gastrointestinal:: Denies: Abdominal pain, Nausea, Vomiting, Diarrhea, Constipation, Hematochezia Genitourinary: Denies: Dysuria, Hematuria, 15, Flank pain Musculoskeletal:: Denies: Back pain, Myalgia, Arthralgia Skin: Denies: Rash, Skin Changes, Wounds Neurological:: Denies: Headache, Dizziness, Visual changes, Tinnitus, Hearing loss Psychiatric: Denies: Anxiety, Depression, Homicidal Ideations, Suicidal Ideations Vital Signs Height 5 ft 8 in Weight: 41.957 kg Weight in Pounds 92.5 lbs Pulse Ox 95 - Physical Exam General: Alert, Oriented x3, No apparent distress, - - slim woman, + port R IC area. HEENT: Atraumatic, PERRLA, EOMI, Normocephalic Oropharynx:: Dry mucosa Neck:: Supple, Trachea midline. Negative for: JVD, bilateral Cardiac:: Regular rate, Regular rhythm, Normal S1, Normal S2. Negative for: Murmur Lungs: Diminished - BS bilaterally., Excusion symmetrical. Negative for: Rhonchi, Wheezes Extremities:: Negative for: Cyanosis, Edema Laboratory Data: Laboratory Tests Assessment and Plan Small cell lung carcinoma-Extensive disease involving left lung, mediastinum and liver on C1 Cisplatin and Irinotecan. 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 Counts are OK. Plan is to proceed with D15 Irinotecan today. RTC 2 weeks with CBC/CMP for C2D1 Cisplatin AND Irinotecan. Medications: Prescriptions This Visit Medication Instructions Recorded Dexamethasone 4 mg PO DAILY PRN PRN 12 Days #12 03/15/18 Lidocaine/Prilocaine 30 gm TP DAILY PRN PRN 30 Days #1 03/15/18 Primary Care Provider: Dariel Ortega Referring Provider: Betty Banerjee NP - Problem List (1) Small cell lung cancer Status: Chronic (2) COPD (chronic obstructive pulmonary disease) Status: Chronic Qualifiers: COPD type: unspecified COPD Qualified Code(s): J44.9 - Chronic obstructive pulmonary disease, unspecified (3) Chemotherapy management, encounter for Status: Acute Code Visit Office Visits / Consults: [id number] OV L5 Est 03/31/18 1012 <Electronically signed by Nathan Garduno MD> Date Nathan Garduno MD Cosigner Signature: Date (if applicable) CC: CBC W/DIFF, AUTOMATED Collected: 03/31/2018 Status: F Source: [place] 8:41 AM [facility] TYPE CODE TESTS RESULT OUT OF RANGE REFERENCE UNITS LAB L100.1000 4.4-11.0 K/mm3 Normal WBC 6.5 LAB L100.1200 4.2-5.4 M/mm3 Low RBC 3.11 LAB L100.1300 12.0-15.0 g/dl Low HGB 9.7 LAB L100.1400 37-47 % Low HCT 30.9 LAB L100.1500 81-99 fL High MCV 99.4 LAB L100.1600 27.0-32.0 pg Normal MCH 31.2 LAB L100.1700 32-36 g/gl Low MCHC 31.4 LAB L100.1810 11.6-14.6 % Normal RDW CV 12.5 LAB L100.1820 35.1-43.9 fl High RDW SD 45.0 LAB L100.1900 150-450 K/mm3 Normal PLT 266 LAB L100.2000 6.2-12.0 fl Normal MPV 9.1 LAB L100.2100 47-70 % High NEUT% 71.3 LAB L100.2200 19-41 % Low LY% 13.7 LAB L100.2300 0-10 % Normal MONO% 9.1 LAB L100.2400 0-5 % High EO% 5.2 LAB L100.2500 0-1 % Normal BASO% 0.5 LAB L100.2550 0.0-0.9 % Normal IM GRAN % 0.200 Result Comment: IG% - Immature Granulocytes (promyelocytes, myelocytes and metamyelocytes) > 1% indicates that a LEFT SHIFT is Present. LAB L100.2620 2.0-7.7 X10 3/uL Normal Absolute Neut 4.7 LAB L100.2720 0.83-4.51 X10 3/ul Normal Absolute Lymph 0.89 Performed By: #### L100.0100 #### [facility] [address] [place], [address] COMPREHENSIVE METABOLIC Collected: 03/31/2018 Status: F Source: [facility] 8:40 AM [facility] Order Comment: Reason for Laboratory Test Chemotherapy TYPE CODE TESTS RESULT OUT OF RANGE REFERENCE UNITS LAB L501.0100 74-106 mg/dL Normal GLU 99 Result Comment: Please note revised GLUCOSE reference range effective 2017. LAB L501.1000 7-18 mg/dL Normal BUN 14 LAB L501.1100 0.55-1.02 mg/dL Low CREAT,SERUM 0.31 Result Comment: The validity of the calculated GFR AND GFRAA in patients over 70 years has not been determined. Clinical correlation is essential. LAB L501.1110 >60 mL/min Normal EST GFR 234 Result Comment: Non- GFR Calc LAB L501.1115 >60 mL/min Normal EST GFR - AA 284 Result Comment: GFR Calc LAB L501.1255 ml/min Normal Estimated CRCL 135.82 LAB L501.1300 10-20 RATIO High BUN/CRE 44.9 LAB L501.1500 6.4-8. g/dL 2 T PROT Normal 6.6 LAB L501.1800 3.2-5. g/dL 0 ALB Normal 3.3 LAB L501.1950 2.2-4. g/dL 2 GLOB Normal 3.3 LAB L501.2000 0.9-2. RATIO 4 A/G Normal 1.0 LAB L501.2200 8.5-10 mg/dL .1 CA Normal 8.5 LAB L501.4100 15-37 U/L AST Normal 29 LAB L501.4305 45-117 U/L ALK P Normal 82 LAB L501.4405 13-56 U/L ALT Normal 24 LAB L501.4600 0.20-1 mg/dL .00 T BILI Normal 0.20 LAB L501.5300 136-14 mmol/L 5 NA Normal 138 LAB L501.5600 3.5-5. mmol/L 1 K Normal 3.9 LAB L501.5900 98-107 mmol/L CL Normal 98 LAB L501.6100 21.0-3 mmol/L High 2.0 CO2 38.0 LAB L501.6200 5-15 Low GAP 2 Performed By: #### L500.4050, L501.2300, L501.5200 #### [facility] [address] [place], [place], [address] PHOSPHORUS Collected: 03/31/2018 Status: F Source: [place] 8:40 AM [facility] Order Comment: Reason for Laboratory Test Chemotherapy TYPE CODE TESTS RESULT OUT OF RANGE REFERENCE UNITS LAB L501.2300 2.5-4.9 mg/dL Normal PHOS 4.0 Performed By: #### L500.4050, L501.2300, L501.5200 #### [facility] [address] [place], [place], [address] MAGNESIUM Collected: 03/31/2018 Status: F Source: [place] 8:40 AM [facility] Order Comment: Reason for Laboratory Test Chemotherapy TYPE CODE TESTS RESULT OUT OF RANGE REFERENCE UNITS LAB L501.5200 1.6-2.6 mg/dL Normal MG 1.8 Performed By: #### L500.4050, L501.2300, L501.5200 #### [facility] [address] [place], [address] ONCOLOGY VISIT REPORT Observed: 03/24/2018 Status: F Source: [place] 1:16 PM [facility] [address] [place] [address] OFFICE VISIT Date of Service: 03/24/18 1012 MR#: [id number] Acct: [id number] Name: OLIVE TEJADA Rep #: [id number] : 1960 From: Nathan Garduno MD Age/Sex: 57/F Location: ONC Status: Signed Subjective - Date of Service Date of Service:: 03/24/18 - Chief Complaint F/u for SCLC and chemotherapy. - History of Present Illness Ms. Olive Tejada is a pleasant 57 y.o.woman with a past medical history significant for depression and COPD, oxygen dependent. She initially presented with SOB, dizziness and weight loss. CTA on 02/06/2018 showed suspicious and enhancing anterior mediastinal mass 5.3 cm with extension into the left upper lobe. Thus, she had a CT-guided biopsy on February 22, 2018. Pathology confirmed small cell lung carcinoma. PET/CT 03/07/2018, demonstrated anterior mediastinal mass 6 cm, involving RACHID and AP node, single nodule in left lobe of liver 1 cm, all with hypermetabolic activities. Right lower extremity edema noted 03/11/18, negative for DVT. She started chemotherapy with Cisplatin and Irinotecan on 03/16/2018, comes in for C1D8 Irinotecan. She had nausea and abdominal cramps, did not take her antiemetics because she forgot about them. Today she feels fine. - Past Medical/Social History Past Medical History Past Medical History: COPD Cancer: Lung cancer Social History Smoking Status Former smoker Review of Systems Constitutional:: Denies: Fever, Sweats, Weight loss, Appetite change, Chills Cardiovascular:: Denies: Chest pain, Palpitations, Dyspnea on exertion, Orthopnea, PND, Shortness of breath Respiratory: Denies: Cough, Hemoptysis, Shortness of Breath, Wheezing Gastrointestinal:: Denies: Abdominal pain, Nausea, Vomiting, Diarrhea, Constipation, Hematochezia Genitourinary: Denies: Dysuria, Hematuria, 15, Flank pain Musculoskeletal:: Denies: Back pain, Myalgia, Arthralgia Skin: Denies: Rash, Skin Changes, Wounds Neurological:: Denies: Headache, Dizziness, Visual changes, Tinnitus, Hearing loss Psychiatric: Denies: Anxiety, Depression, Homicidal Ideations, Suicidal Ideations Vital Signs Height 5 ft 8 in Weight: 40.823 kg Weight in Pounds 90.0 lbs Pulse Ox 93 - Physical Exam General: Alert, Oriented x3, Cooperative, No apparent distress, - - on home )2 HEENT: Atraumatic, PERRLA, EOMI, Normocephalic Oropharynx:: Dry mucosa Neck:: Supple, Trachea midline. Negative for: JVD, bilateral Cardiac:: Regular rate, Regular rhythm, Normal S1, Normal S2. Negative for: Murmur Lungs: Clear to auscultation, Excusion symmetrical. Negative for: Rhonchi, Wheezes Abdomen:: Bowel sounds x 4, Soft, Non-tender, Non-distended. Negative for: Hepatosplenomegaly Laboratory Data: Laboratory Tests Assessment and Plan Small cell lung carcinoma-Extensive disease involving left lung, mediastinum and liver on C1 Cisplatin and Irinotecan. 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 Counts are OK. Plan is to proceed with D8 Irinotecan today.. RTC 1 week with CBC/CMP for C1D15 Irinotecan. Medications: Prescriptions This Visit Medication Instructions Recorded Dexamethasone 4 mg PO DAILY PRN PRN 12 Days #12 03/15/18 Lidocaine/Prilocaine 30 gm TP DAILY PRN PRN 30 Days #1 03/15/18 Primary Care Provider: Dariel Ortega Referring Provider: Betty Banerjee NP - Problem List (1) Small cell lung cancer Status: Chronic (2) COPD (chronic obstructive pulmonary disease) Status: Chronic Qualifiers: COPD type: unspecified COPD Qualified Code(s): J44.9 - Chronic obstructive pulmonary disease, unspecified Code Visit Office Visits / Consults: 02255 OV L5 Est 03/24/18 1316 <Electronically signed by Nathan Garduno MD> Date Nathan Garduno MD Cosigner Signature: Date (if applicable) CC: CBC W/DIFF, AUTOMATED Collected: 03/24/2018 Status: F Source: [place] 9:28 AM [facility] [facility] TYPE CODE TESTS RESULT OUT OF RANGE REFERENCE UNITS LAB L100.1000 4.4-11.0 K/mm3 Normal WBC 7.9 LAB L100.1200 4.2-5.4 M/mm3 Low RBC 3.42 LAB L100.1300 12.0-15.0 g/dl Low HGB 10.6 LAB L100.1400 37-47 % Low HCT 33.9 LAB L100.1500 81-99 fL High MCV 99.1 LAB L100.1600 27.0-32.0 pg Normal MCH 31.0 LAB L100.1700 32-36 g/gl Low MCHC 31.3 LAB L100.1810 11.6-14.6 % Normal RDW CV 12.4 LAB L100.1820 35.1-43.9 fl High RDW SD 45.3 LAB L100.1900 150-450 K/mm3 Normal PLT 278 LAB L100.2000 6.2-12.0 fl Normal MPV 9.4 LAB L100.2100 47-70 % Normal NEUT% 68.5 LAB L100.2200 19-41 % Low LY% 15.1 LAB L100.2300 0-10 % High MONO% 11.5 LAB L100.2400 0-5 % Normal EO% 4.3 LAB L100.2500 0-1 % Normal BASO% 0.3 LAB L100.2550 0.0-0.9 % Normal IM GRAN % 0.300 Result Comment: IG% - Immature Granulocytes (promyelocytes, myelocytes and metamyelocytes) > 1% indicates that a LEFT SHIFT is Present. LAB L100.2620 2.0-7.7 X10 3/uL Normal Absolute Neut 5.4 LAB L100.2720 0.83-4.51 X10 3/ul Normal Absolute Lymph 1.20 Performed By: #### L100.0100 #### [facility] [place], [address] COMPREHENSIVE METABOLIC Collected: 03/24/2018 Status: F Source: [place] 9:28 AM [facility] Order Comment: Reason for Laboratory Test Chemotherapy TYPE CODE TESTS RESULT OUT OF RANGE REFERENCE UNITS LAB L501.0100 74-106 mg/dL Normal GLU 106 Result Comment: Fasting Glucose result from 100 to 125 mg/dL suggests IMPAIRED HOMEOSTASIS per A.D.A. criteria. Please note revised GLUCOSE reference range effective 2017. LAB L501.1000 7-18 mg/dL Normal BUN 13 LAB L501.1100 0.55-1.02 mg/dL Low CREAT,SERUM 0.45 Result Comment: The validity of the calculated GFR AND GFRAA in patients over 70 years has not been determined. Clinical correlation is essential. LAB L501.1110 >60 mL/min Normal EST GFR 152 Result Comment: Non- GFR Calc LAB L501.1115 >60 mL/min Normal EST GFR - AA 184 Result Comment: GFR Calc LAB L501.1255 ml/min Normal Estimated CRCL 91.03 LAB L501.1300 10-20 RATIO High BUN/CRE 28.6 LAB L501.1500 6.4-8. g/dL Normal 2 T PROT 7.1 LAB L501.1800 3.2-5. g/dL Normal 0 ALB 3.4 LAB L501.1950 2.2-4. g/dL Normal 2 GLOB 3.7 LAB L501.2000 0.9-2. RATIO Normal 4 A/G 0.9 LAB L501.2200 8.5-10 mg/dL Normal .1 CA 8.9 LAB L501.4100 15-37 U/L Normal AST 29 LAB L501.4305 45-117 U/L Normal ALK P 86 LAB L501.4405 13-56 U/L Normal ALT 30 LAB L501.4600 0.20-1 mg/dL Normal .00 T BILI 0.20 LAB L501.5300 136-14 mmol/L Normal 5 NA 138 LAB L501.5600 3.5-5. mmol/L Normal 1 K 3.8 LAB L501.5900 98-107 mmol/L Normal CL 99 LAB L501.6100 21.0-3 mmol/L High 2.0 CO2 34.0 LAB L501.6200 5-15 Normal GAP 5 Performed By: #### L500.4050, L501.2300, L501.5200 #### [facility] [address] [place], [place], [address] PHOSPHORUS Collected: 03/24/2018 Status: F Source: [place] 9:28 AM [facility] Order Comment: Reason for Laboratory Test Chemotherapy TYPE CODE TESTS RESULT OUT OF RANGE REFERENCE UNITS LAB L501.2300 2.5-4.9 mg/dL Normal PHOS 3.6 Performed By: #### L500.4050, L501.2300, L501.5200 #### [facility] [address] [place], [address] MAGNESIUM Collected: 03/24/2018 Status: F Source: [place] 9:28 AM [facility] Order Comment: Reason for Laboratory Test Chemotherapy TYPE CODE TESTS RESULT OUT OF RANGE REFERENCE UNITS LAB L501.5200 1.6-2.6 mg/dL Normal MG 1.8 Performed By: #### L500.4050, L501.2300, L501.5200 #### [facility] [address] [place], [address] BRAIN W/WO CONTRAST Observed: 03/19/2018 Status: F Source: [place] 12:00 AM [facility] [address] [place] [address] Brain W/WO Contrast MR#: [id number] Acct: [id number] Name: OLIVE TEJADA Rep #: [id number] : 1960 F 57 From: Amarilis Garrett PCP: Jordan MONTILLA,Dariel Coughlin Status: REG CLI Study: Brain W/WO Contrast Date of Exam: 03/19/18 Exam# [id number] Ordering Dr: Betty Banerjee ROLLING ATTENDANT-Chirag STUDY: MRI BRAIN WITH AND WITHOUT CONTRAST REASON FOR EXAM: Female, 57 years old. New Small cell lung CA diagnosis, dizziness TECHNIQUE: Standardized multiplanar fat and water weighted pulse sequences were obtained. 5 ml of Gadavist contrast material was administered intravenously for the contrast portion of the examination. COMPARISON: None. FINDINGS: Normal size of the ventricles and extra-axial spaces for the patient's age. Normal white matter tracts of the supratentorial brain. Normal bilateral basal ganglia. Normal thalami. There is no extra-axial fluid accumulation. Normal flow voids within the major intracranial circulation suggesting patency by spin echo criteria. Normal venous enhancement. There is no enhancing intra-axial or extra-axial abnormality. Normal sella turcica, pituitary gland, infundibular stalk, optic chiasm and hypothalamus. Normal tectal plate and pineal gland. Normal midbrain, elmer and medulla. Normal cerebellum. Normal basal cisterns. Normal bilateral temporal bones. Normal bilateral internal auditory canals. No demonstrated orbital abnormality, within the constraints of a routine brain study. Normal visualized paranasal sinuses. Normal calvarium and skull base. Normal visualized soft tissue structures. Normal visualized upper cervical spine. MRI/Brain W/WO Contrast IMPRESSION: Normal unenhanced and enhanced MRI of the brain. Electronically Signed: Amarilis Garrett MD at 13:18 EDT Tel , Service support , CC: Betty Banerjee; Dariel Ortega MD Restaurant Service Manager: Signed IRON+IRON BINDING Collected: 03/17/2018 Status: F Source: [facility] 11:32 AM [facility] Order Comment: ADD ON TUBE IN CHEM USE XTRA IF NEEDED TYPE CODE TESTS RESULT OUT OF RANGE REFERENCE UNITS LAB L503.6075 250-450 ug/dL TIBC Normal 310 LAB L503.6150 50-170 ug/dL IRON Normal 61 LAB L503.6250 15.0-55.0 % IRON Normal SATURATION 19.7 Performed By: #### L503.6030, L503.6550 #### [facility] [address] [place], [address] FERRITIN Collected: 03/17/2018 Status: F Source: [place] 11:32 AM [facility] Order Comment: ADD ON TUBE IN CHEM USE XTRA IF NEEDED TYPE CODE TESTS RESULT OUT OF RANGE REFERENCE UNITS LAB L503.6550 8-252 ng/mL Normal FERRITIN 26 Performed By: #### L503.6030, L503.6550 #### [facility] [address] [place], [address] CBC W/DIFF, AUTOMATED Collected: 03/17/2018 Status: F Source: [place] 9:00 AM [facility] TYPE CODE TESTS RESULT OUT OF RANGE REFERENCE UNITS LAB L100.1000 4.4-11.0 K/mm3 Normal WBC 7.5 LAB L100.1200 4.2-5.4 M/mm3 Low RBC 3.20 LAB L100.1300 12.0-15.0 g/dl Low HGB 9.9 LAB L100.1400 37-47 % Low HCT 32.3 LAB L100.1500 81-99 fL High MCV 100.9 LAB L100.1600 27.0-32.0 pg Normal MCH 30.9 LAB L100.1700 32-36 g/gl Low MCHC 30.7 LAB L100.1810 11.6-14.6 % Normal RDW CV 13.0 LAB L100.1820 35.1-43.9 fl High RDW SD 48.1 LAB L100.1900 150-450 K/mm3 Normal PLT 289 LAB L100.2000 6.2-12.0 fl Normal MPV 9.3 LAB L100.2100 47-70 % Normal NEUT% 60.4 LAB L100.2200 19-41 % Low LY% 17.5 LAB L100.2300 0-10 % High MONO% 17.4 LAB L100.2400 0-5 % Normal EO% 4.1 LAB L100.2500 0-1 % Normal BASO% 0.5 LAB L100.2550 0.0-0.9 % Normal IM GRAN % 0.100 Result Comment: IG% - Immature Granulocytes (promyelocytes, myelocytes and metamyelocytes) > 1% indicates that a LEFT SHIFT is Present. LAB L100.2620 2.0-7.7 X10 3/uL Normal Absolute Neut 4.5 LAB L100.2720 0.83-4.51 X10 3/ul Normal Absolute Lymph 1.32 Performed By: #### L100.0100 #### [facility] [address] [place], [place], [address] COMPREHENSIVE METABOLIC Collected: 03/17/2018 Status: F Source: [facility] 9:00 AM [facility] Order Comment: Reason for Laboratory Test Chemotherapy TYPE CODE TESTS RESULT OUT OF RANGE REFERENCE UNITS LAB L501.0100 74-106 mg/dL Low GLU 65 Result Comment: Please note revised GLUCOSE reference range effective 2017. LAB L501.1000 7-18 mg/dL Normal BUN 10 LAB L501.1100 0.55-1.02 mg/dL Low CREAT,SERUM 0.34 Result Comment: The validity of the calculated GFR AND GFRAA in patients over 70 years has not been determined. Clinical correlation is essential. LAB L501.1110 >60 mL/min Normal EST GFR 212 Result Comment: Non- GFR Calc LAB L501.1115 >60 mL/min Normal EST GFR - AA 256 Result Comment: GFR Calc LAB L501.1255 ml/min Normal Estimated CRCL 124.50 LAB L501.1300 10-20 RATIO High BUN/CRE 29.3 LAB L501.1500 6.4-8. g/dL 2 T PROT Normal 6.9 LAB L501.1800 3.2-5. g/dL 0 ALB Normal 3.3 LAB L501.1950 2.2-4. g/dL 2 GLOB Normal 3.6 LAB L501.2000 0.9-2. RATIO 4 A/G Normal 0.9 LAB L501.2200 8.5-10 mg/dL .1 CA Normal 8.5 LAB L501.4100 15-37 U/L AST Normal 31 LAB L501.4305 45-117 U/L ALK P Normal 81 LAB L501.4405 13-56 U/L ALT Normal 27 LAB L501.4600 0.20-1 mg/dL .00 T BILI Normal 0.20 LAB L501.5300 136-14 mmol/L 5 NA Normal 141 LAB L501.5600 3.5-5. mmol/L 1 K Normal 3.7 LAB L501.5900 98-107 mmol/L CL Normal 101 LAB L501.6100 21.0-3 mmol/L High 2.0 CO2 37.0 LAB L501.6200 5-15 Low GAP 3 Performed By: #### L500.4050, L501.2300, L501.5200 #### [facility] [address] [place], [address] PHOSPHORUS Collected: 03/17/2018 Status: F Source: [place] 9:00 AM [facility] Order Comment: Reason for Laboratory Test Chemotherapy TYPE CODE TESTS RESULT OUT OF RANGE REFERENCE UNITS LAB L501.2300 2.5-4.9 mg/dL Normal PHOS 3.2 Performed By: #### L500.4050, L501.2300, L501.5200 #### [facility] [address] [place], [address] MAGNESIUM Collected: 03/17/2018 Status: F Source: [place] 9:00 AM [facility] Order Comment: Reason for Laboratory Test Chemotherapy TYPE CODE TESTS RESULT OUT OF RANGE REFERENCE UNITS LAB L501.5200 1.6-2.6 mg/dL Normal MG 1.8 Performed By: #### L500.4050, L501.2300, L501.5200 #### [facility] [address] [place], [address] ONCOLOGY VISIT REPORT Observed: 03/16/2018 Status: F Source: [place] 4:40 PM [facility] [address] [place] [address] OFFICE VISIT Date of Service: 03/16/18 1417 MR#: [id number] Acct: [id number] Name: OLIVE TEJADA Rep #: [id number] : 1960 From: Nathan Garduno MD Age/Sex: 57/F Location: ONC Status: Signed Subjective - Date of Service Date of Service:: 03/16/18 - Chief Complaint F/u for SCLC. - History of Present Illness Ms. Olive Tejada is a pleasant 57 y.o.woman with a past medical history significant for depression and COPD, oxygen dependent. She initially presented with SOB, dizziness and weight loss. CTA on 02/06/2018 showed suspicious and enhancing anterior mediastinal mass 5.3 cm with extension into the left upper lobe. Thus, she had a CT-guided biopsy on February 22, 2018. Pathology confirmed small cell lung carcinoma. PET/CT 03/07/2018, demonstrated anterior mediastinal mass 6 cm, involving RACHID and AP node, single nodule in left lobe of liver 1 cm, all with hypermetabolic activities. Right lower extremity edema noted 03/11/18, negative for DVT. Pt in the clinic to discuss further mgmt. - Past Medical/Social History Past Medical History Cancer: Lung cancer Social History Smoking Status Former smoker Review of Systems Constitutional:: Reports: Fatigue. Denies: Fever, Sweats Cardiovascular:: Denies: Chest pain, Palpitations, Dyspnea on exertion, Orthopnea, PND, Shortness of breath Respiratory: Denies: Cough, Hemoptysis, Shortness of Breath, Wheezing Gastrointestinal:: Denies: Abdominal pain, Nausea, Vomiting, Diarrhea, Constipation, Hematochezia Genitourinary: Denies: Dysuria, Hematuria, 15, Flank pain Neurological:: Denies: Headache, Dizziness, Visual changes, Tinnitus, Hearing loss Vital Signs Height 5 ft 8 in Weight: 42.184 kg Weight in Pounds 93.0 lbs Pulse Ox 87 - Physical Exam General: Alert, Oriented x3, No apparent distress Assessment and Plan Small cell lung carcinoma-Extensive disease involving left lung, mediastinum and liver. 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 Discussed holding chemotherapy and obtaining liver biopsy to confirm liver lesion. She felt it was not warranted. She believes the PET/CT is enough. Plan is to start chemotherapy with Cisplatin and Irinotecan tomorrow. RTC 1 week with CBC/CMP/LDH/URIC ACID. Medications: Prescriptions This Visit Medication Instructions Recorded Dexamethasone 4 mg PO DAILY PRN PRN 12 Days #12 03/15/18 Lidocaine/Prilocaine 30 gm TP DAILY PRN PRN 30 Days #1 03/15/18 Medications Added to Medication List This Visit 0.9% Normal Saline Med 03/17/18 00:00 Ordered 250 ml IV UD PRN 0.9% Saline Lock Med 03/17/18 00:00 Ordered Primary Care Provider: Dariel Ortega Referring Provider: Betty Banerjee NP - Problem List (1) Small cell lung cancer Status: Chronic (2) COPD (chronic obstructive pulmonary disease) Status: Chronic Qualifiers: COPD type: unspecified COPD Qualified Code(s): J44.9 - Chronic obstructive pulmonary disease, unspecified Code Visit Office Visits / Consults: 17406 OV L3 Est 03/16/18 1640 <Electronically signed by Nathan Garduno MD> Date Nathan Che Signature: Date (if applicable) CC: ONCOLOGY VISIT REPORT Observed: 03/15/2018 Status: F Source: [place] 12:00 PM [facility] [place] [address] OFFICE VISIT Date of Service: 03/15/18 1017 MR#: [id number] Acct: [id number] Name: OLIVE TEJADA Rep #: [id number] : 1960 From: Joan ESCALONA Age/Sex: 57/F Location: OMD Status: Signed Subjective - Date of Service Date of Service:: 03/15/18 - Chief Complaint Chemotherapy Education- Cisplatin/irinotecan - History of Present Illness Ms. Olive Tejada is a pleasant 57 y.o.woman with a past medical history significant for depression and COPD, oxygen dependent. She initially presented with SOB, dizziness and weight loss. CTA on 02/06/2018 showed suspicious and enhancing anterior mediastinal mass 5.3 cm with extension into the left upper lobe. Thus, she had a CT-guided biopsy on February 22, 2018. Pathology confirmed small cell lung carcinoma. Underwent PET/CT 03/07/2018, demonstrated anterior mediastinal mass 6 cm and periaortic node, single nodule in left lobe of liver 1 cm, all with hypermetabolic activities. Right lower extremity edema noted 03/11/18, negative for DVT. - Interval History The patient is presenting to clinic for chemotherapy education. Power port placed 03/14/[address] Marcos. Describes support system as limited. Began whey protein supplements with goal of 90 gm protein/day. - Past Medical/Social History Past Medical History Cancer: Lung cancer Social History Smoking Status Former smoker Review of Systems Constitutional:: Reports: Weight loss. Denies: Fever, Sweats, Appetite change, Chills Cardiovascular:: Denies: Chest pain, Palpitations, Dyspnea on exertion, Orthopnea, PND, Shortness of breath Respiratory: Reports: Cough, Shortness of Breath. Denies: Hemoptysis, Wheezing Gastrointestinal:: Denies: Abdominal pain, Nausea, Vomiting, Diarrhea, Constipation, Hematochezia Genitourinary: Denies: Dysuria, Hematuria, 15, Flank pain Musculoskeletal:: Denies: Back pain, Myalgia, Arthralgia Skin: Denies: Rash, Skin Changes, Wounds Neurological:: Denies: Headache, Dizziness, Visual changes, Tinnitus, Hearing loss Psychiatric: Denies: Anxiety, Depression, Homicidal Ideations, Suicidal Ideations Vital Signs Height 5 ft 8 in Weight: 93 lb Weight in Pounds 93.0 lbs Pulse Ox 89 - Physical Exam General: Alert, Oriented x3, No apparent distress, - - cachexia HEENT: Atraumatic, Normocephalic Oropharynx:: Poor dentition. Negative for: Dry mucosa, Ulcerated lesions Skin:: - - port right upper chest accessed with gripper covered with DSD, surrounding integument without erythema or increased warmth. Negative for: Lesions, Rash, Petechiae, Ecchymosis Psychiatric:: Appropriate affect, Euthymic Diagnostic Data: 03/07/[address] scan reviewed, showed anterior mediastinal mass 6 cm, SUV 8.5 and hypermetabolic periaortic node, single nodule in left lobe of liver 1 cm, SUV 3.2. Pathology Data: 02/22/2018 CT guided biopsy of anterior mediastinal/lung mass reviewed, consistent with Small cell carcinoma Assessment and Plan 1. Small cell lung carcinoma-Extensive disease involving left lung, mediastinum and liver- It has been proposed the patient begin palliative systemic chemotherapy with Cisplatin/irinotecan 28 day cycle. The patient has been thoroughly educated to risks/benefits associated with chemotherapy. Specifically, she has been educated to potential side effects, recommendations for symptom management, and circumstances in which she should contact provider immediately, such as the development of any signs/symptoms of infection inclusive of temperature > 100.4. Encouraged to go directly to ED should fever occur outside normal clinic hours. She has been provided written educational information and after hours contact information and prescriptions for , steroids, zyprexa, prn antiemetics/EMLA cream. Recommended she start on PPI for GI prophylaxis. Emphasis placed on hydration and nutritional needs. Greater than 50% of this one hour visit was spent in counseling and a significant amount of time was allotted for questions. All the patient's concerns were addressed to her satisfaction and she is agreeable to proceed. Tentatively, she will commence with cycle 1 on 03/17/18. 2. RLE Edema- negative for DVT. Joan Dempsey, MSN, POST CLOSER-C, AOCNP Primary Care Provider: Dariel Ortega Referring Provider: Betty Banerjee NP - Problem List (1) Small cell lung cancer Status: Chronic (2) Educational circumstance Status: Acute (3) Cachexia Status: Acute 03/15/18 1200 <Electronically signed by Joan LACKEYC> Date Joan ESCALONA Cosigner Signature: Date (if applicable) CC: OPERATIVE REPORT Observed: 03/14/2018 Status: F Source: [place] 9:25 AM [facility] Medical Records Department [address] [place] [address] Operative Report 03/14/18 0923 MR#: [id number] Acct: [id number] Name: JONNKARANDipakOLIVE Rep #: [id number] : 1960 57 From: Estevan Liriano MD PCP: Dariel Ortega MD, Chi Status: REG SD Y Location: [place] [address] Problem List (1) 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 Ultrasound was used to evaluate both IJ is in the right IJ was selected. Next, using a needle, the right IJ was accessed and a guidewire was passed on into the superior vena cava under fluoroscopy guidance. A small incision was made over the puncture site and the dilator introducer was placed over the guidewire. Next this was capped and the pocket was made for the port. 1% lidocaine with epinephrine was injected in the proposed port site. The port site had to be very low on the chest due to her low weight and small amount of subcutaneous tissue. There were a lot of bony protuberances up toward the clavicle so this was made in the mid chest. An incision was made with scalpel. Electrocautery was used to make a pocket under the skin and subcutaneous tissue. Hemostasis was obtained. Next, the catheter was tunneled up to the neck incision site and placed through the introducer. The peel-away introducer was removed and the position of the catheter was confirmed on fluoroscopy. Next, the catheter was trimmed and attached to the port with the locking device. Interrupted 2-0 Vicryls were used to anchor the port to the chest wall and then the port was placed inside the pocket. The pocket was then flushed with saline and the port irrigated with saline. There was good blood return and the port flushed easily. Next, heparin was injected into the port. The skin was closed with subcutaneous interrupted 3-0 Vicryl sutures and interrupted skin 3-0 nylon sutures. A single 3-0 Vicryl sutures placed under the skin at the neck incision site. Steri-Strips were placed as well as op sites. Patient tolerated procedure well, was taken to PACU in stable condition. Chest x-ray will be obtained. Grafts/Implants Used: 6 Irish Low Profile PowerPort 03/14/18 0925 <Electronically signed by Estevan Liriano MD> Date Estevan Liriano MD CC: Estevan Liriano MD; Dariel Ortega MD Signed DISCHARGE INSTRUCTION Observed: 03/14/2018 Status: F Source: [place] 9:23 AM [facility] Records Department [address] [place] [address] Instructions for Home/Discharge Instructions 03/14/18 0922 MR#: [id number] Acct: [id number] Name: OLIVE TEJADA Rep #: [id number] : 1960 57 From: Estevan Liriano MD PCP: Dariel Ortega MD, Chi Status: REG WIC Discharge Diet: No Restrictions - Pain medication may cause nausea. You should typically eat light foods as you take your pain medication. Discharge Activity: Return to Normal Activity, May Shower - with your bandage in place in 1-2 days after surgery. DO NOT SHOWER WHEN YOUR PORT IS ACCESSED. Call your doctor if your incision/area has: Continuous Slow Oozing, Sudden Increased Bleeding, Increased Pain/ Swelling, Increased Redness Call your doctor if you observe: Fever of 101 or Higher Remove Dressing in (days):: 2 - OK TO USE WEDNESDAY Allergies/Adverse Reactions: Allergies morphine Allergy (Verified 03/11/18 15:57) Itching Medications to take at Discharge Cyanocobalamin [Vitamin B12] 500 mcg PO DAILY@0800 09/06/16 Multivitamins,Therapeutic [Multivitamin] 1 tab PO DAILY 09/06/16 Tiotropium [place] [Spiriva] 18 mcg IH DAILY #1 cap.w.dev 03/17/17 Ergocalciferol [Vitamin D] 50,000 unit PO QMONTH 07/31/17 Paroxetine HCl [Paxil] 40 mg PO DAILY 07/31/17 fluticasone 50 mcg/actuation nasal spray,suspension 50 mcg INTRANASAL QDAY PRN 12/06/17 albuterol sulfate 2.5 mg/3 mL (0.083 %) solution for nebulization 2.5 mg INHALATION 4X/DAY PRN 30 Days #180 vial 02/17/18 albuterol sulfate HFA 90 mcg/actuation aerosol inhaler 1 - 2 puff INHALATION Q4H PRN PRN #1 inhaler 02/17/18 budesonide-formoterol HFA 160 mcg-4.5 mcg/actuation aerosol inhaler 2 puff INHALATION BID #1 hfa.aer.ad 02/17/18 Primary Care Physician: Dariel Ortega Chi, MD [Primary Care Provider] - Please Follow Up With: Estevan Liriano MD When: call to make 7-10 day appt for suture removal [phone] 03/14/18 0923 <Electronically signed by Estevan Liriano MD> Date Estevan Liriano MD CC: Dariel Ortega MD CXR FOR LINE PLACEMENT Observed: 03/14/2018 Status: F Source: [place] 9:22 AM [facility] Imaging Services [address] [place] [address] [place] [address] CXR for Line Placement MR#: [id number] Acct: [id number] Name: OLIVE TEJADA Rep #: [id number] : 1960 F 57 From: Alex Alvarez DO PCP: Dariel Ortega MD, Chi Status: [place] [facility]: CXR for Line Placement Date of Exam: 03/14/18 Exam# [id number] Ordering Dr: Estevan Liriano MD STUDY: X-RAY CHEST REASON FOR EXAM: Female, 57 years old. Port placement TECHNIQUE: Single AP portable view of the chest. COMPARISON: 03/01/2018 FINDINGS: Implanted central catheter is seen overlying the right chest with the tip in the SVC. There is no pneumothorax. The lungs are hyperinflated. There is no demonstrated pleural abnormality. Normal size heart. Mediastinal mass is unchanged. Normal visualized pulmonary arteries. Normal visualized aortic arch and descending thoracic aorta. There are diffuse degenerative changes of the visualized thoracic spine. Remote left rib fracture is seen. There is no demonstrated abnormality of the visualized soft tissue structures of the upper abdomen. RAD/CXR for Line Placement IMPRESSION: New implanted port without pneumothorax. Hyperinflation. Mediastinal mass is unchanged. Electronically Signed: Alex Alvarez DO at 9:51 EDT Tel , Service support , CC: Estevan Liriano MD; Dariel Ortega MD Restaurant Service Manager: Signed VENOUS DUPLEX LOWER Observed: 03/11/2018 Status: F Source: [place] EXTREMITY 6:00 PM [facility] Cardiovascular Services [address] [place] [address] Venous Duplex US, Unilateral 03/11/18 1332 MR#: [id number] Acct: [id number] Name: OLIVE TEJADA Rep #: [id number] : 1960 57 From: Dimitri Treviño MD Attending Dr: Nathan Garduno MD Status: REG CLI Ordering Dr: Nathan Garduno MD Date: 03/11/18 Location: [facility] Sex: F C Admitted: Reason For Study: LEG SWELLING RIGHT GSV is normal. CFV is compressible, spontaneous, phasic, competent and demonstrates normal augmentation. FV is compressible, spontaneous, phasic, competent and demonstrates normal augmentation. POP V is compressible, spontaneous, phasic, competent and demonstrates normal augmentation. T/P Trunk is compressible. PTV is compressible. RT PerV is compressible. Procedure Exam performed in department. A preliminary report was called and/or faxed to Dr. Garduno. Interpretation Summary Deep veins of the right lower extremity are patent and compressible segmentally. There is no evidence of right lower extremity deep vein thrombosis. Valvular competence appears intact within the proximal deep venous system on the right . The right greater saphenous vein appears patent and compressible segmentally. Ordering Physician: Nathan Garduno Referring Physician: Dariel Ortega Chi Performed By: Apple Ruggiero RVT 03/11/18 1800 Date Dimitri Treviño MD CC: Nathan Garduno MD; Dariel Ortega MD Date Dictated: 03/11/18 1332 Date Transcribed: 03/11/18 1800 Restaurant Service Manager: Signed SURGERY VISIT REPORT Observed: 03/11/2018 Status: F Source: [place] 4:32 PM [facility] [address] [place] [address] OFFICE VISIT Date of Service: 03/11/18 MR#: [id number] Acct: [id number] Name: OLIVE TEJADA Rep #: [id number] : 1960 Provider: Estevan Liriano MD Age/Sex: 57/F Location: [facility] Status: Signed Intake Vital Signs03/11/18 Height 5 ft 8 in 03/11/18 Weight: 92 lb 9.506 oz 03/11/18 Body Mass Index (BMI) 14.1 03/11/18 Blood Pressure 118/78 03/11/18 Blood Pressure Location Rt brachial 03/11/18 Blood Pressure Position Sitting Intake Visit Reasons: NEEDS PORT Edge Inker Uppers Required: No Is patient in pain?: No Allergies morphine Allergy (Verified 03/11/18 15:57) Itching Medications Cyanocobalamin [Vitamin B12] 500 mcg PO DAILY@0800 09/06/16 [History Confirmed 03/11/18] Multivitamins,Therapeutic [Multivitamin] 1 tab PO DAILY 09/06/16 [History Confirmed 03/11/18] Tiotropium [place] [Spiriva] 18 mcg IH DAILY #1 cap.w.dev 03/17/17 [Rx Confirmed 03/11/18] Ergocalciferol [Vitamin D] 50,000 unit PO QMONTH 07/31/17 [History Confirmed 03/11/18] Paroxetine HCl [Paxil] 40 mg PO DAILY 07/31/17 [History Confirmed 03/11/18] fluticasone 50 mcg/actuation nasal spray,suspension 50 mcg INTRANASAL QDAY PRN 12/06/17 [History Confirmed 03/11/18] albuterol sulfate 2.5 mg/3 mL (0.083 %) solution for nebulization 2.5 mg INHALATION 4X/DAY PRN 30 Days #180 vial 02/17/18 [Rx Confirmed 03/11/18] albuterol sulfate HFA 90 mcg/actuation aerosol inhaler 1 - 2 puff INHALATION Q4H PRN PRN #1 inhaler 02/17/18 [Rx Confirmed 03/11/18] budesonide-formoterol HFA 160 mcg-4.5 mcg/actuation aerosol inhaler 2 puff INHALATION BID #1 hfa.aer.ad 02/17/18 [Rx Confirmed 03/11/18] PFSH Medical History Asthma (Chronic) Nocturnal hypoxia (Chronic) Anxiety (Chronic) Nicotine dependence in remission (Chronic) Stage 4 very severe COPD by GOLD classification (Chronic) Allergic rhinitis (Chronic) COPD with acute exacerbation (Acute) Tobacco dependence syndrome (Chronic) Hubgo-3-bfraofcztxd deficiency (Chronic) COPD (chronic obstructive pulmonary disease) (Chronic) GERD (gastroesophageal reflux disease) (Chronic) COPD with acute exacerbation (Acute) COPD, frequent exacerbations (Inactive) [place] (dyspnea on exertion) (Inactive) Surgical History History of tubal ligation (Resolved) Family History Mother Colon cancer Bronchitis Epilepsy Father Asthma Social History Smoking Status: Former smoker second hand exposure: No alcohol intake: never substance use type: does not use caffeine: Yes what type of physical activity do you participate in: walking frequency: daily HPI HPI HPI: OLIVE TEJADA, is a 57 F who presents to the office today for port placement. The patient has lung cancer and needs port for chemotherapy starting next week. She has shortness of breath with no other issues at this time. ROS General General: Yes weight change and fatigue Musc Musculoskeletal: No back problems, arthritis, rheumatoid arthritis, gout or joint pain Cardio Cardiovascular: No murmur, pacemaker, heart disease, atrial fibrillation, high blood pressure, heart attack, heart stent, palpitations, shortness of breat with exertion or chest pain Psych Psychiatric: Yes anxiety Resp Respiratory: Yes shortness of breath, No sleep apnea, Yes COPD, Yes asthma, No emphysema, No wheezing, No cough Gastro Gastrointestinal: No abdominal pain, No nausea or vomiting, No diarrhea, No constipation, No blood in stool, Yes acid reflux, No hemorrhoids, No ulcers, No gallbladder problem, No black,tarry stools Dayo Hematologic: No blood thinners, No blood disorders, No bleeding, No anemia, No blood clots Exam Const General: cooperative Orientation: alert, oriented x3 Chest Chest palpation AND inspection: normal inspection of the chest Resp Effort AND Inspection: audible wheezes Cardio Rate: regular rate Rhythm: regular rhythm Heart Sounds: no murmurs GI Inspection: non-distended Palpation: soft, nontender Assessment AND Plan Problems 1. Encounter for insertion of venous access port Z45.2 2. 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 I discussed port placement in detail with the patient. I answered all questions in detail 2. I discussed risks including but not limited to bleeding, infection, pneumothorax. I also discussed the risks of an indwelling catheter including line infection and DVT. The patient understands and is willing to proceed with catheter placement. 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 C78.1; C80.1 03/11/18 1632 <Electronically signed by Estevan Liriano MD> Date Estevan Liriano MD Cosigner Signature: Date (if applicable) CC: Nathan Garduno MD; Dariel Ortega MD ONCOLOGY CONSULTATION Observed: 03/11/2018 Status: F Source: [place] 10:33 AM [facility] [place] [address] Oncology Consultation Date of Service: 03/10/18 1547 MR#: [id number] Acct: [id number] Name: OLIVE TEJADA Rep #: [id number] : 1960 From: Nathan Garduno MD Age/Sex: 57/F Location: OMD Status: Signed with Addenda ADDENDUM by Nathan Garduno MD on 03/11/18 at 1033 Code Visit Plan: Obtain MRI brain to complete staging work up. Obtain Venous Doppler to R/O DVT. 03/11/18 1033 <Electronically signed by Nathan Garduno MD> Date Nathan Garduno MD cc: Betty Banerjee; Dariel Ortega MD * Signed Consult Referring Physician: Dr. Eric Carpenter/Betty Banerjee Consult Results: Small cell lung cancer-Extensive disease/Stage IV. Subjective Date of Service:: 03/10/18 Chief Complaint: Referred for management of small cell lung cancer. History of Present Illness: 57 y.o.woman presented with SOB and dizziness, CTA on 02/06/2018 showed suspicious and enhancing anterior mediastinal mass 5.3 cm with extension into the left upper lobe. She had a CT-guided biopsy on February 22, 2018. Pathology showed small cell lung carcinoma. She was referred for PET/CT and oncology consultation. Power of Boat Canvas Installer: No Living Will: No Health History: Past Medical History Cancer: Lung cancer Past Medical History (Last Reviewed 03/10/18 @ 15:08 by Felisa Barraza) Asthma (Chronic) Nocturnal hypoxia (Chronic) Anxiety (Chronic) Nicotine dependence in remission (Chronic) Stage 4 very severe COPD by GOLD classification (Chronic) Allergic rhinitis (Chronic) COPD with acute exacerbation (Acute) Tobacco dependence syndrome (Chronic) Poaem-8-mlydkbvplpl deficiency (Chronic) COPD (chronic obstructive pulmonary disease) (Chronic) GERD (gastroesophageal reflux disease) (Chronic) COPD with acute exacerbation (Acute) COPD, frequent exacerbations (Inactive) [place] (dyspnea on exertion) (Inactive) Past Surgical History (Last Reviewed 03/10/18 @ 15:08 by Felisa Barraza) History of tubal ligation (Resolved) Family History (Last Reviewed 03/10/18 @ 15:08 by Felisa Barraza) Mother Colon cancer Bronchitis Epilepsy Father Asthma Allergies/Adverse Reactions: Allergy/AdvReac Type Severity Reaction Status Date / Time morphine Allergy Itching Verified 03/10/18 15:08 Home Medications Medication Instructions Recorded Review of Systems Constitutional:: Reports: Weakness, Fatigue. Denies: Fever, Sweats Cardiovascular:: Reports: Chest pain Respiratory: Denies: Cough, Hemoptysis, Shortness of Breath, Wheezing Gastrointestinal:: Denies: Abdominal pain, Nausea, Vomiting, Diarrhea, Constipation, Hematochezia Genitourinary: Denies: Dysuria, Hematuria, 15, Flank pain Musculoskeletal:: Denies: Back pain, Myalgia, Arthralgia Skin: Denies: Rash, Skin Changes, Wounds Neurological:: Denies: Headache, Dizziness, Visual changes, Tinnitus, Hearing loss Psychiatric: Denies: Anxiety, Depression, Homicidal Ideations, Suicidal Ideations Vital Signs Height 5 ft 8 in Weight: 42.638 kg Weight in Pounds 94.0 lbs Pulse Ox 89 - Physical Exam General: Alert, Oriented x3, No apparent distress, - - slim. HEENT: Atraumatic, PERRLA, EOMI, Normocephalic Oropharynx:: Dry mucosa Neck:: Supple, Trachea midline. Negative for: JVD, bilateral Cardiac:: Regular rate, Regular rhythm, Normal S1, Normal S2. Negative for: Murmur Lungs: Clear to auscultation, Excusion symmetrical. Negative for: Rhonchi, Wheezes Abdomen:: Bowel sounds x 4, Soft, Non-tender, Non-distended. Negative for: Hepatosplenomegaly Extremities:: Edema - swelling of R leg.. Negative for: Cyanosis Neurological: Neuro grossly intact Diagnostic Data: 03/07/[address] scan reviewed, showed anterior mediastinal mass 6 cm and periaortic node, single nodule in left lobe of liver 1 cm, all with hypermetabolic activities. Pathology Data: 02/22/2018 CT guided biopsy of anterior mediastinal/lung mass reviewed, consistent with Small cell carcinoma Assessment and Plan Small cell lung carcinoma-Extensive disease involving left lung, mediastinum and liver. 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 Edema-R leg, R/O DVT. Discussed Small cell carcinoma-ED, treatment with chemotherapy, Prognosis is poor but depending on response to chemotherapy, may be months to years. Pt wants treatment, suggested therapy with Cisplatin and Irinotecan every 28 days. Also discussed risks, benefits and side effects. Plan is to start chemotherapy with Cisplatin and Irinotecan next week. RTC 1 week with CBC/CMP/LDH/URIC ACID. Primary Care Provider: Dariel Ortega Referring Provider: Betty Banerjee NP - Problem List (1) Small cell lung cancer Status: Chronic (2) COPD (chronic obstructive pulmonary disease) Status: Chronic Qualifiers: COPD type: unspecified COPD Qualified Code(s): J44.9 - Chronic obstructive pulmonary disease, unspecified Code Visit Office Visits / Consults: [id number] OP Consult L5 03/11/18 1025 <Electronically signed by Nathan Garduno MD> Date Nathan Garduno MD Cosigner Signature: Date (if applicable) CC: Betty Banerjee; Dariel Ortega MD PET/CT TUMOR BASE Observed: 03/07/2018 Status: F Source: [place]ERESE -THIGH INIT 6:46 AM [facility] Imaging Services [address] [place] [address] PET/CT Tumor Base -Thigh Init MR#: [id number] Acct: [id number] Name: OLIVE TEJADA Rep #: [id number] : 1960 F 57 From: Eduin Barron DO PCP: Dariel Ortega MD, Chi Status: REG CLI Study: PET/CT Tumor Base -Thigh Init Date of Exam: 03/07/18 Exam# [id number] Ordering Dr: Betty Banerjee EXAMINATION: FDG PET CT INDICATIONS: A 57-year-old female with reported history of carcinoma of the lung presenting for initial staging examination. COMPARISON EXAMINATION: CT of the chest report dated 02/06/18. INDEX LESION SIZE SUV INTERPRETATION Pre-carinal level anterior mediastinum, left thoracic perihilum 59.2 mm x 45.7 mm largest (frame 197) 8.5 (max) Fulfills quantitative criteria for viable neoplasm Left lobe hepatic parenchyma segment IV a 10.2 mm (frame 135) 3.2 ratio R 2.0 Fulfills borderline quantitative criteria for viable neoplasm, correlation with magnetic resonance imaging may be of benefit TECHNIQUE: Following the intravenous administration of 13.55 mCi of F-18 deoxyglucose via the left antecubital fossa, multiplanar image acquisitions of the neck, chest, abdomen and pelvis to level of mid thigh, obtained at one hour post radiopharmaceutical administration contemporaneously interpreted with the current CT of the neck, chest, abdomen and pelvis to level of mid thigh, dated 03/07/[address] of the chest report dated 02/06/18 reveal: SERUM GLUCOSE LEVEL: 105 mg/dl. HEIGHT: 68 inches. WEIGHT: 95 lbs. FINDINGS: 1. Increased glucose metabolism is manifest in the pre-carinal level anterior mediastinum and left thoracic perihilum generating a calculated maximum standard uptake value of 8.5. The maximal axial diameter of the corresponding metabolic, morphologic abnormality on review of CT of the thorax dated 03/07/18 is 59.2 mm (transverse) x 45.7 mm (AP). 2. A single focus of increased glucose concentration is demonstrated in the left lobe of the hepatic parenchyma (2.1) involving segment IV a generating a calculated maximum standard uptake value of 3.2 with a lesion to liver background ratio approximating 2.0. The maximal axial diameter of the metabolic abnormality on review CT of the abdomen dated 03/07/18 is 10.2 mm (transverse). 3. Normal physiologic distribution of the radiopharmaceutical is apparent in the splenic parenchyma, both renal units, bladder and visualized intestinal tract. There is symmetric and preserved glucose metabolism noted in the visualized portion of the frontal, occipital, temporal and parietal lobes of the cerebral cortex, as well as cerebral hemispheres and basal ganglia. Diffuse intestinal tract activity is noted throughout all four quadrants of the abdominal-pelvic retroperitoneum, mesentery consistent with normal physiologic distribution of the radiopharmaceutical. Prominent glucose metabolism is defined at the level of the nasopharynx contiguous to the longus capitis musculature. Pertinent CT findings are as follows. CHEST: Emphysematous change is noted in the bilateral upper-lower lung zones. Parenchymal densities defined in the bilateral hemithorax demonstrate no evidence of quantitatively significant increased glucose metabolism. Atherosclerotic calcification is defined in the thoracic aorta without evidence of dilatation, aneurysm formation. Right-left axillary soft tissue densities are ametabolic. ABDOMEN AND PELVIS: Atherosclerotic calcification is defined in the abdominal aorta without evidence of dilatation, aneurysm formation. Pelvic arterial calcification is observed. Calcified granuloma formation is noted within the splenic parenchyma. Calcification is defined in the right kidney. Bilateral inguinal soft tissue densities are non-glucose avid. SKELETAL: Degenerative changes defined in the cervical, thoracic and lumbar spine demonstrate no evidence for glucose hypermetabolism. PET/PET/CT Tumor Base -Thigh Init IMPRESSION: 1. ABNORMAL EXAMINATION INDICATIVE OF MALIGNANT VIABLE NEOPLASM. 2. Increased glucose concentration defined in the pre-carinal level anterior mediastinum and left thoracic perihilum fulfills quantitative criteria for viable neoplasm. (Barb et al, Journal of Clinical Oncology 16:2142, 1998). 3. Facilitated glucose concentration observed in the left lobe hepatic parenchyma fulfills borderline quantitative criteria for viable neoplasm. (Delbeke et al, Archives of Surgery, 133:510 1998). Correlation with magnetic resonance imaging utilizing Gd-EOB-DTPA may be of benefit for further evaluation. (Donati et al, J Nucl Med 51: 692, 2010). Electronic Signature Eduin Barron D.O. Electronically Signed: Eduin Barron DO at 23:53 EDT Tel , Service support , CC: Betty Banerjee; Dariel Ortega MD Restaurant Service Manager: Signed PULMONARY VISIT REPORT Observed: 03/02/2018 Status: F Source: [place] 4:08 PM [facility] [address] [place] [address] OFFICE VISIT Date of Service: 03/01/18 MR#: [id number] Acct: [id number] Name: OLIVE TEJADA Rep #: [id number] : 1960 Provider: Betty Banerjee Age/Sex: 57/F Location: [facility] Status: Signed Assessment AND Plan 1. Small cell lung cancer C34.90 Status Acute Plan Discussed the test results with the patient, also discussed that we will need to do some additional testing to give the oncologist all the information necessary to stage the cancer. I have ordered an MRI of the brain as well as a PET scan. The patient has chosen an oncologist, the referral has been placed. She will follow-up with Dr. Carpenter in 2 months to see if there is anything further that is needed from a pulmonary standpoint. All questions were answered in the office today and she was encouraged to contact our office if she had any further questions that she developed after leaving. 2. Chest pain on breathing R07.1; R07.81 Plan Plan to evaluate her persistent severe chest pain with a chest x-ray today, it is not likely that she has a pneumothorax but it is necessary to rule that out given her significant pain. She will be contacted tomorrow with test results and any further instructions if necessary. She is agreeable to testing at this plan. Follow-up with Dr. Carpenter in 2 months. Plan Detail Other Orders Orders: Referrals: Follow Up 2 Months ([facility]) HPI BIOPSY RESULTS: Chief Complaint: Mediastinal pain HPI Comments Details: Patient presents to the office today to review recent test results. She is accompanied today by her son and friend. She is ambulatory and on room air. She participated in a CT-guided lung biopsy, did not have any complications. She does report right-sided pain with deep inspiration. She rates this pain an 8 out of 10 and has tried using Excedrin pain reliever that brings the pain down to possibly a 5, which she states is tolerable. She also reports that the pain is relieved with position changes, it is aggravated by deep inspiration. She reports that it has been helpful to have her son give her background. Unfortunately, this is not her worst pain. She is experiencing discomfort in her mediastinal area. She continues to experience what she describes as a fullness in her throat that makes it difficult for her to swallow. She has transitioned herself to soft foods such as soups and putting. Since she has done this she has been able to regain 2 pounds, which she is pleased about. She continues to experience shortness of breath at all times. She believes it has worsened even since her last office visit. She now is having difficulty sleeping at night. She denies any cough, sputum production or hemoptysis. She has worsening daytime fatigue. She has been wearing her supplemental oxygen continuously at this point. Has not tried any additional goeb-bqr-fgedali products for her symptoms, with the exception of that Excedrin. She reports that her albuterol nebulizer and rescue inhaler did not provide her with any relief. She is compliant with her Spiriva daily, which she has noticed has been helpful with her shortness of breath. Pathology report has returned and suggests small cell carcinoma of the lung. Results of the biopsy were discussed with the patient, her son and her friend. Intake Vital Signs03/01/18 Height 5 ft 8 in 03/01/18 Weight: 95 lb Intake Visit Reasons: BIOPSY RESULTS Accompanied by: Family / Other Allergies morphine Allergy (Verified 03/01/18 11:07) Itching Medications Cyanocobalamin [Vitamin B12] 500 mcg PO DAILY@0800 09/06/16 [History Confirmed 03/01/18] Multivitamins,Therapeutic [Multivitamin] 1 tab PO DAILY 09/06/16 [History Confirmed 03/01/18] Tiotropium [place] [Spiriva] 18 mcg IH DAILY #1 cap.w.dev 03/17/17 [Rx Confirmed 03/01/18] Ergocalciferol [Vitamin D] 50,000 unit PO QMONTH 07/31/17 [History Confirmed 03/01/18] Paroxetine HCl [Paxil] 40 mg PO DAILY 07/31/17 [History Confirmed 03/01/18] fluticasone 50 mcg/actuation nasal spray,suspension 50 mcg INTRANASAL QDAY PRN 12/06/17 [History Confirmed 03/01/18] albuterol sulfate 2.5 mg/3 mL (0.083 %) solution for nebulization 2.5 mg INHALATION 4X/DAY PRN 30 Days #180 vial 02/17/18 [Rx Confirmed 03/01/18] albuterol sulfate HFA 90 mcg/actuation aerosol inhaler 1 - 2 puff INHALATION Q4H PRN PRN #1 inhaler 02/17/18 [Rx Confirmed 03/01/18] budesonide-formoterol HFA 160 mcg-4.5 mcg/actuation aerosol inhaler 2 puff INHALATION BID #1 hfa.aer.ad 02/17/18 [Rx Confirmed 03/01/18] [facility] Medical History Asthma (Chronic) Nocturnal hypoxia (Chronic) Anxiety (Chronic) Nicotine dependence in remission (Chronic) Stage 4 very severe COPD by GOLD classification (Chronic) Allergic rhinitis (Chronic) COPD with acute exacerbation (Acute) Tobacco dependence syndrome (Chronic) Wbpjs-1-efevsrkxrrv deficiency (Chronic) COPD (chronic obstructive pulmonary disease) (Chronic) GERD (gastroesophageal reflux disease) (Chronic) COPD with acute exacerbation (Acute) COPD, frequent exacerbations (Inactive) [place] (dyspnea on exertion) (Inactive) Surgical History History of tubal ligation (Resolved) Family History Mother Colon cancer Bronchitis Epilepsy Father Asthma Social History Smoking Status: Former smoker second hand exposure: No alcohol intake: never substance use type: does not use caffeine: Yes what type of physical activity do you participate in: walking frequency: daily Review of Systems Const CONSTITUTIONAL: Positive headache(s); negative anorexia, body ache, chills, daytime sleepiness, fever(s), night sweats, oral thrush, stops breathing during sleep, weight loss, sleeping in chair, weight loss, weight gain, frequent colds, seasonal allergies, other or orthopnea EETM Ear Nose Throat Mouth: Positive hearing normal, dry mouth in morning and headache(s); negative hard of hearing, hoarseness, change in vision, itchy eyes, eye pain, swallowing Difficulty, ear pain, nose bleed, mouth pain, nasal congestion, nasal discharge, post nasal drip, sinus pain, sinus pressure, sore throat or other Cardio Cardiovascular: Positive chest pain; negative chest pain at rest, chest pain with activity, irregular heart rhythm, edema, shortness of breath when lying down, palpitations, murmur or other Resp Respiratory: Positive as per HPI, shortness of breath shortness of breath: Positive with activity and cough cough: Positive non-productive; negative pain with cough, wheezing, chest congestion, chest tightness, pain on inspiration, inhalers, increase use of rescue inhalers, snoring, apnea or other Gastro Gastrointestional: Negative bloody stools, change in appetite, difficulty swallowing, reflux, hematemesis, melena stool, loose stool, constipation or other Genitourinary: Negative blood in urine, nocturia, pain with urination or other Musc Musculoskeletal: Negative body pain, back pain, neck pain or other Skin/Breast Skin/Breast: Negative dry skin, itching, rash, unusual bruising, breast lump or other Neuro Neurological: Negative restless legs, confusion, weakness or other Psych Psychocological: Positive abnormal sleep pattern and anxiety; negative thoughts of hurting self/others, hopelessness or other Lymph Lymphatic: Negative easy bleeding, easy bruising, swollen lymph nodes or other Exam Const Constitutional: Positive conversant, cooperative, in no acute respiratory distress, well developed, well nourished, good hygiene, ill appearing, thin and cachectic Head Head: Positive normocephalic and atraumatic; negative cyanosis of lips/distal nose Eyes Eye: Positive clear conjunctiva and nystagmus; negative scleral abnormality Ears Ear: Positive hearing normal and external ears normal; negative hard of hearing Nose Nose: Positive external nose normal and no nasal discharge; negative epistaxis Mouth Mouth: Positive oral mucosae normal, poor dentition, no lesions and posterior oropharynx is adequate; negative post nasal drip, oral thrush present or malodorous breath Mallampati Score: I: Mallampati Score Neck Neck: Positive normal visual inspection, full ROM and trachea midline; negative lymphadenopathy, JVD or tender Chest Wall Chest: Positive normal inspection of the chest and symmetric chest movement; negative increased A/P diameter Resp lung sounds: Positive diminished, clear to auscultation and increased work of breathing; negative wheezes, wheeze present on forced exhalation, rhonchi, rales, dullness to percussion or use of accessory muscles Cardio Cardiac: Positive regular rate, regular rhythm, S1 normal and S2 normal; negative murmur GI GI: Positive normal to inspection and normal bowel sounds; negative distended Genitourinary: Positive deferred Musc Musculoskeletal: Positive ROM normal and steady gait; negative kyphosis or scoliosis Skin Pulmonary Skin Exam: Positive intact; negative rash, lesion, ulcers, erythema, scaly or dermal atrophy Pulses Pulse: Yes pulses normal x4 extremities Extremities Extremities: Yes edema Location: lower extremity location: Right (foot and ankle, less than last visit), Yes capillary refill normal, No clubbing, No cyanosis, No stasis dermatitis Neuro Neurologic: Yes conversant, Yes no focal neuro deficits, Yes cooperative, Yes normal cognition, Yes normal coordination, Yes normal concentration, Yes understands questions Lymph Lymphatic: No lymphadenopathy, No tenderness, No cervical adenopathy, No axillary adenopathy Psych Appearance: Positive grossly normal, eye contact and well kempt Mental Status: Positive mental status grossly normal Mood: Positive congruent mood Affect: Positive normal affect Coding Level of Care Code Off vis,est,level 5 Diagnoses Small cell lung cancer C34.90 Chest pain on breathing R07.1; R07.81 Chest pain type: chest pain on breathing Time Spent (min) 45 03/02/18 1608 <Electronically signed by Betty LACKEYC> Date Betty LACKEYC Cosigner Signature: Date (if applicable) CC: Dariel Ortega MD CHEST PA AND LATERAL Observed: 03/01/2018 Status: F Source: [place] 12:51 PM [facility] Imaging Services [address] [place] [address] Chest PA and Lateral MR#: [id number] Acct: [id number] Name: OLIVE TEJADA Rep #: [id number] : 1960 F 57 From: Uriel Sommer MD PCP: Dariel Ortega MD, Chi Status: REG CLI Study: Chest PA and Lateral Date of Exam: 03/01/18 Exam# [id number] Ordering Dr: Betty Banerjee STUDY: X-RAY CHEST REASON FOR EXAM: Female, 57 years old. Dyspnea TECHNIQUE: PA and lateral views of the chest. COMPARISON: Previous study of 02/22/2018 FINDINGS: The lungs are hyperinflated. There is a calcified granuloma of the left upper lobe. There is hemidiaphragmatic flattening. There is an increased retrosternal airspace. Normal size heart. There is anterior mediastinal mass measuring approximately 8.4 x 5.1 cm. Normal visualized pulmonary arteries. Normal visualized aortic arch and descending thoracic aorta. Normal visualized thoracic spine. Normal visualized ribs, clavicles, and shoulders. There is no demonstrated abnormality of the visualized soft tissue structures of the upper abdomen. RAD/Chest PA and Lateral IMPRESSION: Hyperinflation of the lungs, hemidiaphragmatic flattening, and increased retrosternal airspace consistent with COPD. There is an anterior mediastinal mass measuring approximately 8.4 x 5.1 cm. There is a small calcified granuloma of the left upper lobe. There is no pneumothorax. Electronically Signed: Uriel Sommer MD at 18:06 EDT , Service support , CC: Betty Banerjee; Dariel Ortega MD Restaurant Service Manager: Signed CHEST INSP/EXP 2 VIEW Observed: 02/22/2018 Status: F Source: [place] 10:24 AM [facility] Imaging Services [address] [place] [address] Chest Insp/Exp 2 View MR#: [id number] Acct: [id number] Name: OLIVE TEJADA Rep #: [id number] : 1960 F 57 From: Matt Logan MD PCP: Dariel Ortega MD, Chi Status: REG CLI Study: Chest Insp/Exp 2 View Date of Exam: 02/22/18 Exam# [id number] Ordering Dr: Matt Logan MD STUDY: X-RAY CHEST REASON FOR EXAM: Female, 57 years old. Post anterior mediastinal biopsy. TECHNIQUE: Frontal inspiration and expiration views were obtained. COMPARISON: Comparison is made with prior study dated February 06, 2018. FINDINGS: The patient is status post left anterior mediastinal biopsy. There is no evidence of pneumothorax. RAD/Chest Insp/Exp 2 View IMPRESSION: No evidence of pneumothorax on the post biopsy radiograph. Electronically Signed: Matt Logan MD at 12:52 EDT Tel [phone], Service support , CC: Matt Logan MD; Dariel Ortega MD Restaurant Service Manager: Signed BIOPSY/INJ OR NEEDLE Observed: 02/22/2018 Status: F Source: [place]ESE PLACEMENT 8:33 AM [facility] Imaging Services [address] [place] [address] Biopsy/Inj or Needle Placement MR#: [id number] Acct: [id number] Name: OLIVE TEJADA Rep #: [id number] : 1960 F 57 From: Matt Logan MD PCP: Dariel Ortega MD, Chi Status: REG CLI Study: Biopsy/Inj or Needle Placement Date of Exam: 02/22/18 Exam# [id number] Ordering Dr: Betty Banerjee ROLLING ATTENDANT-C PROCEDURE: CT GUIDED CORE NEEDLE BIOPSY OF An anterior mediastinal mass INDICATION: Female, 57 years old. Anterior mediastinal mass. PHYSICIAN: Dr.Pedicelli Henrietta Ceballos CONSENT: Written informed consent was obtained having explained the risks, benefits and alternatives in detail with the patient who accepted the risks and agreed to proceed. Laboratory review and clinical assessment was performed. CONSCIOUS SEDATION PROTOCOL: The Drugs used were: 1 mg Versed, IV., and 25 mcg Fentanyl, IV. The sedation time was: 17 minutes. Conscious sedation was started at 10:10 AM and terminated at 10:27 AM. The conscious sedation protocol was independently monitored. RADIATION DOSAGE (If Supplied By Facility): CTDIvol = ( 12 ) mGy, DLP = ( 268.34 ) mGycm Individualized dose optimization techniques were used for this CT. TECHNIQUE: The patient was placed in the supine position. A noncontrast CT was performed to localize the lesion in the anterior mediastinum . The skin surface was prepped and draped in a sterile fashion. 1% lidocaine was used for local anesthesia. Using CT guidance, a 20-gauge coaxial biopsy device was advanced to the periphery of the lesion. A total of 5 core specimens were obtained. The specimens were placed in a formalin solution. A post procedure CT demonstrated no adverse sequelae or pneumothorax. The patient tolerated the procedure well without adverse event. A negative biopsy does not exclude malignancy. Further imaging or clinical followup based on patient condition and degree of clinical suspicion for malignancy. Suggest rebiopsy, if biopsy results do not match with clinical scenario. CT/Biopsy/Inj or Needle Placement IMPRESSION: 1. CT directed core needle biopsy of the anterior mediastinal mass using CT image guidance with image documentation as described. Pathology results are pending. 2. Conscious Sedation protocol utilized with independent monitoring. Electronically Signed: Matt Logan MD at 12:40 EDT Tel [phone], Service support , CC: Betty Banerjee; Dariel Ortega MD Restaurant Service Manager: Signed IMMUNOHISTOCHEMISTRY Observed: 02/22/2018 Status: F Source: [place] 12:00 AM [facility] Patient: OLIVE TEJADA : 1960 (57/F) Acct Num: [id number] Phys: Betty Banerjee NP Unit Num: [id number] Loc: CT Specimen: [id number] Received: 02/23/18 1000 Spec Type: IMMUNO TISSUES TISSUES: Lung, NOS SPECIMEN INFORMATION: Tissue Source: Anterior lung/mediastinal mass Clinical Info: Lung/mediastinal mass Specimen Number: [id number] CPT code: 40975, 14255 x6 METHODOLOGY: Deparaffinized sections of prefer/formalin-fixed tissue or PAP/DQ stained slides are incubated with monoclonal/polyclonal antibodies/oligonucleotide probes. Localization is made via biotin free immunoperoxidase method. Appropriate controls are performed and reacted as expected. Results on target cell population are indicated in the following table: RESULTS: ANTIBODY / CLONE RESULT CD45 (RP2/18) negative CK8 (53wdemW50) positive CK7 (OV-TL12/30) positive Chromo (LK2H10) positive Synapto (polyclonal) positive CD56 (123C3.D5) positive CK20 (KS20.8) negative These tests were developed and their performance characteristics determined by [facility]. They may not have been cleared or approved by the U.S. Food and Drug Administration. The FDA has determined that such clearance or approval is not necessary. INTERPRETATION: Anterior lung/mediastinal mass, CT-guided core biopsy: Consistent with small cell carcinoma. SJ:ijeoma 02/24/18 PHYSICIAN AND INSTITUTION [place] [phone] Signed Tae Chaudhry 02/24/18 <signature on file> Performed By: #### PIMM #### [facility] [address] [place] [address]. [place], [address] [facility] RADIOLOGY (TISSUE) Observed: 02/22/2018 Status: F Source: [place] 12:00 AM [facility] Patient: OLIVE TEJADA : 1960 (57/F) Acct Num: [id number] Phys: Betty Banerjee ROLLING ATTENDANT Unit Num: [id number] Loc: CT Specimen: [id number] Received: 02/22/18 - 1054 Spec Type: ASP RAD TISSUES TISSUES: Lung, NOS COMMENT The specimen is evaluated at the time of biopsy by Dr. Chaudhry. 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 Differential diagnosis includes lymphoma vs small cell carcinoma. One core is saved for flow if needed. Immunohistochemistry ([id number]) supports the above diagnosis. Case has been reviewed in consultation with Dr. Cuadra who concurs with the above diagnosis. IDC:AM GROSS DESCRIPTION Received in fixative is one container labeled with the patient's name and designated lung/mediastinal mass, CT-guided core biopsy. The specimen consists of multiple irregular fragments of patel soft tissue that in aggregate measure 0.5 x <0.1 x <0.1 cm. The specimen is totally submitted in one cassette. Two touch imprints are prepared at the time of core biopsy and one core is also saved for flow cytometry study in case it is needed. / SJ:ijeoma 02/22 The tissue saved for flow cytometry studies is submitted in cassette #2, a cell block is also made from the fluid. / 02/23/18. TC:0 CPT: 71063, 62062 HEADER OPERATION: CT-guided lung biopsy PRE-OP DIAGNOSIS: Lung/mediastinal mass TISSUE SUBMITTED: 20 gauge core x5, lung/anterior mediastinal mass, core biopsy MICROSCOPIC DESCRIPTION Slides are reviewed. MICROSCOPIC DIAGNOSIS Lung/anterior mediastinal mass, CT-guided core biopsy: Consistent with small cell carcinoma. See comment. :ijeoma 02/23/18 Signed Tae Chaudhry 02/24/18 <signature on file> Performed By: #### CEDRIC #### [facility] [address] [place] [address], [id number] PULMONARY VISIT REPORT Observed: 02/18/2018 Status: F Source: [place] 3:24 PM [facility] of [address] [place] [address] OFFICE VISIT Date of Service: 02/17/18 MR#: [id number] Acct: [id number] Name: OLIVE TEJADA Rep #: [id number] : 1960 Provider: Betty Banerjee Age/Sex: 57/F [place] [facility] [place] Status: Signed Assessment AND Plan 1. Lung mass R91.8 Status Acute Plan New. Discussed the case with Dr. Carpenter, unfortunately because of the location of this mass he is unable to obtain a biopsy by EBUS. Discussed the case with the interventional radiologist, who confirms that it is possible to obtain a biopsy by CT- guided assistance. Plan to obtain appropriate blood work to confirm that the patient is not at a higher risk for bleeding, she is not currently on any oral anticoagulation. She will have the CT-guided biopsy and then follow-up with Dr. Carpenter in the near future to discuss test results and continue to develop a plan. Discussed that the CT-guided biopsy is to determine if in fact this lung mass is a possible malignancy. She conveys understanding. Orders Orders: 2. Stage 4 very severe COPD by GOLD classification J44.9 Status Chronic Plan Stable. Continue triple therapy. No additional testing regarding her COPD at this time, continue current maintenance medications. She does not appear to be in exacerbation and does not require prednisone or antibiotics today. Follow-up with Dr. Carpenter in the near future. 3. Cachexia R64 Status Acute Plan Deteriorated. The patient becomes tearful when she learns that her weight is down to 93 pounds. She states that she works very hard to get up to 105 pounds. She plans to continue to drink Ensure shakes. She also plans to try eating things that are more soft such as putting and soups given that she has difficulty swallowing at this time. Follow-up with Dr. Carpenter in less than 1 month. Plan Detail Other Medications Changed: Refilled: albuterol sulfate 2.5 mg (3 mL) Inhalation 4X/DAY 30 days PRN Shortne ss Of Breath albuterol sulfate HFA 90 mcg/actuation 1 - 2 puffs Inhalation Q4H PRN PRN Shortness Of Br eath Follow Up 1 Month (DMB) HPI ER F/U: Chief Complaint: Unintentional weight loss HPI Comments Details: This patient presents to the office today to review recent CT of the chest results. She is ambulatory and currently on room air. She reports that she was recently seen in the emergency department to be evaluated for shortness of breath. During her evaluation she had a chest x-ray, and then was sent for a CTA of the chest to be evaluated for possible pulmonary embolism. A CTA was negative for the pulmonary embolism, however it did note a mediastinal mass measuring 4.2 x 5.3 cm. Also noted a 6 mm nodule. Patient was notified of these findings and discharged home. Today, she reports continued shortness of breath on exertion. She also reports becoming dizzy occasionally. She does have oxygen at home and wears it if her saturations are less than 89%. She admits to an unintentional 10 pound weight loss in the past 2 weeks. She currently weighs 93 pounds. She has used Ensure to try to put on weight. She denies any hemoptysis, hematemesis, hematochezia or melena stools. She denies any easy bruising. She reports some difficulty swallowing. She denies any cough, sputum production, chest tightness or wheezing. She does feel as though there is an obstruction in her mid chest that is making it difficult for her to eat and swallow. She denies any fever, chills or body aches. She has not experienced any nighttime sweats. See complete review of systems. She has never had a mammogram, endoscopy or colonoscopy. She does report that her mother from colon cancer. She continues compliance with her Symbicort, 2 puffs twice daily. She rinses her mouth out after each use. She does deny any medication side effects such as sore throat or thrush. He has albuterol nebulizer for rescue, which she uses occasionally. She does find relief of her shortness of breath with use of her albuterol nebulizer. She is also compliant with Spiriva daily. Intake Vital Signs02/17/18 Height 5 ft 8 in 02/17/18 Weight: 93 lb Intake Visit Reasons: ER F/U Accompanied by: Self Allergies morphine Allergy (Verified 02/17/18 11:13) Itching Medications Cyanocobalamin [Vitamin B12] 500 mcg PO DAILY@0800 09/06/16 [History Confirmed 02/17/18] Multivitamins,Therapeutic [Multivitamin] 1 tab PO DAILY 09/06/16 [History Confirmed 02/17/18] Tiotropium [place] [Spiriva] 18 mcg IH DAILY #1 cap.w.dev 03/17/17 [Rx Confirmed 02/17/18] Ergocalciferol [Vitamin D] 50,000 unit PO QMONTH 07/31/17 [History Confirmed 02/17/18] Paroxetine HCl [Paxil] 40 mg PO DAILY 07/31/17 [History Confirmed 02/17/18] fluticasone 50 mcg/actuation nasal spray,suspension 50 mcg INTRANASAL QDAY PRN 01/29/18 [History Confirmed 02/17/18] albuterol sulfate 2.5 mg/3 mL (0.083 %) solution for nebulization 2.5 mg INHALATION 4X/DAY PRN 30 Days #180 vial 02/17/18 [Rx Confirmed 02/17/18] albuterol sulfate HFA 90 mcg/actuation aerosol inhaler 1 - 2 puff INHALATION Q4H PRN PRN #1 inhaler 02/17/18 [Rx Confirmed 02/17/18] budesonide-formoterol HFA 160 mcg-4.5 mcg/actuation aerosol inhaler 2 puff INHALATION BID #1 hfa.aer.ad 02/17/18 [Rx Confirmed 02/17/18] PFSH Medical History Asthma (Chronic) Nocturnal hypoxia (Chronic) Anxiety (Chronic) Nicotine dependence in remission (Chronic) Stage 4 very severe COPD by GOLD classification (Chronic) Allergic rhinitis (Chronic) COPD with acute exacerbation (Acute) Tobacco dependence syndrome (Chronic) Kwcom-4-degkaitpgpa deficiency (Chronic) COPD (chronic obstructive pulmonary disease) (Chronic) GERD (gastroesophageal reflux disease) (Chronic) COPD with acute exacerbation (Acute) COPD, frequent exacerbations (Inactive) [place] (dyspnea on exertion) (Inactive) Surgical History History of tubal ligation (Resolved) Family History Mother Colon cancer Bronchitis Epilepsy Father Asthma Social History Smoking Status: Former smoker second hand exposure: No alcohol intake: never substance use type: does not use caffeine: Yes what type of physical activity do you participate in: walking frequency: daily Review of Systems Const CONSTITUTIONAL: Negative anorexia, body ache, chills, daytime sleepiness, fever(s), night sweats, oral thrush, stops breathing during sleep, weight loss, sleeping in chair, fatigue, weight loss, weight gain, frequent colds, seasonal allergies, other, headache(s) or orthopnea EETM Ear Nose Throat Mouth: Positive hearing normal; negative hard of hearing, hoarseness, dry mouth in morning, change in vision, itchy eyes, eye pain, swallowing Difficulty, ear pain, nose bleed, headache(s), mouth pain, nasal congestion, nasal discharge, post nasal drip, sinus pain, sinus pressure, sore throat or other Cardio Cardiovascular: Negative chest pain, chest pain at rest, chest pain with activity, irregular heart rhythm, edema, shortness of breath when lying down, palpitations, murmur or other Resp Respiratory: Positive as per HPI, shortness of breath shortness of breath: Positive with activity and other (eating ), chest congestion, cough and chest tightness; negative pain with cough, wheezing, pain on inspiration, inhalers, increase use of rescue inhalers, snoring, apnea or other Gastro Gastrointestional: Positive difficulty swallowing (hurts to eat and swallow); negative bloody stools, change in appetite, reflux, hematemesis, melena stool, loose stool, constipation or other Genitourinary: Negative blood in urine, nocturia, pain with urination or other Musc Musculoskeletal: Negative body pain, back pain, neck pain or other Skin/Breast Skin/Breast: Positive dry skin; negative itching, rash, unusual bruising, breast lump or other Neuro Neurological: Negative restless legs, confusion, weakness or other Psych Psychocological: Negative abnormal sleep pattern, anxiety, thoughts of hurting self/others, hopelessness or other Lymph Lymphatic: Negative easy bleeding, easy bruising, swollen lymph nodes or other Exam Const Constitutional: Positive conversant, cooperative, in no acute respiratory distress, well developed, well nourished, good hygiene, cachectic and ill appearing Head Head: Positive normocephalic and atraumatic; negative cyanosis of lips/distal nose Eyes Eye: Positive clear conjunctiva and nystagmus; negative scleral abnormality Ears Ear: Positive hearing normal and external ears normal; negative hard of hearing Nose Nose: Positive external nose normal and no nasal discharge; negative epistaxis Mouth Mouth: Positive oral mucosae normal, malodorous breath, poor dentition and posterior oropharynx is adequate; negative post nasal drip, no lesions or oral thrush present Mallampati Score: II: Mallampati Score Neck Neck: Positive trachea midline, normal visual inspection and full ROM; negative lymphadenopathy Chest Wall Chest: Positive normal inspection of the chest and symmetric chest movement; negative increased A/P diameter Resp lung sounds: Positive clear to auscultation, good air exchange, prolonged expiratory time and increased work of breathing; negative wheezes, wheeze present on forced exhalation, rhonchi, rales, dullness to percussion or use of accessory muscles Cardio Cardiac: Positive regular rate, regular rhythm, S1 normal and S2 normal; negative murmur GI GI: Positive normal to inspection and normal bowel sounds; negative distended Genitourinary: Positive deferred Musc Musculoskeletal: Positive steady gait and ROM normal; negative kyphosis or scoliosis Skin Pulmonary Skin Exam: Positive intact; negative rash, lesion, ulcers, erythema, scaly or dermal atrophy Pulses Pulse: Yes pulses normal x4 extremities Extremities Extremities: Yes edema Location: lower extremity location: Bilateral pitting +2, Yes capillary refill normal, Yes clubbing, No cyanosis Neuro Neurologic: Yes conversant, Yes no focal neuro deficits, Yes cooperative, Yes normal cognition, Yes normal coordination, Yes normal concentration, Yes understands questions Lymph Lymphatic: No lymphadenopathy, No tenderness, No cervical adenopathy, No axillary adenopathy Psych Appearance: Positive grossly normal, eye contact and well kempt Mental Status: Positive mental status grossly normal Mood: Positive anxious mood Affect: Positive anxious affect Coding Level of Care Code Off vis,est,level 4 Diagnoses Lung mass R91.8 Stage 4 very severe COPD by GOLD classification J44.9 Cachexia R64 02/18/18 1524 <Electronically signed by Betty ESCALONA> Date Betty LACKEYC Cosigner Signature: Date (if applicable) CC: Dariel Ortega MD CBC W/DIFF, AUTOMATED Collected: 02/17/2018 Status: F Source: [place] 12:29 PM [facility] TYPE CODE TESTS RESULT OUT OF RANGE REFERENCE UNITS LAB L100.1000 4.4-11.0 K/mm3 Normal WBC 9.0 LAB L100.1200 4.2-5.4 M/mm3 Normal RBC 4.25 LAB L100.1300 12.0-15.0 g/dl Normal HGB 13.0 LAB L100.1400 37-47 % Normal HCT 43.3 LAB L100.1500 81-99 fL High MCV 101.9 LAB L100.1600 27.0-32.0 pg Normal MCH 30.6 LAB L100.1700 32-36 g/gl Low MCHC 30.0 LAB L100.1810 11.6-14.6 % Normal RDW CV 12.9 LAB L100.1820 35.1-43.9 fl High RDW SD 48.6 LAB L100.1900 150-450 K/mm3 Normal PLT 295 LAB L100.2000 6.2-12.0 fl Normal MPV 9.9 LAB L100.2100 47-70 % Normal NEUT% 63.4 LAB L100.2200 19-41 % Low LY% 16.2 LAB L100.2300 0-10 % High MONO% 14.3 LAB L100.2400 0-5 % High EO% 5.3 LAB L100.2500 0-1 % Normal BASO% 0.7 LAB L100.2550 0.0-0.9 % Normal IM GRAN % 0.100 Result Comment: IG% - Immature Granulocytes (promyelocytes, myelocytes and metamyelocytes) > 1% indicates that a LEFT SHIFT is Present. LAB L100.2620 2.0-7.7 X10 3/uL Normal Absolute Neut 5.7 LAB L100.2720 0.83-4.51 X10 3/ul Normal Absolute Lymph 1.46 Performed By: #### L100.0100 #### [facility] [address]. [place], [place], [address] PROTHROMBIN TIME W/INR Collected: 02/17/2018 Status: F Source: [place] 12:29 PM [facility] TYPE CODE TESTS RESULT OUT OF RANGE REFERENCE UNITS LAB L300.4150 11.7-14.9 SECONDS Normal PROTIME 13.7 LAB L300.4200 Normal INR 1.1 Performed By: #### L300.3900, L300.4310 #### [facility] [address] [place], [address] PARTIAL THROMBOPLAST Collected: 02/17/2018 Status: F Source: [place] TIME 12:29 PM [facility] TYPE CODE TESTS RESULT OUT OF RANGE REFERENCE UNITS LAB L300.4310 24.1-36.2 Seconds Normal PTT 27.6 Performed By: #### L300.3900, L300.4310 #### [facility] [address] [place], [address] 12 LEAD ELECTROCARDIOGRAM Observed: 02/08/2018 Status: F Source: [place] 1:24 PM [facility] Cardiovascular Services [address] [place] [address] 12 Lead EKG 02/06/18 1332 MR#: [id number] Acct: [id number] Name: OLIVE TEJADA Rep #: [id number] : 1960 57 From: Chirag Sprague MD Attending Dr: Status: DEP ER Ordering Dr: Alissa Castillo MD Date: 02/06/18 Location: ED Sex: F C Admitted: Test Reason : SOB Blood Pressure : / mmHG Vent. Rate : 095 BPM Atrial Rate : 095 BPM P-R Int : 118 ms QRS Dur : 080 ms QT Int : 344 ms P-R-T Axes : 086 087 080 degrees QTc Int : 432 ms Normal sinus rhythm Right atrial enlargement Borderline ECG Confirmed by VICK MONTILLA, CHIRAG ([id number]), content editor RACHANA YANG ([id number]) on 02/08/2018 1:24:23 PM Referred By: BRADEN Confirmed By:CHIRAG SPRAGUE MD 02/08/18 1324 Date Chirag Sprague MD CC: Alissa Castillo MD; Dariel Ortega MD Signed EMERGENCY DEPARTMENT Observed: 02/06/2018 Status: F Source: [place] SUMMARY 4:15 PM [facility] Medical Records Department [address] [place] [address] Emergency Department Summary 02/06/18 1320 MR#: [id number] Acct: [id number] Name: OLIVE TEJADA Rep #: [id number] : 1960 57 From: Alissa Castillo MD PCP: Dariel Ortega MD, Chi Status: REG ER ADDENDUM by Alissa Castillo MD on 02/06/18 at 1615 She is able to ambulate in the ED with pulse ox 93-95% on room air. She has home O2 available. She states she feels at her baseline. Date Alissa Castillo MD cc: Dariel Ortega MD * Signed - ER Visit Summary Date of Service: 02/06/18 Chief Complaint: Shortness of breath History of Present Illness: The patient is a 57 F presenting with shortness of breath which started last night. Patient has had a cough productive of clear sputum. She denies fever. She has right-sided chest wall pain with cough. She has dyspnea with exertion. She is on home O2 2 L. She has a history of alpha-1 antitrypsin deficiency. She sees Dr. Carpenter. She was a previous smoker. She also complains of anxiety. Denies other complaints. Physical Examination: Vitals are stable. Patient is afebrile. Alert no acute distress. HEENT exam is unremarkable. Neck is supple. Lungs are diminished bilaterally. Heart is regular rate and rhythm. Abdomen is soft nontender nondistended. Extremities are unremarkable. Skin is warm and dry. No focal neurologic deficit. Anxious Remainder of exam is unremarkable. Emergency Department Course and Treatment: Patient is given Solu-Medrol, albuterol, Atrovent. She was given Ativan p.o. EKG is sinus rate of 95. CBC normal except for hemoglobin 11.6. Chemistries unremarkable CO2 36, glucose 118, creatinine 0.46. Troponin is negative. D-dimer is 0.53. Due to elevated d-dimer, CTA chest was obtained. This shows no evidence of PE, COPD, anterior mediastinal mass. Patient is advised of these findings and importance of follow-up. She is given an albuterol MDI and prednisone prescription. Discussed with Dr. Carpenter and patient will follow-up in the office this week. She is advised return to ED for worsening complaints. Disposition: Discharge home Impression: COPD exacerbation, abnormal CT chest This note was generated with [employer] dictation software. It may contain incorrect words, spelling, and punctuation that were not noted in review of the chart prior to signing ED Disposition - Plan for ED Patient: Chief Complaint: Shortness of Breath Instructions: ED COPD Flare Prescriptions: Prednisone [Deltasone] 40 mg PO DAILY #10 tablet Referrals: Dariel Ortega Chi, MD [Primary Care Provider] - What to do if you have Problems For any increased pain, shortness of breath, bleeding, nausea or vomiting, chest pain, or any unexpected problems, contact your Primary Care Provider. Call [facility] ([phone]) or report to the closest Emergency Room. Call 911 if necessary. 02/06/18 1613 <Electronically signed by Alissa Castillo MD> Date Alissa Castillo MD Cosigner Signature (If Indicated): Date CC: Dariel Ortega MD DISCHARGE INSTRUCTION Observed: 02/06/2018 Status: F Source: [place] 3:57 PM [facility] Medical Records Department [address] [place] [address] Discharge Instruction 02/06/18 1556 MR#: [id number] Acct: [id number] Name: PETRADipakOLIVE Rep #: [id number] : 1960 57 From: Alissa Castillo MD PCP: Dariel Ortega MD, Chi Status: REG ER ED Disposition - Plan for ED Patient: Chief Complaint: Shortness of Breath Instructions: ED COPD Flare Prescriptions: Prednisone [Deltasone] 40 mg PO DAILY #10 tablet Referrals: Dariel Ortega Chi, MD [Primary Care Provider] - What to do if you have Problems For any increased pain, shortness of breath, bleeding, nausea or vomiting, chest pain, or any unexpected problems, contact your Primary Care Provider. Call [facility] ([phone]) or report to the closest Emergency Room. Call 911 if necessary. 02/06/18 1557 <Electronically signed by Alissa Castillo MD> Date Alissa Castillo MD Cosigner Signature (If Indicated): Date CC: Dariel Ortega MD CTA CHEST W/WO Observed: 02/06/2018 Status: F Source: [place] CONTRAST 2:09 PM [facility] Imaging Services [facility] [place] [place] [address] CTA Chest W/WO Contrast MR#: [id number] Acct: [id number] Name: OLIVE TEJADA Rep #: [id number] : 1960 F 57 From: Russ Mcfadden DO PCP: Dariel Ortega MD, Chi Status: REG ER Study: CTA Chest W/WO Contrast Date of Exam: 02/06/18 Exam# [id number] Ordering Dr: Alissa Castillo MD STUDY: CTA CHEST REASON FOR EXAM: Female, 57 years old. Elevated D dimer and chest pain and shortness of breath RADIATION DOSAGE (If Supplied By Facility): CTDIvol = ( 3.31 ) mGy, DLP = ( 171.33 ) mGycm TECHNIQUE: The examination was performed with the intravenous administration of 75ML ml of Isovue 370 contrast material. Post-processing of the angiographic images was performed, with multiplanar reformation and 3D reconstruction. Individualized dose optimization techniques were used for this CT. COMPARISON: None. FINDINGS: Unremarkable thyroid Normal enhancement of the main pulmonary artery and right and left pulmonary arteries. Normal enhancement of the bilateral peripheral pulmonary arteries. There is no demonstrated pulmonary embolism. Normal thoracic aorta and visualized great vessels. There is no demonstrated aortic dissection. Normal heart and pericardium. Coronary artery disease. There is a anterior mediastinal mass measuring 4.2 x 5.3 cm. Normal hilar regions. Normal visualized trachea and bronchi. Severe COPD and emphysema throughout the lungs. No acute airspace disease. Fibronodular thickening in the lung apices. Pleural based nodule in the left lower lobe superiorly measuring 6 mm. Normal pleura. Normal chest wall structures. There are degenerative changes of thoracic spine. Normal visualized upper abdomen. CT/CTA Chest W/WO Contrast IMPRESSION: 1. Negative for pulmonary embolism or thoracic aortic dissection 2. Severe COPD and emphysema. Lungs are clear. Superior segment left lower lobe pulmonary nodule along the fissure. 3. Suspicious and heterogeneously enhancing anterior mediastinal mass as detailed above. Malignancy cannot be excluded. Electronically Signed: Russ Mcfadden DO at 15:29 EDT Tel , Service support , CC: Alissa Castillo MD; Dariel Ortega MD Restaurant Service Manager: Signed CBC W/DIFF, AUTOMATED Collected: 02/06/2018 Status: F Source: [place] 1:45 PM [facility] TYPE CODE TESTS RESULT OUT OF RANGE REFERENCE UNITS LAB L100.1000 4.4-11.0 K/mm3 Normal WBC 7.0 LAB L100.1200 4.2-5.4 M/mm3 Low RBC 3.59 LAB L100.1300 12.0-15.0 g/dl Low HGB 11.6 LAB L100.1400 37-47 % Low HCT 36.7 LAB L100.1500 81-99 fL High MCV 102.2 LAB L100.1600 27.0-32.0 pg High MCH 32.3 LAB L100.1700 32-36 g/gl Low MCHC 31.6 LAB L100.1810 11.6-14.6 % Normal RDW CV 12.8 LAB L100.1820 35.1-43.9 fl High RDW SD 46.8 LAB L100.1900 150-450 K/mm3 Normal PLT 295 LAB L100.2000 6.2-12.0 fl Normal MPV 9.6 LAB L100.2100 47-70 % Normal NEUT% 67.1 LAB L100.2200 19-41 % Low LY% 14.6 LAB L100.2300 0-10 % High MONO% 13.6 LAB L100.2400 0-5 % Normal EO% 3.6 LAB L100.2500 0-1 % Normal BASO% 1.0 LAB L100.2550 0.0-0.9 % Normal IM GRAN % 0.100 Result Comment: IG% - Immature Granulocytes (promyelocytes, myelocytes and metamyelocytes) > 1% indicates that a LEFT SHIFT is Present. LAB L100.2620 2.0-7.7 X10 3/uL Normal Absolute Neut 4.7 LAB L100.2720 0.83-4.51 X10 3/ul Normal Absolute Lymph 1.02 Performed By: #### L100.0100 #### [facility] [address] [place], [address] BASIC METABOLIC Collected: 02/06/2018 Status: F Source: [place] PROFILE ([facility]) 1:45 PM [facility] Order Comment: 'TROP' Serial specimen #1, #2, #3, or #4: 1 TYPE CODE TESTS RESULT OUT OF RANGE REFERENCE UNITS LAB L501.0100 74-106 mg/dL High GLU 118 Result Comment: Fasting Glucose result from 100 to 125 mg/dL suggests IMPAIRED HOMEOSTASIS per A.D.A. criteria. Please note revised GLUCOSE reference range effective 2017. LAB L501.1000 7-18 mg/dL Normal BUN 8 LAB L501.1100 0.55-1.02 mg/dL Low CREAT,SERUM 0.46 Result Comment: The validity of the calculated GFR AND GFRAA in patients over 70 years has not been determined. Clinical correlation is essential. LAB L501.1110 >60 mL/min Normal EST GFR 148 Result Comment: Non- GFR Calc LAB L501.1115 >60 mL/min Normal EST GFR - AA 179 Result Comment: GFR Calc LAB L501.1255 ml/min Normal Estimated CRCL 102.31 LAB L501.1300 10-20 RATIO BUN/CRE Normal 17.2 LAB L501.2200 8.5-10 mg/dL .1 CA Normal 9.0 LAB L501.5300 136-14 mmol/L 5 NA Normal 139 LAB L501.5600 3.5-5. mmol/L 1 K Normal 4.4 Result Comment: Slight Hemolysis, Result may be falsely increased. LAB L501.5900 98-107 mmol/L Normal CL 98 LAB L501.6100 21.0-32.0 mmol/L High CO2 36.0 LAB L501.6200 5-15 Normal GAP 5 Performed By: #### L500.2500, L501.4010 #### [facility] [address] [place], [address] TROPONIN-I Collected: 02/06/2018 Status: F Source: [place] 1:45 PM [facility] Order Comment: 'TROP' Serial specimen #1, #2, #3, or #4: 1 TYPE CODE TESTS RESULT OUT OF RANGE REFERENCE UNITS LAB L501.4010 <0.06 ng/mL Normal < 0.02 TROPONIN-I Result Comment: TROPONIN-I EXPECTED VALUES <0.05 NEGATIVE 0.06 - 0.59 AT RISK OF [place] > OR = 0.60 SUGGEST [place] Performed By: #### L500.2500, L501.4010 #### [facility] [address] [place], [address] D-DIMER QUANTITATIVE Collected: 02/06/2018 Status: F Source: THERESE (DVT/PE) 1:45 PM [facility] TYPE CODE TESTS RESULT OUT OF RANGE REFERENCE UNITS LAB L300.8000 0.27-0.49 FEU/ug/m High alert D-DIMER 0.53 QUANT Result Comment: D-Dimer ELEVATED (>0.49): Additional studies and clinical assessments are indicated to conclude diagnosis of: Deep Vein Thrombosis (DVT) or Pulmonary Embolism (PE) RESULTS CALLED TO IGLESIA MAIER 02/06/18 Richa Fernandez. REPORT READ BACK BY SAME. Performed By: #### L300.8000 #### [facility] [address] [place], [place], [address] CHEST 1 VIEW Observed: 02/06/2018 Status: F Source: THERESE (PORTABLE) 1:19 PM [facility] Imaging Services [address] [place] [address] Chest 1 View (Portable) MR#: [id number] Acct: [id number] Name: OLIVE TEJADA Carla Rep #: [id number] : 1960 F 57 From: Russ Mcfadden DO PCP: Dariel Ortega MD, Chi Status: REG ER Study: Chest 1 View (Portable) Date of Exam: 02/06/18 Exam# [id number] Ordering Dr: Alissa Castillo MD STUDY: X-RAY CHEST REASON FOR EXAM: Female, 57 years old. Increasing shortness of breath times several days TECHNIQUE: Single AP portable view of the chest. COMPARISON: 12/02/2017 FINDINGS: There is hyperinflation of the lungs consistent with chronic obstructive lung disease (COPD). Stable bibasilar scarring or atelectasis. No acute airspace disease. There is no demonstrated pleural abnormality. Normal size heart. Normal mediastinum and nader. Normal visualized pulmonary arteries. Normal visualized aortic arch and descending thoracic aorta. Normal visualized thoracic spine. Normal visualized ribs, clavicles, and shoulders. There is no demonstrated abnormality of the visualized soft tissue structures of the upper abdomen. RAD/Chest 1 View (Portable) IMPRESSION: Stable COPD without acute findings Electronically Signed: Russ Mcfadden DO at 14:10 EDT Tel , Service support , CC: Alissa Castillo MD; Dariel Ortega MD Restaurant Service Manager: Signed 12 LEAD ELECTROCARDIOGRAM Observed: 12/07/2017 Status: F Source: [place] 10:13 AM [facility] Cardiovascular Services [address] [place] [address] 12 Lead EKG 12/02/17 1642 MR#: [id number] Acct: [id number] Name: JONNOLIVE PENA Rep #: [id number] : 1960 57 From: Cole Nelson MD Attending Dr: Status: DEP ER Ordering Dr: Cole Medina DO Date: 12/02/17 Location: ED Sex: F C Admitted: Test Reason : SOB Blood Pressure : / mmHG Vent. Rate : 093 BPM Atrial Rate : 093 BPM P-R Int : 118 ms QRS Dur : 080 ms QT Int : 352 ms P-R-T Axes : 087 074 080 degrees QTc Int : 437 ms Normal sinus rhythm Right atrial enlargement Borderline ECG Confirmed by COLE NELSON ([id number]), content editor RACHANA YANG ([id number]) on 12/07/2017 10:13:12 AM Referred By: NICOLE Confirmed By:COLE NELSON 12/07/17 1013 Date Cole Nelson MD CC: Dariel Ortega MD Signed EMERGENCY DEPARTMENT Observed: 12/03/2017 Status: F Source: [place] SUMMARY 12:07 AM [facility] Medical Records Department [address] [place] [address] Emergency Department Summary 12/02/17 1638 MR#: [id number] Acct: [id number] Name: OLIVE TEJADA Rep #: [id number] : 1960 57 From: Cole Medina DO PCP: Dariel Ortega MD, Chi Status: DEP ER - ER Visit Summary Date of Service: 12/02/17 Chief Complaint: Shortness of breath History of Present Illness: The patient is a 57 F who has a history of alpha-1 antitrypsin deficiency. She wears home oxygen 2 L. She states she does not wear it at work. She states that last night she did not sleep at all she has had a progressive shortness of breath. Today she was out of her albuterol rescue inhaler and her Spiriva. She states that she was too short of breath to go to the pharmacy. She went to stand up to go to work and felt very short of breath and lightheaded so she sat back down. So she came to the emergency department. No fevers. No recent viral infections. Physical Examination: Afebrile vital signs are stable Gen: Well-nourished well-developed Head: Normocephalic atraumatic Eyes: Perrl EOMI ENT: TMs clear no rhinorrhea moist mucous membranes Neck: Supple no lymphadenopathy no JVD nontender CVS: Regular rate rhythm no murmurs normal S1-S2 Respiratory: No distress diminished breath sounds bilaterally chest nontender Abdomen: Soft nontender nondistended normal bowel sounds no masses Back: Nontender Extremity: Nontender no edema Skin: Normal color no rash Neuro: alert orientated 3 CN II-XII intact normal strength sensation reflexes gait cerebellar Psych: Patient appears very anxious Test Results: Chest x-ray with chronic changes basic blood work showed a CO2 of 36 Emergency Department Course and Treatment: Patient received a DuoNeb and Ativan. She is able to ambulate without oxygen to the bathroom at 92-93%. Start the patient on burst dose prednisone. She is to fill her prescriptions and follow-up with her doctors. Impression: 1. COPD exacerbation 2. Anxiety This note was generated with [employer] dictation software. It may contain incorrect words, spelling, and punctuation that were not noted in review of the chart prior to signing ED Disposition - Plan for ED Patient: Disposition: Home or Assisted Living Chief Complaint: Shortness of Breath Diagnosis: COPD with acute exacerbation Instructions: ED COPD Flare Prescriptions: Prednisone [Deltasone] 40 mg PO DAILY #8 tablet Referrals: Dariel Ortega Chi, MD [Primary Care Provider] - Jamar Carpenter DO [STAFF PHYSICIAN] - 3-5 Days if not improving What to do if you have Problems For any increased pain, shortness of breath, bleeding, nausea or vomiting, chest pain, or any unexpected problems, contact your Primary Care Provider. Call [facility] ([phone]) or report to the closest Emergency Room. Call 911 if necessary. 12/03/17 0007 <Electronically signed by Cole Medina DO> Date Cole Medina DO Cosigner Signature (If Indicated): Date CC: Dariel Ortega MD CBC W/DIFF, AUTOMATED Collected: 12/02/2017 Status: F Source: THERESE 5:12 PM [facility] TYPE CODE TESTS RESULT OUT OF RANGE REFERENCE UNITS LAB L100.1000 4.4-11.0 K/mm3 Normal WBC 7.5 LAB L100.1200 4.2-5.4 M/mm3 Low RBC 4.12 LAB L100.1300 12.0-15.0 g/dl Normal HGB 12.7 LAB L100.1400 37-47 % Normal HCT 41.3 LAB L100.1500 81-99 fL High MCV 100.2 LAB L100.1600 27.0-32.0 pg Normal MCH 30.8 LAB L100.1700 32-36 g/gl Low MCHC 30.8 LAB L100.1810 11.6-14.6 % Normal RDW CV 12.7 LAB L100.1820 35.1-43.9 fl High RDW SD 45.9 LAB L100.1900 150-450 K/mm3 Normal PLT 290 LAB L100.2000 6.2-12.0 fl Normal MPV 9.6 LAB L100.2100 47-70 % High NEUT% 74.4 LAB L100.2200 19-41 % Low LY% 12.4 LAB L100.2300 0-10 % Normal MONO% 9.1 LAB L100.2400 0-5 % Normal EO% 3.2 LAB L100.2500 0-1 % Normal BASO% 0.8 LAB L100.2550 0.0-0.9 % Normal IM GRAN % 0.100 Result Comment: IG% - Immature Granulocytes (promyelocytes, myelocytes and metamyelocytes) > 1% indicates that a LEFT SHIFT is Present. LAB L100.2620 2.0-7.7 X10 3/uL Normal Absolute Neut 5.6 LAB L100.2720 0.83-4.51 X10 3/ul Normal Absolute Lymph 0.93 Performed By: #### L100.0100 #### [facility] [place], [address] BASIC METABOLIC Collected: 12/02/2017 Status: F Source: THERESE PROFILE (BMP) 5:12 PM [facility] TYPE CODE TESTS RESULT OUT OF RANGE REFERENCE UNITS LAB L501.0100 70-110 mg/dL Normal GLU 90 LAB L501.1000 7-18 mg/dL Low BUN 5 LAB L501.1100 0.55-1.02 mg/dL Low 0.42 CREAT,SERUM Result Comment: The validity of the calculated GFR AND GFRAA in patients over 70 years has not been determined. Clinical correlation is essential. LAB L501.1110 >60 mL/min Normal EST GFR 164 Result Comment: Non- GFR Calc LAB L501.1115 >60 mL/min Normal EST GFR - AA 199 Result Comment: GFR Calc LAB L501.1255 ml/min Normal Estimated CRCL 106.21 LAB L501.1300 10-20 RATIO BUN/CRE Normal 11.8 LAB L501.2200 8.5-10 mg/dL .1 CA Normal 9.1 LAB L501.5300 136-14 mmol/L 5 NA Normal 141 LAB L501.5600 3.5-5. mmol/L 1 K Normal 4.0 LAB L501.5900 98-107 mmol/L CL Normal 99 LAB L501.6100 21.0-3 mmol/L High 2.0 CO2 36.0 LAB L501.6200 5-15 GAP Normal 6 Performed By: #### L500.2500 #### [facility] [address] [place], [address] CHEST PA AND LATERAL Observed: 12/02/2017 Status: F Source: THERESE 4:37 PM [facility] Imaging Services [address] [place] [address] Chest PA and Lateral MR#: [id number] Acct: [id number] Name: PETRADipakOLIVE Rep #: [id number] : 1960 F 57 From: Antonio Alicia MD PCP: Jordan MONTILLA,Dariel Coughlin Status: REG ER Study: Chest PA and Lateral Date of Exam: 12/02/17 Exam# [id number] Ordering Dr: Cole Medina DO STUDY: X-RAY CHEST REASON FOR EXAM: Female, 57 years old. Shortness of breath. COPD. TECHNIQUE: PA and lateral views of the chest. COMPARISON: March 15, 2017 FINDINGS: There is hyperinflation of the lungs consistent with chronic obstructive lung disease (COPD). There are granulomatous calcifications. There is blunting of the costophrenic angles with pleural thickening. Apical fibrotic densities. Normal size heart. Normal mediastinum and nader. Normal visualized pulmonary arteries. Normal visualized aortic arch and descending thoracic aorta. Normal visualized thoracic spine. Healed left rib fracture. There is no demonstrated abnormality of the visualized soft tissue structures of the upper abdomen. RAD/Chest PA and Lateral IMPRESSION: COPD and fibrotic densities. Electronically Signed: Antonio Alicia MD at 18:08 EST , Service support , CC: Cole Medina DO; Dariel Ortega MD Restaurant Service Manager: Signed ALLERGIES ALLERGIES DATE TYPE / CODE NAME / CODE REACTION SEVERITY SOURCE 10/17/2018 Drug morphine/F00 Itching [place] [facility] Allergy/4160 [id number]([place] 2472202(SNOMED RM) Repository CT) 10/17/2018 Drug aspirin/F006 Unknown Unknown [facility] Allergy/4160 424573([place] 5882502(SNOMED M) Repository CT) ENCOUNTERS ENCOUNTERS ADMIT/DISCHARGE ACCOUNT ADMITTING ENCOUNTER LOCATION SOURCE NUMBER CLASS 10/17/2018 [id number] Jana, Ambulatory BMSBuilding:B [place] 9 [place] F [place].[facility] Repository 10/17/2018 [id number] Jana, Ambulatory BMSBuilding:B [place] 3 [place] F MS.[facility] Repository 10/17/2018 [id number] Jana, Ambulatory BMSBuilding:B [place] 0 [place] F [place].[facility] Repository 10/17/2018/ [id number] [place], Inpatient [place] 0 [place] Encounter [facility] ing:PCURoom: Repository [id number]: 1 10/17/2018 [id number] Ambulatory BMSBuilding:B [place] 2 [place].[facility] Repository 10/14/2018 [id number] Ambulatory [place] 8 [facility] Hospital ing:BARRIOS Repository 10/07/2018/ [id number] Emergency [place] 8 0 [facility] ing:ED Repository 10/06/2018 [id number] Ambulatory BMSBuilding:B [place] 3 [place].[facility] Repository 10/05/2018 [id number] Ambulatory BMSBuilding:B [place] 2 [place] Repository 10/05/2018 [id number] Ambulatory BMSBuilding:B [place] 5 [place].[facility] Repository 10/04/2018 [id number] Ambulatory BMSBuilding:B [place] 5 [place].[facility] Repository 10/04/2018 [id number] Ambulatory BMSBuilding:B [place] 9 [facility] Repository 10/04/2018 [id number] Ambulatory BMSBuilding:W [place] [facility] Repository 09/28/2018 [id number] Ambulatory BMSBuilding:B [place] 9 [place].[facility] Repository 09/26/2018 [id number] Ambulatory [place] 1 [facility] ing:CT Repository 09/13/2018/ [id number] Ambulatory BMSBuilding:B [place] 8 3 [place].[facility] Repository 09/07/2018 [id number] Ambulatory BMSBuilding:B [place] 0 [place].[facility] Repository 08/20/2018/ [id number] Neel Alvarado Inpatient [place] 7 Encounter [facility] ing:PCURoom: Repository [id number]: 1 08/20/2018 [id number] Neel Alvarado Ambulatory BMSBuilding:B [place] 8 [place].[facility] Repository 08/20/2018 [id number] Neel Alvarado Ambulatory BMSBuilding:B [place] 2 [facility] Repository 08/20/2018 [id number] Neel Alvarado Ambulatory BMSBuilding:B [place] 1 [facility] Repository 08/20/2018 [id number] Neel Alvarado Ambulatory BMSBuilding:B [place] 0 [facility] Repository 08/04/2018 [id number] Ambulatory BMSBuilding:B [place] 2 MS.[facility] Repository 07/07/2018 [id number] Ambulatory BMSBuilding:B [place] 4 [facility] Repository 06/29/2018 [id number] Ambulatory [place] 5 [facility] Hospital ing:CT Repository 06/23/2018 [id number] Ambulatory BMSBuilding:B [place] 8 MS.CF.[facility] Repository 06/09/2018 [id number] Ambulatory BMSBuilding:B [place] 1 [place].[facility] Repository 05/26/2018 [id number] Ambulatory BMSBuilding:B [place] 9 [place].[facility] Repository 05/12/2018 [id number] Ambulatory BMSBuilding:B [place] 1 [facility] Repository 05/04/2018 [id number] Ambulatory [address] Hospital ing:CT Repository 05/03/2018/ [id number] Ambulatory BMSBuilding:B [place] 8 2 [facility] Repository 04/28/2018 [id number] Ambulatory BMSBuilding:B [place] 7 [place].CF.[facility] Repository 04/14/2018 [id number] Ambulatory BMSBuilding:B [place] 0 [facility] Hospital Repository 03/31/2018 [id number] Ambulatory BMSBuilding:B [place] 3 MS.CF.[facility] Repository 03/24/2018 [id number] Ambulatory BMSBuilding:B [place] 9 [place].[facility] Repository 03/19/2018 [id number] Ambulatory [address] Hospital ing:MRI Repository 03/16/2018 [id number] Ambulatory BMSBuilding:B [place] 6 MS.CF.[facility] Hospital Repository 03/15/2018 [id number] Ambulatory BMSBuilding:B [place] 9 [facility] Hospital Repository 03/14/2018/ [id number] Ambulatory [place] 8 3 [facility] Hospital ing:SDCRoom: Repository AC20 03/14/2018 [id number] Ambulatory BMSBuilding:B [place] 5 [facility] Hospital Repository 03/11/2018/ [id number] Ambulatory BMSBuilding:B [place] 8 5 MS.[facility] Hospital Repository 03/11/2018 [id number] Ambulatory [place] 2 [facility] Hospital ing:CVS Repository 03/10/2018 [id number] Ambulatory BMSBuilding:B [place] 5 MS.[facility] Hospital Repository 03/07/2018 [id number] Ambulatory [place] 1 [facility] ing:ONC Repository 03/01/2018 [id number] Ambulatory [place] 9 [facility] Hospital ing:RAD Repository 03/01/2018/ [id number] Ambulatory BMSBuilding:B [place] 8 4 MS.[facility] Hospital Repository 02/22/2018 [id number] Ambulatory [place] 2 [facility] Hospital ing:CT Repository 02/17/2018 [id number] Ambulatory [place] 3 [facility] Hospital ing:LAB Repository 02/17/2018/ [id number] Ambulatory BMSBuilding:B [place] 8 8 [facility] Hospital Repository 02/06/2018/ [id number] Emergency [place] 5 [facility] Hospital ing:ED Repository 12/02/2017/ [id number] Emergency [place] 8 5 [facility] Hospital ing:ED Repository PAYERS PAYERS ENCOUNTER GUARANTOR PAYER SUBSCRIBER SOURCE 10/17/2018 OLIVE Aguirre Primary OLIVE [id number] ETTA Insurance:CARESOURCEP BARYDOB: [facility]ly [facility] oly Number: [id number] [id number] Repository [address]Exl: (330) Date:2018-12-10P O [phone] () [address]ATTN: [place] [address]HK: 10/17/2018 Secondary NOT GIVENUNK [place] Insurance:SELF PAY [facility] Number: Effective Repository Date:2018-10-17 10/17/2018 OLIVE Aguirre Primary OLIVE [place] [id number] ETTA Insurance:CARESOURCEP BARNBYDOB: Community LNAPT olicy Number: [id number] [id number] Repository [address]Ntl: (330) Date:2018-10-17 O [phone] () [address]ATTN: [place] [address]YN: 10/17/2018 Secondary NOT GIVENUNK [place] Insurance:SELF PAY [facility] Number: Effective Repository Date:2018-10-17 10/17/2018 OLIVE Aguirre Primary OLIVE [place] [id number] ETTA Insurance:CARESOURCEP BARNBYDOB: Community LNAPT [place]licy Number: [id number] [id number] Repository [address]Vwh: (330) Date:2018-10-17 O [phone] () [address]ATTN: [place] [address]PR: 10/17/2018 Secondary NOT GIVENUNK [place] Insurance:SELF PAY [facility] Number: Effective Repository Date:2018-10-17 10/17/2018 OLIVE Aguirre Primary OLIVE [place] [id number] TETA Insurance:CARESOURCEP BARNBYDOB: Community LNAPT [place] Number: [id number] [id number] Repository [address]Ver: (330) Date:2018-10-17 O [phone] (HP) [address]ATTN: [place] [address]KW: 10/17/2018 Secondary NOT GIVENUNK [place] Insurance:SELF PAY [facility] Number: Effective Repository Date:2018-10-17 10/17/2018 OLIVE Aguirre Primary OLIVE [place] [id number] ETT[place] Insurance:CARESOURCEP BARNBYDOB: Community LNAPT olicy Number: [id number] [id number] Repository [address]Mdp: (330) Date:2018-10-17P O [phone] () [address]ATTN: [place] [address]IL: 10/17/2018 Secondary NOT GIVENUNK [place] Insurance:SELF PAY [facility] Number: Effective Repository Date:2018-10-17 10/14/2018 OLIVE Aguirre Primary OLIVE [place] [id number] ETT[place] Insurance:CARESOURCEP BARNBYDOB: Community LNAPT olicy Number: [id number] [id number] Repository [address]Vpj: (330) Date:2018-03-01P O [phone] (HP) [address]ATTN: [place] [address]YA: 10/14/2018 Secondary NOT GIVENUNK [place] Insurance:SELF PAY [facility] Number: Effective Repository Date:2018-03-01 10/07/2018 OLIVE Aguirre Primary OLIVE [place] [id number] ETT[place] Insurance:CARESOURCEP BARNBYDOB: Community LNAPT olicy Number: [id number] [id number] Repository [address]Szo: (330) Date:2018-10-07P O [phone] () [address]ATTN: [place] [address]WF: 10/07/2018 Secondary NOT [place]IVENUNK [place] Insurance:SELF PAY [facility] Number: Effective Repository Date:2018-10-07 10/06/2018 OLIVE Aguirre Primary OLIVE [place] [id number] ETT[place] Insurance:CARESOURCEP BARNBYDOB: Community LNAPT olicy Number: [id number] [id number] Repository [address]Ltd: (330) Date:2018-10-10P O [phone] () [address]ATTN: [place] [address]ZV: 10/06/2018 Secondary NOT GIVENUNK [place] Insurance:SELF PAY [facility] Number: Effective Repository Date:2018-10-06 10/05/2018 OLIVE Aguirre Primary OLIVE [place] [id number] ETT[place] Insurance:CARESOURCEP BARNBYDOB: Community LNAPT olicy Number: [id number] [id number] Repository [address]Rsw: (330) Date:2018-10-10P O [phone] () [address]ATTN: [place] [address]MO: 10/05/2018 Secondary NOT GIVENUNK [place] Insurance:SELF PAY [facility] Number: Effective Repository Date:2018-10-05 10/05/2018 OLIVE Aguirre Primary OLIVE [place] [id number] ETT[place] Insurance:CARESOURCEP BARNBYDOB: Community LNAPT olicy Number: [id number] [id number] Repository [address]Sbp: (330) Date:2018-03-01 O [phone] () [address]ATTN: [place] [address]YT: 10/05/2018 Secondary NOT GIVENUNK [place] Insurance:SELF PAY [facility] Number: Effective Repository Date:2018-10-05 10/04/2018 OLIVE Aguirre Primary OLIVE [place] [id number] ETT[place] Insurance:CARESOURCEP BARNBYDOB: Community LNAPT olicy Number: [id number] [id number] Repository [address]Nri: (330) Date:2018-03-01P O [phone] () [address]ATTN: [place] [address]MW: 10/04/2018 Secondary NOT GIVENUNK [place] Insurance:SELF PAY [facility] Number: Effective Repository Date:2018-10-04 10/04/2018 OLIVE Aguirre Primary OLIVE [place] [id number] ETT[place] Insurance:CARESOURCEP BARNBYDOB: Community LNAPT olicy Number: [id number] [id number] Repository [address]Oui: (330) Date:2018-03-01 O [phone] (HP) [address]ATTN: [place] [address]QH: 10/04/2018 Secondary NOT GIVENUNK [place] Insurance:SELF PAY [facility] Number: Effective Repository Date:2018-10-04 10/04/2018 OLIVE Aguirre Primary OLIVE [place] [id number] ETT[place] Insurance:CARESOURCEP BARNBYDOB: Community LNAPT olicy Number: [id number] [id number] Repository [address]Bpt: (330) Date:2018-03-01 O [phone] () [address]ATTN: [place] [address]FK: 10/04/2018 Secondary NOT GIVENUNK [place] Insurance:SELF PAY [facility] Number: Effective Repository Date:2018-10-04 09/28/2018 OLIVE Aguirre Primary OLIVE Saleh [id number] [place]TT[place] Insurance:CARESOURCEP BARNBYDOB: Community LNAPT olicy Number: [id number] [id number] Repository [address]Kze: (330) Date:2018-03-01 O [phone] () [address]ATTN: [place] [address]LV: 09/28/2018 Secondary NOT GIVENUNK [place] Insurance:SELF PAY [facility] Number: Effective Repository Date:2018-09-28 09/26/2018 OLIVE Aguirre Primary OLIVE [place] [id number] ETT[place] Insurance:CARESOURCEP BARNBYDOB: Community LNAPT olicy Number: [id number] [id number] Repository [address]Jnz: (330) Date:2018-09-22P O [phone] () [address]ATTN: [place] [address]EP: 09/26/2018 Secondary NOT GIVENUNK [place] Insurance:SELF PAY [facility] Number: Effective Repository Date:2018-09-22 09/13/2018 OLIVE Aguirre Primary OLIVE [place] [id number] [place]TT[place] Insurance:CARESOURCEP BARNBYDOB: Community LNAPT olicy Number: [id number] [id number] Repository [address]Omh: (330) Date:2018-08-23P O [phone] () [address]ATTN: [place] [address]TX: 09/13/2018 Secondary NOT GIVENUNK [place] Insurance:SELF PAY [facility] Number: Effective Repository Date:2018-09-05 09/07/2018 OLIVE Aguirre Primary OLIVE [place] [id number] ETT[place] Insurance:CARESOURCEP BARNBYDOB: Community LNAPT olicy Number: [id number] [id number] Repository [address]Hqo: (330) Date:2018-03-01P O [phone] () [address]ATTN: [place] [address]GB: 09/07/2018 Secondary [place]UNK [place] Insurance:SELF PAY [facility] Number: Effective Repository Date:2018-09-07 08/20/2018 OLIVE Aguirre Primary OLIVE Saleh [id number] [place] Insurance:CARESOURCEP BARNBYDOB: Community LNAPT olic Number: [id number] [id number] Repository [address]Spn: (330) Date:2018-08-20P O [phone] () [address]ATTN: [place] [address]ZL: 08/20/2018 Secondary [place] GIVENUNK [place] Insurance:SELF PAY [facility] Number: Effective Repository Date:2018-08-20 08/20/2018 OLIVE Aguirre Primary OLIVE Saleh [id number] [place] Insurance:CARESOURCEP BARNBYDOB: Community LNAPT olicy Number: [id number] [id number] Repository [address]Fkr: (330) Date:2018-08-20P O [phone] () [address]ATTN: [place] [address]NF: 08/20/2018 Secondary [place]IVENUNK [place] Insurance:SELF PAY [facility] Number: Effective Repository Date:2018-08-20 08/20/2018 OLIVE Augirre Primary OLIVE Saleh [id number] [place] Insurance:CARESOURCEP BARNBYDOB: Community LNAPT olicy Number: [id number] [id number] Repository [address]Qvd: (330) Date:2018-08-20P O [phone] () [address]ATTN: [place] [address]FQ: 08/20/2018 Secondary [place]IVENUNK [place] Insurance:SELF PAY [facility] Number: Effective Repository Date:2018-08-20 08/20/2018 OLIVE Aguirre Primary OLIVE Saleh [id number] [place] Insurance:CARESOURCEP BARNBYDOB: Community LNAPT olicy Number: [id number] [id number] Repository [address]Xzw: (330) Date:2018-08-20P O [phone] (HP) [address]ATTN: [place] [address]NZ: 08/20/2018 Secondary [place]UNK [place] Insurance:SELF PAY [facility] Number: Effective Repository Date:2018-08-20 08/20/2018 OLIVE Aguirre Primary OLIVE [id number] [place] Insurance:CARESOURCEP BARNBYDOB: Community LNAPT olicy Number: [id number] [id number] Repository 8[address]Rxn: (330) Date:2018-08-20P O [phone] (HP) [address]ATTN: [place] [address]TG: 08/20/2018 Secondary [place]IVENUNK [place] Insurance:SELF PAY [facility] Number: Effective Repository Date:2018-08-20 08/04/2018 OLIVE Aguirre Primary OLIVE Saleh [id number] [place] Insurance:CARESOURCEP BARNBYDOB: Community LNAPT olicy Number: [id number] [id number] Repository 18651Slf: (330) Date:2018-03-01P O [phone] () [address]ATTN: [place] [address]ZL: 08/04/2018 Secondary NOT GIVENUNK [place] Insurance:SELF PAY [facility] Number: Effective Repository Date:2018-08-04 07/07/2018 OLIVE Aguirre Primary OLIVE Saleh [id number] [place] Insurance:CARESOURCEP BARNBYDOB: Community LNAPT olicy Number: [id number] [id number] Repository 226[address]Zyi: (330) Date:2018-03-01P O [phone] (HP) [address]ATTN: [place] [address]LN: 07/07/2018 Secondary NOT GIVENUNK [place] Insurance:SELF PAY [facility] Number: Effective Repository Date:2018-07-07 06/29/2018 OLIVE Aguirre Primary OLIVE Saleh [id number] [place] Insurance:CARESOURCEP BARNBYDOB: Community LNAPT olicy Number: [id number] [id number] Repository [address]Xid: (330) Date:2018-06-23P O [phone] () [address]ATTN: [place] [address]BS: 06/29/2018 Secondary [place]UNK [place] Insurance:SELF PAY [facility] Number: Effective Repository Date:2018-06-23 06/23/2018 OLIVE Aguirre Primary OLIVE Saleh [id number] [place] Insurance:CARESOURCEP BARNBYDOB: Community LNAPT olicy Number: [id number] [id number] Repository [address]Ita: (330) Date:2018-03-01P O [phone] (HP) [address]ATTN: [place] [address]YG: 06/23/2018 Secondary NOT GIVENUNK [place] Insurance:SELF PAY [facility] Number: Effective Repository Date:2018-06-23 06/09/2018 OLIVE Aguirre Primary OLIVE Olsonoster [id number] [place] Insurance:CARESOURCEP BARNBYDOB: Community LNAPT olicy Number: [id number] [id number] Repository [address]Gbu: (330) Date:2018-03-01P O [phone] (HP) [address]ATTN: [place] [address]RV: 06/09/2018 Secondary NOT GIVENUNK [place] Insurance:SELF PAY [facility] Number: Effective Repository Date:2018-06-09 05/26/2018 OLIVE Aguirre Primary OLIVE Saleh [id number] [place] Insurance:CARESOURCEP BARNBYDOB: Community LNAPT olicy Number: [id number] [id number] Repository [address]68[address]Zig: (330) Date:2018-03-01P O [phone] (HP) [address]ATTN: [place] [address]ED: 05/26/2018 Secondary NOT GIVENUNK [place] Insurance:SELF PAY [facility] Number: Effective Repository Date:2018-05-26 05/12/2018 OLIVE Aguirre Primary OLIVE Saleh [id number] [place] Insurance:CARESOURCEP BARNBYDOB: Community LNAPT olicy Number: [id number] [id number] Repository 44[address]Pou: (330) Date:2018-03-01P O [phone] (HP) [address]ATTN: [place] [address]PK: 05/12/2018 Secondary NOT GIVENUNK [place] Insurance:SELF PAY [facility] Number: Effective Repository Date:2018-05-12 05/04/2018 OLIVE Aguirre Primary OLIVE Saleh [id number] [place] Insurance:CARESOURCEP BARNBYDOB: Community LNAPT olicy Number: [id number] [id number] Repository [address]23[address]Ycq: (330) Date:2018-04-28P O [phone] () [address]ATTN: [place] [address]XS: 05/04/2018 Secondary NOT GIVENUNK [place] Insurance:SELF PAY [facility] Number: Effective Repository Date:2018-04-28 05/03/2018 OLIVE Aguirre Primary OLIVE Saleh [id number] [place] Insurance:CARESOURCEP BARNBYDOB: Community LNAPT olicy Number: [id number] [id number] Repository 314[address]Psx: (330) Date:2018-03-01P O [phone] (HP) [address]ATTN: [place] [address]TO: 05/03/2018 Secondary NOT GIVENUNK [place] Insurance:SELF PAY [facility] Number: Effective Repository Date:2018-04-26 04/28/2018 OLIVE Aguirre Primary OLIVE [id number] [place] Insurance:CARESOURCEP BARNBYDOB: Community LNAPT olicy Number: [id number] [id number] Repository 18649Gki: (330) Date:2018-03-01P O [phone] (HP) [address]ATTN: [place] [address]HI: 04/28/2018 Secondary [place] Insurance:SELF PAY [facility] Number: Effective Repository Date:2018-04-28 04/14/2018 OLIVE Aguirre Primary OLIVE Saleh [id number] [place] Insurance:CARESOURCEP BARNBYDOB: Community LNAPT olicy Number: [id number] [id number] Repository 232[address]Ycf: (330) Date:2018-05-04P O [phone] (HP) [address]ATTN: [place] [address]BA: 04/14/2018 Secondary NOT GIVENUNK [place] Insurance:SELF PAY [facility] Number: Effective Repository Date:2018-04-14 03/31/2018 OLIVE Aguirre Primary OLIVE Saleh [id number] [place] Insurance:CARESOURCEP BARNBYDOB: Community LNAPT olicy Number: [id number] [id number] Repository [address]Zvl: (330) Date:2018-03-01P O [phone] (HP) [address]ATTN: [place] [address]LN: 03/31/2018 Secondary [place] Insurance:SELF PAY [facility] Number: Effective Repository Date:2018-03-31 03/24/2018 OLIVE Aguirre Primary OLIVE Saleh [id number] [place] Insurance:CARESOURCEP BARNBYDOB: Community LNAPT olicy Number: [id number] [id number] Repository [address]Mhb: (330) Date:2018-03-01P O [phone] () [address]ATTN: [place] [address]XS: 03/24/2018 Secondary NOT GIVENUNK [place] Insurance:SELF PAY [facility] Number: Effective Repository Date:2018-03-24 03/19/2018 OLIVE Aguirre Primary OLIVE Saleh [id number] [place] Insurance:CARESOURCEP BARNBYDOB: Community LNAPT olicy Number: [id number] [id number] Repository [address]Isu: (330) Date:2018-03-10P O [phone] (HP) [address]ATTN: [place] [address]ZT: 03/19/2018 Secondary NOT GIVENUNK [place] Insurance:SELF PAY [facility] Number: Effective Repository Date:2018-03-10 03/16/2018 OLIVE Aguirre Primary OLIVE Saleh [id number] [place] Insurance:CARESOURCEP BARNBYDOB: Community LNAPT olicy Number: [id number] [id number] Repository [address]Dph: (330) Date:2018-03-01P O [phone] (HP) [address]ATTN: [place] [address]DN: 03/16/2018 Secondary NOT GIVENUNK [place] Insurance:SELF PAY [facility] Number: Effective Repository Date:2018-03-16 03/15/2018 OLIVE Aguirre Primary OLIVE Saleh [id number] [place] Insurance:CARESOURCEP BARNBYDOB: Community LNAPT olicy Number: [id number] [id number] Repository 28846Ref: (330) Date:2018-03-01P O [phone] (HP) [address]ATTN: [place] [address]RK: 03/15/2018 Secondary NOT GIVENUNK [place] Insurance:SELF PAY [facility] Number: Effective Repository Date:2018-03-15 03/14/2018 OLIVE Aguirre Primary OLIVE Saleh [id number] [place] Insurance:CARESOURCEP BARNBYDOB: Community LNAPT olicy Number: [id number] [id number] Repository [address]Hoq: (330) Date:2018-03-11P O [phone] (HP) [address]ATTN: [place] [address]NS: 03/14/2018 Secondary NOT GIVENUNK [place] Insurance:SELF PAY [facility] Number: Effective Repository Date:2018-03-11 03/14/2018 OLIVE Aguirre Primary OLIVE Saleh [id number] [place] Insurance:CARESOURCEP BARNBYDOB: Community LNAPT olicy Number: [id number] [id number] Repository 23946Ngz: (330) Date:2018-03-11P O [phone] () [address]ATTN: [place] [address]KE: 03/14/2018 Secondary NOT GIVENUNK [place] Insurance:SELF PAY [facility] Number: Effective Repository Date:2018-03-14 03/11/2018 OLIVE Aguirre Primary OLIVE Saleh [id number] [place] Insurance:CARESOURCEP BARNBYDOB: Community LNAPT olicy Number: [id number] [id number] Repository 390[address]Xwb: (330) Date:2018-03-10P O [phone] (HP) [address]ATTN: [place] [address]OO: 03/11/2018 Secondary [place] Insurance:SELF PAY [facility] Number: Effective Repository Date:2018-03-10 03/11/2018 OLIVE Aguirre Primary OLIVE [id number] [place] Insurance:CARESOURCEP BARNBYDOB: Community LNAPT olicy Number: [id number] [id number] Repository [address]Uno: (330) Date:2018-03-10P O [phone] (HP) [address]ATTN: [place] [address]GZ: 03/11/2018 Secondary [place] Insurance:SELF PAY [facility] Number: Effective Repository Date:2018-03-10 03/10/2018 OLIVE Aguirre Primary OLIVE Saleh [id number] [place] Insurance:CARESOURCEP BARNBYDOB: Community LNAPT olicy Number: [id number] [id number] Repository 23[address]Wcg: (330) Date:2018-03-01P O [phone] (HP) [address]ATTN: [place] [address]BD: 03/10/2018 Secondary NOT GIVENUNK [place] Insurance:SELF PAY [facility] Number: Effective Repository Date:2018-03-10 03/07/2018 OLIVE Aguirre Primary OLIVE Saleh [id number] [place] Insurance:CARESOURCEP BARNBYDOB: Community LNAPT olicy Number: [id number] [id number] Repository [address]Jtz: (330) Date:2018-03-03P O [phone] (HP) [address]ATTN: [place] [address]VW: 03/07/2018 Secondary [place]K [place] Insurance:SELF PAY [facility] Number: Effective Repository Date:2018-03-07 03/01/2018 OLIVE Aguirre Primary OLIVE Saleh [id number] [place] Insurance:CARESOURCEP BARNBYDOB: Community LNAPT olicy Number: [id number] [id number] Repository 94[address]Php: (330) Date:2018-03-01P O [phone] () [address]ATTN: [place] [address]EX: 03/01/2018 Secondary NOT GIVENUNK [place] Insurance:SELF PAY [facility] Number: Effective Repository Date:2018-03-01 03/01/2018 OLIVE Aguirre Primary OLIVE Saleh [id number] [place] Insurance:CARESOURCEP BARNBYDOB: Community LNAPT olicy Number: [id number] [id number] Repository 405[address]Nng: (330) Date:2018-02-25P O [phone] () [address]ATTN: [place] [address]HX: 03/01/2018 Secondary NOT GIVENUNK [place] Insurance:SELF PAY [facility] Number: Effective Repository Date:2018-02-25 02/22/2018 OLIVE Aguirre Primary OLIVE Saleh [id number] [place] Insurance:CARESOURCEP BARNBYDOB: Community LNAPT olicy Number: [id number] [id number] Repository [address]Jct: (330) Date:2018-02-17 O [phone] () [address]ATTN: [place] [address]SV: 02/22/2018 Secondary NOT GIVENUNK [place] Insurance:SELF PAY [facility] Number: Effective Repository Date:2018-02-17 02/17/2018 OLIVE Aguirre Primary OLIVE Saleh [id number] [place] Insurance:CARESOURCEP BARNBYDOB: Community LNAPT olic Number: [id number] [id number] Repository 100[address]Nnl: (330) Date:2018-02-17 O [phone] (HP) [address]ATTN: [place] [address]DR: 02/17/2018 Secondary NOT GIVENUNK [place] Insurance:SELF PAY [facility] Number: Effective Repository Date:2018-02-17 02/17/2018 OLIVE Aguirre Primary OLIVE Saleh [id number] [place] Insurance:CARESOURCEP BARNBYDOB: Community LNAPT olicy Number: [id number] [id number] Repository [address]Gri: (330) Date:2018-02-08P O [phone] (HP) [address]ATTN: [place] [address]GJ: 02/17/2018 Secondary NOT GIVENUNK [place] Insurance:SELF PAY [facility] Number: Effective Repository Date:2018-02-14 02/06/2018 Olive Aguirre Primary Olive Saleh [id number] [place] Insurance:CARESOURCEP BarnbyDOB: Community LnApt olicy Number: [id number] [id number] Repository 605[address]Lgd: (330) Date:2018-02-06P O [phone] () [address]ATTN: [place] [address]MT: 02/06/2018 Secondary NOT GIVENUNK [place] Insurance:SELF PAY [facility] Number: Effective Repository Date:2018-02-06 12/02/2017 Olive Aguirre Primary Olive Saleh [id number] [place] Insurance:CARESOURCEP BarnbyDOB: Community LnApt olicy Number: [id number] [id number] Repository 133[address]Wzv: (330) Date:2017-12-02P O [phone] (HP) [address]ATTN: [place] [address]ZZ: 12/02/2017 Secondary NOT GIVENUNK [place] Insurance:SELF PAY [facility] Number: Effective Repository Date:2017-12-02
== END 2018-10-07 15:48 | disposition home or self-care (01) ==
PROVIDERS: Emergency Provider Emergency Medicine; Family Provider Family Medicine Geriatric Medicine; PCP Family Medicine Geriatric Medicine
DX: J41.1 Mucopurulent chronic bronchitis (principal); J96.12 Chronic respiratory failure with hypercapnia; C34.90 Malignant neoplasm of unspecified part of unspecified bronchus or lung; F41.9 Anxiety disorder, unspecified; I51.7 Cardiomegaly; K21.9 Gastro-esophageal reflux disease without esophagitis; Z99.81 Dependence on supplemental oxygen; Z85.118 Personal history of other malignant neoplasm of bronchus and lung; Z98.51 Tubal ligation status; Z87.891 Personal history of nicotine dependence
CPT/HCPCS: 36591; 71046; 77412; 80048; 85025; 93005; 94640; 99283; J2505; A4216

== ENCOUNTER 2018-10-17 01:55 | Inpatient (IN) | payer MEDICAID, SELFPAY ==
[2018-10-13 10:10] VITALS: BMI 13.4
[2018-10-17] VITALS (16 sets, daily range): BP systolic 90–140; BP diastolic 38–98; PULSE 103–128; RESP 16–25; TEMP 36.1–37.2; O2SAT 94–100; BMI 14.3; BMI 13.4
--- NOTE | 2018-10-17 02:13 | CT_ITS ---
STUDY: CTA CHEST REASON FOR EXAM: Female, 57 years old. Palpitations and stage IV lung cancer RADIATION DOSAGE (If Supplied By Facility): CTDIvol = ( 4.335 ) mGy, DLP = ( 342.70 ) mGycm TECHNIQUE: The examination was performed with the intravenous administration of 100 ml of Isovue 370 contrast material. Post-processing of the angiographic images was performed, with multiplanar reformation and 3D reconstruction. Individualized dose optimization techniques were used for this CT. COMPARISON: 09/26/2018 FINDINGS: Right chest wall port tip in SVC. No pulmonary embolus. Aortic calcifications. Upper abdominal images are unremarkable. Once again, a large heterogeneous mass is present in the anterior mediastinum, measuring 7.3 cm transverse by 5.1 cm anteroposterior on image 183 of series 4. The mass measures up to 7.5 cm craniocaudal. This encases the brachiocephalic artery and both common carotid arteries and partially encases the left subclavian artery. This encases both internal mammary arteries. All encased arteries remain patent. The mass partially compresses the superior vena cava, although the extent of SVC compression has improved slightly compared to prior study. The SVC remains patent. The lesion extends through the left anterior chest wall, to the left of the sternum. This chest wall component has become smaller and less conspicuous compared to prior study. Diffuse pulmonary emphysema. Stable scarring and cavitation in the lung apices. Interval development of an irregular nodule in the left lower lobe medially measuring 14 x 8 mm on image 112 of series 4. Interval development of alveolar disease in the upper medial left lower lobe which could be infectious or inflammatory in nature. No pericardial or pleural fluid. No destructive osseous lesion is seen. Calcified splenic granulomata. CT/CTA Chest W/WO Contrast IMPRESSION: No pulmonary embolus. Anterior mediastinal mass with multiple vascular encasement as described. The mass extends through the left anterior chest wall. This component has decreased in conspicuity. Persistent but improving compression of the superior vena cava. Interval development of a nodular density in the left lower lobe. Interval development of alveolar disease in the left lower lobe. This could be infectious or inflammatory in nature. Electronically Signed: Hari Lugo MD at 4:02 EST Tel , Service support ,
--- NOTE | 2018-10-17 02:13 | EKG12_ITS ---
Test Reason : SOB Blood Pressure : / mmHG Vent. Rate : 122 BPM Atrial Rate : 122 BPM P-R Int : 130 ms QRS Dur : 080 ms QT Int : 306 ms P-R-T Axes : 087 085 077 degrees QTc Int : 436 ms Sinus tachycardia Biatrial enlargement Abnormal ECG Confirmed by VICK MONTILLA, PAUL ([id number]), assistant editor RACHANA YANG ([id number]) on 10/18/2018 8:59:56 AM Referred By: Betty Banerjee Confirmed By:PAUL HICKMAN MD
--- NOTE | 2018-10-17 02:20 | ED.VISSUMM ---
- ER Visit Summary Date of Service: 10/17/18 Chief Complaint: Chest pain, shortness of breath History of Present Illness: The patient is a 57 F presenting with chest pain, shortness of breath. She states this has been ongoing for the past 3 days but worsened today. She has a history of small cell lung cancer with mediastinal mass. She started palliative radiation for her mediastinal mass this month. Her last chemotherapy was the beginning of October. She states over the last few days she has had difficulty swallowing and decreased appetite. She has had nausea with no vomiting. The shortness of breath is worse with exertion. She denies CAD risk factors. Denies fever. Physical Examination: Vitals are stable. Heart rate 128, respiratory rate 25. Temperature 99. Alert no acute distress. Cachectic HEENT exam dry mucous membranes Neck is supple. Lungs are diminished bilaterally. Heart is regular and tachycardic Abdomen is soft nontender nondistended. Extremities are unremarkable. Skin is warm and dry. No focal neurologic deficit. Remainder of exam is unremarkable. Emergency Department Course and Treatment: EKG is sinus tachycardia rate of 122. She was given DuoNeb aerosol. She was given Dilaudid, Zofran IV. She was given IV fluids. CBC shows white count 0.4, hemoglobin 7.1, platelets 7. Chemistries shows sodium 132, creatinine 0.24, glucose 124. Troponin is negative. CTA chest shows no pulmonary embolus. Anterior mediastinal mass with multiple vascular encasement. The mass extends through the left anterior chest wall. This component has decreased in conspicuity. Persistent but improving compression of the superior vena cava. Interval development of a nodular density in the left lower lobe. Interval development of alveolar disease in the left lower lobe. This could be infectious or inflammatory in nature. Blood cultures were sent. She was given Unasyn and Zithromax IV. Patient's family state that they have been told in the past that her mass is nonoperable. On reevaluation, patient is resting comfortably. Discussed with the hospitalist for admission. Disposition: Admission Impression: Pneumonia, neutropenia, history of small cell lung cancer with anterior mediastinal mass This note was generated with [employer] dictation software. It may contain incorrect words, spelling, and punctuation that were not noted in review of the chart prior to signing ED Disposition - Plan for ED Patient: Chief Complaint: Chest Pain Referrals: Dariel Ortega Chi, MD [Primary Care Provider] -
--- NOTE | 2018-10-17 02:23 | ED.DCSUM_ITS ---
- ER Visit Summary Date of Service: 10/17/18 Chief Complaint: Chest pain, shortness of breath History of Present Illness: The patient is a 57 F presenting with chest pain, shortness of breath. She states this has been ongoing for the past 3 days but worsened today. She has a history of small cell lung cancer with mediastinal mass. She started palliative radiation for her mediastinal mass this month. Her last chemotherapy was the beginning of October. She states over the last few days she has had difficulty swallowing and decreased appetite. She has had nausea with no vomiting. The shortness of breath is worse with exertion. She denies CAD risk factors. Denies fever. Physical Examination: Vitals are stable. Heart rate 128, respiratory rate 25. Temperature 99. Alert no acute distress. Cachectic HEENT exam dry mucous membranes Neck is supple. Lungs are diminished bilaterally. Heart is regular and tachycardic Abdomen is soft nontender nondistended. Extremities are unremarkable. Skin is warm and dry. No focal neurologic deficit. Remainder of exam is unremarkable. Emergency Department Course and Treatment: EKG is sinus tachycardia rate of 122. She was given DuoNeb aerosol. She was given Dilaudid, Zofran IV. She was given IV fluids. CBC shows white count 0.4, hemoglobin 7.1, platelets 7. Chemistries shows sodium 132, creatinine 0.24, glucose 124. Troponin is negative. CTA chest shows no pulmonary embolus. Anterior mediastinal mass with multiple vascular encasement. The mass extends through the left anterior chest wall. This component has decreased in conspicuity. Persistent but improving compression of the superior vena cava. Interval development of a nodular density in the left lower lobe. Interval development of alveolar disease in the left lower lobe. This could be infectious or inflammatory in nature. Blood cultures were sent. She was given Unasyn and Zithromax IV. Patient's family state that they have been told in the past that her mass is nonoperable. On reevaluation, patient is resting comfortably. Discussed with the hospitalist for admission. Disposition: Admission Impression: Pneumonia, neutropenia, history of small cell lung cancer with anterior mediastinal mass This note was generated with [employer] dictation software. It may contain incorrect words, spelling, and punctuation that were not noted in review of the chart prio r to signing ED Disposition - Plan for ED Patient: Chief Complaint: Chest Pain Referrals: Dariel Ortega Chi, MD [Primary Care Provider] -
[2018-10-17] MEDS: Ondansetron 4 MG/2 ML Vial IV (02:28)
[2018-10-17] MEDS: 0.9% Normal Saline 1,000 ML 999 ML IV (02:28)
[2018-10-17] MEDS: HYDROmorphone 0.5 MG/0.5 ML SYRINGE IV ×4 (02:29→23:13)
[2018-10-17 02:30] LABS: Absolute Neutrophil Count 0.2 X10^3/uL (2.0-7.7); Basophil# 0.01 X10^3/uL; Basophil% 2.7 % (0-1); Hemoglobin 7.1 g/dl (12.0-15.0); Mean Corp Hgb Conc 32.3 g/gl (32-36); Mean Corpuscular Hgb 33.3 pg (27.0-32.0); Mean Corpuscular Volume 103.3 fL (81-99); Mean Platelet Vol. 11.2 fl (6.2-12.0); Monocyte# 0.06 X10^3/uL; Monocyte% 16.2 % (0-10); Neutrophil # 0.15 X10^3/uL (2.7-7.7); Neutrophil % 40.6 % (47-70); RBC Distribution Width CV 11.1 % (11.6-14.6); RBC Distribution Width SD 39.4 fl (35.1-43.9); Red Blood Count 2.13 M/mm3 (4.2-5.4)
[2018-10-17] MEDS: Ipratropium/Albuterol Sulfate 3 ML AMPUL.NEB INHALATION ×2 (02:31→22:40)
[2018-10-17 02:40] LABS: Anion Gap 6 (5-15); BUN 14 mg/dL (7-18); BUN/Creat Ratio 57.4 RATIO (10-20); Calcium,Total 8.6 mg/dL (8.5-10.1); Chloride 84 mmol/L (98-107); Creatinine, Serum 0.24 mg/dL (0.55-1.02); EST Glomerular Filtration Rate 311 mL/min (>60); Est Glom Filt Rate - Afr Amer 376 mL/min (>60); Estimated Creatinine Clearance 178.12 ml/min; Glucose 124 mg/dL (74-106); Potassium 3.5 mmol/L (3.5-5.1); Sodium Level 132 mmol/L (136-145)
[2018-10-17 02:44] LABS: Differential Indicated SCAN CRITERIA MET; POSITIVE COUNT YES; POSITIVE DIFFERENTIAL YES; POSITIVE MORPHOLOGY YES; Platelet Count 7 K/mm3 (150-450); White Blood Count 0.4 K/mm3 (4.4-11.0)
--- NOTE | 2018-10-17 02:44 | ED.RN ---
DR FELICIANO NOTIFIED OF WBC AND PLT RESULTS
[2018-10-17 02:52] LABS: Differential Comment SCAN; Platelet Estimate MKD DEC (ADEQ)
--- NOTE | 2018-10-17 05:50 | HP.PCM_ITS ---
Problem List (1) Small cell lung cancer Status: Chronic (2) Mediastinal mass Status: Chronic (3) Anemia Status: Chronic (4) Immunosuppressed due to chemotherapy Status: Chronic (5) Asthma Status: Chronic (6) Nocturnal hypoxia Status: Chronic (7) Stage 4 very severe COPD by GOLD classification Status: Chronic (8) Rdqyy-1-qdwdscoyeye deficiency Status: Chronic (9) GERD (gastroesophageal reflux disease) Status: Chronic (10) Thrombocytopenia Status: Acute History of Present Illness Date of Admission: 10/17/18 Chief Complaint: Chest pain The patient is a 57 year old F with PMH as below who presents from home with significant worsening chest pain, pain with swallowing, malnutrition. At the time of my exam she was given a significant amount of pain meds and was therefore difficult to arouse and to stay awake. Most of the history was obtained from her son who is also her medical POA. Of importance she has been dealing with a stage IV small cell lung cancer since February. She did one round of chemotherapy and the cancer progressed and therefore she has rece ntly started her second round of chemo and radiation. She is also significant amount of weight and is currently around 90 pounds. She does appear very cachectic, and per the son has not been eating well and on review of radiation oncology's consultation she has not been eating for quite a while given the compression of the esophagus as well as mild SVC compression. Unfortunately her cancer is unresectable. She presented to the ER and was found to have a new thrombocytopenia as well as a leukopenia she is also new since October 07. CTA chest obtained in the ER demonstrated a probable left lower lobe pneumonia, with continued small cell lung cancer encasing major vascular structures as well as erosion into the anterior chest wall, was noticed that the SVC compression has improved slightly. 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) Encounter for insertion of venous access port (Chronic) Educational circumstance (Chronic) Chemotherapy management, encounter for (Chronic) Anemia (Chronic) Immunosuppressed due to chemotherapy (Chronic) Asthma (Chronic) Nocturnal hypoxia (Chronic) Anxiety (Chronic) Nicotine dependence in remission (Chronic) Stage 4 very severe COPD by GOLD classification (Chronic) Allergic rhinitis (Chronic) COPD with acute exacerbation (Chronic) Tobacco dependence syndrome (Chronic) [place]-0-nmnkbodsqbl deficiency (Chronic) COPD (chronic obstructive pulmonary disease) (Chronic) GERD (gastroesophageal reflux disease) (Chronic) Medical History: Medical History (Last Reviewed 10/04/18 @ 10:30 by Felisa Barraza) Asthma (Chronic) J45.909 Nocturnal hypoxia (Chronic) G47.34 Anxiety (Chronic) F41.9 Nicotine dependence in remission (Chronic) F17.201 Stage 4 very severe COPD by GOLD classification (Chronic) J44.9 Allergic rhinitis (Chronic) J30.9 COPD with acute exacerbation (Chronic) J44.1 Tobacco dependence syndrome (Chronic) F17.200 Hgbwd-3-lsskmzzhnff deficiency (Chronic) E88.01 COPD (chronic obstructive pulmonary disease) (Chronic) J44.9 GERD (gastroesophageal reflux disease) (Chronic) K21.9 COPD with acute exacerbation (Acute) J44.1 COPD, frequent exacerbations (Inactive) J44.9 [place] (dyspnea on exertion) (Inactive) R06.09 Allergies aspirin Allergy (Verified 10/17/18 02:01) Unknown morphine Adverse Reaction (Intermediate, Verified 10/17/18 02:01) Itching Home Medications: Ambulatory Orders Medication Instructions Recorded Multivitamins,Therapeutic 1 tab PO DAILY 09/06/16 [Multivitamin] fluticasone 50 mcg/actuation nasal 50 mcg INTRANASAL QDAY PRN 12/06/17 spray,suspension Lidocaine/Prilocaine 30 gm TP DAILY PRN PRN 30 Days #1 03/15/18 [Lidocaine-Prilocaine Cream] cream..g. Olanzapine [Zyprexa] 10 mg PO DAILY 16 Days #16 tab 03/15/18 Ondansetron HCl [Zofran] 4 mg PO Q8H PRN PRN 10 Days #30 tab 03/15/18 Paroxetine HCl [Paxil] 40 mg PO DAILY #30 tab 04/28/18 tiotropium bromide 2.5 2 puff INHALATION QDAY #1 device 05/03/18 mcg/actuation mist for inhalation Iron Polysaccharide Complex 150 mg PO DAILYCM #30 cap 08/23/18 [Ferrex 150] Magnesium Oxide [Mag-Ox 400] 400 mg PO BIDCM #28 tab 08/23/18 albuterol sulfate HFA 90 1 - 2 puff INHALATION Q4H PRN PRN 09/01/18 mcg/actuation aerosol inhaler #1 inhaler budesonide-formoterol HFA 160 2 puff INHALATION BID #1 hfa.aer.ad 09/01/18 mcg-4.5 mcg/actuation aerosol inhaler albuterol sulfate 2.5 mg/3 mL 2.5 mg INHALATION 4X/DAY PRN 30 09/13/18 (0.083 %) solution for nebulization Days #180 vial Doxycycline Monohydrate 100 mg PO BID #14 cap 10/07/18 Omeprazole [Prilosec] 20 mg PO DAILY #30 capsule 10/12/18 Surgical History: Surgical History (Last Reviewed 10/04/18 @ 10:30 by Felisa Barraza) History of tubal ligation (Resolved) Z98.51 Surgical History: no surgical history Smoking Status: Former smoker Tobacco Use: Cigarettes Alcohol: None Drugs: None - *Family History Paternal Family History: Family History (Last Reviewed 10/04/18 @ 10:30 by Felisa Barraza) Mother Colon cancer Bronchitis Epilepsy Father Asthma History Items: Asthma Review of Systems Unable to obtain accurate/complete ROS d/t: Sedation from pain medication VTE Information - Inpt Only VTE Present on Admission: No Patient Problems: Active and Suspected Problems (Last Reviewed 10/04/18 @ 10:30 by Felisa Barraza) Thrombocytopenia (Acute) - Physical Exam General: - - Sedated, malnourished HEENT: Atraumatic, PERRLA, Normocephalic Oral: Dry Mucosa Neck: Supple, No JVD Lungs: Clear to auscultation, Normal air movement, No rhonchi, No wheeze, No rales Cardiovascular: Regular Rhythm, Normal S1, Normal S2, No murmurs, Tachycardic Abdomen: Soft, Non-Distended, No Hepato-splenomegaly Extremities: No edema, Capillary Refill Less than 3 Seconds Musculoskeletal: Cachexia, Muscle Wasting Psych/Mental Status: - - Sedated Vital Signs Temp Pulse Resp BP Pulse Ox 99.0 F 103 H 16 95/60 100 10/17/18 01:56 10/17/18 05:00 10/17/18 05:00 10/17/18 05:00 10/17/18 05:00 Oxygen Flow Rate (L/min) 3 Oxygen Delivery Method Nasal Cannula Weight: 93 lb 14.671 oz Body Mass Index (BMI) 14.3 Laboratory Tests Past 24 Hrs 10/17/18 10/17/18 02:10 02:10 WBC 0.4 L* RBC 2.13 L Hgb 7.1 L Hct 22.0 L MCV 103.3 H MCH 33.3 H MCHC 32.3 RDW 11.1 L RDW Differential 39.4 Plt Count 7 L* MPV 11.2 Immature Gran % (Auto) 13.500 H Neut % (Auto) 40.6 L Lymph % (Auto) 27.0 [place] % (Auto) 16.2 H Eos % (Auto) 0.0 Baso % (Auto) 2.7 H Absolute Neuts (auto) 0.2 L Absolute Lymphs (auto) 0.10 L Total Counted Not Reportable Differential Comment SCAN Diff Path Review May foll Platelet Estimate MKD DEC Sodium 132 L Potassium 3.5 Chloride 84 L Carbon Dioxide 42.0 H Anion Gap 6 BUN 14 Creatinine 0.24 L Estim Creat Clear Calc 178.12 Est GFR (MDRD) Af Amer 376 Est GFR (MDRD) Non-Af 311 BUN/Creatinine Ratio 57.4 H Glucose 124 H Calcium 8.6 Troponin I < 0.015 Assessment/Plan All Active Problems (Last Reviewed 10/04/18 @ 10:30 by Felisa Barraza) Thrombocytopenia (Acute) Chronic respiratory failure with hypoxia (Acute) MSSA (methicillin susceptible Staphylococcus aureus) pneumonia (Acute) Pseudomonal pneumonia (Acute) Healthcare-associated pneumonia (Acute) History of tubal ligation (Resolved) COPD with acute exacerbation (Acute) PORT PLACEMENT (Resolved) 1. Stage IV small cell lung cancer with SVC compression/sepsis secondary to pneumonia/thrombocytopenia -Given her tachycardia and her leukopenia at the point for she meets criteria for Sirs and given the setting of a likely pneumonia she is septic -Her previous sputum cultures demonstrated both MSSA and Pseudomonas that were pansensitive, therefore will start on Levaquin -Consult to oncology as well as to hospice -I had an extensive discussion with the son about CODE STATUS and advanced care planning, at the moment he would like to keep her a full code until he can discuss the matter further with her, however, he is also willing to discuss the case with hospice given how he has continued to witness decline in her functional status as well as progression of the cancer despite therapy -IVF at 150 2. COPD/alpha-1 antitrypsin deficiency -Stable -Continue with home inhalational medications 3. Chronic anemia -Hemoglobin today is 7.1 -Over the last month her new baseline has been around 7-8 -Will monitor and continue with iron replacement -Likely related to cancer and chemotherapy 4. GERD -Stable -Continue with home PPI 5. Depression -Stable -Continue with home Paxil DVT: SCDs Code Visit Inpatient E&M: 71462 Init Hosp L3
[2018-10-17] MEDS: 0.9% Normal Saline 1,000 ML 150 ML IV ×2 (07:58→15:20)
[2018-10-17] MEDS: levoFLOXacin IV 750 MG/150 ML BAG 100 MG IV (08:34)
--- NOTE | 2018-10-17 14:14 | CASEMGMT ---
Patient has healthcare POA on file in [facility]. SW printed it and placed it in her paper chart. Patient stated during admission that she has a healthcare LW on file also, but she does not. SW will ask patient about this. Mansi CORNELL MSW
--- NOTE | 2018-10-17 14:43 | PCM.PN.HOSP ---
Patient Problems: Active and Suspected Problems (Last Reviewed 10/04/18 @ 10:30 by Felisa Barraza) Thrombocytopenia (Acute) Neutropenia (Acute) Dysphagia (Acute) Chronic respiratory failure with hypoxia (Acute) Subjective: Chest pain. Unable to swallow even water, which she immediately throws up. Short of breath. Vitals/I&O's: Vital Signs Temp Pulse Resp BP Pulse Ox 36.9 C 120 H 20 H 114/65 99 10/17/18 11:46 10/17/18 11:46 10/17/18 11:46 10/17/18 11:46 10/17/18 11:46 Oxygen Flow Rate (L/min) 3 Oxygen Delivery Method Nasal Cannula Weight: 40.1 kg Body Mass Index (BMI) 13.4 General: Alert, - - cachectic. afebrile. uncomfortable. HEENT: Atraumatic, Normocephalic Oral: Moist Mucosa, No Gingival or Mucosal Lesions/ Ulcerations Neck: No Nodes, Thyroid Normal Size and Texture Lungs: Diminished, - - coarse breath sounds bilaterally. Cardiovascular: Regular rate, Regular Rhythm, Normal S1, Normal S2, No murmurs Abdomen: Bowel Sounds Present, Soft, Non Tender, Non-Distended, No Hepato-splenomegaly Extremities: No edema, No Calf Tenderness Skin: No rashes, No breakdown Musculoskeletal: Cachexia, Muscle Wasting Psych/Mental Status: Appropriate, Flat Affect Laboratory Results 10/17/18 02:10: WBC 0.4 L*, RBC 2.13 L, Hgb 7.1 L, Hct 22.0 L, MCV 103.3 H, MCH 33.3 H, MCHC 32.3, RDW 11.1 L, RDW Differential 39.4, Plt Count 7 L*, MPV 11.2, Immature Gran % (Auto) 13.500 H, Neut % (Auto) 40.6 L, Lymph % (Auto) 27.0, [place] % (Auto) 16.2 H, Eos % (Auto) 0.0, Baso % (Auto) 2.7 H, Absolute Neuts (auto) 0.2 L, Absolute Lymphs (auto) 0.10 L, Total Counted Not Reportable, Differential Comment SCAN, Diff Path Review March, Platelet Estimate MKD 10/17/18 02:10: Sodium 132 L, Potassium 3.5, Chloride 84 L, Carbon Dioxide 42.0 H, Anion Gap 6, BUN 14, Creatinine 0.24 L, Estim Creat Clear Calc 178.12, Est GFR (MDRD) Af Amer 376, Est GFR (MDRD) Non-Af 311, BUN/Creatinine Ratio 57.4 H, Glucose 124 H, Calcium 8.6, Troponin I < 0.015 Current Medications Hydromorphone HCl (Dilaudid Inj) 0.5 mg IV Q3H PRN PRN PRN Reason: SEVERE PAIN (-08/17) Last Admin: 10/17/18 11:57 Dose: 0.5 mg Sodium Chloride () 1,000 mls @ 150 mls/hr IV .Q6H40M [facility] Last Admin: 10/17/18 07:58 Dose: 150 mls/hr Levofloxacin (Levaquin Iv) 750 mg in 150 mls @ 100 mls/hr IV Q24 [facility] Last Admin: 10/17/18 08:34 Dose: 100 mls/hr Magnesium Hydroxide (Milk Of Magnesia) 30 ml PO DAILY PRN PRN Reason: Constipation Ondansetron HCl (Zofran) 4 mg IV Q6H PRN PRN PRN Reason: NAUSEA Medical Necessity - Tobacco Use Smoking Status: Former smoker Tobacco Use: Cigarettes Assessment/Plan All Active Problems (Last Reviewed 10/04/18 @ 10:30 by Felisa Barraza) Thrombocytopenia (Acute) Neutropenia (Acute) Dysphagia (Acute) Chronic respiratory failure with hypoxia (Acute) Healthcare-associated pneumonia (Acute) PORT PLACEMENT (Resolved) 1. possible gram negative pneumonia on Levaquin. pulm toilet may be more component of post obstructive or near post obstructive. 2. Dysphagia per ST, more external obstructive process poor candidate for PEG, given poor overall prognosis (and unsure if even an endoscope could be advanced) preferably, would have XRT to help shrink the mass further (which has worked based on CT findings, but symptoms have worsened) 3. Stage IV SCLC large anterior mass with compression on esophagus, SVC syndrome amongst other DW Dr. Tavares, of Rad-Onc, patient decline XRT today, he will revisit 10/18 Medical Oncology on consult poor prognosis--life expectancy weeks discussed with patient at length about palliative care and palliation of symptoms. She was in agreement about discussing with them about further information. Code Visit Procedures: Other Procedure - See Report - Non billable rounding.
--- NOTE | 2018-10-17 14:49 | CASEMGMT ---
This RN CM to room to complete CM assessment and pt/son are both sleeping soundly at this time and don't awaken to knock on the door or verbal stimuli at this time. This RN CM will attempt assessment again tomorrow. SStaten RN CM
--- NOTE | 2018-10-17 14:57 | PN_ITS ---
Patient Problems: Active and Suspected Problems (Last Reviewed 10/04/18 @ 10:30 by Felisa Barraza) Thrombocytopenia (Acute) Neutropenia (Acute) Dysphagia (Acute) Chronic respiratory failure with hypoxia (Acute) Subjective: Chest pain. Unable to swallow even water, which she immediately throws up. Short of breath. Vitals/I&O's: Vital Signs Temp Pulse Resp BP Pulse Ox 36.9 C 120 H 20 H 114/65 99 10/17/18 11:46 10/17/18 11:46 10/17/18 11:46 10/17/18 11:46 10/17/18 11:46 Oxygen Flow Rate (L/min) 3 Oxygen Delivery Method Nasal Cannula Weight: 40.1 kg Body Mass Index (BMI) 13.4 General: Alert, - - cachectic. afebrile. uncomfortable. HEENT: Atraumatic, Normocephalic Oral: Moist Mucosa, No Gingival or Mucosal Lesions/ Ulcerations Neck: No Nodes, Thyroid Normal Size and Texture Lungs: Diminished, - - coarse breath sounds bilaterally. Cardiovascular: Regular rate, Regular Rhythm, Normal S1, Normal S2, No murmurs Abdomen: Bowel Sounds Present, Soft, Non Tender, Non-Distended, No Hepato- splenomegaly Extremities: No edema, No Calf Tenderness Skin: No rashes, No breakdown Musculoskeletal: Cachexia, Muscle Wasting Psych/Mental Status: Appropriate, Flat Affect Laboratory Results 10/17/18 02:10: WBC 0.4 L*, RBC 2.13 L, Hgb 7.1 L, Hct 22.0 L, MCV 103.3 H, MCH 33.3 H, MCHC 32.3, RDW 11.1 L, RDW Differential 39.4, Plt Count 7 L*, MPV 11.2, Immature Gran % (Auto) 13.500 H, Neut % (Auto) 40.6 L, Lymph % (Auto) 27.0, [place] % (Auto) 16.2 H, Eos % (Auto) 0.0, Baso % (Auto) 2.7 H, Absolute Neuts (auto) 0.2 L, Absolute Lymphs (auto) 0.10 L, Total Counted Not Reportable, Differential Comment SCAN, Diff Path Review March, Platelet Estimate MKD 10/17/18 02:10: Sodium 132 L, Potassium 3.5, Chloride 84 L, Carbon Dioxide 42.0 H, Anion Gap 6, BUN 14, Creatinine 0.24 L, Estim Creat Clear Calc 178.12, Est GFR (MDRD) Af Amer 376, Est GFR (MDRD) Non-Af 311, BUN/Creatinine Ratio 57.4 H, Glucose 124 H, Calcium 8.6, Troponin I < 0.015 Current Medications Hydromorphone HCl (Dilaudid Inj) 0.5 mg IV Q3H PRN PRN PRN Reason: SEVERE PAIN (-08/17) Last Admin: 10/17/18 11:57 Dose: 0.5 mg Sodium Chloride () 1,000 mls @ 150 mls/hr IV .Q6H40M ON LICENSE OF [facility] Last Admin: 10/17/18 07:58 Dose: 150 mls/hr Levofloxacin (Levaquin Iv) 750 mg in 150 mls @ 100 mls/hr IV Q24 ON LICENSE OF [facility] Last Admin: 10/17/18 08:34 Dose: 100 mls/hr Magnesium Hydroxide (Milk Of Magnesia) 30 ml PO DAILY PRN PRN Reason: Constipation Ondansetron HCl (Zofran) 4 mg IV Q6H PRN PRN PRN Reason: NAUSEA Medical Necessity - Tobacco Use Smoking Status: Former smoker Tobacco Use: Cigarettes Assessment/Plan All Active Problems (Last Reviewed 10/04/18 @ 10:30 by Felisa Barraza) Thrombocytopenia (Acute) Neutropenia (Acute) Dysphagia (Acute) Chronic respiratory failure with hypoxia (Acute) Healthcare-associated pneumonia (Acute) PORT PLACEMENT (Resolved) 1. possible gram negative pneumonia * on Levaquin. * pulm toilet * may be more component of post obstructive or near post obstructive. 2. Dysphagia * per ST, more external obstructive process * poor candidate for PEG, given poor overall prognosis (and unsure if even an endoscope could be advanced) * preferably, would have XRT to help shrink the mass further (which has worked based on CT findings, but symptoms have worsened) 3. Stage IV SCLC * large anterior mass with compression on esophagus, SVC syndrome amongst other * DW Dr. Tavares, of Rad-Onc, patient decline XRT today, he will revisit 10/18 * Medical Oncology on consult * poor prognosis--life expectancy weeks * discussed with patient at length about palliative care and palliation of sy mptoms. She was in agreement about discussing with them about further information. Code Visit Procedures: Other Procedure - See Report - Non billable rounding.
--- NOTE | 2018-10-17 16:18 | CASEMGMT ---
Dr Ahumada asked Fouzia from Hospice/Palliative Care to talk with patient. Fouzia did and patient agreed to Palliative Care. Per Fouzia patient has agreed in the past, but does not follow up. SW/RN CM to follow. Mansi CORNELL EDITOR INDEX
--- NOTE | 2018-10-17 16:46 | ONC.CON.INP2 ---
- Problem List (1) Small cell lung cancer Status: Chronic (2) Pancytopenia Status: Acute (3) Dysphagia Status: Acute (4) Cachexia Status: Chronic Consult Referring Physician: Hospitalist Consult Results: Relapsed extensive stage small cell lung cancer Subjective Date of Service:: 10/17/18 Chief Complaint: Dyspnea History of Present Illness: Patient is a 57-year-old female with relapsed extensive stage small cell lung cancer admitted with increasing dyspnea, pancytopenia, possible pneumonia. She was first diagnosed with extensive stage small cell lung cancer (February 2018) with a large mediastinal mass, mediastinal lymph node, and liver lesion status post cisplatin/Irinotecan x6 cycles now found to have progressive disease including enlargement of the mediastinal mass with SVC compression and several concerning liver lesions. She initiated cycle 1 of second line chemotherapy on 10/04/18 (Carboplatin/Etoposide). 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 Second line chemotherapy with carboplatin/etoposide was initiated on 11/03/2018 and due to worsening symptom radiation was initiated on 11/05/2018. 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) Encounter for insertion of venous access port (Chronic) Educational circumstance (Chronic) Chemotherapy management, encounter for (Chronic) Anemia (Chronic) Immunosuppressed due to chemotherapy (Chronic) History of tubal ligation (Chronic) Asthma (Chronic) Nocturnal hypoxia (Chronic) Anxiety (Chronic) Nicotine dependence in remission (Chronic) Stage 4 very severe COPD by GOLD classification (Chronic) Allergic rhinitis (Chronic) COPD with acute exacerbation (Chronic) Tobacco dependence syndrome (Chronic) Qnife-0-pgbhlanxnvu deficiency (Chronic) COPD (chronic obstructive pulmonary disease) (Chronic) GERD (gastroesophageal reflux disease) (Chronic) Past Medical/Surgical History: Past Medical History - Most Recent Inpatient Visit Past Medical History Start: 10/17/18 06:52 Text: Status: Complete Freq: ONCE Protocol: Document 10/17/18 08:03 [place] (Rec: 10/17/18 08:08 [facility] [id number]) BMI Required to complete PMH What is Patient's BMI 13.4 Past Medical History Unable History Recalled No Query Text:Pt Unable/Family Not Present Neurologic Medical History Hx Stroke/TIA No Hx Dementia/Alzheimer's No Hx Parkinson's Disease No Hx Seizures No Hx Multiple Sclerosis No Hx Migraines Yes Cardiac Medical History VTE Present on Admission No Hx of Deep Vein Thrombosis/VTE/PE No Hx Hypertension No Hx Chest Pain/Angina No Hx Heart Attack No Hx Cardiac Surgery/Stents/Etc. No Hx Heart Failure No Hx Pacemaker/AICD No Hx Irregular Heartbeat and/or Afib No Hx Anticoagulant Therapy No Query Text:(Coumadin, Aspirin, Plavix, Xarelto, etc.) Hx Pain in Legs when Walking/Leg Cramps No Respiratory Medical History Hx COPD Yes Hx Emphysema No Hx Smoking Yes: QUIT 11/09 PPD FOR 20 YRS Smoking Status Former smoker Tobacco Use Cigarettes Hx Smoking Cessation Counseling No Hx Smoking Exposure No Hx Tobacco Use in last 12 months No Hx of Pipe Smoking No Hx Sleep Apnea No CPAP No BIPAP No Do you snore loudly (louder than talking No or can be heard through closed doors)? Do you often feel tired/ fatigued/ Yes sleepy during daytime? Has anyone observed you stop breathing No during sleep? STOP Results Negative GI Medical History Hx Ulcer Yes: age 16 Hx Hepatitis No Hx Cirrhosis No Hx GI Bleed No Hx Unplanned Weight Loss Yes: 10 LBS Genitourinary Medical History Indwelling Catheter in Place on Arrival/ No Admission Hx Renal Disease No Hx Dialysis No Musculoskeletal History Hx Arthritis No Hx Rheumatoid Arthritis No Endocrine Medical History Hx Diabetes No Hx Thyroid Disease No Hematologic Medical History Hx of Blood Transfusion Yes Hx of Transfusion in last 3 Months Yes Date of Last Transfusion (if within last august, 3 months) Ever experience any problems with No transfusion(s)? Hx of Preganancy in last 3 Months No Nurse Filling Out Transfusion & ZBEAM Questions: Date: 10/17/18 Time: 08:07 Psycho/Social Medical History Hx Depression No Hx Anxiety Yes Hx Behavior Disorder No Hx Alcohol Use No Hx Substance Use No Other Medical History Hx Blood Disorders No Hx Anemia Yes: IN THE PAST Hx Cancer Yes: LUNG Hx Drug Resistant Organism No Wound/Pressure Injury Present on Arrival No /Admission Query Text:If yes, chart assessment in Shift/Clinical Findings Central Line/PICC/VAD Present on Arrival Yes /Admission Risk for Readmission Number of Risk Factors 7 At Risk for Readmission Patient is At Risk For Readmission Patient is eligible for Call Back Y Past Medical History (Last Updated 10/17/18 @ 14:47 by Mark Ahumada DO) Asthma (Chronic) Nocturnal hypoxia (Chronic) Anxiety (Chronic) Nicotine dependence in remission (Chronic) Stage 4 very severe COPD by GOLD classification (Chronic) Allergic rhinitis (Chronic) COPD with acute exacerbation (Chronic) Tobacco dependence syndrome (Chronic) Acbqh-8-jomaoaqlogk deficiency (Chronic) COPD (chronic obstructive pulmonary disease) (Chronic) GERD (gastroesophageal reflux disease) (Chronic) COPD with acute exacerbation (Inactive) COPD, frequent exacerbations (Inactive) [place] (dyspnea on exertion) (Inactive) Past Surgical History (Last Updated 10/17/18 @ 14:47 by Mark Ahumada DO) History of tubal ligation (Chronic) Paternal Family History: Family History (Last Reviewed 10/04/18 @ 10:30 by Felisa Barraza) Mother Colon cancer Bronchitis Epilepsy Father Asthma Family History: Asthma - Social History Smoking Status: Former smoker Tobacco Use: Cigarettes Alcohol: None Drugs: None Allergies/Adverse Reactions: Allergy/AdvReac Type Severity Reaction Status Date / Time aspirin Allergy Unknown Verified 10/17/18 02:01 morphine AdvReac Intermediate Itching Verified 10/17/18 02:01 Review of Systems Constitutional:: Reports: Weakness, Fatigue, Weight loss, Appetite change, Thirst change. Denies: Fever, Sweats, Chills Cardiovascular:: Reports: Dyspnea on exertion, Shortness of breath. Denies: Chest pain, Palpitations, Orthopnea, PND Respiratory: Reports: Cough, Shortness of Breath, Shortness of breath at rest, Shortness of breath upon exertion. Denies: Hemoptysis, Wheezing Gastrointestinal:: Reports: Constipation, Dysphagia - Painful. Denies: Abdominal pain, Nausea, Vomiting, Diarrhea, Hematochezia Genitourinary: Denies: Dysuria, Hematuria, 15, Flank pain Musculoskeletal:: Denies: Back pain, Myalgia, Arthralgia Skin: Denies: Rash, Skin Changes, Wounds Neurological:: Denies: Headache, Dizziness, Visual changes, Tinnitus, Hearing loss Psychiatric: Denies: Anxiety, Depression, Homicidal Ideations, Suicidal Ideations Vital Signs Height 5 ft 8.11 in Weight: 40.1 kg Weight in Pounds 88.4 lbs Pulse Ox 99 Temperature 98.5 F Pulse Rate 121 Respiratory Rate 20 Blood Pressure 114/65 Blood Pressure Position Semi-Fowlers - Physical Exam General: Alert - Sleepy but easily arousable to verbal stimulation, Oriented x3, - - Cachectic, ECOG 4 HEENT: Atraumatic, PERRLA, EOMI, Normocephalic Oropharynx:: Dry mucosa, White exudate Neck:: Supple, Trachea midline, - - Port okay. Negative for: JVD, bilateral Cardiac:: Regular rate, Regular rhythm, Normal S1, Normal S2. Negative for: Murmur Lungs: Clear to auscultation, Diminished - Markedly decreased over both lung cole, Excusion symmetrical. Negative for: Rhonchi, Wheezes Abdomen:: Soft, Non-tender, Non-distended. Negative for: Hepatosplenomegaly Extremities:: Negative for: Cyanosis, Edema Neurological: Neuro grossly intact Skin:: Ecchymosis - At venipuncture sites. Negative for: Rash Psychiatric:: Appropriate affect, Euthymic Lymphatics:: Negative for: Cervical lymphadenopathy, Supraclavicular lymphadenopathy Laboratory Data: Laboratory Tests 10/17/18 10/17/18 Range/Units 02:10 02:10 WBC 0.4 L* (4.4-11.0) K/mm3 RBC 2.13 L (4.2-5.4) M/mm3 Hgb 7.1 L (12.0-15.0) g/dl Hct 22.0 L (37-47) % MCV 103.3 H (81-99) fL MCH 33.3 H (27.0-32.0) pg MCHC 32.3 (32-36) g/gl RDW 11.1 L (11.6-14.6) % RDW Differential 39.4 (35.1-43.9) fl Plt Count 7 L* (150-450) K/mm3 MPV 11.2 (6.2-12.0) fl Immature Gran % (Auto) 13.500 H (0.0-0.9) % Neut % (Auto) 40.6 L (47-70) % Lymph % (Auto) 27.0 (19-41) % [place] % (Auto) 16.2 H (0-10) % Eos % (Auto) 0.0 (0-5) % Baso % (Auto) 2.7 H (0-1) % Absolute Neuts (auto) 0.2 L (2.0-7.7) X10^3/uL Absolute Lymphs (auto) 0.10 L (0.83-4.51) X10^3/ul Total Counted Not Reportable Differential Comment SCAN Diff Path Review May foll Platelet Estimate MKD DEC (ADEQ) Sodium 132 L (136-145) mmol/L Potassium 3.5 (3.5-5.1) mmol/L Chloride 84 L (98-107) mmol/L Carbon Dioxide 42.0 H (21.0-32.0) mmol/L Anion Gap 6 (5-15) BUN 14 (7-18) mg/dL Creatinine 0.24 L (0.55-1.02) mg/dL Estim Creat Clear Calc 178.12 ml/min Est GFR (MDRD) Af Amer 376 (>60) mL/min Est GFR (MDRD) Non-Af 311 (>60) mL/min BUN/Creatinine Ratio 57.4 H (10-20) RATIO Glucose 124 H (74-106) mg/dL Calcium 8.6 (8.5-10.1) mg/dL Troponin I < 0.015 (<0.045) ng/mL Diagnostic Data: Diagnostic Data Chest CTA 10/17/18 02:13 IMPRESSION: No pulmonary embolus. Anterior mediastinal mass with multiple vascular encasement as described. The mass extends through the left anterior chest wall. This component has decreased in conspicuity. Persistent but improving compression of the superior vena cava. Interval development of a nodular density in the left lower lobe. Interval development of alveolar disease in the left lower lobe. This could be infectious or inflammatory in nature. Electronically Signed: Hari Lugo MD at 4:02 EST Tel , Service support , Assessment and Plan 57-year-old female with relapsed extensive small cell lung cancer. She has recently started palliative combined chemoradiation for disease progression in the mediastinum. Hospitalized with increasing dyspnea with probable pneumonia, severe pancytopenia post chemoradiation therapy increasing painful dysphagia, progressive decline in performance status and malignant cachexia. Recommendations: 1. We will hold radiation therapy until bone marrow recovery. 2. Granix 300 mg subcu daily to expedite neutrophil recovery. 3. Supportive transfusion with blood products: Platelets prophylactic if platelet count is less than 10K, and packed red blood cells to maintain hemoglobin above 7 g per DL. 4. Broad-spectrum antibiotic cover for community-acquired pneumonia in the immune compromised patient to the discretion of the primary service. 5. Nystatin oral swish and swallow for suspected candidal stomatitis plus or minus esophagitis. 6. Patient is considering hospice and comfort measures only, has been referred to hospice but not seen yet. I believe this is appropriate in view of her incurable progressive malignancy. Patient was seen was her son, impression and plan discussed. Medications: Medications Added to Medication List This Visit Category Date Time Status levoFLOXacin IV [Levaquin IV] Med 10/17/18 09:00 Active 750 mg in 150 ml IV Q24 Primary Care Provider: Dariel Ortega Referring Provider:
--- NOTE | 2018-10-17 16:53 | CHAPLAIN ---
Type of Pastoral Visit _x__ Initial Visit _x__ Follow-up Visit ___ On-call Visit ___ General Patient Visit ___ Spiritual Assessment ___ Family Conference ___ Bereavement ___ Rapid Response ___ Code Blue ___ Other (describe below) Pastoral Care Referral From _x__ Patient _x__ Family ___ Nurse ___ Physician ___ Poolroom Table Attendant ___ Thermometer Tester _x__ Other (describe below) Sacrament/Intervention _x__ Active listening ___ Anointing ___ Denominational ___ Bereavement ___ Communion _x__ Delmy exploration ___ ___ Life review _x__ Prayer ___ Reconciliation ___ Sacrament of Sick _x__ Supportive presence ___ Wedding ___ Other (describe below) Pastoral Comments Patient Advocate referral
[2018-10-17] MEDS: TBO-FILGRASTIM 300 MCG/0.5 ML ML SC (18:04)
[2018-10-17] MEDS: NYSTATIN 500,000 UNIT/5 ML UDC 500000 UNIT PO ×2 (18:05→21:25)
[2018-10-17] MEDS: 0.9% NaCl VAD Flush 10 ML IV ×4 (20:30→23:14)
--- NOTE | 2018-10-17 22:27 | NURSING ---
Dorinda from [facility] called at this time to come see pt per MD orders. Dorinda also notified that Duoneb Q4 hours PRN would be ordered.
[2018-10-18] VITALS (25 sets, daily range): BP systolic 105–139; BP diastolic 29–96; PULSE 111–124; RESP 17–28; TEMP 36.3–37.2; O2SAT 96–100
[2018-10-18] MEDS: 0.9% Normal Saline 1,000 ML 75 ML IV ×2 (02:07→21:44)
[2018-10-18] MEDS: Ipratropium/Albuterol Sulfate 3 ML AMPUL.NEB INHALATION ×3 (03:58→18:45)
[2018-10-18] MEDS: HYDROmorphone 0.5 MG/0.5 ML SYRINGE IV ×4 (04:02→21:03)
[2018-10-18] MEDS: 0.9% NaCl VAD Flush 10 ML IV ×4 (04:02→05:31)
[2018-10-18 06:04] LABS: Absolute Lymphocyte Count 0.08 X10^3/ul (0.83-4.51); Absolute Neutrophil Count 0.2 X10^3/uL (2.0-7.7); Hemoglobin 5.9 g/dl (12.0-15.0); Lymphocyte # 0.08 X10^3/ul (4.0); Lymphocyte % 21.1 % (19-41); Mean Corp Hgb Conc 31.1 g/gl (32-36); Mean Corpuscular Hgb 33.7 pg (27.0-32.0); Mean Corpuscular Volume 108.6 fL (81-99); Mean Platelet Vol. 10.1 fl (6.2-12.0); Monocyte# 0.09 X10^3/uL; Monocyte% 23.7 % (0-10); Neutrophil # 0.21 X10^3/uL (2.7-7.7); Neutrophil % 55.2 % (47-70); Platelet Count 44 K/mm3 (150-450); RBC Distribution Width CV 11.1 % (11.6-14.6); RBC Distribution Width SD 41.9 fl (35.1-43.9); Red Blood Count 1.75 M/mm3 (4.2-5.4); White Blood Count 0.4 K/mm3 (4.4-11.0)
[2018-10-18 06:07] LABS: POSITIVE COUNT YES; POSITIVE DIFFERENTIAL YES; POSITIVE MORPHOLOGY YES
[2018-10-18 06:08] LABS: Differential Indicated SCAN CRITERIA MET
[2018-10-18 06:13] LABS: Anion Gap 6 (5-15); BUN 13 mg/dL (7-18); BUN/Creat Ratio 82.3 RATIO (10-20); Calcium,Total 8.3 mg/dL (8.5-10.1); Chloride 94 mmol/L (98-107); Creatinine, Serum 0.16 mg/dL (0.55-1.02); EST Glomerular Filtration Rate 513 mL/min (>60); Est Glom Filt Rate - Afr Amer 620 mL/min (>60); Glucose 98 mg/dL (74-106); Potassium 3.2 mmol/L (3.5-5.1); Sodium Level 142 mmol/L (136-145)
[2018-10-18 06:53] LABS: Differential Comment SCAN; Platelet Estimate MKD DEC (ADEQ)
[2018-10-18 06:54] LABS: Anisocytosis 1+; Hypochromasia 1+; Microcytosis 1+
[2018-10-18] MEDS: NYSTATIN 500,000 UNIT/5 ML UDC 500000 UNIT PO ×4 (09:57→21:10)
[2018-10-18] MEDS: levoFLOXacin IV 750 MG/150 ML BAG 100 MG IV (10:02)
[2018-10-18] MEDS: TBO-FILGRASTIM 300 MCG/0.5 ML ML SC (10:03)
[2018-10-18] MEDS: 0.9% NaCl Peripheral Flush Adult/Peds IV ×3 (10:11→21:04)
[2018-10-18 10:52] LABS: Pathologist Review Reviewed
--- NOTE | 2018-10-18 13:14 | CASEMGMT ---
This RN CM to room to complete CM assessment and pastoral care is at bedside with pt and son at this time. Will attempt again later. SStchristie RN CM
--- NOTE | 2018-10-18 13:58 | CHAPLAIN ---
Type of Pastoral Visit ___ Initial Visit _x__ Follow-up Visit ___ On-call Visit ___ General Patient Visit ___ Spiritual Assessment ___ Family Conference ___ Bereavement ___ Rapid Response ___ Code Blue ___ Other (describe below) Pastoral Care Referral From _x__ Patient _x__ Family ___ Nurse ___ Physician ___ Orientation & Mobility Specialist ___ [place] _x - Patient Navigator / Other (describe below) Sacrament/Intervention _x__ Active listening ___ Anointing ___ Christianity ___ Bereavement ___ Communion _x__ Delmy exploration ___ _x__ Life review _x__ Prayer ___ Reconciliation ___ Sacrament of Sick _x__ Supportive presence ___ Wedding ___ Other (describe below) Pastoral Comments patient is alert and accepts support and prayer; pt requests son to take time and talk with this servicing rep; son of pt and I sit in waiting area and talk about his issues and feelings - grief, purpose, direction, etc.
--- NOTE | 2018-10-18 14:25 | CASEMGMT ---
Assessment- 10-18-18 Living situation- with son Nimesh Tejada. Patient is set up on one level. She has 2 entry steps to get into the home. PCP: Dr Ortega Specialists: Dr Carpenter-Pulmonary and Dr Garduno- Oncology Pharmacy: [facility] DME: shower chair, grab bars, walker, wheelchair, and home O2 at 3L from [employer] ADL's/IADL's: Patient needs assistance with most activities. She does not drive and uses [facility] transportation to get to [facility] Past SNF/rehab: No Past HH: Yes. [facility]. She said that did not work out. She needed someone to help her with cleaning and cooking. LW: Patient was not sure POA: Yes and on file at [facility]. Nimesh Tejada is her healthcare POA Plan: undetermined at this time Mansi CORNELL DIRECTOR OF INSTITUTIONAL RESEARCH
--- NOTE | 2018-10-18 14:30 | PCM.PROGNOTE ---
<Savannah Alvarez - Last Filed: 10/18/18 15:00> Patient Problems: Active and Suspected Problems (Last Updated 10/17/18 @ 14:47 by Mark Ahumada DO) Pancytopenia (Acute) Thrombocytopenia (Acute) Neutropenia (Acute) Dysphagia (Acute) Chronic respiratory failure with hypoxia (Acute) Subjective: Patient ongoing dyspnea. Complains of abdominal pain. States she is unable to eat or drink. Discussed with patient CODE STATUS and she wishes to remain a full code. She states she has hope that chemotherapy and radiation are working. - Physical Exam General: Alert, Oriented x3, - - Ill-appearing, mild respiratory distress. HEENT: Atraumatic, PERRLA, EOMI, Normocephalic Oral: Dry Mucosa Neck: Supple, No JVD, Negative Carotid Bruits Lungs: Diminished, - - Crackles bilateral bases Cardiovascular: Regular Rhythm, Normal S1, Normal S2, No murmurs, Tachycardic Abdomen: Bowel Sounds Present, Soft, Non-Distended, Tender - Generalized Extremities: No clubbing, No cyanosis, No edema, Capillary Refill Less than 3 Seconds Skin: No rashes, No breakdown Musculoskeletal: No Tenderness to Palpation of Joints or Extremities, Cachexia, Muscle Wasting Neurological: Cranial nerves II-XII grossly intact, Neuro grossly intact Psych/Mental Status: Flat Affect Vital Signs Temp Pulse Resp BP Pulse Ox 98 F 116 H 20 H 105/44 L 100 10/18/18 14:07 10/18/18 14:07 10/18/18 14:07 10/18/18 14:07 10/18/18 14:07 Oxygen Flow Rate (L/min) 3 Oxygen Delivery Method Nasal Cannula Weight: 88 lb 6.486 oz Body Mass Index (BMI) 13.4 Intake and Output for Last 24 Hours 10/16/18 10/17/18 10/18/18 23:59 23:59 23:59 Intake Total 2673 / 2673 1675 / 1675 Output Total 250 / 250 Balance 2673 / 2673 1425 / 1425 Laboratory Tests Past 24 Hrs 10/17/18 10/17/18 10/17/18 02:10 17:40 17:40 WBC RBC Hgb Hct MCV MCH MCHC RDW RDW Differential Plt Count MPV Immature Gran % (Auto) Neut % (Auto) Lymph % (Auto) [place] % (Auto) Eos % (Auto) Baso % (Auto) Absolute Neuts (auto) Absolute Lymphs (auto) Total Counted Differential Comment Diff Path Review Reviewed Platelet Estimate Hypochromasia Anisocytosis Microcytosis Sodium Potassium Chloride Carbon Dioxide Anion Gap BUN Creatinine Estim Creat Clear Calc Est GFR (MDRD) Af Amer Est GFR (MDRD) Non-Af BUN/Creatinine Ratio Glucose Calcium Blood Type A POSITIVE Antibody Screen NEGATIVE Crossmatch See Detail 10/18/18 10/18/18 05:45 05:45 WBC 0.4 L* RBC 1.75 L Hgb 5.9 L* Hct 19.0 L MCV 108.6 H MCH 33.7 H MCHC 31.1 L RDW 11.1 L RDW Differential 41.9 Plt Count 44 L* MPV 10.1 Immature Gran % (Auto) 0.000 Neut % (Auto) 55.2 Lymph % (Auto) 21.1 [place] % (Auto) 23.7 H Eos % (Auto) 0.0 Baso % (Auto) 0.0 Absolute Neuts (auto) 0.2 L Absolute Lymphs (auto) 0.08 L Total Counted Not Reportable Differential Comment SCAN Diff Path Review May foll Platelet Estimate MKD DEC Hypochromasia 1+ Anisocytosis 1+ Microcytosis 1+ Sodium 142 Potassium 3.2 L Chloride 94 L Carbon Dioxide 42.0 H Anion Gap 6 BUN 13 Creatinine 0.16 L Estim Creat Clear Calc 251.50 Est GFR (MDRD) Af Amer 620 Est GFR (MDRD) Non-Af 513 BUN/Creatinine Ratio 82.3 H Glucose 98 Calcium 8.3 L Blood Type Antibody Screen Crossmatch Medical Necessity - Tobacco Use Smoking Status: Former smoker Tobacco Use: Cigarettes Assessment/Plan All Active Problems (Last Updated 10/17/18 @ 14:47 by Mark Ahumada DO) Pancytopenia (Acute) Thrombocytopenia (Acute) Neutropenia (Acute) Dysphagia (Acute) Chronic respiratory failure with hypoxia (Acute) Healthcare-associated pneumonia (Acute) PORT PLACEMENT (Resolved) 1. Acute hypoxic respiratory insufficiency secondary to acute sepsis secondary to pneumonia-CT on admission showed anterior mediastinal mass with multiple vascular encasement. Mass extends through the left anterior chest wall. Persistent but improving compression of the superior vena cava. Left lower lobe nodular density. This reported to be infectious or inflammatory in nature. Patient with tachycardia and tachypnea on admission. Continue supplement oxygen to maintain O2 sat above 90%. Albuterol and DuoNeb aerosols. Culture pending. Obtain sputum culture. Continue IV Levaquin. 2. Acute on chronic anemia/pancytopenia-due to underlying cancer and chemotherapy. Continue iron supplementation. Patient transfused with 2 units PRBC for hemoglobin 5.9. 1 unit platelets given as well. Oncology following. Trend CBC. Granix ordered. 3. Dysphasia-ST recommending n.p.o. due to high risk for aspiration. Patient wishes for PEG tube placement. Consult placed to general surgery, Dr. Blair for evaluation for PEG tube placement. Feel patient is a poor candidate for this given her poor prognosis, however consult placed for further evaluation given patient wishes. 4. Candidal stomatitis-continue nystatin swish and swallow. 5. Stage IV small cell lung cancer-oncology following. Patient follows with Dr. Garduno. Oncology feels hospice is appropriate given her incurable progressive malignancy. Patient declines hospice services and would like to continue aggressive medical treatment. 6. COPD with alpha 1 antitrypsin deficiency-albuterol and DuoNeb aerosols. No acute exacerbation. 7. Depression-continue home paroxetine regimen. 8. GERD-continue PPI. 9. Severe protein calorie malnutrition-BMP 13.4. Nutrition consult. Surgery consulted for possible PEG tube/tube feed options. DVT prophylaxis-SCDs This patient was seen by ZIYAD LarsonC under the supervision of Dr. Ahumada. <Mark Ahumada - Last Filed: 10/18/18 15:17> - Physical Exam General: Alert, - HEENT: Atraumatic, Normocephalic Oral: Dry Mucosa, Ulcerations Present Lungs: Diminished, - Cardiovascular: Normal S1, Normal S2, Tachycardic Abdomen: Bowel Sounds Present, Soft, Non-Distended, Tender Extremities: No edema, No Calf Tenderness Skin: No rashes, No breakdown Musculoskeletal: Cachexia, Muscle Wasting Neurological: Muscle tone normal, Coordination normal Psych/Mental Status: Appropriate, Flat Affect Vital Signs Temp Pulse Resp BP Pulse Ox 36.6 C 116 H 22 H 105/44 L 100 10/18/18 14:07 10/18/18 14:48 10/18/18 14:48 10/18/18 14:07 10/18/18 14:07 Oxygen Flow Rate (L/min) 3 Oxygen Delivery Method Nasal Cannula Weight: 40.1 kg Body Mass Index (BMI) 13.4 Intake and Output for Last 24 Hours 10/16/18 10/17/18 10/18/18 23:59 23:59 23:59 Intake Total 2673 / 2673 1675 / 1675 Output Total 250 / 250 Balance 2673 / 2673 1425 / 1425 Laboratory Tests Past 24 Hrs 10/17/18 10/17/18 10/17/18 02:10 17:40 17:40 WBC RBC Hgb Hct MCV MCH MCHC RDW RDW Differential Plt Count MPV Immature Gran % (Auto) Neut % (Auto) Lymph % (Auto) [place] % (Auto) Eos % (Auto) Baso % (Auto) Absolute Neuts (auto) Absolute Lymphs (auto) Total Counted Differential Comment Diff Path Review Reviewed Platelet Estimate Hypochromasia Anisocytosis Microcytosis Sodium Potassium Chloride Carbon Dioxide Anion Gap BUN Creatinine Estim Creat Clear Calc Est GFR (MDRD) Af Amer Est GFR (MDRD) Non-Af BUN/Creatinine Ratio Glucose Calcium Blood Type A POSITIVE Antibody Screen NEGATIVE Crossmatch See Detail 10/18/18 10/18/18 05:45 05:45 WBC 0.4 L* RBC 1.75 L Hgb 5.9 L* Hct 19.0 L MCV 108.6 H MCH 33.7 H MCHC 31.1 L RDW 11.1 L RDW Differential 41.9 Plt Count 44 L* MPV 10.1 Immature Gran % (Auto) 0.000 Neut % (Auto) 55.2 Lymph % (Auto) 21.1 [place] % (Auto) 23.7 H Eos % (Auto) 0.0 Baso % (Auto) 0.0 Absolute Neuts (auto) 0.2 L Absolute Lymphs (auto) 0.08 L Total Counted Not Reportable Differential Comment SCAN Diff Path Review May foll Platelet Estimate MKD DEC Hypochromasia 1+ Anisocytosis 1+ Microcytosis 1+ Sodium 142 Potassium 3.2 L Chloride 94 L Carbon Dioxide 42.0 H Anion Gap 6 BUN 13 Creatinine 0.16 L Estim Creat Clear Calc 251.50 Est GFR (MDRD) Af Amer 620 Est GFR (MDRD) Non-Af 513 BUN/Creatinine Ratio 82.3 H Glucose 98 Calcium 8.3 L Blood Type Antibody Screen Crossmatch Assessment/Plan Patient seen and examined independently. Data reviewed. I agree with the above note by the nurse practitioner. 1. possible gram negative pneumonia Given the neutropenia will gear changer to meropenem and Levaquin pulm toilet may be more component of post obstructive or near post obstructive. 2. Dysphagia per ST, more external obstructive process poor candidate for PEG, given poor overall prognosis (and unsure if even an endoscope could be advanced) preferably, would have XRT to help shrink the mass further (which has worked based on CT findings, but symptoms have worsened) Discussed with the patient about other means of nutrition including PEG tube. Patient did express interest in a PEG tube. Explained to the patient that given her complexity right now PEG tube would certainly be tabled at this time until she is more stable. I did, however, recommend no PEG tube as I do not feel that it will ultimately change her long-term prognosis. 3. Stage IV SCLC large anterior mass with compression on esophagus, SVC syndrome amongst other Radiation therapy on hold given awaiting response from the bone marrow Medical Oncology on consult poor prognosis--life expectancy weeks 4. Pancytopenia Secondary to chemotherapy Worse today. Transfused red blood cells and platelets Started on Granix on 10/17 5. Severe protein malnutrition unable to eat/drink given external compression by CA will start empiric IV diflucan incase this may be due to esme esophagitis patient is open to PEG, but aware she will need improvement overall before she could undergo the procedure in her WBCs, plts and overall response. Also, I told her it could be declined by surgery given its apparent futility in her case. she will think about it and let us know if she wishes to speak with general surgery. Advanced care planning: spent an addition 30 minutes outside of the history and physical discussing her overall poor prognosis, palliative care and code status. I recommended she at least be DNRCCA, as CPR/ACLS would be futile in the event of CPA. I did recommend hospice care starting now. She seemed focused on the pancytopenia as the impetus of my recommendations. I clarified to her, that if her blood cell parameters were normal, I would still recommend hospice given her worsening symptoms despite treatment. Code Visit Inpatient E&M: 27863 Subs Hosp L3 Procedures: 53927 Advncd Care Plan 30 Min
--- NOTE | 2018-10-18 15:00 | PN_ITS ---
<Savannah Alvarez - Last Filed: 10/18/18 15:00> Patient Problems: Active and Suspected Problems (Last Updated 10/17/18 @ 14:47 by Mark Ahumada DO) Pancytopenia (Acute) Thrombocytopenia (Acute) Neutropenia (Acute) Dysphagia (Acute) Chronic respiratory failure with hypoxia (Acute) Subjective: Patient ongoing dyspnea. Complains of abdominal pain. States she is unable to eat or drink. Discussed with patient CODE STATUS and she wishes to remain a full code. She states she has hope that chemotherapy and radiation are working. - Physical Exam General: Alert, Oriented x3, - - Ill-appearing, mild respiratory distress. HEENT: Atraumatic, PERRLA, EOMI, Normocephalic Oral: Dry Mucosa Neck: Supple, No JVD, Negative Carotid Bruits Lungs: Diminished, - - Crackles bilateral bases Cardiovascular: Regular Rhythm, Normal S1, Normal S2, No murmurs, Tachycardic Abdomen: Bowel Sounds Present, Soft, Non-Distended, Tender - Generalized Extremities: No clubbing, No cyanosis, No edema, Capillary Refill Less than 3 Seconds Skin: No rashes, No breakdown Musculoskeletal: No Tenderness to Palpation of Joints or Extremities, Cachexia, Muscle Wasting Neurological: Cranial nerves II-XII grossly intact, Neuro grossly intact Psych/Mental Status: Flat Affect Vital Signs Temp Pulse Resp BP Pulse Ox 98 F 116 H 20 H 105/44 L 100 10/18/18 14:07 10/18/18 14:07 10/18/18 14:07 10/18/18 14:07 10/18/18 14:07 Oxygen Flow Rate (L/min) 3 Oxygen Delivery Method Nasal Cannula Weight: 88 lb 6.486 oz Body Mass Index (BMI) 13.4 Intake and Output for Last 24 Hours 10/16/18 10/17/18 10/18/18 23:59 23:59 23:59 Intake Total 2673 / 2673 1675 / 1675 Output Total 250 / 250 Balance 2673 / 2673 1425 / 1425 Laboratory Tests Past 24 Hrs 10/17/18 10/17/18 10/17/18 02:10 17:40 17:40 WBC RBC Hgb Hct MCV MCH MCHC RDW RDW Differential Plt Count MPV Immature Gran % (Auto) Neut % (Auto) Lymph % (Auto) [place] % (Auto) Eos % (Auto) Baso % (Auto) Absolute Neuts (auto) Absolute Lymphs (auto) Total Counted Differential Comment Diff Path Review Reviewed Platelet Estimate Hypochromasia Anisocytosis Microcytosis Sodium Potassium Chloride Carbon Dioxide Anion Gap BUN Creatinine Estim Creat Clear Calc Est GFR (MDRD) Af Amer Est GFR (MDRD) Non-Af BUN/Creatinine Ratio Glucose Calcium Blood Type A POSITIVE Antibody Screen NEGATIVE Crossmatch See Detail 10/18/18 10/18/18 05:45 05:45 WBC 0.4 L* RBC 1.75 L Hgb 5.9 L* Hct 19.0 L MCV 108.6 H MCH 33.7 H MCHC 31.1 L RDW 11.1 L RDW Differential 41.9 Plt Count 44 L* MPV 10.1 Immature Gran % (Auto) 0.000 Neut % (Auto) 55.2 Lymph % (Auto) 21.1 [place] % (Auto) 23.7 H Eos % (Auto) 0.0 Baso % (Auto) 0.0 Absolute Neuts (auto) 0.2 L Absolute Lymphs (auto) 0.08 L Total Counted Not Reportable Differential Comment SCAN Diff Path Review May foll Platelet Estimate MKD DEC Hypochromasia 1+ Anisocytosis 1+ Microcytosis 1+ Sodium 142 Potassium 3.2 L Chloride 94 L Carbon Dioxide 42.0 H Anion Gap 6 BUN 13 Creatinine 0.16 L Estim Creat Clear Calc 251.50 Est GFR (MDRD) Af Amer 620 Est GFR (MDRD) Non-Af 513 BUN/Creatinine Ratio 82.3 H Glucose 98 Calcium 8.3 L Blood Type Antibody Screen Crossmatch Medical Necessity - Tobacco Use Smoking Status: Former smoker Tobacco Use: Cigarettes Assessment/Plan All Active Problems (Last Updated 10/17/18 @ 14:47 by Mark Ahumada DO) Pancytopenia (Acute) Thrombocytopenia (Acute) Neutropenia (Acute) Dysphagia (Acute) Chronic respiratory failure with hypoxia (Acute) Healthcare-associated pneumonia (Acute) PORT PLACEMENT (Resolved) 1. Acute hypoxic respiratory insufficiency secondary to acute sepsis secondary to pneumonia-CT on admission showed anterior mediastinal mass with multiple vascular encasement. Mass extends through the left anterior chest wall. Persistent but improving compression of the superior vena cava. Left lower lobe nodular density. This reported to be infectious or inflammatory in nature. Patient with tachycardia and tachypnea on admission. Continue supplement oxygen to maintain O2 sat above 90%. Albuterol and DuoNeb aerosols. Culture pending. Obtain sputum culture. Continue IV Levaquin. 2. Acute on chronic anemia/pancytopenia-due to underlying cancer and chemotherapy. Continue iron supplementation. Patient transfused with 2 units PRBC for hemoglobin 5.9. 1 unit platelets given as well. Oncology following. Trend CBC. Granix ordered. 3. Dysphasia-ST recommending n.p.o. due to high risk for aspiration. Patient wishes for PEG tube placement. Consult placed to general surgery, Dr. Blair for evaluation for PEG tube placement. Feel patient is a poor candidate for this given her poor prognosis, however consult placed for further evaluation given patient wishes. 4. Candidal stomatitis-continue nystatin swish and swallow. 5. Stage IV small cell lung cancer-oncology following. Patient follows with Dr. Garduno. Oncology feels hospice is appropriate given her incurable progressive malignancy. Patient declines hospice services and would like to continue aggressive medical treatment. 6. COPD with alpha 1 antitrypsin deficiency-albuterol and DuoNeb aerosols. No acute exacerbation. 7. Depression-continue home paroxetine regimen. 8. GERD-continue PPI. 9. Severe protein calorie malnutrition-BMP 13.4. Nutrition consult. Surgery consulted for possible PEG tube/tube feed options. DVT prophylaxis-SCDs This patient was seen by ZIYAD LarsonC under the supervision of Dr. Ahumada. <Mark Ahumada - Last Filed: 10/18/18 15:17> - Physical Exam General: Alert, - HEENT: Atraumatic, Normocephalic Oral: Dry Mucosa, Ulcerations Present Lungs: Diminished, - Cardiovascular: Normal S1, Normal S2, Tachycardic Abdomen: Bowel Sounds Present, Soft, Non-Distended, Tender Extremities: No edema, No Calf Tenderness Skin: No rashes, No breakdown Musculoskeletal: Cachexia, Muscle Wasting Neurological: Muscle tone normal, Coordination normal Psych/Mental Status: Appropriate, Flat Affect Vital Signs Temp Pulse Resp BP Pulse Ox 36.6 C 116 H 22 H 105/44 L 100 10/18/18 14:07 10/18/18 14:48 10/18/18 14:48 10/18/18 14:07 10/18/18 14:07 Oxygen Flow Rate (L/min) 3 Oxygen Delivery Method Nasal Cannula Weight: 40.1 kg Body Mass Index (BMI) 13.4 Intake and Output for Last 24 Hours 10/16/18 10/17/18 10/18/18 23:59 23:59 23:59 Intake Total 2673 / 2673 1675 / 1675 Output Total 250 / 250 Balance 2673 / 2673 1425 / 1425 Laboratory Tests Past 24 Hrs 10/17/18 10/17/18 10/17/18 02:10 17:40 17:40 WBC RBC Hgb Hct MCV MCH MCHC RDW RDW Differential Plt Count MPV Immature Gran % (Auto) Neut % (Auto) Lymph % (Auto) [place] % (Auto) Eos % (Auto) Baso % (Auto) Absolute Neuts (auto) Absolute Lymphs (auto) Total Counted Differential Comment Diff Path Review Reviewed Platelet Estimate Hypochromasia Anisocytosis Microcytosis Sodium Potassium Chloride Carbon Dioxide Anion Gap BUN Creatinine Estim Creat Clear Calc Est GFR (MDRD) Af Amer Est GFR (MDRD) Non-Af BUN/Creatinine Ratio Glucose Calcium Blood Type A POSITIVE Antibody Screen NEGATIVE Crossmatch See Detail 10/18/18 10/18/18 05:45 05:45 WBC 0.4 L* RBC 1.75 L Hgb 5.9 L* Hct 19.0 L MCV 108.6 H MCH 33.7 H MCHC 31.1 L RDW 11.1 L RDW Differential 41.9 Plt Count 44 L* MPV 10.1 Immature Gran % (Auto) 0.000 Neut % (Auto) 55.2 Lymph % (Auto) 21.1 [place] % (Auto) 23.7 H Eos % (Auto) 0.0 Baso % (Auto) 0.0 Absolute Neuts (auto) 0.2 L Absolute Lymphs (auto) 0.08 L Total Counted Not Reportable Differential Comment SCAN Diff Path Review May foll Platelet Estimate MKD DEC Hypochromasia 1+ Anisocytosis 1+ Microcytosis 1+ Sodium 142 Potassium 3.2 L Chloride 94 L Carbon Dioxide 42.0 H Anion Gap 6 BUN 13 Creatinine 0.16 L Estim Creat Clear Calc 251.50 Est GFR (MDRD) Af Amer 620 Est GFR (MDRD) Non-Af 513 BUN/Creatinine Ratio 82.3 H Glucose 98 Calcium 8.3 L Blood Type Antibody Screen Crossmatch Assessment/Plan Patient seen and examined independently. Data reviewed. I agree with the above note by the nurse practitioner. 1. possible gram negative pneumonia * Given the neutropenia will pattern changer to meropenem and Levaquin * pulm toilet * may be more component of post obstructive or near post obstructive. 2. Dysphagia * per ST, more external obstructive process * poor candidate for PEG, given poor overall prognosis (and unsure if even an endoscope could be advanced) * preferably, would have XRT to help shrink the mass further (which has worked based on CT findings, but symptoms have worsened) * Discussed with the patient about other means of nutrition including PEG tube. Patient did express interest in a PEG tube. Explained to the patient that given her complexity right now PEG tube would certainly be tabled at this time until she is more stable. I did, however, recommend no PEG tube as I do not feel that it will ultimately change her long-term prognosis. 3. Stage IV SCLC * large anterior mass with compression on esophagus, SVC syndrome amongst other * Radiation therapy on hold given awaiting response from the bone marrow * Medical Oncology on consult * poor prognosis--life expectancy weeks 4. Pancytopenia * Secondary to chemotherapy * Worse today. * Transfused red blood cells and platelets * Started on Granix on 10/17 5. Severe protein malnutrition * unable to eat/drink given external compression by CA * will start empiric IV diflucan incase this may be due to esme esophagitis * patient is open to PEG, but aware she will need improvement overall before she could undergo the procedure in her WBCs, plts and overall response. Also, I told her it could be declined by surgery given its apparent futility in her case. * she will think about it and let us know if she wishes to speak with general surgery. Advanced care planning: spent an addition 30 minutes outside of the history and physical discussing her overall poor prognosis, palliative care and code status. I recommended she at least be DNRCCA, as CPR/ACLS would be futile in the event of CPA. I did recommend hospice care starting now. She seemed focused on the pancytopenia as the impetus of my recommendations. I clarified to her, that if her blood cell parameters were normal, I would still recommend hospice given her worsening symptoms despite treatment. Code Visit Inpatient E&M: 49522 Subs Hosp L3 Procedures: 17238 Advncd Care Plan 30 Min
[2018-10-18] MEDS: LORazepam 2 MG/ML Bottle 0.5 MG SL (19:47)
--- NOTE | 2018-10-18 20:00 | CON.PCM_ITS ---
Reason for Consult Date of Consultation: 10/18/18 History of Present Illness: The patient is a 57 year old F with relapsed extensive stage small cell lung carcinoma, dyspnea, dysphasia. Patient presented to the ER due to not being able to swallow water since Wednesday. Previous that patient states she is only able to take a very small amount of food by mouth. Patient's current BMI is 13, she weighs 88 pounds. Oncology has seen patient recommend patient hospice. Currently patient is a full code and she is interested in getting a PEG tube. Patient also has severe pancytopenia including a white blood count of 0.7 and platelets of 44 which were 7 yesterday. Patient states her last bowel movement was a few days ago she has not been able to eat very much. Patient's main goal is to be able to go home. Patient denies abdominal pain or nausea vomiting. However states when she tries to drink she feels like a lump in her proximal esophagus. Patient has failed speech evaluation. 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) Encounter for insertion of venous access port (Chronic) Educational circumstance (Chronic) Chemotherapy management, encounter for (Chronic) Anemia (Chronic) Immunosuppressed due to chemotherapy (Chronic) History of tubal ligation (Chronic) Asthma (Chronic) Nocturnal hypoxia (Chronic) Anxiety (Chronic) Nicotine dependence in remission (Chronic) Stage 4 very severe COPD by GOLD classification (Chronic) Allergic rhinitis (Chronic) COPD with acute exacerbation (Chronic) Tobacco dependence syndrome (Chronic) Kmwtd-5-nyekifsynhf deficiency (Chronic) COPD (chronic obstructive pulmonary disease) (Chronic) GERD (gastroesophageal reflux disease) (Chronic) Medical History: Medical History (Last Updated 10/17/18 @ 14:47 by Mark Ahumada DO) Asthma (Chronic) J45.909 Nocturnal hypoxia (Chronic) G47.34 Anxiety (Chronic) F41.9 Nicotine dependence in remission (Chronic) F17.201 Stage 4 very severe COPD by GOLD classification (Chronic) J44.9 Allergic rhinitis (Chronic) J30.9 COPD with acute exacerbation (Chronic) J44.1 Tobacco dependence syndrome (Chronic) F17.200 Akwvm-7-zihhyptzghz deficiency (Chronic) E88.01 COPD (chronic obstructive pulmonary disease) (Chronic) J44.9 GERD (gastroesophageal reflux disease) (Chronic) K21.9 COPD with acute exacerbation (Inactive) J44.1 COPD, frequent exacerbations (Inactive) J44.9 [place] (dyspnea on exertion) (Inactive) R06.09 Allergies aspirin Allergy (Verified 10/17/18 02:01) Unknown morphine Adverse Reaction (Intermediate, Verified 10/17/18 02:01) Itching Home Medications: Ambulatory Orders Medication Instructions Recorded Multivitamins,Therapeutic 1 tab PO DAILY 09/06/16 [Multivitamin] fluticasone 50 mcg/actuation nasal 50 mcg INTRANASAL QDAY PRN 12/06/17 spray,suspension Lidocaine/Prilocaine 30 gm TP DAILY PRN PRN 30 Days #1 03/15/18 [Lidocaine-Prilocaine Cream] cream..g. Olanzapine [Zyprexa] 10 mg PO DAILY 16 Days #16 tab 03/15/18 Ondansetron HCl [Zofran] 4 mg PO Q8H PRN PRN 10 Days #30 tab 03/15/18 Paroxetine HCl [Paxil] 40 mg PO DAILY #30 tab 04/28/18 tiotropium bromide 2.5 2 puff INHALATION QDAY #1 device 05/03/18 mcg/actuation mist for inhalation Iron Polysaccharide Complex 150 mg PO DAILYCM #30 cap 08/23/18 [Ferrex 150] Magnesium Oxide [Mag-Ox 400] 400 mg PO BIDCM #28 tab 08/23/18 albuterol sulfate HFA 90 1 - 2 puff INHALATION Q4H PRN PRN 09/01/18 mcg/actuation aerosol inhaler #1 inhaler budesonide-formoterol HFA 160 2 puff INHALATION BID #1 hfa.aer.ad 09/01/18 mcg-4.5 mcg/actuation aerosol inhaler albuterol sulfate 2.5 mg/3 mL 2.5 mg INHALATION 4X/DAY PRN 30 09/13/18 (0.083 %) solution for nebulization Days #180 vial Doxycycline Monohydrate 100 mg PO BID #14 cap 10/07/18 Omeprazole [Prilosec] 20 mg PO DAILY #30 capsule 10/12/18 Surgical History: Surgical History (Last Updated 10/17/18 @ 14:47 by Mark Ahumada DO) History of tubal ligation (Chronic) Z98.51 Surgical History: no surgical history Smoking Status: Former smoker Tobacco Use: Cigarettes Alcohol: None Drugs: None - *Family History Paternal Family History: Family History (Last Reviewed 10/04/18 @ 10:30 by Felisa Barraza) Mother Colon cancer Bronchitis Epilepsy Father Asthma History Items: Asthma Review of Systems Constitutional: Denies: Chills, Fever Cardiovascular: Denies: Chest Pain Respiratory: Reports: Shortness of Breath Gastrointestinal: Denies: Abdominal Pain, Nausea Hematologic/ Lymphatic: Denies: Easy Bruising, Easy Bleeding Patient Problems: Active and Suspected Problems (Last Updated 10/17/18 @ 14:47 by Mark Ahumada DO) Pancytopenia (Acute) Thrombocytopenia (Acute) Neutropenia (Acute) Dysphagia (Acute) Chronic respiratory failure with hypoxia (Acute) - Physical Exam General: Alert, Oriented x3, Cooperative, No apparent distress, - - Patient is very thin Cardiovascular: Regular rate Abdomen: Soft, Non-Distended, Tender - Mild tenderness in the umbilicus, no peritoneal signs Extremities: No clubbing, No cyanosis, No edema Musculoskeletal: Cachexia Neurological: Cranial nerves II-XII grossly intact Vital Signs Temp Pulse Resp BP Pulse Ox 98 F 115 H 20 H 112/40 L 100 10/18/18 15:55 10/18/18 15:55 10/18/18 15:55 10/18/18 15:55 10/18/18 15:55 Oxygen Flow Rate (L/min) 3 Oxygen Delivery Method Nasal Cannula Weight: 88 lb 6.486 oz Body Mass Index (BMI) 13.4 Intake and Output for Last 24 Hours 10/16/18 10/17/18 10/18/18 23:59 23:59 23:59 Intake Total 2673 / 2673 2195 / 2195 Output Total 550 / 550 Balance 2673 / 2673 1645 / 1645 Laboratory Tests Past 24 Hrs 10/17/18 10/17/18 10/18/18 02:10 17:40 05:45 WBC 0.4 L* RBC 1.75 L Hgb 5.9 L* Hct 19.0 L MCV 108.6 H MCH 33.7 H MCHC 31.1 L RDW 11.1 L RDW Differential 41.9 Plt Count 44 L* MPV 10.1 Immature Gran % (Auto) 0.000 Neut % (Auto) 55.2 Lymph % (Auto) 21.1 [place] % (Auto) 23.7 H Eos % (Auto) 0.0 Baso % (Auto) 0.0 Absolute Neuts (auto) 0.2 L Absolute Lymphs (auto) 0.08 L Total Counted Not Reportable Differential Comment SCAN Diff Path Review Reviewed March foll Platelet Estimate MKD DEC Hypochromasia 1+ Anisocytosis 1+ Microcytosis 1+ Sodium Potassium Chloride Carbon Dioxide Anion Gap BUN Creatinine Estim Creat Clear Calc Est GFR (MDRD) Af Amer Est GFR (MDRD) Non-Af BUN/Creatinine Ratio Glucose Calcium Crossmatch See Detail 10/18/18 05:45 WBC RBC Hgb Hct MCV MCH MCHC RDW RDW Differential Plt Count MPV Immature Gran % (Auto) Neut % (Auto) Lymph % (Auto) [place] % (Auto) Eos % (Auto) Baso % (Auto) Absolute Neuts (auto) Absolute Lymphs (auto) Total Counted Differential Comment Diff Path Review Platelet Estimate Hypochromasia Anisocytosis Microcytosis Sodium 142 Potassium 3.2 L Chloride 94 L Carbon Dioxide 42.0 H Anion Gap 6 BUN 13 Creatinine 0.16 L Estim Creat Clear Calc 251.50 Est GFR (MDRD) Af Amer 620 Est GFR (MDRD) Non-Af 513 BUN/Creatinine Ratio 82.3 H Glucose 98 Calcium 8.3 L Crossmatch Assessment/Plan All Active Problems (Last Updated 10/17/18 @ 14:47 by Mark Ahumada DO) Pancytopenia (Acute) Thrombocytopenia (Acute) Neutropenia (Acute) Dysphagia (Acute) Chronic respiratory failure with hypoxia (Acute) Healthcare-associated pneumonia (Acute) PORT PLACEMENT (Resolved) 37-year-old female with severe pancytopenia, relapse extensive stage small cell lung cancer, request for PEG due to dysphagia 1. Discussed with the patient that I do not feel the PEG tube would be safe at this time due to her severe pancytopenia. I would want her platelets to be at 75,000. Yesterday they were 7 today they are 44. She also has a white blood cell count of 0.7 which doing a PEG could also have a chance of infection of the PEG site. Did discuss with patient what her goals are and she stated that she wanted to go home and be with her son. I asked if she would be willing to go home with hospice if that was an option she did seem open to the idea. Also briefly discussed Dobbhoff tube could be another way to try to get nutrition that would be safer than a PEG tube at this time. Discussed with patient I am unsure if hospice would take a Dobbhoff tube and we would need to talk with the primary tomorrow. Christine Blair M.D. Pager: [phone] [facility] [address] [place] [address], [facility], [address] [place] [address] Office: [phone] Code Visit Inpatient E&M: 92717 Init Hosp L1
[2018-10-19] VITALS (10 sets, daily range): BP systolic 108–143; BP diastolic 57–76; PULSE 109–123; RESP 18; TEMP 36.3–36.7; O2SAT 96–99
[2018-10-19] MEDS: LORazepam 2 MG/ML Bottle 0.5 MG SL ×2 (02:06→14:08)
[2018-10-19 04:49] LABS: Absolute Lymphocyte Count 0.07 X10^3/ul (0.83-4.51); Absolute Neutrophil Count 0.4 X10^3/uL (2.0-7.7); Hemoglobin 9.7 g/dl (12.0-15.0); Lymphocyte # 0.07 X10^3/ul (4.0); Lymphocyte % 11.5 % (19-41); Mean Corp Hgb Conc 32.3 g/gl (32-36); Mean Corpuscular Hgb 32.6 pg (27.0-32.0); Mean Corpuscular Volume 100.7 fL (81-99); Mean Platelet Vol. 10.6 fl (6.2-12.0); Monocyte% 16.4 % (0-10); Neutrophil # 0.41 X10^3/uL (2.7-7.7); Neutrophil % 67.2 % (47-70); RBC Distribution Width CV 16.3 % (11.6-14.6); RBC Distribution Width SD 57.8 fl (35.1-43.9); Red Blood Count 2.98 M/mm3 (4.2-5.4)
[2018-10-19 04:51] LABS: Platelet Count 16 K/mm3 (150-450); White Blood Count 0.6 K/mm3 (4.4-11.0)
[2018-10-19 04:52] LABS: Differential Indicated SCAN CRITERIA MET; POSITIVE COUNT YES; POSITIVE DIFFERENTIAL YES; POSITIVE MORPHOLOGY YES
[2018-10-19 05:00] LABS: Anion Gap 6 (5-15); BUN 11 mg/dL (7-18); BUN/Creat Ratio 71.9 RATIO (10-20); Calcium,Total 8.3 mg/dL (8.5-10.1); Chloride 89 mmol/L (98-107); Creatinine, Serum 0.15 mg/dL (0.55-1.02); EST Glomerular Filtration Rate 532 mL/min (>60); Est Glom Filt Rate - Afr Amer 644 mL/min (>60); Estimated Creatinine Clearance 268.26 ml/min; Glucose 101 mg/dL (74-106); Magnesium 1.2 mg/dL (1.6-2.6); Potassium 2.9 mmol/L (3.5-5.1); Sodium Level 140 mmol/L (136-145)
[2018-10-19 05:13] LABS: Differential Comment SCAN; Platelet Estimate MKD DEC (ADEQ)
[2018-10-19] MEDS: HYDROmorphone 0.5 MG/0.5 ML SYRINGE IV (06:24)
[2018-10-19] MEDS: 0.9% NaCl Peripheral Flush Adult/Peds IV (06:24)
--- NOTE | 2018-10-19 07:34 | NURSING ---
On entering pt's room, pt moaning rating pain 7/10. Using accessory muscles and labored breathing. Vitals within normal limits with exception of HR which pt has been tachycardic all shift. Pt drowsy but able to respond by nodding or one word answers. Gave dilaudid and reassessed pt at 0640hrs. Pt opening eyes to physical stimuli but not responding to questions. Breathing no longer labored and still maintaining 02 saturations of 98% on 3L N/C and RR 14-16rpm. Advised charge nurses who reviewed pt with this nurse. Respiratory called to evaluate pt. Respiratory happy to leave pt as is and closely monitor. Handed off to primary RN on morning shift.
[2018-10-19 09:55] LABS: Pathologist Review Reviewed
--- NOTE | 2018-10-19 10:24 | CASEMGMT ---
Addendum entered by Mansi Liang 10/19/18 11:17: SW spoke with Hospice and they are going to call patient's room and talk with patient's son. SW went to room and let patient's son know this information. SW provided emotional support. Mansi FRANCISCO Original Note: Patient is not doing well today. [employer]ICE [employer]PA[employer] SUPERVISOR spoke with patient's son and he will be here in about an hour. SW told her he will be here most of the day. SW will fax updated information. Mansi FRANCISCO
[2018-10-19] MEDS: TBO-FILGRASTIM 300 MCG/0.5 ML ML SC (10:34)
--- NOTE | 2018-10-19 12:11 | PN_ITS ---
- Problem List (1) Small cell lung cancer Status: Chronic (2) Pancytopenia Status: Acute (3) Dysphagia Status: Acute (4) Cachexia Status: Chronic Subjective Date of Service:: 10/19/18 Dyspnea Patient is a 57-year-old female with relapsed extensive stage small cell lung cancer admitted with increasing dyspnea, pancytopenia, possible pneumonia. She was first diagnosed with extensive stage small cell lung cancer (February 2018) with a large mediastinal mass, mediastinal lymph node, and liver lesion status post cisplatin/Irinotecan x6 cycles now found to have progressive disease including enlargement of the mediastinal mass with SVC compression and several concerning liver lesions. She initiated cycle 1 of second line chemotherapy on 10/04/18 (Carboplatin/Etoposide). 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 Second line chemotherapy with carboplatin/etoposide was initiated on 11/03/2018 and due to worsening symptom radiation was initiated on 11/05/2018. Patient was nonresponsive to verbal and touch stimulation, as per her son and a close family friend who both were at the bedside they reported that in the last interaction with her she was still in pain and refusing to eat. 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) Encounter for insertion of venous access port (Chronic) Educational circumstance (Chronic) Chemotherapy management, encounter for (Chronic) Anemia (Chronic) Immunosuppressed due to chemotherapy (Chronic) History of tubal ligation (Chronic) Asthma (Chronic) Nocturnal hypoxia (Chronic) Anxiety (Chronic) Nicotine dependence in remission (Chronic) Stage 4 very severe COPD by GOLD classification (Chronic) Allergic rhinitis (Chronic) COPD with acute exacerbation (Chronic) Tobacco dependence syndrome (Chronic) Jygzt-9-kawzxmafyzd deficiency (Chronic) COPD (chronic obstructive pulmonary disease) (Chronic) GERD (gastroesophageal reflux disease) (Chronic) Past Medical History - Most Recent Inpatient Visit Past Medical History Start: 10/17/18 06:52 Text: Status: Complete Freq: ONCE Protocol: Document 10/17/18 08:03 PRESLEY (Rec: 10/17/18 08:08 Da [id number]) BMI Required to complete PMH What is Patient's BMI 13.4 Past Medical History Unable History Recalled No Query Text:Pt Unable/Family Not Present Neurologic Medical History Hx Stroke/TIA No Hx Dementia/Alzheimer's No Hx Parkinson's Disease No Hx Seizures No Hx Multiple Sclerosis No Hx Migraines Yes Cardiac Medical History VTE Present on Admission No Hx of Deep Vein Thrombosis/VTE/PE No Hx Hypertension No Hx Chest Pain/Angina No Hx Heart Attack No Hx Cardiac Surgery/Stents/Etc. No Hx Heart Failure No Hx Pacemaker/AICD No Hx Irregular Heartbeat and/or Afib No Hx Anticoagulant Therapy No Query Text:(Coumadin, Aspirin, Plavix, Xarelto, etc.) Hx Pain in Legs when Walking/Leg Cramps No Respiratory Medical History Hx COPD Yes Hx Emphysema No Hx Smoking Yes: QUIT 11/09 PPD FOR 20 YRS Smoking Status Former smoker Tobacco Use Cigarettes Hx Smoking Cessation Counseling No Hx Smoking Exposure No Hx Tobacco Use in last 12 months No Hx of Pipe Smoking No Hx Sleep Apnea No CPAP No BIPAP No Do you snore loudly (louder than talking No or can be heard through closed doors)? Do you often feel tired/ fatigued/ Yes sleepy during daytime? Has anyone observed you stop breathing No during sleep? STOP Results Negative GI Medical History Hx Ulcer Yes: age 16 Hx Hepatitis No Hx Cirrhosis No Hx GI Bleed No Hx Unplanned Weight Loss Yes: 10 LBS Genitourinary Medical History Indwelling Catheter in Place on Arrival/ No Admission Hx Renal Disease No Hx Dialysis No Musculoskeletal History Hx Arthritis No Hx Rheumatoid Arthritis No Endocrine Medical History Hx Diabetes No Hx Thyroid Disease No Hematologic Medical History Hx of Blood Transfusion Yes Hx of Transfusion in last 3 Months Yes Date of Last Transfusion (if within last august, 3 months) Ever experience any problems with No transfusion(s)? Hx of Preganancy in last 3 Months No Nurse Filling Out Transfusion & ZBEAM Questions: Date: 10/17/18 Time: 08:07 Psycho/Social Medical History Hx Depression No Hx Anxiety Yes Hx Behavior Disorder No Hx Alcohol Use No Hx Substance Use No Other Medical History Hx Blood Disorders No Hx Anemia Yes: IN THE PAST Hx Cancer Yes: LUNG Hx Drug Resistant Organism No Wound/Pressure Injury Present on Arrival No /Admission Query Text:If yes, chart assessment in Shift/Clinical Findings Central Line/PICC/VAD Present on Arrival Yes /Admission Risk for Readmission Number of Risk Factors 7 At Risk for Readmission Patient is At Risk For Readmission Patient is eligible for Call Back Y Past Medical History (Last Updated 10/17/18 @ 14:47 by Mark Ahumada DO) Asthma (Chronic) Nocturnal hypoxia (Chronic) Anxiety (Chronic) Nicotine dependence in remission (Chronic) Stage 4 very severe COPD by GOLD classification (Chronic) Allergic rhinitis (Chronic) COPD with acute exacerbation (Chronic) Tobacco dependence syndrome (Chronic) Xlztg-2-wkegxdxphua deficiency (Chronic) COPD (chronic obstructive pulmonary disease) (Chronic) GERD (gastroesophageal reflux disease) (Chronic) COPD with acute exacerbation (Inactive) COPD, frequent exacerbations (Inactive) [place] (dyspnea on exertion) (Inactive) Past Surgical History (Last Updated 10/17/18 @ 14:47 by Mark Ahumada DO) History of tubal ligation (Chronic) Paternal Family History: Family History (Last Reviewed 10/04/18 @ 10:30 by Felisa Barraza) Mother Colon cancer Bronchitis Epilepsy Father Asthma Family History: Asthma - Social History Smoking Status: Former smoker Tobacco Use: Cigarettes Alcohol: None Drugs: None Vital Signs Height 5 ft 8.11 in Weight: 40.1 kg Weight in Pounds 88.4 lbs Pulse Ox 99 Temperature 97.4 F Pulse Rate 118 Respiratory Rate 18 Blood Pressure 108/57 Blood Pressure Position Semi-Fowlers - Physical Exam General: - - Cachectic, nonresponsive to verbal or gentle touch but appeared comfortable, ECOG 4 Laboratory Data: Laboratory Tests 10/19/18 10/19/18 10/18/18 Range/Units 04:25 04:25 05:45 WBC 0.6 L* (4.4-11.0) K/mm3 RBC 2.98 L (4.2-5.4) M/mm3 Hgb 9.7 L (12.0-15.0) g/dl Hct 30.0 L (37-47) % MCV 100.7 H (81-99) fL MCH 32.6 H (27.0-32.0) pg MCHC 32.3 (32-36) g/gl RDW 16.3 H (11.6-14.6) % RDW Differential 57.8 H (35.1-43.9) fl Plt Count 16 L* (150-450) K/mm3 MPV 10.6 (6.2-12.0) fl Immature Gran % (Auto) 4.900 H (0.0-0.9) % Neut % (Auto) 67.2 (47-70) % Lymph % (Auto) 11.5 L (19-41) % [place] % (Auto) 16.4 H (0-10) % Eos % (Auto) 0.0 (0-5) % Baso % (Auto) 0.0 (0-1) % Absolute Neuts (auto) 0.4 L (2.0-7.7) X10^3/uL Absolute Lymphs (auto) 0.07 L (0.83-4.51) X10^3/ul Total Counted Not Reportable Differential Comment SCAN Diff Path Review March Reviewed Platelet Estimate MKD DEC (ADEQ) Sodium 140 (136-145) mmol/L Potassium 2.9 L (3.5-5.1) mmol/L Chloride 89 L (98-107) mmol/L Carbon Dioxide 45.0 H (21.0-32.0) mmol/L Anion Gap 6 (5-15) BUN 11 (7-18) mg/dL Creatinine 0.15 L (0.55-1.02) mg/dL Estim Creat Clear Calc 268.26 ml/min Est GFR (MDRD) Af Amer 644 (>60) mL/min Est GFR (MDRD) Non-Af 532 (>60) mL/min BUN/Creatinine Ratio 71.9 H (10-20) RATIO Glucose 101 (74-106) mg/dL Calcium 8.3 L (8.5-10.1) mg/dL Magnesium 1.2 L (1.6-2.6) mg/dL Crossmatch 10/17/18 Range/Units 17:40 WBC (4.4-11.0) K/mm3 RBC (4.2-5.4) M/mm3 Hgb (12.0-15.0) g/dl Hct (37-47) % MCV (81-99) fL MCH (27.0-32.0) pg MCHC (32-36) g/gl RDW (11.6-14.6) % RDW Differential (35.1-43.9) fl Plt Count (150-450) K/mm3 MPV (6.2-12.0) fl Immature Gran % (Auto) (0.0-0.9) % Neut % (Auto) (47-70) % Lymph % (Auto) (19-41) % [place] % (Auto) (0-10) % Eos % (Auto) (0-5) % Baso % (Auto) (0-1) % Absolute Neuts (auto) (2.0-7.7) X10^3/uL Absolute Lymphs (auto) (0.83-4.51) X10^3/ul Total Counted Differential Comment Diff Path Review Platelet Estimate (ADEQ) Sodium (136-145) mmol/L Potassium (3.5-5.1) mmol/L Chloride (98-107) mmol/L Carbon Dioxide (21.0-32.0) mmol/L Anion Gap (5-15) BUN (7-18) mg/dL Creatinine (0.55-1.02) mg/dL Estim Creat Clear Calc ml/min Est GFR (MDRD) Af Amer (>60) mL/min Est GFR (MDRD) Non-Af (>60) mL/min BUN/Creatinine Ratio (10-20) RATIO Glucose (74-106) mg/dL Calcium (8.5-10.1) mg/dL Magnesium (1.6-2.6) mg/dL Crossmatch See Detail Diagnostic Data: Diagnostic Data Chest CTA 10/17/18 02:13 IMPRESSION: No pulmonary embolus. Anterior mediastinal mass with multiple vascular encasement as described. The mass extends through the left anterior chest wall. This component has decreased in conspicuity. Persistent but improving compression of the superior vena cava. Interval development of a nodular density in the left lower lobe. Interval development of alveolar disease in the left lower lobe. This could be infectious or inflammatory in nature. Electronically Signed: Hari Lugo MD at 4:02 EST Tel , Service support , Assessment and Plan 57-year-old female with relapsed extensive small cell lung cancer. She has recently started palliative combined chemoradiation for disease progression in the mediastinum. Hospitalized with increasing dyspnea with probable pneumonia, severe pancytopenia post chemoradiation therapy increasing painful dysphagia, progressive decline in performance status and malignant cachexia. Her condition continued to decline and she now requires narcotic analgesia to be kept comfortable. Recommendations: I met with the patient's son and a close family friend, they are to meet with the hospice team this afternoon. Her son reported that he has power of deputy prosecuting attorney for his mother. I think that is the most appropriate course. Once signed up with hospice I advise discontinuing all diagnostic labs or other studies, stopping all medications other than those that provide comfort. Medications: Medications Added to Medication List This Visit Category Date Time Status Lactated Ringers 1,000 ml Med 10/19/18 05:35 Active Potassium Chloride 40 meq IV 75 mls/hr Primary Care Provider: Dariel Ortega Referring Provider:
--- NOTE | 2018-10-19 12:49 | PCM.PROGNOTE ---
<Savannah Alvarez - Last Filed: 10/19/18 12:55> Patient Problems: Active and Suspected Problems (Last Updated 10/17/18 @ 14:47 by Mark Ahumada DO) Pancytopenia (Acute) Thrombocytopenia (Acute) Neutropenia (Acute) Dysphagia (Acute) Chronic respiratory failure with hypoxia (Acute) Subjective: Patient seen and examined. Very lethargic, difficult to arouse. Son and family friend at bedside. Awaiting hospice meeting. - Physical Exam General: Lethargic HEENT: Atraumatic, Normocephalic Oral: Dry Mucosa Neck: Supple, No JVD, Negative Carotid Bruits Lungs: Diminished, - - Crackles Cardiovascular: Regular Rhythm, Normal S1, Normal S2, No murmurs, Tachycardic Abdomen: Bowel Sounds Present, Soft, Non Tender, Non-Distended Extremities: No clubbing, No cyanosis, No edema, Capillary Refill Less than 3 Seconds Skin: No rashes, No breakdown Musculoskeletal: Cachexia, Muscle Wasting Neurological: Cranial nerves II-XII grossly intact Psych/Mental Status: - - Unable to assess due to lethargy Vital Signs Temp Pulse Resp BP Pulse Ox 97.4 F L 118 H 18 108/57 L 99 10/19/18 09:01 10/19/18 11:00 10/19/18 09:01 10/19/18 09:01 10/19/18 09:01 Oxygen Flow Rate (L/min) 2 Oxygen Delivery Method Nasal Cannula Weight: 88 lb 6.486 oz Body Mass Index (BMI) 13.4 Intake and Output for Last 24 Hours 10/17/18 10/18/18 10/19/18 23:59 23:59 23:59 Intake Total 2673 / 2673 2195 / 2195 1795 / 1795 Output Total 550 / 550 800 / 800 Balance 2673 / 2673 1645 / 1645 995 / 995 Laboratory Tests Past 24 Hrs 10/17/18 10/18/18 10/19/18 17:40 05:45 04:25 WBC 0.6 L* RBC 2.98 L Hgb 9.7 L Hct 30.0 L MCV 100.7 H MCH 32.6 H MCHC 32.3 RDW 16.3 H RDW Differential 57.8 H Plt Count 16 L* MPV 10.6 Immature Gran % (Auto) 4.900 H Neut % (Auto) 67.2 Lymph % (Auto) 11.5 L [place] % (Auto) 16.4 H Eos % (Auto) 0.0 Baso % (Auto) 0.0 Absolute Neuts (auto) 0.4 L Absolute Lymphs (auto) 0.07 L Total Counted Not Reportable Differential Comment SCAN Diff Path Review Reviewed March foll Platelet Estimate MKD DEC Sodium Potassium Chloride Carbon Dioxide Anion Gap BUN Creatinine Estim Creat Clear Calc Est GFR (MDRD) Af Amer Est GFR (MDRD) Non-Af BUN/Creatinine Ratio Glucose Calcium Magnesium Crossmatch See Detail 10/19/18 04:25 WBC RBC Hgb Hct MCV MCH MCHC RDW RDW Differential Plt Count MPV Immature Gran % (Auto) Neut % (Auto) Lymph % (Auto) [place] % (Auto) Eos % (Auto) Baso % (Auto) Absolute Neuts (auto) Absolute Lymphs (auto) Total Counted Differential Comment Diff Path Review Platelet Estimate Sodium 140 Potassium 2.9 L Chloride 89 L Carbon Dioxide 45.0 H Anion Gap 6 BUN 11 Creatinine 0.15 L Estim Creat Clear Calc 268.26 Est GFR (MDRD) Af Amer 644 Est GFR (MDRD) Non-Af 532 BUN/Creatinine Ratio 71.9 H Glucose 101 Calcium 8.3 L Magnesium 1.2 L Crossmatch Medical Necessity - Tobacco Use Smoking Status: Former smoker Tobacco Use: Cigarettes Assessment/Plan All Active Problems (Last Updated 10/17/18 @ 14:47 by Mark Ahumada DO) Pancytopenia (Acute) Thrombocytopenia (Acute) Neutropenia (Acute) Dysphagia (Acute) Chronic respiratory failure with hypoxia (Acute) Healthcare-associated pneumonia (Acute) PORT PLACEMENT (Resolved) 1. Acute hypoxic respiratory insufficiency secondary to acute sepsis secondary to pneumonia-CT on admission showed anterior mediastinal mass with multiple vascular encasement. Mass extends through the left anterior chest wall. Persistent but improving compression of the superior vena cava. Left lower lobe nodular density. This reported to be infectious or inflammatory in nature. Patient with tachycardia and tachypnea on admission. Continue supplement oxygen to maintain O2 sat above 90%. Albuterol and DuoNeb aerosols. Blood culture pending. Obtain sputum culture. Continue IV Levaquin. 2. Acute on chronic anemia/pancytopenia-due to underlying cancer and chemotherapy. Continue iron supplementation. Patient transfused with 2 units PRBC for hemoglobin 5.9. 1 unit platelets given as well. Oncology following. Granix ordered. 3. Dysphasia-ST recommending n.p.o. due to high risk for aspiration. Patient wishes for PEG tube placement. Consult placed to general surgery, Dr. Blair for evaluation for PEG tube placement. Patient is not a candidate for PEG tube placement given poor prognosis and unstable labs. 4. Candidal stomatitis-continue nystatin swish and swallow. 5. Stage IV small cell lung cancer-oncology following. Patient follows with Dr. Garduno. Oncology feels hospice is appropriate given her incurable progressive malignancy. Hospice consult pending. Possible transfer to inpatient hospice if patient and family are in agreement. 6. COPD with alpha 1 antitrypsin deficiency-albuterol and DuoNeb aerosols. No acute exacerbation. 7. Depression-continue home paroxetine regimen. 8. GERD-continue PPI. 9. Severe protein calorie malnutrition-BMP 13.4. Nutrition consult. Surgery consulted, not a candidate for PEG tube placement. DVT prophylaxis-SCDs Discharge planning: Pending hospice evaluation. This patient was seen by POLA Larson under the supervision of Dr. Ahumada. <Mark Ahumada - Last Filed: 10/19/18 13:57> Subjective: Somnolent after hydromorphone. - Physical Exam General: Lethargic HEENT: Atraumatic, Normocephalic Neck: Thyroid Normal Size and Texture Lungs: Diminished, - Cardiovascular: Regular Rhythm, Normal S1, Normal S2, No murmurs, Tachycardic Abdomen: Bowel Sounds Present, Soft, Non Tender, Non-Distended Skin: No rashes, No breakdown Vital Signs Temp Pulse Resp BP Pulse Ox 36.3 C L 118 H 18 108/57 L 99 10/19/18 09:01 10/19/18 11:00 10/19/18 09:01 10/19/18 09:01 10/19/18 09:01 Oxygen Flow Rate (L/min) 2 Oxygen Delivery Method Nasal Cannula Weight: 40.1 kg Body Mass Index (BMI) 13.4 Intake and Output for Last 24 Hours 10/17/18 10/18/18 10/19/18 23:59 23:59 23:59 Intake Total 2673 / 2673 2195 / 2195 1795 / 1795 Output Total 550 / 550 800 / 800 Balance 2673 / 2673 1645 / 1645 995 / 995 Laboratory Tests Past 24 Hrs 10/17/18 10/18/18 10/19/18 17:40 05:45 04:25 WBC 0.6 L* RBC 2.98 L Hgb 9.7 L Hct 30.0 L MCV 100.7 H MCH 32.6 H MCHC 32.3 RDW 16.3 H RDW Differential 57.8 H Plt Count 16 L* MPV 10.6 Immature Gran % (Auto) 4.900 H Neut % (Auto) 67.2 Lymph % (Auto) 11.5 L [place] % (Auto) 16.4 H Eos % (Auto) 0.0 Baso % (Auto) 0.0 Absolute Neuts (auto) 0.4 L Absolute Lymphs (auto) 0.07 L Total Counted Not Reportable Differential Comment SCAN Diff Path Review Reviewed May foll Platelet Estimate MKD DEC Sodium Potassium Chloride Carbon Dioxide Anion Gap BUN Creatinine Estim Creat Clear Calc Est GFR (MDRD) Af Amer Est GFR (MDRD) Non-Af BUN/Creatinine Ratio Glucose Calcium Magnesium Crossmatch See Detail 10/19/18 04:25 WBC RBC Hgb Hct MCV MCH MCHC RDW RDW Differential Plt Count MPV Immature Gran % (Auto) Neut % (Auto) Lymph % (Auto) [place] % (Auto) Eos % (Auto) Baso % (Auto) Absolute Neuts (auto) Absolute Lymphs (auto) Total Counted Differential Comment Diff Path Review Platelet Estimate Sodium 140 Potassium 2.9 L Chloride 89 L Carbon Dioxide 45.0 H Anion Gap 6 BUN 11 Creatinine 0.15 L Estim Creat Clear Calc 268.26 Est GFR (MDRD) Af Amer 644 Est GFR (MDRD) Non-Af 532 BUN/Creatinine Ratio 71.9 H Glucose 101 Calcium 8.3 L Magnesium 1.2 L Crossmatch Assessment/Plan Patient seen and examined independently. Data reviewed. I agree with the above note by the nurse practitioner. Patient seen and examined independently. Data reviewed. I agree with the above note by the nurse practitioner. 1. possible gram negative pneumonia Given the neutropenia will meter changes records clerk to meropenem and Levaquin pulm toilet may be more component of post obstructive or near post obstructive. 2. Dysphagia per ST, more external obstructive process poor candidate for PEG, given poor overall prognosis (and unsure if even an endoscope could be advanced) preferably, would have XRT to help shrink the mass further (which has worked based on CT findings, but symptoms have worsened) Discussed with the patient about other means of nutrition including PEG tube. Patient did express interest in a PEG tube. Explained to the patient that given her complexity right now PEG tube would certainly be tabled at this time until she is more stable. I did, however, recommend no PEG tube as I do not feel that it will ultimately change her long-term prognosis. 3. Stage IV SCLC large anterior mass with compression on esophagus, SVC syndrome amongst other Radiation therapy on hold given awaiting response from the bone marrow Medical Oncology on consult poor prognosis--life expectancy weeks Hospice to speak with patient and family 4. Pancytopenia Secondary to chemotherapy Worse today. Transfused red blood cells and platelets Started on Granix on 10/17 5. Severe protein malnutrition unable to eat/drink given external compression by CA will start empiric IV diflucan incase this may be due to esme esophagitis too tenuous for PEG at this time. Code Visit Inpatient E&M: 38815 Subs Hosp L2
--- NOTE | 2018-10-19 12:55 | PN_ITS ---
<Savannah Alvarez - Last Filed: 10/19/18 12:55> Patient Problems: Active and Suspected Problems (Last Updated 10/17/18 @ 14:47 by Mark Ahumada DO) Pancytopenia (Acute) Thrombocytopenia (Acute) Neutropenia (Acute) Dysphagia (Acute) Chronic respiratory failure with hypoxia (Acute) Subjective: Patient seen and examined. Very lethargic, difficult to arouse. Son and family friend at bedside. Awaiting hospice meeting. - Physical Exam General: Lethargic HEENT: Atraumatic, Normocephalic Oral: Dry Mucosa Neck: Supple, No JVD, Negative Carotid Bruits Lungs: Diminished, - - Crackles Cardiovascular: Regular Rhythm, Normal S1, Normal S2, No murmurs, Tachycardic Abdomen: Bowel Sounds Present, Soft, Non Tender, Non-Distended Extremities: No clubbing, No cyanosis, No edema, Capillary Refill Less than 3 Seconds Skin: No rashes, No breakdown Musculoskeletal: Cachexia, Muscle Wasting Neurological: Cranial nerves II-XII grossly intact Psych/Mental Status: - - Unable to assess due to lethargy Vital Signs Temp Pulse Resp BP Pulse Ox 97.4 F L 118 H 18 108/57 L 99 10/19/18 09:01 10/19/18 11:00 10/19/18 09:01 10/19/18 09:01 10/19/18 09:01 Oxygen Flow Rate (L/min) 2 Oxygen Delivery Method Nasal Cannula Weight: 88 lb 6.486 oz Body Mass Index (BMI) 13.4 Intake and Output for Last 24 Hours 10/17/18 10/18/18 10/19/18 23:59 23:59 23:59 Intake Total 2673 / 2673 2195 / 2195 1795 / 1795 Output Total 550 / 550 800 / 800 Balance 2673 / 2673 1645 / 1645 995 / 995 Laboratory Tests Past 24 Hrs 10/17/18 10/18/18 10/19/18 17:40 05:45 04:25 WBC 0.6 L* RBC 2.98 L Hgb 9.7 L Hct 30.0 L MCV 100.7 H MCH 32.6 H MCHC 32.3 RDW 16.3 H RDW Differential 57.8 H Plt Count 16 L* MPV 10.6 Immature Gran % (Auto) 4.900 H Neut % (Auto) 67.2 Lymph % (Auto) 11.5 L [place] % (Auto) 16.4 H Eos % (Auto) 0.0 Baso % (Auto) 0.0 Absolute Neuts (auto) 0.4 L Absolute Lymphs (auto) 0.07 L Total Counted Not Reportable Differential Comment SCAN Diff Path Review Reviewed March foll Platelet Estimate MKD DEC Sodium Potassium Chloride Carbon Dioxide Anion Gap BUN Creatinine Estim Creat Clear Calc Est GFR (MDRD) Af Amer Est GFR (MDRD) Non-Af BUN/Creatinine Ratio Glucose Calcium Magnesium Crossmatch See Detail 10/19/18 04:25 WBC RBC Hgb Hct MCV MCH MCHC RDW RDW Differential Plt Count MPV Immature Gran % (Auto) Neut % (Auto) Lymph % (Auto) [place] % (Auto) Eos % (Auto) Baso % (Auto) Absolute Neuts (auto) Absolute Lymphs (auto) Total Counted Differential Comment Diff Path Review Platelet Estimate Sodium 140 Potassium 2.9 L Chloride 89 L Carbon Dioxide 45.0 H Anion Gap 6 BUN 11 Creatinine 0.15 L Estim Creat Clear Calc 268.26 Est GFR (MDRD) Af Amer 644 Est GFR (MDRD) Non-Af 532 BUN/Creatinine Ratio 71.9 H Glucose 101 Calcium 8.3 L Magnesium 1.2 L Crossmatch Medical Necessity - Tobacco Use Smoking Status: Former smoker Tobacco Use: Cigarettes Assessment/Plan All Active Problems (Last Updated 10/17/18 @ 14:47 by Mark Ahumada DO) Pancytopenia (Acute) Thrombocytopenia (Acute) Neutropenia (Acute) Dysphagia (Acute) Chronic respiratory failure with hypoxia (Acute) Healthcare-associated pneumonia (Acute) PORT PLACEMENT (Resolved) 1. Acute hypoxic respiratory insufficiency secondary to acute sepsis secondary to pneumonia-CT on admission showed anterior mediastinal mass with multiple vascular encasement. Mass extends through the left anterior chest wall. Persistent but improving compression of the superior vena cava. Left lower lobe nodular density. This reported to be infectious or inflammatory in nature. Patient with tachycardia and tachypnea on admission. Continue supplement oxygen to maintain O2 sat above 90%. Albuterol and DuoNeb aerosols. Blood culture pending. Obtain sputum culture. Continue IV Levaquin. 2. Acute on chronic anemia/pancytopenia-due to underlying cancer and chemotherapy. Continue iron supplementation. Patient transfused with 2 units PRBC for hemoglobin 5.9. 1 unit platelets given as well. Oncology following. Granix ordered. 3. Dysphasia-ST recommending n.p.o. due to high risk for aspiration. Patient wishes for PEG tube placement. Consult placed to general surgery, Dr. Blair for evaluation for PEG tube placement. Patient is not a candidate for PEG tube placement given poor prognosis and unstable labs. 4. Candidal stomatitis-continue nystatin swish and swallow. 5. Stage IV small cell lung cancer-oncology following. Patient follows with Dr. Garduno. Oncology feels hospice is appropriate given her incurable progressive malignancy. Hospice consult pending. Possible transfer to inpatient hospice if patient and family are in agreement. 6. COPD with alpha 1 antitrypsin deficiency-albuterol and DuoNeb aerosols. No acute exacerbation. 7. Depression-continue home paroxetine regimen. 8. GERD-continue PPI. 9. Severe protein calorie malnutrition-BMP 13.4. Nutrition consult. Surgery consulted, not a candidate for PEG tube placement. DVT prophylaxis-SCDs Discharge planning: Pending hospice evaluation. This patient was seen by POLA Larson under the supervision of Dr. Ahumada. <Mark Ahumada - Last Filed: 10/19/18 13:57> Subjective: Somnolent after hydromorphone. - Physical Exam General: Lethargic HEENT: Atraumatic, Normocephalic Neck: Thyroid Normal Size and Texture Lungs: Diminished, - Cardiovascular: Regular Rhythm, Normal S1, Normal S2, No murmurs, Tachycardic Abdomen: Bowel Sounds Present, Soft, Non Tender, Non-Distended Skin: No rashes, No breakdown Vital Signs Temp Pulse Resp BP Pulse Ox 36.3 C L 118 H 18 108/57 L 99 10/19/18 09:01 10/19/18 11:00 10/19/18 09:01 10/19/18 09:01 10/19/18 09:01 Oxygen Flow Rate (L/min) 2 Oxygen Delivery Method Nasal Cannula Weight: 40.1 kg Body Mass Index (BMI) 13.4 Intake and Output for Last 24 Hours 10/17/18 10/18/18 10/19/18 23:59 23:59 23:59 Intake Total 2673 / 2673 2195 / 2195 1795 / 1795 Output Total 550 / 550 800 / 800 Balance 2673 / 2673 1645 / 1645 995 / 995 Laboratory Tests Past 24 Hrs 10/17/18 10/18/18 10/19/18 17:40 05:45 04:25 WBC 0.6 L* RBC 2.98 L Hgb 9.7 L Hct 30.0 L MCV 100.7 H MCH 32.6 H MCHC 32.3 RDW 16.3 H RDW Differential 57.8 H Plt Count 16 L* MPV 10.6 Immature Gran % (Auto) 4.900 H Neut % (Auto) 67.2 Lymph % (Auto) 11.5 L [place] % (Auto) 16.4 H Eos % (Auto) 0.0 Baso % (Auto) 0.0 Absolute Neuts (auto) 0.4 L Absolute Lymphs (auto) 0.07 L Total Counted Not Reportable Differential Comment SCAN Diff Path Review Reviewed May foll Platelet Estimate MKD DEC Sodium Potassium Chloride Carbon Dioxide Anion Gap BUN Creatinine Estim Creat Clear Calc Est GFR (MDRD) Af Amer Est GFR (MDRD) Non-Af BUN/Creatinine Ratio Glucose Calcium Magnesium Crossmatch See Detail 10/19/18 04:25 WBC RBC Hgb Hct MCV MCH MCHC RDW RDW Differential Plt Count MPV Immature Gran % (Auto) Neut % (Auto) Lymph % (Auto) [place] % (Auto) Eos % (Auto) Baso % (Auto) Absolute Neuts (auto) Absolute Lymphs (auto) Total Counted Differential Comment Diff Path Review Platelet Estimate Sodium 140 Potassium 2.9 L Chloride 89 L Carbon Dioxide 45.0 H Anion Gap 6 BUN 11 Creatinine 0.15 L Estim Creat Clear Calc 268.26 Est GFR (MDRD) Af Amer 644 Est GFR (MDRD) Non-Af 532 BUN/Creatinine Ratio 71.9 H Glucose 101 Calcium 8.3 L Magnesium 1.2 L Crossmatch Assessment/Plan Patient seen and examined independently. Data reviewed. I agree with the above note by the nurse practitioner. Patient seen and examined independently. Data reviewed. I agree with the above note by the nurse practitioner. 1. possible gram negative pneumonia * Given the neutropenia will foreign exchange clerk to meropenem and Levaquin * pulm toilet * may be more component of post obstructive or near post obstructive. 2. Dysphagia * per ST, more external obstructive process * poor candidate for PEG, given poor overall prognosis (and unsure if even an endoscope could be advanced) * preferably, would have XRT to help shrink the mass further (which has worked based on CT findings, but symptoms have worsened) * Discussed with the patient about other means of nutrition including PEG tube. Patient did express interest in a PEG tube. Explained to the patient that given her complexity right now PEG tube would certainly be tabled at this time until she is more stable. I did, however, recommend no PEG tube as I do not feel that it will ultimately change her long-term prognosis. 3. Stage IV SCLC * large anterior mass with compression on esophagus, SVC syndrome amongst other * Radiation therapy on hold given awaiting response from the bone marrow * Medical Oncology on consult * poor prognosis--life expectancy weeks * Hospice to speak with patient and family 4. Pancytopenia * Secondary to chemotherapy * Worse today. * Transfused red blood cells and platelets * Started on Granix on 10/17 5. Severe protein malnutrition * unable to eat/drink given external compression by CA * will start empiric IV diflucan incase this may be due to esme esophagitis * too tenuous for PEG at this time. Code Visit Inpatient E&M: 15025 Subs Hosp L2
--- NOTE | 2018-10-19 14:01 | CASEMGMT ---
Received a voice mail from [facility]ice at Hospice and they will meet with patient and family at 3p today. Mansi CORNELL MSW
[2018-10-19] MEDS: NYSTATIN 500,000 UNIT/5 ML UDC 500000 UNIT PO (14:18)
--- NOTE | 2018-10-19 14:21 | DS.PCM_ITS ---
<Savannah Alvarez - Last Filed: 10/19/18 14:43> Discharge Date and Diagnosis - Problem List Patient Problems: Active and Suspected Problems (Last Updated 10/17/18 @ 14:47 by Mark Ahumada DO) Pancytopenia (Acute) Thrombocytopenia (Acute) Neutropenia (Acute) Dysphagia (Acute) Chronic respiratory failure with hypoxia (Acute) Date of Admission: 10/17/18 Date of Discharge: 10/19/18 - Primary Discharge Diagnosis Active and Suspected Problems (Last Updated 10/17/18 @ 14:47 by Mark Ahumada DO) 1. Acute hypoxic respiratory insufficiency secondary to acute sepsis secondary to pneumonia 2. Acute on chronic anemia/pancytopenia 3. Dysphagia 4. Candidal stomatitis 5. Stage IV small cell lung cancer 6. COPD with alpha 1 antitrypsin deficiency 7. Depression 8. GERD 9. Severe protein calorie malnutrition 10. 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 ) Encounter for insertion of venous access port (Chronic) Educational circumstance (Chronic) Chemotherapy management, encounter for (Chronic) Anemia (Chronic) Immunosuppressed due to chemotherapy (Chronic) History of tubal ligation (Chronic) Asthma (Chronic) Nocturnal hypoxia (Chronic) Anxiety (Chronic) Nicotine dependence in remission (Chronic) Stage 4 very severe COPD by GOLD classification (Chronic) Allergic rhinitis (Chronic) COPD with acute exacerbation (Chronic) Tobacco dependence syndrome (Chronic) [id number] deficiency (Chronic) COPD (chronic obstructive pulmonary disease) (Chronic) GERD (gastroesophageal reflux disease) (Chronic) Hospital Course and Treatment Imaging Results: Diagnostic Data Chest CTA 10/17/18 02:13 IMPRESSION: No pulmonary embolus. Anterior mediastinal mass with multiple vascular encasement as described. The mass extends through the left anterior chest wall. This component has decreased in conspicuity. Persistent but improving compression of the superior vena cava. Interval development of a nodular density in the left lower lobe. Interval development of alveolar disease in the left lower lobe. This could be infectious or inflammatory in nature. Electronically Signed: Hari Lugo MD at 4:02 EST Tel , Service support , Dr. Hernandez- Oncology Dr. Blair- Surgery Operations: None Procedures: None Summary of Care Provided: The patient is a 57 year old F admitted 10/17/2018 due to chest pain. 1. Acute hypoxic respiratory insufficiency secondary to acute sepsis secondary to pneumonia-CT on admission showed anterior mediastinal mass with multiple vascular encasement. Mass extends through the left anterior chest wall. Persistent but improving compression of the superior vena cava. Left lower lobe nodular density. This reported to be infectious or inflammatory in nature. Patient with tachycardia and tachypnea on admission. Continue supplement oxygen to maintain O2 sat above 90%. Received IV Levaquin during admission. 2. Acute on chronic anemia/pancytopenia-due to underlying cancer and chemotherapy. Continue iron supplementation. Patient transfused with 2 units PRBC for hemoglobin 5.9. 1 unit platelets given as well. 3. Dysphasia-ST recommending n.p.o. due to high risk for aspiration. Consult placed to general surgery, Dr. Blair for evaluation for PEG tube placement. Patient is not a candidate for PEG tube placement given poor prognosis and unstable labs. 4. Candidal stomatitis-continue nystatin swish and swallow. 5. Stage IV small cell lung cancer-Patient follows with Dr. Garduno. Oncology feels hospice is appropriate given her incurable progressive malignancy and rapid decline. 6. COPD with alpha 1 antitrypsin deficiency-albuterol and DuoNeb aerosols. 7. Depression-continue home paroxetine regimen. 8. GERD-continue PPI. 9. Severe protein calorie malnutrition-BMP 13.4. 10. Hospice transition General: Lethargic HEENT: Atraumatic, Normocephalic Oral: Dry Mucosa Neck: Supple, No JVD, Negative Carotid Bruits Lungs: Diminished, - - Crackles Cardiovascular: Regular Rhythm, Normal S1, Normal S2, No murmurs, Tachycardic Abdomen: Bowel Sounds Present, Soft, Non Tender, Non-Distended Extremities: No clubbing, No cyanosis, No edema, Capillary Refill Less than 3 Seconds Skin: No rashes, No breakdown Musculoskeletal: Cachexia, Muscle Wasting Neurological: Cranial nerves II-XII grossly intact Psych/Mental Status: - - Unable to assess due to lethargy Patient seen and examined prior to discharge. Physical assessment as noted above. This patient was seen by POLA Larson under the supervision of Dr. Ahumada. Patient Problems: Active and Suspected Problems (Last Updated 10/17/18 @ 14:47 by Mark Ahumada DO) Pancytopenia (Acute) Thrombocytopenia (Acute) Neutropenia (Acute) Dysphagia (Acute) Chronic respiratory failure with hypoxia (Acute) - Physical Exam Vital Signs Temp Pulse Resp BP Pulse Ox 97.8 F 111 H 18 138/65 H 96 10/19/18 14:12 10/19/18 14:12 10/19/18 14:12 10/19/18 14:12 10/19/18 14:12 Oxygen Flow Rate (L/min) 2 Oxygen Delivery Method Nasal Cannula Weight: 88 lb 6.486 oz Body Mass Index (BMI) 13.4 Intake and Output for Last 24 Hours 10/17/18 10/18/18 10/19/18 23:59 23:59 23:59 Intake Total 2673 / 2673 2195 / 2195 1795 / 1795 Output Total 550 / 550 800 / 800 Balance 2673 / 2673 1645 / 1645 995 / 995 Laboratory Tests Past 24 Hrs 10/17/18 10/18/18 10/19/18 17:40 05:45 04:25 WBC 0.6 L* RBC 2.98 L Hgb 9.7 L Hct 30.0 L MCV 100.7 H MCH 32.6 H MCHC 32.3 RDW 16.3 H RDW Differential 57.8 H Plt Count 16 L* MPV 10.6 Immature Gran % (Auto) 4.900 H Neut % (Auto) 67.2 Lymph % (Auto) 11.5 L [place] % (Auto) 16.4 H Eos % (Auto) 0.0 Baso % (Auto) 0.0 Absolute Neuts (auto) 0.4 L Absolute Lymphs (auto) 0.07 L Total Counted Not Reportable Differential Comment SCAN Diff Path Review Reviewed March foll Platelet Estimate MKD DEC Sodium Potassium Chloride Carbon Dioxide Anion Gap BUN Creatinine Estim Creat Clear Calc Est GFR (MDRD) Af Amer Est GFR (MDRD) Non-Af BUN/Creatinine Ratio Glucose Calcium Magnesium Crossmatch See Detail 10/19/18 04:25 WBC RBC Hgb Hct MCV MCH MCHC RDW RDW Differential Plt Count MPV Immature Gran % (Auto) Neut % (Auto) Lymph % (Auto) [place] % (Auto) Eos % (Auto) Baso % (Auto) Absolute Neuts (auto) Absolute Lymphs (auto) Total Counted Differential Comment Diff Path Review Platelet Estimate Sodium 140 Potassium 2.9 L Chloride 89 L Carbon Dioxide 45.0 H Anion Gap 6 BUN 11 Creatinine 0.15 L Estim Creat Clear Calc 268.26 Est GFR (MDRD) Af Amer 644 Est GFR (MDRD) Non-Af 532 BUN/Creatinine Ratio 71.9 H Glucose 101 Calcium 8.3 L Magnesium 1.2 L Crossmatch Home Medications: Medications to take at Discharge Multivitamins,Therapeutic [Multivitamin] 1 tab PO DAILY 09/06/16 fluticasone 50 mcg/actuation nasal spray,suspension 50 mcg INTRANASAL QDAY PRN 12/06/17 Lidocaine/Prilocaine [Lidocaine-Prilocaine Cream] 30 gm TP DAILY PRN PRN 30 Days #1 cream..g. 03/15/18 Olanzapine [Zyprexa] 10 mg PO DAILY 16 Days #16 tab 03/15/18 Ondansetron HCl [Zofran] 4 mg PO Q8H PRN PRN 10 Days #30 tab 03/15/18 Paroxetine HCl [Paxil] 40 mg PO DAILY #30 tab 04/28/18 tiotropium bromide 2.5 mcg/actuation mist for inhalation 2 puff INHALATION QDAY #1 device 05/03/18 Iron Polysaccharide Complex [Ferrex 150] 150 mg PO DAILYCM #30 cap 08/23/18 Magnesium Oxide [Mag-Ox 400] 400 mg PO BIDCM #28 tab 08/23/18 albuterol sulfate HFA 90 mcg/actuation aerosol inhaler 1 - 2 puff INHALATION Q4H PRN PRN #1 inhaler 09/01/18 budesonide-formoterol HFA 160 mcg-4.5 mcg/actuation aerosol inhaler 2 puff INHALATION BID #1 hfa.aer.ad 09/01/18 albuterol sulfate 2.5 mg/3 mL (0.083 %) solution for nebulization 2.5 mg INHALATION 4X/DAY PRN 30 Days #180 vial 09/13/18 Doxycycline Monohydrate 100 mg PO BID #14 cap 10/07/18 Omeprazole [Prilosec] 20 mg PO DAILY #30 capsule 10/12/18 Primary Care Physician: Dariel Ortega Chi, MD [Primary Care Provider] - Disposition: Hospice Medical Facility Minutes spent on discharge:: 35 Patient Condition:: Guarded Medical Necessity - Tobacco Use Smoking Status: Former smoker Tobacco Use: Cigarettes Meaningful Use Info Meaningful Use Diagnoses (Choose all that apply): None applicable <Mark Ahumada - Last Filed: 10/19/18 16:26> Discharge Date and Diagnosis - Secondary Discharge Diagnosis Chronic Problems (Last Updated 10/17/18 @ 14:47 by Mark Ahumada DO) History of tubal ligation (Chronic) Lung mass (Chronic) Cachexia (Chronic) Small cell lung cancer (Chronic) Mediastinal mass (Chronic) 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) Encounter for insertion of venous access port (Chronic) Educational circumstance (Chronic) Chemotherapy management, encounter for (Chronic) Anemia (Chronic) Immunosuppressed due to chemotherapy (Chronic) History of tubal ligation (Chronic) Asthma (Chronic) Nocturnal hypoxia (Chronic) Anxiety (Chronic) Nicotine dependence in remission (Chronic) Stage 4 very severe COPD by GOLD classification (Chronic) Allergic rhinitis (Chronic) COPD with acute exacerbation (Chronic) Tobacco dependence syndrome (Chronic) Ljdzw-[id number] deficiency (Chronic) COPD (chronic obstructive pulmonary disease) (Chronic) GERD (gastroesophageal reflux disease) (Chronic) Hospital Course and Treatment Operations: None Procedures: None Summary of Care Provided: Patient seen and examined independently. Data reviewed. I agree with the above note by the nurse practitioner. The patient is a 57 year old F presents with shortness of breath and chest pain. Patient was noted to be pancytopenic questionable infiltrate. Much of the patient experiencing be stemming from stage IV worsening small cell lung cancer. Patient has had some benefit of treatment but symptomatically is overall worse. After extensive conversations with the hospital service, oncology and hospice patient agreed to hospice and patient was transferred to the hospice care center. Patient's prognosis is poor with life expectancy of weeks. [] - Physical Exam Vital Signs Temp Pulse Resp BP Pulse Ox 36.6 C 111 H 18 138/65 H 96 10/19/18 14:12 10/19/18 14:12 10/19/18 14:12 10/19/18 14:12 10/19/18 14:12 Oxygen Flow Rate (L/min) 2 Oxygen Delivery Method Nasal Cannula Weight: 40.1 kg Body Mass Index (BMI) 13.4 Intake and Output for Last 24 Hours 10/17/18 10/18/18 10/19/18 23:59 23:59 23:59 Intake Total 2673 / 2673 2195 / 2195 1795 / 1795 Output Total 550 / 550 800 / 800 Balance 2673 / 2673 1645 / 1645 995 / 995 Laboratory Tests Past 24 Hrs 10/18/18 10/19/18 10/19/18 05:45 04:25 04:25 WBC 0.6 L* RBC 2.98 L Hgb 9.7 L Hct 30.0 L MCV 100.7 H MCH 32.6 H MCHC 32.3 RDW 16.3 H RDW Differential 57.8 H Plt Count 16 L* MPV 10.6 Immature Gran % (Auto) 4.900 H Neut % (Auto) 67.2 Lymph % (Auto) 11.5 L [place] % (Auto) 16.4 H Eos % (Auto) 0.0 Baso % (Auto) 0.0 Absolute Neuts (auto) 0.4 L Absolute Lymphs (auto) 0.07 L Total Counted Not Reportable Differential Comment SCAN Diff Path Review Reviewed Reviewed Platelet Estimate MKD DEC Sodium 140 Potassium 2.9 L Chloride 89 L Carbon Dioxide 45.0 H Anion Gap 6 BUN 11 Creatinine 0.15 L Estim Creat Clear Calc 268.26 Est GFR (MDRD) Af Amer 644 Est GFR (MDRD) Non-Af 532 BUN/Creatinine Ratio 71.9 H Glucose 101 Calcium 8.3 L Magnesium 1.2 L Discharge Diet: No Restrictions Disposition: Hospice Medical Facility Minutes spent on discharge:: 35 Patient Condition:: Poor Medical Necessity - Tobacco Use Smoking Status: Former smoker Tobacco Use: Cigarettes Meaningful Use Info Meaningful Use Diagnoses (Choose all that apply): None applicable Code Visit Inpatient E&M: 53161 Disch Hosp
[2018-10-19 14:40] LABS: Pathologist Review Reviewed
--- NOTE | 2018-10-19 16:12 | CASEMGMT ---
Patient is going to the Inpatient Hospice Unit with [facility]. Mansi CORNELL MSW
== END 2018-10-19 16:25 | disposition hospice, inpatient (51) | DRG 720 ==
LOC: ED 02:37 → PCU 06:17
PROVIDERS: Internal Medicine Hematology & Oncology; Admitting Provider Family Medicine; Emergency Provider Emergency Medicine; Family Provider Family Medicine Geriatric Medicine; PCP Family Medicine Geriatric Medicine
DX: A41.9 Sepsis, unspecified organism (principal); E43 Unspecified severe protein-calorie malnutrition; J18.9 Pneumonia, unspecified organism; C78.1 Secondary malignant neoplasm of mediastinum; B37.0 Candidal stomatitis; C34.90 Malignant neoplasm of unspecified part of unspecified bronchus or lung; R13.10 Dysphagia, unspecified; Z51.5 Encounter for palliative care; Z68.1 Body mass index [BMI] 19.9 or less, adult; D61.810 Antineoplastic chemotherapy induced pancytopenia; T45.1X5A Adverse effect of antineoplastic and immunosuppressive drugs, initial encounter; R64 Cachexia; E88.01 Alpha-1-antitrypsin deficiency; I87.1 Compression of vein; J96.11 Chronic respiratory failure with hypoxia; J44.9 Chronic obstructive pulmonary disease, unspecified; Z92.3 Personal history of irradiation; C80.1 Malignant (primary) neoplasm, unspecified; F32.9 Major depressive disorder, single episode, unspecified; K21.9 Gastro-esophageal reflux disease without esophagitis; F17.201 Nicotine dependence, unspecified, in remission; Z79.899 Other long term (current) drug therapy
CPT/HCPCS: 36591; 71275; 77387; 77412; 80048; 83735; 84484; 85025; 86850; 86900; 86920; 86965; 87040; 92526; 93005; 94640; 97802; 99285; J2185; J7030; J7040; J7120; P9016; P9035; Q9967; A4216; J0295; J1447; J2405